=== PATIENT | female | born 1990 | race Caucasian/White ===

== ENCOUNTER 2019-07-27 12:53 | Emergency (ER) | payer MEDICAID, SELFPAY ==
[2019-07-27 12:55] VITALS: BP 123/68; PULSE 83; PULSE 84; RESP 17; TEMP 36.6; O2SAT 100; O2SAT 99; BMI 30.4
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
--- NOTE | 2019-07-27 13:14 | CT_ITS ---
STUDY: CT CERVICAL SPINE WITHOUT CONTRAST REASON FOR EXAM: Female, 28 years old. RADIATION DOSAGE (If Supplied By Facility): CTDIvol = ( 24.34 ) mGy, DLP = ( 445.22 ) mGycm TECHNIQUE: High resolution transaxial imaging was performed without contrast material. Sagittal and coronal images were reconstructed. Individualized dose optimization techniques were used for this CT. COMPARISON: CT scan of the head obtained in conjunction with this study. FINDINGS: Normal craniovertebral junction. Normal anterior atlantoaxial articulation. Normal odontoid process. Normal cervical lordosis. Normal vertebral bodies and posterior osseous elements. C2-3: Normal endplates. Normal disc height and morphology. Normal central canal and intervertebral neuroforamina. C3-4: Normal endplates. Normal disc height and morphology. Normal central canal and intervertebral neuroforamina. C4-5: Normal endplates. Normal disc height and morphology. Normal central canal and intervertebral neuroforamina. C5-6: Normal endplates. Normal disc height and morphology. Normal central canal and intervertebral neuroforamina. C6-7: Normal endplates. Normal disc height and morphology. Normal central canal and intervertebral neuroforamina. C7-T1: Normal endplates. Normal disc height and morphology. Normal central canal and intervertebral neuroforamina. Normal visualized soft tissue structures. CT/Spine Cervical without Contras IMPRESSION: Normal unenhanced CT examination of the cervical spine. Electronically Signed: Gurvinder Artemio, at 14:49 EDT Tel , Service support ,
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
[2019-07-27 14:06] VITALS: BP 117/71; PULSE 91; RESP 20
[2019-07-27 14:07] LABS: Absolute Lymphocyte Count 3.27 X10^3/uL (0.83-4.51); Absolute Neutrophil Count 11.6 X10^3/uL (2.0-7.7); Basophil# 0.04 X10^3/uL; Basophil% 0.3 % (0-1); Eosinophil# 0.08 X10^3/uL; Eosinophils% 0.5 % (0-5); Hematocrit 41.9 % (37-47); Hemoglobin 13.9 g/dL (12.0-15.0); International Normalized Ratio 1.1; Lymphocyte # 3.27 X10^3/ul (4.0); Lymphocyte % 20.6 % (19-41); Mean Corp Hgb Conc 33.2 g/dL (32-36); Mean Corpuscular Hgb 29.3 pg (27.0-32.0); Mean Corpuscular Volume 88.2 fL (81-99); Mean Platelet Vol. 8.8 fl (6.2-12.0); Monocyte# 0.75 X10^3/uL; Monocyte% 4.7 % (0-10); NRBC Flagged by Analyzer 0 % (0-5); Neutrophil # 11.62 X10^3/uL (2.7-7.7); Neutrophil % 73.3 % (47-70); Platelet Count 305 K/mm3 (150-450); Prothrombin Time (Protime)PT. 13.8 SECONDS (11.7-14.9); RBC Distribution Width CV 12.4 % (11.6-14.6); RBC Distribution Width SD 40.2 fl (35.1-43.9); Red Blood Count 4.75 M/mm3 (4.2-5.4); White Blood Count 15.9 K/mm3 (4.4-11.0)
[2019-07-27 14:08] LABS: Partial Thromboplast Time 26.8 Seconds (24.1-36.2)
[2019-07-27 14:11] LABS: Internal QC Validated? YES +Cl - CLEAR BKGD; Pregnancy, Serum, hCG Quali. NEGATIVE Negative
[2019-07-27 14:24] LABS: Anion Gap 5 (5-15); BUN 18 mg/dL (7-18); BUN/Creat Ratio 24.3 RATIO (10-20); Calcium,Total 8.7 mg/dL (8.5-10.1); Chloride 107 mmol/L (98-107); Creatinine, Serum 0.74 mg/dL (0.55-1.02); EST Glomerular Filtration Rate 100 mL/min (>60); Est Glom Filt Rate - Afr Amer 121 mL/min (>60); Estimated Creatinine Clearance 99.48 ml/min; Glucose 108 mg/dL (74-106); Potassium 3.3 mmol/L (3.5-5.1); Sodium Level 139 mmol/L (136-145)
[2019-07-27] MEDS: Diphth,Pertuss(Acell),Tet Vac 0.5 ML Vial IM (14:41)
[2019-07-27] MEDS: fentaNYL 100 MCG/2 ML Ampul 50 MCG IV (14:41)
[2019-07-27] MEDS: Ondansetron 4 MG/2 ML Vial IV (14:52)
--- NOTE | 2019-07-27 15:02 | ED.RN ---
REPORT GIVEN TO SHEILA OLSON.
[2019-07-27 15:03] VITALS: BP 109/66
[2019-07-27 15:04] VITALS: BP 109/66; PULSE 93; RESP 15; O2SAT 100
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
--- NOTE | 2019-07-27 15:17 | ED.RN ---
[facility] IN ED.
== END 2019-07-27 15:17 | disposition short-term general hospital (02) ==
PROVIDERS: Emergency Provider Emergency Medicine; Family Provider Pediatrics; PCP Pediatrics
DX: S06.369A Traumatic hemorrhage of cerebrum, unspecified, with loss of consciousness of unspecified duration, initial encounter (principal); S41.012A Laceration without foreign body of left shoulder, initial encounter; S50.812A Abrasion of left forearm, initial encounter; M54.5 Low back pain; V89.2XXA Person injured in unspecified motor-vehicle accident, traffic, initial encounter; Y93.9 Activity, unspecified; Y92.9 Unspecified place or not applicable; Y99.9 Unspecified external cause status
CPT/HCPCS: 70450; 71045; 72125; 80048; 84484; 84703; 85025; 85610; 85730; 86850; 86900; 86901; 90715; 96361; 96374; 96375; 99285; J7030; A4216; J2405

== ENCOUNTER 2025-08-06 19:11 | Emergency (ER) | payer MEDICAID, SELFPAY ==
[2025-08-06 19:12] VITALS: BP 108/77; PULSE 99; RESP 18; TEMP 37; O2SAT 99; BMI 34.4
[2025-08-06 19:20] VITALS: BP 108/77; PULSE 99; RESP 18; TEMP 37; O2SAT 100
[2025-08-06 21:10] LABS: Hematocrit 41.9 % (37-47); Hemoglobin 13.9 g/dL (12.0-15.0); Immature Granulocytes Count 0.030 X10^3/uL (0.0-0.0); Mean Corp Hgb Conc 33.2 g/dL (32-36); Mean Corpuscular Volume 87.1 fL (81-99); Mean Platelet Vol. 8.3 fl (6.2-12.0); NRBC Flagged by Analyzer 0 % (0-5); Platelet Count 307 K/mm3 (150-450); RBC Distribution Width CV 12.9 % (11.6-14.6); RBC Distribution Width SD 40.9 fl (35.1-43.9); Red Blood Count 4.81 M/mm3 (4.2-5.4); White Blood Count 12.8 K/mm3 (4.4-11.0)
[2025-08-06 21:14] LABS: Anion Gap 12 (5-15); BUN 12 mg/dL (4-19); BUN/Creat Ratio 20.2 RATIO (10-20); Calcium,Total 9.1 mg/dL (7.6-11.0); Carbon Dioxide 25.9 mmol/L (21.0-32.0); Chloride 101 mmol/L (98-108); Estimated Creatinine Clearance 149.91 ml/min (50-250); Glucose 111 mg/dL (70-99); Potassium 3.9 mmol/L (3.3-5.1)
[2025-08-06 21:20] VITALS: BP 128/80; PULSE 93; RESP 20; TEMP 37.1; O2SAT 99
[2025-08-06] MEDS: Smz/Tmp Ds Tablet 1 TABLET PO (21:36)
[2025-08-06 21:39] VITALS: BP 128/80; PULSE 93; RESP 20; TEMP 37.1; O2SAT 99
== END 2025-08-06 21:39 | disposition home or self-care (01) ==
PROVIDERS: Emergency Provider Surgery; Visit Provider Surgery
DX: L03.115 Cellulitis of right lower limb (principal); W57.XXXA Bitten or stung by nonvenomous insect and other nonvenomous arthropods, initial encounter; S70.361A Insect bite (nonvenomous), right thigh, initial encounter; G43.709 Chronic migraine without aura, not intractable, without status migrainosus; Z79.899 Other long term (current) drug therapy
CPT/HCPCS: 80048; 85025; 87040; 99284; A4216

== ENCOUNTER 2025-08-08 19:36 | Inpatient (IN) | payer MEDICAID, SELFPAY ==
[2025-08-08 19:38] VITALS: BP 138/84; PULSE 90; RESP 15; TEMP 37.1; O2SAT 100; BMI 33.8
--- OUTSIDE RECORDS SUMMARY | 2025-08-08 22:11 | XMS RPT_ITS | CCD ---
Author Organization [facility] Care Team Providers Care Business Services Assistant Name Role Phone Pa Mckeon MD Primary Care Provider Jorge Mckeon MD Primary Care Provider Pa Mckeon MD Primary Care Provider Jorge Mckeon MD Primary Care Provider [phone] Pa Mckeon MD Primary Care Provider Jorge Mckeon MD Primary Care Provider PROVIDER, UNKNOWN Referring Unavailable PA MCKEON Primary Care Unavailable Pa Mckeon MD Primary Care Provider Pa Mckeon Primary Care Provider Pa Mckeon Primary Care Provider Bernarda TRINH.FABBY, Corrie Unavailable [place] BUILDING INSPECTOR.Ketan SEQUEIRA Unavailable [phone] [place] BUILDING INSPECTOR.Edelmira SEQUEIRA N Unavailable [place] BUILDING INSPECTOR.Francis SEQUEIRAie Unavailable [place] BUILDING INSPECTOR.FABBY Eedlmira N Unavailable Bernarda BUILDING INSPECTOR.FABBY, Corrie Unavailable [place] BUILDING INSPECTOR.Ketan SEQUEIRA Unavailable [phone] AMINA HORN Referring Unavailable PA MCKEON Primary Care Unavailable YENY VELASCO Referring Unavailable YENY VELASCO Attending Unavailable MCKEONJORGE Primary Care Unavailable YENY VELASCO Attending Unavailable MCKEON JORGE Primary Care Unavailable YENY VELASCO Attending Unavailable MCKEON, JORGE Primary Care Unavailable VELASCOYENY ASTORGA Attending Unavailable MCKEON, JORGE Primary Care Unavailable YENY VELASCO Attending Unavailable MCKEON, JORGE Primary Care Unavailable RYANN NULL Attending Unavailable AMINA HORN Referring Unavailable MCKEON, PA A Primary Care Unavailable MCKEON, PA A Primary Care Unavailable MÓNICA VASQUES Referring Unavailable MCKEON, PA A Primary Care Unavailable YASHIRA PIERCE Attending Unavailable MCKEON, PA A Referring Unavailable MCKEON, PA A Primary Care Unavailable AMINA HORN Attending Unavailable GALLITO LEMUS Referring Unavailable MCKEON, PA A Primary Care Unavailable OSCAR COLIN Attending Unavailabl e MCKEON, PA A Primary Care Unavailable GALLITO LEMUS Attending Unavailable MCKEON, PA A Primary Care Unavailable AMINA HORN Referring Unavailable MCKEON, PA A Primary Care Unavailable MCKEON, PA A Primary Care Unavailable CAIO STONE Attending Unavailable YASHIRA PIERCE Attending Unavailable MCKEON, PA A Referring Unavailable MCKEON, PA A Primary Care Unavailable YASHIRA PIERCE Referring Unavailable MCKEON, PA A Primary Care Unavailable GALLITO LEMUS Attending Unavailable MCKEON, PA A Primary Care Unavailable Juan M Zurita Attending Unavailabl e Mckeon, Pa Primary Care Unavailable Allergies Allergy Classification Reported Allergen(s) Allergy Type Date of Onset Reaction(s) Facility (20 sources) Other Propensity to adverse reactions 09-05-2022 [facility] (6 sources) Seasonal allergy Propensity to adverse reactions 07-27-2019 [facility] Medications Current Medications Medication Drug Class(es) Dates Sig (Normalized) Sig (Original) acetaminophen 325 mg oral tablet (20 sources) take 2 tablets by mouth every six hours as needed acetaminophen (Tylenol) 325 MG tablet Take 650 mg by mouth every 6 hours as needed. Active b complex vitamins capsule (20 sources) take 1 capsule by mouth once daily b complex vitamins capsule Take 1 capsule by mouth daily. Active take 1 capsule by mouth once gabi ly b complex vitamins capsule Take 1 capsule by mouth daily. 0 Active butterbur root extract 75 mg cap (20 sources) butterbur root e xtract 75 mg cap Take by mouth. Active butterbur root e xtract 75 mg cap Take by mouth. 0 Active Comment on above: Take by mouth. cholecalciferol 1.25 mg oral capsule (20 sources) Vitamin D Start: 024 End: 025 cholecalciferol 1.25 MG (68884 UT) capsule 12/04/2023 Active Comment on above: Take 1 capsule by [facility] one time a week. 1 ml erenumab-aooe 140 mg/ml auto-injector (20 sources) Start: 024 inject 140 mg by subcutaneous injection every month AIMOVIG AUTOINJECTOR 140 mg/mL auto-injector Inject 140 mg subcutaneously once every month. migraines 01/21/2024 Active Start: 12-11-2022 End: 12-13-2025 erenumab (Aimovig) 140 MG/ML injection Indications: Chronic migraine without aura with status migrainosus, not intractable INJECT 140 MG INTO THE SKIN EVERY 30 DAYS 1 mL 11 06/01/2025 8:56 AM EDT 12/13/2024 12/13/2025 Active Start: 08-06-2022 End: 12-11-2023 erenumab (Aimovig) 140 MG/ML injection Indications: Chronic migraine without aura with status migrainosus, not intractable INJECT 140 MG INTO THE SKIN EVERY 30 DAYS 1 mL 11 12/11/2022 12/11/2023 Active Start: 11-06-2020 End: 02-10-2024 inject 140 mg by subcutaneous injection every month erenumab-aooe (AIMOVIG AUTOINJECTOR) 70 mg/mL auto-injector Inject 140 mg subcutaneously once every month. 11/06/2020 02/10/2024 Discontinued Comment on above: Inject 140 mg subcut aneously once every month. ergocalciferol, vitamin D2, (VITAMIN D2 ORAL) (11 sources) take 2000 [IU] by mouth once daily ergocalciferol, vitamin D2, (VITAMIN D2 ORAL) Take 2,000 Units by mouth once daily. Active escitalopram 20 mg oral tablet (20 sources) Serotonin Reuptake Inhibitor Start: 02-25-20 End: 01-13-20 take 1 tablet by mouth once daily escitalopram oxalate (LEXAPRO) 20 mg tablet Indications: Adjustment disorder with mixed anxiety and depressed mood Take 1 tablet by mouth once daily. 90 tablet 3 01/12/2025 01/12/2026 Active Start: 09-22-2020 End: 03-12-2021 take 1 tablet by mouth once daily escitalopram oxalate (LEXAPRO) 20 mg tablet Take 1 tablet by mouth once daily. 30 tablet 5 09/22/2020 03/12/2021 Discontinued Comment on above: Take 1 tablet by kirk th once daily. Take 1 tablet by kirk th once daily ibuprofen 200 mg oral tablet (20 sources) Nonsteroidal Anti-inflammatory Drug Start: 01-05-2013 ibuprofen 200 MG tablet Take by mouth. 01/05/2013 Active 2 ml ketorolac tromethamine 30 mg/ml cartridge (19 sources) Nonsteroidal Anti-inflammatory Drug, Cyclooxygenase Inhibitor Start: 12-18-2023 End: 12-17-2024 ketorolac (Toradol) 60 MG/2ML solution Inject 2 mL (60 mg) into the shoulder, thigh, or buttocks Once as needed for severe pain (7-10) (Migraine pain). Do not exceed 5 doses in one week or 10 doses in one month. 10 mL 2 12/18/2023 12/17/2024 Active Start: 12-18-2023 End: 12-17-2024 keTORolac Tromethamine (PEDRO DOL) 60 mg/2 mL crtg Inject 60 mg intramuscularly. 12/18/2023 09/05/2024 Discontinued L.acid/B.bifidum/B.animal/FO S (PROBIOTIC COMPLEX ORAL) (20 sources) L.acid/B.bifidum /B.animal/FOS (PROBIOTIC COMPLEX ORAL) Take by mouth. Taking one daily. Active L.acid/B.bifidum /B.animal/FOS (PROBIOTIC COMPLEX ORAL) Take by mouth. Taking one daily. 0 Active Comment on above: Take by mouth. Regulo ndiaye one daily. Lactobacillus acidophilus (20 sources) Lactobacillus (P ROBIOTIC ACIDOPHILUS PO) Take by mouth. Active Lactobacillus (P ROBIOTIC ACIDOPHILUS PO) Take by mouth. 0 Active loratadine 10 mg oral tablet (20 sources) Start: 05-21-2011 take 1 tablet by mouth in the morning loratadine (Claritin) 10 MG tablet Take 10 mg by mouth in the morning. 05/21/2011 Active Comment on above: Take 10 mg by mouth once daily. magnesium oxide 400 mg oral tablet (20 sources) take 1 tablet by mouth once daily magnesium oxide (MAG-OX) 400 mg (241.3 mg magnesium) tablet Take 400 mg by mouth once daily. Active Comment on above: Take 400 mg by mouth once daily. modafinil 100 mg oral tablet (20 sources) Sympathomimeti c-like Agent Start: 02-10-2024 End: 12-13-2025 take 1 tablet by mouth once daily modafinil (PROVIGIL) 100 mg tablet Indications: Hypersomnia due to medical condition Take 1 tablet by mouth once daily for 180 days. 90 tablet 1 06/16/2025 12/13/2025 Active Multiple Vitamin (Multi-Vitamin) tablet (20 sources) take 1 tablet by mouth in the morning Multiple Vitamin (Multi-Vitamin) tablet Take 1 tablet by mouth in the morning. Active take 1 tablet by mouth in the mo rning Multiple Vitamin (Multi-Vitamin) tablet Take 1 tablet by mouth in the morning. 0 Active multivitamin tablet (20 sources) take 1 tablet by kirk th once daily multivitamin tablet Take 1 tablet by mouth once daily. Active take 1 tablet by mouth once jalil y multivitamin tablet Take 1 tablet by mouth once daily. 0 Active Comment on above: Take 1 tablet by kirk th once daily. naproxen 500 mg oral tablet (20 sources) Nonsteroidal Anti-inflammatory Drug Start: 5 take 1 tablet by mouth in the morning naproxen (Naprosyn) 500 MG tablet Take 500 mg by mouth in the morning and 500 mg in the evening. 03/07/2015 Active omeprazole 20 mg delayed release oral capsule (20 sources) Proton Pump Inhibitor Start: take 1 capsule by mouth once daily omeprazole (PRILOSEC) 20 mg capsule Take 1 capsule by mouth once daily. 90 capsule 3 05/12/2025 Active Start: 08-18-2022 End: 05-10-2025 take 1 capsule by mouth in the morning omeprazole (PriLOSEC) [address] capsule Take 20 mg by mouth in the morning. 08/18/2022 Active Start: 08-05-2021 take 1 capsule by mo ut once daily omeprazole (PRILOSEC) 20 mg capsule Take 1 capsule by mouth once daily. 90 capsule 3 08/05/2021 Active Start: 08-08-2020 End: 08-03-2021 take 1 capsule by mouth once daily omeprazole (PRILOSEC) 20 mg capsule Take 1 capsule by mouth once daily. 90 capsule 3 08/08/2020 08/03/2021 Discontinued Comment on above: Take 1 capsule by mo ut once daily. Take 1 capsule by mo ut once daily SUMAtriptan 100 mg oral tablet (20 sources) Serotonin-1b and Serotonin-1d Receptor Agonist Start: 06-10-2022 End: 03-24-2025 SUMAtriptan (IMITREX) 100 mg tablet 11/03/2023 Active sumatriptan succ/naproxen sod (SUMATRIPTAN-NAPROXEN ORAL) (20 sources) sumatriptan succ/naproxen sod (SUMATRIPTAN-NAPROXEN ORAL) Take by mouth. Active sumatriptan succ /naproxen sod (SUMATRIPTAN-NAPROXEN ORAL) Take by mouth. 0 Active Comment on above: Take by mouth. Syringe 25G X 1" 3 ML misc (20 sources) Start: 12-18-2023 Syringe 25G X 1" 3 ML misc 1 Syringe Once as needed (Migraine) for up to 1 dose. 20 each 3 12/18/2023 Active traZODone hydrochloride 50 mg oral tablet (20 sources) Serotonin Reuptake Inhibitor Start: 04-11-2022 End: 02-10-2024 traZODone (Desyrel) 50 MG tablet Take 50 mg by mouth. 04/11/2022 Active Start: 09-10-2021 take 0.5-2 tablets b y mouth once daily at bedtime traZODone (DESYREL) 50 mg tablet Take 0.5-2 tablets by mouth daily at bedtime. 45 MINUTES BEFORE BED 30 tablet 6 09/10/2021 Active Comment on above: Take 0.5-2 tablets b y mouth daily at bedtime. 45 MINUTES BEFORE BED Vitamin B Complex (20 sources) vitamin B comple x (SUPER B COMPLEX ORAL) Take by mouth. Active vitamin B comple x (SUPER B COMPLEX ORAL) Take by mouth. 0 Active Comment on above: Take by mouth. Completed/Discontinued Medications Medication Drug Class(es) Dates Sig (Normalized) Sig (Original) amitriptyline hydrochloride 25 mg oral tablet (1 source) Tricyclic Antidepressant End: take 1 tablet by mouth once daily at bedtime amitriptyline (ELAVIL) 25 mg tablet Take 25 mg by mouth daily at bedtime. 12/31/2020 Discontinued benzonatate 100 mg oral capsule (8 sources) Non-narcotic Antitussive Start: End: take 1 capsule by mouth every eight hours as needed benzonatate (TESSALON PERLE) 100 mg capsule Take 1 capsule by mouth three times a day as needed for cough. 21 capsule 12/13/2024 06/15/2025 Discontinued onabotulinumtoxina 200 unt injection (20 sources) Acetylcholine Release Inhibitor Start: End: onabotulinumtoxinA (Botox) injection 200 Units Start: 06-21-2025 End: 06-21-2025 inject 200 [IU] by intramuscular injection once 200 Units, IntraMUSCular, Once, On Thu06/21/25 at 1015, For 1 dose Start: 03-24-2025 End: 03-24-2025 onabotulinumtoxinA (Botox) i njection 200 Units Start: 03-24-2025 End: 03-24-2025 inject 200 [IU] by intramuscular injection once 200 Units, IntraMUSCular, Once, On Thu03/24/25 at 1045, For 1 dose Start: 12-23-2024 End: 12-23-2024 onabotulinumtoxinA (Botox) i njection 200 Units Start: 12-23-2024 End: 12-23-2024 inject 200 [IU] by intramuscular injection once 200 Units, IntraMUSCular, Once, On Thu12/23/24 at 1030, For 1 dose Start: 09-23-2024 End: 09-23-2024 onabotulinumtoxinA (Botox) i njection 200 Units Start: 09-23-2024 End: 09-23-2024 inject 200 [IU] by intramuscular injection once 200 Units, IntraMUSCular, Once, On Thu09/23/24 at 1045, For 1 dose Start: 08-24-2024 End: 09-01-2025 inject 200 [IU] by intramuscular injection in the evening onabotulinumtoxinA (Botox) 200 units injection Provider to inject 200 units intramuscularly every 12 weeks for migraine prevention. 1 each 3 06/09/2025 3:36 PM EDT 08/24/2024 09/01/2025 Active Start: 06-24-2024 End: 06-24-2024 onabotulinumtoxinA (Botox) i njection 200 Units Start: 06-24-2024 End: 06-24-2024 inject 200 [IU] by intramuscular injection once 200 Units, IntraMUSCular, Once, On Thu06/24/24 at 1130, For 1 dose Start: 03-25-2024 End: 03-25-2024 onabotulinumtoxinA (Botox) i njection 200 Units Start: 12-18-2023 End: 12-18-2023 onabotulinumtoxinA (Botox) i njection 200 Units Start: 12-16-2023 BOTOX 200 unit injection Every 3 month for migraines 12/16/2023 Active Start: 09-18-2023 End: 09-18-2023 onabotulinumtoxinA (Botox) i njection 200 Units Start: 09-07-2023 End: 09-07-2024 onabotulinumtoxinA (Botox) 2 00 units injection Inject 200 units into the muscle every 84 days 1 each 3 06/15/2024 4:01 PM EDT 09/07/2023 08/24/2024 Discontinued (Reorder) Start: 06-19-2023 End: 06-19-2023 onabotulinumtoxinA (Botox) i njection 200 Units Start: 06-19-2023 End: 06-19-2023 onabotulinumtoxinA (Botox) i njection 200 Units Start: 06-19-2023 End: 06-19-2023 onabotulinumtoxinA (Botox) i njection 200 Units Start: 06-19-2023 End: 06-19-2023 onabotulinumtoxinA (Botox) i njection 200 Units Start: 06-19-2023 End: 06-19-2023 onabotulinumtoxinA (Botox) i njection 200 Units Start: 06-19-2023 End: 06-19-2023 onabotulinumtoxinA (Botox) i njection 200 Units Start: 03-20-2023 End: 03-20-2023 onabotulinumtoxinA (Botox) i njection 200 Units Start: 03-20-2023 End: 03-20-2023 onabotulinumtoxinA (Botox) i njection 200 Units Start: 03-20-2023 End: 03-20-2023 onabotulinumtoxinA (Botox) i njection 200 Units Start: 03-20-2023 End: 03-20-2023 onabotulinumtoxinA (Botox) i njection 200 Units Start: 12-19-2022 End: 12-19-2022 onabotulinumtoxinA (Botox) i njection 200 Units Start: 12-19-2022 End: 12-19-2022 onabotulinumtoxinA (Botox) i njection 200 Units Start: 09-09-2022 End: 09-06-2024 BOTOX 200 unit injection Active cholecalciferol, vitamin D3, (VITAMIN D3 ORAL) (9 sources) cholecalciferol, vitamin D3, (VITAMIN D3 ORAL) Take by mouth. Taking one daily. 0 Active Comment on above: Take by mouth. Takin g one daily. ferrous sulfate 325 mg oral tablet (7 sources) Start: 12-04-19 End: 03-03-20 take 1 tablet by mouth every other day ferrous sulfate 325 mg (65 mg iron) tablet Indications: Iron deficiency Take 1 tablet by mouth every other day. 45 tablet 0 12/04/2023 03/03/2024 Start: 12-04-2023 End: 03-03-2024 take 1 tablet by mouth every other day ferrous sulfate 325 (65 Fe) MG tablet Take 325 mg by mouth every other day. 0 12/04/2023 03/03/2024 Active End: 09-05-2024 ferrous sulfate (IRON ORAL) Take by mouth once daily. 09/05/2024 Discontinued Comment on above: Take 1 tablet by kirk every other day. lasmiditan 100 mg oral tablet (17 sources) Start: 2021 End: 2022 take 1 tablet by mouth every twenty-four hours as needed Lasmiditan Succinate 100 MG tablet TAKE 100 MG BY MOUTH DAILY NEEDED (MIGRAINE) MAXIMUM ONE TABLET PER 24 HOURS. 4 tablet 3 06/20/2022 03/23/2023 Discontinued medium chain triglycerides (MCT OIL ORAL) (1 source) End: 2021 medium chain triglycerides (MCT OIL ORAL) Take by mouth. 12/12/2021 Discontinued methylPREDNISolone 4 mg oral tablet (3 sources) Corticosteroid Start: 2023 End: 2023 methylPREDNISolone (Medrol Dospak) 4 MG tablets Indications: Chronic migraine without aura with status migrainosus, not intractable Take as directed 1 each 0 10/23/2023 12/20/2023 Discontinued (Therapy completed) Misc Natural Products (Petadolex 75) 75 MG capsule (20 sources) Start: 2020 End: 2023 take 1 capsule by mouth in the morning Misc Natural Products (Petadolex 75) 75 MG capsule Take 75 mg by mouth in the morning and 75 mg before bedtime. 0 06/04/2021 02/19/2024 Discontinued (Therapy completed) Start: 06-04-2021 take 1 capsule by mo uth in the morning Misc Natural Products (Petadolex 75) 75 MG capsule Take 75 mg by mouth in the morning and 75 mg before bedtime. 0 06/04/2021 Active rizatriptan 10 mg disintegrating oral tablet (13 sources) Serotonin-1b and Serotonin-1d Receptor Agonist Start: 10-23-2023 End: 09-23-2024 rizatriptan [employer] TALEO MANAGER (Maxalt-PEOPLESO[employer] TALEO MANAGER) 10 MG disintegrating tablet Indications: Chronic migraine without aura with status migrainosus, not intractable Take one dissolving tablet under tongue at onset of headache. If headache continues may repeat dose 2 hours later with max dose of 2 tablets in 24 hours. 12 tablet 2 10/23/2023 09/23/2024 Discontinued (Therapy completed) Problems Active Problems Problem Classification Problem Date Documented Date Episodic/Chronic Acute and chronic tonsillitis (3 sources) Enlarged tonsil; Translations: [Hypertrophy of tonsils] Onset: 09-16-2024 04-28-2024 Chronic Adjustment disorders (20 sources) Adjustment disorder with mixed anxiety and depressed mood; Translations: [Adjustment disorder with mixed anxiety and depressed mood] Onset: 09-22-2020 09-22-2020 Chronic Anxiety disorders (20 sources) Acute post-trauma stress state; Translations: [Post-traumatic stress disorder, acute] Onset: 06-26-2020 08-03-2022 Chronic Delirium, dementia, and amnestic and other cognitive disorders (20 sources) Postconcussion syndrome; Translations: [Postconcussional syndrome] Onset: 10-06-2019 09-22-2020 Chronic Esophageal disorders (1 source) Gastroesophageal reflux disease without esophagitis; Translations: [Gastro-esophageal reflux disease without esophagitis] 04-27-2023 Chronic Headache; including migraine (20 sources) Migraine without aura, not refractory ; Translations: [Migraine without aura, not intractable, without status migrainosus] Onset: 02-19-2017 02-19-2017 Chronic Immunizations and screening for infectious disease (3 sources) Patient encounter status; Translations: [Encounter for screening for human papillomavirus (HPV)] Episodic Malaise and fatigue (2 sources) Fatigue; Translations: [Chronic fatigue, unspecified] Onset: 12-05-2023 12-01-2023 Chronic Malaise and fatigue (2 sources) Fatigue; Translations: [Other fatigue] Episodic Menstrual disorders (20 sources) Dysmenorrhea; Translations: [Dysmenorrhea, unspecified] Onset: 02-19-2017 02-19-2017 Chronic Miscellaneous mental health disorders (1 source) Primary hypersomnia; 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] 04-27-2024 Chronic Nutritional deficiencies (1 source) Vitamin D deficiency; Translations: [Vitamin D deficiency, unspecified] 03-03-2024 Chronic Other aftercare (2 sources) Long-term current use of stimulant; Translations: [Other [place] [facility] (current[facility] drug therapy] 12-30-2024 Episodic Other aftercare (2 sources) Other examining officer (current) drug therapy; Translations: [Long-term current use of stimulant] Onset: 06-15-2025 Episodic Other female genital disorders (1 source) History of abnormal cervical Papanicolaou smear ; Translations: [Personal history of other diseases of the female genital tract] Episodic Other lower respiratory disease (1 source) Snoring; Translations: [Snoring] 12-01-2023 Episodic Other lower respiratory disease (1 source) Snoring; Translations: [Snoring] Onset: 12-05-2023 Episodic Other lower respiratory disease (2 sources) Cough; Translations: [Acute cough] 12-13-2024 Episodic Other nutritional; endocrine; and metabolic disorders (1 source) Obesity; Translations: [Obesity, unspecified] 12-01-2023 Chronic Other nutritional; endocrine; and metabolic disorders (1 source) Obesity, unspecified; Translations: [Class 1 obesity with body mass index (BMI) of 31.0 to 31.9 in adult, unspecified obesity type, unspecified whether serious comorbidity present] Onset: 12-05-2023 Chronic Other nutritional; endocrine; and metabolic disorders (1 source) Body mass index (BMI) 31.0-31.9, adult; Translations: [Class 1 obesity with body mass index (BMI) of 31.0 to 31.9 in adult, unspecified obesity type, unspecified whether serious comorbidity present] Onset: 12-05-2023 Chronic Other screening for suspected conditions (not mental disorders or infectious disease) (1 source) Cancer cervix screening status; Translations: [Encounter for screening for malignant neoplasm of cervix] Episodic Other skin disorders (1 source) Follicular disorder, unspecified; Translations: [Folliculitis] Onset: 08-03-2025 Episodic Other upper respiratory infections (1 source) Acute upper respiratory infection; Translations: [Acute upper respiratory infection, unspecified] 12-13-2024 Episodic Residual codes; unclassified (1 source) Hypersomnia; Translations: [Hypersomnia, unspecified] 04-27-2023 Chronic Residual codes; unclassified (4 sources) Upper airway resistance syndrome; Translations: [Other sleep disorders] 02-10-2024 Chronic Residual codes; unclassified (8 sources) Hypersomnia disorder related to a known organic factor; Translations: [Hypersomnia due to medical condition] 02-10-2024 Chronic Residual codes; unclassified (1 source) Obstructive sleep apnea syndrome; Translations: [Obstructive sleep apnea (adult) (pediatric)] 09-16-2024 Chronic Residual codes; unclassified (2 sources) Other sleep disorders; Translations: [UARS (upper airway resistance syndrome)] Onset: 09-16-2024 Chronic Residual codes; unclassified (2 sources) Hypersomnia due to medical condition; Translations: [Hypersomnia due to medical condition] Onset: 06-15-2025 Chronic Residual codes; unclassified (1 source) Flushing; Translations: [Flushing] 09-05-2024 Episodic Unclassified (1 source) Acute cough; Translations: [Acute cough] Onset: 02-25-2025 Viral infection (20 sources) Genital herpes simplex; Translations: [Herpesviral infection of urogenital system, unspecified] Onset: 04-26-2015 04-26-2015 Chronic Past or Other Problems Problem Classification Problem Date Documented Date Episodic/Chronic Cancer of cervix (20 sources) Low grade squamous intraepithelial lesion on cervical Papanicolaou smear; Translations: [Low grade squamous intraepithelial lesion on cytologic smear of cervix (LGSIL)] Onset: 09-19-2020 09-19-2020 Episodic Intracranial injury (20 sources) Contusion of brain; Translations: [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, initial encounter] Onset: 07-28-2019 08-03-2022 Episodic Residual codes; unclassified (1 source) Flushing; Translations: [Hot flashes] Onset: 09-05-2024 Episodic Spondylosis; intervertebral disc disorders; other back problems (20 sources) Neck pain; Translations: [Cervicalgia] Onset: 12-11-2022 Episodic Unclassified (1 source) Long-term current use of stimulant 12-30-2024 Results Test Name Value Interpretation Reference Range Facility Basic Metabolic Profile (BMP )on 08-06-2025 BUN/CRE 20.2 RATIO High 08-07 [facility] Comment on above: Performed By: #### L 100.0100, L500.2500 #### [facility] [address] [place], [address] Calcium [Mass/Vol] 9.1 mg/dL Normal 7.6-11.0 [facility] Comment on above: Performed By: #### L 100.0100, L500.2500 #### [facility] [address] [place], [address] Chloride [Moles/Vol] 101 mmol/L Normal 98-108 [facility] Comment on above: Performed By: #### L 100.0100, L500.2500 #### [facility] [address] [place], [address] CO2 [Moles/Vol] 25.9 mmol/L Normal 21.0-32.0 [facility] Comment on above: Performed By: #### L 100.0100, L500.2500 #### [facility] [address] [place], [address] Creatinine [Mass/Vol] 0.61 mg/dL Low 0.70-1.20 [facility] Comment on above: Performed By: #### L 100.0100, L500.2500 #### [facility] [address] [place], [address] ECRCL 149.91 ml/min Normal 50-250 [facility] Comment on above: Performed By: #### L 100.0100, L500.2500 #### [facility] [address] [place], [address] GAP 12 Normal 5-15 [facility] Comment on above: Performed By: #### L 100.0100, L500.2500 #### [facility] [address] [place], [address] GFR/1.73 sq M.predicted among non-blacks MDRD (S/P/Bld) [Vol rate/Area] 122 mL/min/{1.73_m2} Normal >60 [facility] Comment on above: Result Comment: mL/m in/1.73m2 CKD-EPI Creatinine Equation (2020) Performed By: #### L 100.0100, L500.2500 #### [facility] [address] [place], [address] Glucose [Mass/Vol] 111 mg/dL High 70-99 [facility] Comment on above: Performed By: #### L 100.0100, L500.2500 #### [facility] [address] [place], [address] Potassium [Moles/Vol] 3.9 mmol/L Normal 3.3-5.1 [facility] Comment on above: Performed By: #### L 100.0100, L500.2500 #### [facility] [address] [place], [address] Sodium [Moles/Vol] 139 mmol/L Normal 133-145 [facility] Comment on above: Performed By: #### L 100.0100, L500.2500 #### [facility] [address] [place], [address] Urea nitrogen [Mass/Vol] 12 mg/dL Normal 4-19 [facility] Comment on above: Performed By: #### L 100.0100, L500.2500 #### [facility] [address] [place], [address] CBC W/Diff, Automatedon 10 Absolute Lymph 3.48 X10 3/uL Normal 0.83-4.51 [facility] Comment on above: Performed By: #### L 100.0100, L500.2500 #### [facility] [address], [address] Absolute Neut 8.6 X10 3/uL High 2.0-7.7 [facility] Comment on above: Performed By: #### L 100.0100, L500.2500 #### [facility] [address] [place], [address] Basophils/100 WBC (Bld) 0.2 % Normal 0-1 [facility] Comment on above: Performed By: #### L 100.0100, L500.2500 #### [facility] [address] [place], [address] Eosinophils/100 WBC (Bld) 0.8 % Normal 0-5 [facility] Comment on above: Performed By: #### L 100.0100, L500.2500 #### [facility] [address] [place], [address] Erythrocyte distribution width (RBC) [Ratio] 12.9 % Normal 11.6-14.6 [facility] Comment on above: Performed By: #### L 100.0100, L500.2500 #### [facility] [address] [place], [address] Hematocrit (Bld) [Volume fraction] 41.9 % Normal 37-47 [facility] Comment on above: Performed By: #### L 100.0100, L500.2500 #### [facility] [address] [place], [address] Hemoglobin (Bld) [Mass/Vol] 13.9 g/dL Normal 12.0-15.0 [facility] Comment on above: Performed By: #### L 100.0100, L500.2500 #### [facility] [address] [place], [address] IG% 0.200 Normal 0.0-0.9 [facility] Comment on above: Result Comment: IG% - Immature Granulocytes (promyelocytes, myelocytes and metamyelocytes) > 1% indicates that a LEFT SHIFT is Present. Performed By: #### L 100.0100, L500.2500 #### [facility] [address] [place], [address] Lymphocytes/100 WBC (Bld) 27.2 % Normal 19-41 [facility] Comment on above: Performed By: #### L 100.0100, L500.2500 #### [facility] [address] [place], [address] MCH (RBC) [Entitic mass] 28.9 pg Normal 27.0-32.0 [facility] Comment on above: Performed By: #### L 100.0100, L500.2500 #### [facility] [address] [place], [address] MCHC (RBC) [Mass/Vol] 33.2 g/dL Normal 32-36 [facility] Comment on above: Performed By: #### L 100.0100, L500.2500 #### [facility] [address] [place], [address] MCV (RBC) [Entitic vol] 87.1 fL Normal 81-99 [facility] Comment on above: Performed By: #### L 100.0100, L500.2500 #### [facility] [address] [place], [address] Monocytes/100 WBC (Bld) 4.3 % Normal 0-10 [facility] Comment on above: Performed By: #### L 100.0100, L500.2500 #### [facility] [address] [place], [address] Neutrophils/100 WBC (Bld) 67.3 % Normal 47-70 [facility] Comment on above: Performed By: #### L 100.0100, L500.2500 #### [facility] [address] [place], [address] Nucleated RBC (Bld) [#/Vol] 0 10*3/uL Normal 0-5 [facility] Comment on above: Performed By: #### L 100.0100, L500.2500 #### [facility] [address] [place], [address] Platelet mean volume (Bld) [Entitic vol] 8.3 fL Normal 6.2-12.0 [facility] Comment on above: Performed By: #### L 100.0100, L500.2500 #### [facility] [address] [place], [address] Platelets (Bld) [#/Vol] 307 10*3/uL Normal 150-450 [facility] Comment on above: Performed By: #### L 100.0100, L500.2500 #### [facility] [address] [place], [address] RBC (Bld) [#/Vol] 4.81 10*6/uL Normal 4.2-5.4 [facility] Comment on above: Performed By: #### L 100.0100, L500.2500 #### [facility] [address] [place], [address] RDW SD 40.9 fl Normal 35.1-43.9 [facility] Comment on above: Performed By: #### L 100.0100, L500.2500 #### [facility] [address] [place], [address] WBC (Bld) [#/Vol] 12.8 10*3/uL High 4.4-11.0 [facility] Comment on above: Performed By: #### L 100.0100, L500.2500 #### [facility] [address] [place], [address] Comprehensive Metabolic Prof ilon 08-06-2025 ALB Normal 3.5-5.0 [facility] Comment on above: Order Comment: Blood cultures x2, from two different sites Result Comment: DR Kevin MAIER CANCELLED- PUT IN NEW ORDERS Performed By: #### L 500.4050 #### [facility] [address] [place], [address] ALK PHOS Normal 35-104 [facility] Comment on above: Order Comment: Blood cultures x2, from two different sites Result Comment: DR Kevin MAIER CANCELLED- PUT IN NEW ORDERS Performed By: #### L 500.4050 #### [facility] [address] [place], [address] ALT Normal <=34 [facility] Comment on above: Order Comment: Blood cultures x2, from two different sites Result Comment: DR Kevin MAIER CANCELLED- PUT IN NEW ORDERS Performed By: #### L 500.4050 #### [facility] [address] [place], [address] AST Normal <=31 [facility] Comment on above: Order Comment: Blood cultures x2, from two different sites Result Comment: DR Kevin MAIER CANCELLED- PUT IN NEW ORDERS Performed By: #### L 500.4050 #### [facility] [address] [place], [address] BUN Normal 4-19 [facility] Comment on above: Order Comment: Blood cultures x2, from two different sites Result Comment: DR Kevin MAIER CANCELLED- PUT IN NEW ORDERS Performed By: #### L 500.4050 #### [facility] [address] [place], [address] BUN/CRE Normal 10-20 [facility] Comment on above: Order Comment: Blood cultures x2, from two different sites Result Comment: DR Kevin MAIER CANCELLED- PUT IN NEW ORDERS Performed By: #### L 500.4050 #### [facility] [address] [place], [address] Calcium Normal 7.6-11.0 [facility] Comment on above: Order Comment: Blood cultures x2, from two different sites Result Comment: DR Kevin MAIER CANCELLED- PUT IN NEW ORDERS Performed By: #### L 500.4050 #### [facility] [address] [place], [address] CL Normal 98-108 [facility] Comment on above: Order Comment: Blood cultures x2, from two different sites Result Comment: DR Kevin MAIER CANCELLED- PUT IN NEW ORDERS Performed By: #### L 500.4050 #### [facility] [address] [place], [address] CO2 Normal 21.0-32.0 [facility] Comment on above: Order Comment: Blood cultures x2, from two different sites Result Comment: DR Kevin MAIER CANCELLED- PUT IN NEW ORDERS Performed By: #### L 500.4050 #### [facility] [address] [place], [address] CREAT,SERUM Normal 0.70-1.20 [facility] Comment on above: Order Comment: Blood cultures x2, from two different sites Result Comment: DR Kevin MAIER CANCELLED- PUT IN NEW ORDERS Performed By: #### L 500.4050 #### [facility] [address] [place], [address] eGFR Normal >60 [facility] Comment on above: Order Comment: Blood cultures x2, from two different sites Result Comment: DR Kevin MAIER CANCELLED- PUT IN NEW ORDERS Performed By: #### L 500.4050 #### [facility] [address] [place], [address] GAP Normal 5-15 [facility] Comment on above: Order Comment: Blood cultures x2, from two different sites Result Comment: DR Kevin MAIER CANCELLED- PUT IN NEW ORDERS Performed By: #### L 500.4050 #### [facility] [address] [place], [address] GLU Normal 70-99 [facility] Comment on above: Order Comment: Blood cultures x2, from two different sites Result Comment: DR Kevin MAIER CANCELLED- PUT IN NEW ORDERS Performed By: #### L 500.4050 #### [facility] [address] [place], [address] Potassium Normal 3.3-5.1 [facility] Comment on above: Order Comment: Blood cultures x2, from two different sites Result Comment: DR Kevin MAIER CANCELLED- PUT IN NEW ORDERS Performed By: #### L 500.4050 #### [facility] [address] [place], [address] T BILI Normal 0.00-1.30 [facility] Comment on above: Order Comment: Blood cultures x2, from two different sites Result Comment: DR Kevin MAIER CANCELLED- PUT IN NEW ORDERS Performed By: #### L 500.4050 #### [facility] [address] [place], [address] T PROT Normal 5.9-8.4 [facility] Comment on above: Order Comment: Blood cultures x2, from two different sites Result Comment: DR Kevin MAIER CANCELLED- PUT IN NEW ORDERS Performed By: #### L 500.4050 #### [facility] [address] [place], [address] Comprehensive Metabolic Profil Normal 133-145 [facility] Comment on above: Order Comment: Blood cultures x2, from two different sites Result Comment: DR Kevin MAIER CANCELLED- PUT IN NEW ORDERS Performed By: #### L 500.4050 #### [facility] [address] [place], [address] Emergency Department Summary on 08-06-2025 Emergency Department Summary [facility] Medical Records Department [address] [place] [address] Emergency Department Summary 08/06/25 MR#: [id number] Acct: [id number] Name: PEGGY CHOUDHURY Rep #: [id number] : 1990 34 From: Juan M Zurita DO PCP: Dr. Pa Mckeon MD Status:REG ER Location: ED HPI History of Present Illness Chief Complaint: Wound Narrative Narrative: Chief complaint and HPI: 34-year-old female with past medical history of GERD presents for evaluation of bug bite to the right thigh. Patient states last week she developed a bug bite to the right thigh. States she thinks it may have been secondary to a spider. States the bite sites became erythematous in which she was seen at urgent care. She was placed on mupirocin cream. Patient states the redness has worsened. She denies any fever, chills, nausea, vomiting. Review of systems: See HPI Medications: As listed on the chart Allergies: As listed on the chart PFSH: Per chart Vital signs: As listed on the chart. Reviewed. Physical exam: Gen: A O x3, NAD Head: Normocephalic, atraumatic Eyes: No sclera icterus, conjunctiva clear ENT: Moist mucous membranes CV: RRR, no murmurs Resp: Lungs CTA BL, no w/r/c Musc: Full ROM, no deformity, patient has 2 abrasions located on her right thigh with surrounding erythema and induration, no necrosis or abscess, mildly tender to palpation, compartments soft, neurovascularly intact Skin: Warm, dry Psych: Cooperative, appropriate mood and affect PFS PFS Medical History (Updated 08/06/25 @ 19:47 by Yesika Cardona) GERD (gastroesophageal reflux disease) Chronic migraine Brain bleed Traumatic brain injury Home Medications ???Medication ???Instructions ???Recorded ???Last Taken ???Type butterbur root extract 75 mg 75 mg PO DAILY 08/06/25 Unknown Hi story capsule erenumab-aooe 140 mg/mL mg subcut 08/06/25 Unknown History subcutaneous auto-injector (Aimovig Autoinjector) ergocalciferol (vitamin D2) 50 mcg 50 mcg PO DAILY 08/06/25 Unknown History (2,000 unit) tablet escitalopram oxalate 20 mg tablet 20 mg PO DAILY 08/06/25 Unknown H istory loratadine 10 mg tablet 10 mg PO DAILY 08/06/25 Unknown Hi story (Allerclear) magnesium oxide 400 mg PO DAILY 08/06/25 Unknown H istory modafinil 100 mg tablet 100 mg PO DAILY 08/06/25 Unknown H istory omeprazole 20 mg capsule,delayed 20 mg PO DAILY 08/06/25 Unknown Hi story release sumatriptan succinate 100 mg tablet mg PO 08/06/25 Unknown History vitamin B complex (Balanced B-50 1 tab PO DAILY 08/06/25 Unknown Hi story tablet) Allergy/AdvReac Type Severity Reaction Status Date / Time No Known Allergies Allergy Verified 08/06/25 19:13 Surgical History no surgical history Social History Smoking Status: Never smoker EXAM Physical Exam Const Vital Signs: 08/06/25 19:12 08/06/25 19:20 08/06/25 21:20 Temperature 98.6 F 98.6 F 98.8 F Temperature Source Oral Oral Oral Pulse Rate 99 99 93 Respiratory Rate 18 18 20 H Blood Pressure 108/77 108/77 128/80 H Blood Pressure Mean 87 87 96 Pulse Ox 99 100 99 Oxygen Delivery Method Room Air Room Air Room Air MDM MDM MDM Narrative Medical decision making narrative: 34-year-old female with past medical history of GERD presents for evaluation of bug bite to the right thigh. Patient states last week she developed a bug bite to the right thigh. States she thinks it may have been secondary to a spider. States the bite sites became erythematous in which she was seen at urgent care. She was placed on mupirocin cream. Patient states the redness has worsened. On presentation, patient no acute distress. She is afebrile. Denies any systemic symptoms. See physical exam findings. No abscess for incision and drainage. Differential diagnosis includes but is not limited to cellulitis, local reaction, suspect less likely bacteremia. Patient's erythema was outlined with a skin marker. Will obtain basic labs with blood culture. CBC with mild leukocytosis of 12.8. No anemia. BMP relatively unremarkable. At this point in time, patient stable to discharge home. Will start her on Bactrim and Keflex for cellulitis, first dose given here. Return precautions explained. Follow-up with PCP. She confirmed understanding of the plan. Impression: 1. Insect bite to the right thigh 2. Right thigh cellulitis Lab Data Labs: Laboratory Results - last 24 hr 08/06/25 08/06/25 08/06/25 20:32 20:32 20:32 WBC RBC Hgb Hct MCV MCH MCHC RDW Std Deviation RDW Coeff of Yunior Plt Count MPV Immature Gran % (Auto) Neut % (Auto) Lymph % (Auto) [place] % (Auto) Eos % (Auto) Baso % (Auto) Absolute Neuts (auto) Absolute Lymphs (au (more content not included)... [facility] Office Visit ([facility]) PEGGY CHOUDHURY ([id number]) 1990 F Date Time Provider Department 08/03/25 5:45 PM CAIO STONE [place] During your visit today, we recorded the following information about you: Temperature Pulse Respiration Blood pressure 98.2 degrees 76/minute 16/minute 120/70 Weight Last Period 93.4 kg 08/03/25 Caio Stone MD 08/03/2025 6:01 PM Signed [facility] Gordon Macey is a 34 year old female. Patient presents with: Insect Bite: Right leg 4-5 days Skin Lesion: Location: right thigh Duration: 5-6 days Pruritis/Pain: painful, a little pruritic Change: more red and firm today Drainage/blister/pustu le/ulceration: initial pimples, one had a black center Treatment: none No outdoor exposure. Has indoor cats. New tattoo on the right thigh 1 month ago. Review of Systems Objective BP 120/70 Pulse 76 Temp 36.8 ?C (98.2 ?F) (Tympanic) Resp 16 Wt 93.4 kg (205 lb 14.6 oz) LMP 08/03/2025 SpO2 98% BMI 34.27 kg/m? Physical Exam Constitutional: General: She is not in acute distress. Skin: Comments: 2 principle erythematous lesions on the right lateral mid to upper thigh. The lower lesion is 2 cm of induration with 3mm deflated vesicle. The upper lesion is 1.5cm induration with central punctate dark nirmala. No fluctuance. No drainage with compression. There is a 4mm red based ulceration between the 2 lesions and 4-6 tiny healed smaller similar lesions at the anterior upper thigh (were pimples previously during post-tattoo phase). Neurological: Mental Status: She is alert. {ASSESSMENT/PLAN: 1. Folliculitis - ICD9: 704.8, ICD10: L73.9 Strep or staph pustules in the area of recent tattoo. Start - MUPIROCIN 2 % TOPICAL OINTMENT Discussed contagiousness of lesions. Follow up with worsening or failure to improve. May need assess for IANDD vs oral antibiotic. Caio Stone MD Differential Diagnoses - folliculitis - arthropod bites/stings Additional Tests or Interventions The following medication(s) were considered but not ordered: oral keflex antibiotic. Procedures Allergies As of Date: 08/03/2025 (No Known Allergies) Date Reviewed: 08/03/2025 Reviewed by: May Bailey MA - Fully Assessed Reason for Visit: Insect Bite [929] Cmt: Right leg 4-5 days Primary Visit Diagnosis:Folliculitis [L73.9] Order(s):mupirocin (BACTROBAN) 2 % ointmentApply 1 application to affected area three times a day for 10 days.Disp: 30 gRfl: 0 Prescriptions as of 08/03/2025 - mupirocin (BACTROBAN) 2 % ointment Apply 1 application to affected area three times a day for 10 days. - modafinil (PROVIGIL) 100 mg tablet Take 1 tablet by mouth once daily for 180 days. - omeprazole (PRILOSEC) 20 mg capsule Take 1 capsule by mouth once daily. - escitalopram oxalate (LEXAPRO) 20 mg tablet Take 1 tablet by mouth once daily. - ergocalciferol, vitamin D2, (VITAMIN D2 ORAL) Take 2,000 Units by mouth once daily. - AIMOVIG AUTOINJECTOR 140 mg/mL auto-injector Inject 140 mg subcutaneously once every month. migraines - BD LUER-OMAR SYRINGE 3 mL 25 gauge x 1" USE 1 SYRINGE NEEDED FOR MIGRAINE - SUMAtriptan (IMITREX) 100 mg tablet - BOTOX 200 unit injection Every 3 month for migraines - butterbur root extract 75 mg cap Take by mouth. - L.acid/B.bifidum/B.ani mal/FOS (PROBIOTIC COMPLEX ORAL) Take by mouth. Taking one daily. - vitamin B complex (SUPER B COMPLEX ORAL) Take by mouth. - magnesium oxide (MAG-OX) 400 mg (241.3 mg magnesium) tablet Take 400 mg by mouth once daily. - sumatriptan succ/naproxen sod (SUMATRIPTAN-NAPROXEN ORAL) Take by mouth. - multivitamin tablet Take 1 tablet by mouth once daily. - loratadine (CLARITIN) 10 mg tablet Take 10 mg by mouth once daily. Problem List As Of Date 08/03/2025 Noted Resolved Genital herpes [A60.00] 04/26/2015 Migraine without aura and without status migrai*02/19/2017 Dysmenorrhea [N94.6] 02/19/2017 Papanicolaou smear of cervix with low grade squ*09/19/2020 Postconcussion syndrome [F07.81] 09/22/2020 Adjustment disorder with mixed anxiety and depr*09/22/2020 Prescriptions ordered this encounter Disp Refills Start End MUPIROCIN 2 % TOPICAL OINTMENT 30 g 0 08/03/2025 08/13/2025 Route: TOP Sig: Apply 1 application to affected area three times a day for 10 days. Level of Service: OFFICE/OUTPATIENT ESTABLISHED MOD MDM 30 MIN [13787] Encounter Status:Closed by CAIO STONE on 08/03/25 [facility] CNNURSEon 06-29-2025 [facility] CHOUDH[facility] ([id number]) 1990 F Date Time Provider Department 06/29/25 8:15 AM [place] [facility] During your visit today, we recorded the following information about you: IRENE RIOS 06/29/2025 8:27 AM Signed Patient presents for EKG per Amina Horn CNP. Denies any problems at this time. Tolerated procedure well. 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 #:[id number]--[id number] g Prescriptions as of 06/29/2025 - modafinil (PROVIGIL) 100 mg tablet Take 1 tablet by mouth once daily for 180 days. - omeprazole (PRILOSEC) 20 mg capsule Take 1 capsule by mouth once daily. - escitalopram oxalate (LEXAPRO) 20 mg tablet Take 1 tablet by mouth once daily. - ergocalciferol, vitamin D2, (VITAMIN D2 ORAL) Take 2,000 Units by mouth once daily. - AIMOVIG AUTOINJECTOR 140 mg/mL auto-injector Inject 140 mg subcutaneously once every month. migraines - BD LUER-OMAR SYRINGE 3 mL 25 gauge x 1" USE 1 SYRINGE NEEDED FOR MIGRAINE - SUMAtriptan (IMITREX) 100 mg tablet - BOTOX 200 unit injection Every 3 month for migraines - butterbur root extract 75 mg cap Take by mouth. - L.acid/B.bifidum/B.ani mal/FOS (PROBIOTIC COMPLEX ORAL) Take by mouth. Taking one daily. - vitamin B complex (SUPER B COMPLEX ORAL) Take by mouth. - magnesium oxide (MAG-OX) 400 mg (241.3 mg magnesium) tablet Take 400 mg by mouth once daily. - sumatriptan succ/naproxen sod (SUMATRIPTAN-NAPROXEN ORAL) Take by mouth. - multivitamin tablet Take 1 tablet by mouth once daily. - loratadine (CLARITIN) 10 mg tablet Take 10 mg by mouth once daily. Problem List As Of Date 06/29/2025 Noted Resolved Genital herpes [A60.00] 04/26/2015 Migraine without aura and without status migrai*02/19/2017 Dysmenorrhea [N94.6] 02/19/2017 Papanicolaou smear of cervix with low grade squ*09/19/2020 Postconcussion syndrome [F07.81] 09/22/2020 Adjustment disorder with mixed anxiety and depr*09/22/2020 Encounter Status:Closed by IRENE RIOS on 06/29/25 Normal [facility] ECG COMPLETEon 06-29-2025 ECG COMPLETE Ventricular Rate : 8 4 BPM Atrial Rate : 84 BPM P-R Interval : 156 ms QRS Duration : 88 ms Q-T Interval : 384 ms QTC Calculation(Bazett) : 453 ms Calculated P [place] : 14 degrees Calculated R [place] : 68 degrees Calculated T [place] : 35 degrees NORMAL SINUS RHYTHM NORMAL ECG Confirmed by MD ALVA QARAB ([id number]) on 07/04/2025 5:25:48 PM NAME : PEGGY CHOUDHURY PID : [id number] : 1990 Gender : Female Race : ORD : [id number] Procedure Date : Jun 29 2025 08:19:36 Edit Date : Jul 04 2025 17:25:50 Diagnosis: NORMAL SINUS RHYTHM NORMAL ECG Confirmed by MD ALVA QARAB ([id number]) on 07/04/2025 5:25:48 PM Test Reason : Location : 136 : [facility] Overread By : MD ALVA QARAB Edited By : MD ALVA QARAB Referred By : AMINA HORN Acquired by : [id number], [facility] 06-21-2025 Progress Note Administrations This Visit onabotulinumtoxin A (BOTOX) injection 200 Units Admin Date 06/21/25 Action Given Dose 200 Units Route IntraMUSCular Site Other Administered By Yeny Velasco MD Ordering Provider: Yeny Velasco MD [facility] [place]: [id number] Lot#: [id number] Athletic Training Internship: [employer] Patient Supplied? Yes Normal [facility] CNOVon 06-16-2025 CNOV Office Visit (NESLBO ) PEGGY CHOUDHURY ([id number]) 1990 F Date Time Provider Department 06/16/25 3:00 PM GALLITO LEMUS During your visit today, we recorded the following information about you: Temperature Pulse Blood pressure Weight 98.5 degrees 98/minute 115/79 90.7 kg Height 1.651 m Gallito Lemus MD 06/16/2025 2:53 PM Signed [facility] Follow up/ Established patient visit Date of last visit : 02/10/2024 Interval history : Here for follow up for UARS and residual fatigue Had UTOX, which was normal ECG is planned in the next 2 weeks. Benefit with modafinil: not falling asleep inadvertently any longer. She denies chest pain, pressure, palpitations, change in blood pressure, new headaches, weight loss, and insomnia. SLEEP HYGIENE QUESTIONS: Bedtime : 10 pm Wake up Time : 8-9 am Modafinil 8-9 am Time it takes to fall sleep : < 20 minutes Activities in bed before falling asleep : None Number of times patient wakes up per night : 1-2 Reason (s) why patient wakes up during the night : unknown Estimated total sleep time ( in a 24 hour period of time) : 8 Naps : Yes - rare PATIENT-ENTERED QUESTIONNAIRE SLEEP SCORES 06/09/2025 Sleep Questions Reason for visit: Difficulty falling or staying asleep or poor sleep quality Excessive daytime sleepiness On average, hours of sleep in 24 hours: 7 Accidents or near accidents due to drowsy drivin Multiple values from one day are sorted in reverse-chronological order 09/02/2024 12/30/2024 06/09/2025 [place] Sleepiness Scale Score 4 (No clinically significant daytime sleepiness) 6 (No clinically significant daytime sleepiness) 9 (No clinically significant daytime sleepiness) 09/02/2024 12/30/2024 06/09/2025 PROMIS CAT Sleep Disturbance PROMIS Sleep Disturbance T-Score 52 (within normal limits) 54 (within normal limits) 56 (mild) PROMIS Sleep Disturbance Percentile 42 34 27 02/03/2024 06/09/2025 Insomnia Severity Index Score 17 11 09/02/2024 12/30/2024 06/09/2025 PHQ-9 Score 5 8 5 09/02/2024 12/30/2024 06/09/2025 PROMIS Global Health - (T-Scores - the mean of general population = 50. Five points is a clinically meaningful difference.) Physical T-Score 44.9 39.8 39.8 39.8 Mental T-Score 43.5 41.1 41.1 45.8 PMH, PSH, SH: No changes SLEEP RELATED ROS Review of Systems ALLERGIES No Known Allergies CURRENT MEDICATIONS: omeprazole (PRILOSEC) 20 mg capsule Take 1 capsule by mouth once daily. escitalopram oxalate (LEXAPRO) 20 mg tablet Take 1 tablet by mouth once daily. modafinil (PROVIGIL) 100 mg tablet Take 1 tablet by mouth once daily for 180 days. ergocalciferol, vitamin D2, (VITAMIN D2 ORAL) Take 2,000 Units by mouth once daily. AIMOVIG AUTOINJECTOR 140 mg/mL auto-injector Inject 140 mg subcutaneously once every month. migraines BD LUER-OMAR SYRINGE 3 mL 25 gauge x 1" USE 1 SYRINGE NEEDED FOR MIGRAINE SUMAtriptan (IMITREX) 100 mg tablet BOTOX 200 unit injection Every 3 month for migraines butterbur root extract 75 mg cap Take by mouth. L.acid/B.bifidum/B.ani mal/FOS (PROBIOTIC COMPLEX ORAL) Take by mouth. Taking one daily. vitamin B complex (SUPER B COMPLEX ORAL) Take by mouth. magnesium oxide (MAG-OX) 400 mg (241.3 mg magnesium) tablet Take 400 mg by mouth once daily. sumatriptan succ/naproxen sod (SUMATRIPTAN-NAPROXEN ORAL) Take by mouth. multivitamin tablet Take 1 tablet by mouth once daily. loratadine (CLARITIN) 10 mg tablet Take 10 mg by mouth once daily. Prior Hypersomnia/Narcolepsy Medications (20 years) 12/30/2024 00:00 Hypersomnia/Narcolepsy Medications modafinil 100 mg DAILY PO -Discontinued modafinil 100 mg DAILY PO Details Outpatient prescription Medication marked as long-term Prior RLS Medications (last 20 years) 07/30/2019 RLS Medications hydromorphone HCl 0.5 mg, INTRAVENOUS, Until 07/30/19 at 1837 -Discontinued oxycodone HCl 5 mg, ORAL, Until 07/30/19 at 1837 -Discontinued Details Hospital medication Prior Insomnia Medications (last 20 years) 01/12/2025 00:00 Insomnia Medications escitalopram oxalate 20 mg DAILY PO -Discontinued escitalopram oxalate 20 mg DAILY PO Details Outpatient prescription Medication marked as long-term PHYSICAL EXAMINATION: General appearance: NAD Mental status: awake and alert Constitutional: Well groomed Skin: Dry and intact Neuro: Speech fluent IMPRESSION: Upper Airway resistance Syndrome Residual Fatigue Clinical Global Impression of Change ( CGI-C) Compared to the patient's condition at baseline, how much has the patient changed? Much improved PLAN: Continue modafinil 100 mg Follow-up: 6 months Gallito Lemus MD Allergies As of Date: 06/16/2025 (No Known Allergies) Date Reviewed: 06/16/2025 Reviewed by: Jessica Mcconnell MA - Fully Assessed Reason for Vis (more content not included)... Normal [facility] TOXICOLOGY SCREEN, ROUTINE U RINEon 06-15-2025 Amphetamines Confirm (U) [Mass/Vol] Negative Normal Negative [facility] Comment on above: Order Comment: Speci men Type: URINE SPECIMEN Ordering Facility: [facility] Address: [address] [place] [address] [place] [address] Result Comment: Cuto ff threshold at 1000 ng/mL. Performed By: #### U TOX2 #### [facility] CLIA [id number] [address] [place] [address] [place] BARBITURATES, URINE Negative Normal Negative [facility] Comment on above: Order Comment: Speci men Type: URINE SPECIMEN Ordering Facility: [facility] Address: [address] [place] [address] Result Comment: Cuto ff threshold at 200 ng/mL. Performed By: #### U TOX2 #### [facility] CLIA [id number] [address] [place] [address] [place] BENZODIAZEPINES, URINE Negative Normal Negative [facility] Comment on above: Order Comment: Speci men Type: URINE SPECIMEN Ordering Facility: [facility] Address: [address] [place] [address] Result Comment: Cuto ff threshold at 200 ng/mL. Performed By: #### U TOX2 #### [facility] CLIA [id number] [address] [place] [address] [place] Cannabinoids Screen Ql (U) Negative Normal Negative [facility] Comment on above: Order Comment: Speci men Type: URINE SPECIMEN Ordering Facility: [facility] Address: [address] [place] [address] Result Comment: Cuto ff threshold at 50 ng/mL. Performed By: #### U TOX2 #### [facility] CLIA [id number] [address] [place] [address] [place] Cocaine Ql (U) Negative Normal Negative [facility] Comment on above: Order Comment: Speci men Type: URINE SPECIMEN Ordering Facility: [facility] Address: [address] [place] [address] Result Comment: Cuto ff threshold at 300 ng/mL. Performed By: #### U TOX2 #### [facility] CLIA [id number] [address] [place] [address] [place] Ethanol (U) [Mass/Vol] <11 Normal <11 [facility] Comment on above: Order Comment: Speci men Type: URINE SPECIMEN Ordering Facility: [facility] Address: [address] [place] [address] Performed By: #### U TOX2 #### [facility] CLIA [id number] [address] [place] [address] [facility] fentaNYL Screen Ql (U) Negative Normal Negative [facility] Comment on above: Order Comment: Speci men Type: URINE SPECIMEN Ordering Facility: [facility] Address: [address] [place] [address] Result Comment: Cuto ff threshold at 5 ng/mL. Performed By: #### U TOX2 #### [facility] CLIA [id number] [address] [place] [address] [facility] [place] Opiates Screen Ql (U) Negative Normal Negative [facility] Comment on above: Order Comment: Speci men Type: URINE SPECIMEN Ordering Facility: [facility] Address: [address] [place] [address] Result Comment: Cuto ff threshold at 300 ng/mL. Performed By: #### U TOX2 #### [facility] CLIA [id number] [address] [place] [address] [facility] oxyCODONE cutoff Screen (U) [Mass/Vol] Negative Normal Negative [facility] Comment on above: Order Comment: Speci men Type: URINE SPECIMEN Ordering Facility: [facility] Address: [address] [place] [address] Result Comment: Cuto ff threshold at 100 ng/mL. Performed By: #### U TOX2 #### [facility] CLIA [id number] [address] [place] [address] [facility] Phencyclidine Ql (U) Negative Normal Negative [facility] Comment on above: Order Comment: Speci men Type: URINE SPECIMEN Ordering Facility: [facility] Address: [address] [place] [address] Result Comment: Cuto ff threshold at 25 ng/mL. Performed By: #### U TOX2 #### [facility] CLIA [id number] [address] [place] [address] [facility] [place] 36on 05-30-2025 36 Botox has been approved under patient's pharmacy benefit and will be patient supplied. The medication will be dispensed by [facility] ([facility]). [facility] delivers provider administered medications to the administration location on the Thursday before scheduled appointments. Next scheduled delivery date: 06/13/2025 Pharmacy Benefit Prior Authorization (PA) Information: PA Number: [id number] Approval Date: 11/25/2024 Expiration Date: 11/23/2025 Dose Approved: 200 units Provider office will need to ensure completion of any required Procedure Code authorizations prior to appointment(s). Prescription on file with [facility]. Normal [facility] Progress Noteon 03-24-2025 Progress Note Administrations This Visit onabotulinumtoxin A (BOTOX) injection 200 Units Admin Date 03/24/2025 Action Given Dose 200 Units Route IntraMUSCular Site Other Administered By [facility] [place] Ordering Provider: Yeny Velasco MD [facility] [place]:[id number] Lot#: [id number] Athletic Training Internship: [employer] Patient Supplied?: Yes Normal [facility] CNOVon 01-12-2025 CNOV Office Visit (FAMPBR ) PEGGY CHOUDHURY ([id number]) 1990 F Date Time Provider Department 01/12/25 6:40 PM OSCAR COLIN FAMPBR During your visit today, we recorded the following information about you: Pulse Blood pressure Weight Height 77/minute 111/74 92.1 kg 1.651 m Last Period 12/17/24 Oscar Colin MD 01/12/2025 6:42 PM Signed We discussed your anxiety and depression: - Continue taking Lexapro as prescribed. I have sent a prescription for 90 pills with 3 refills to your preferred [facility] in [place]. - You reported that Lexapro is working well for you without any side effects. Please continue monitoring for any changes and let me know if you experience any issues. - To support your anxiety management, continue incorporating lifestyle changes, including: - Eating a diet focused on whole, unprocessed foods, with an emphasis on protein and avoiding food dyes, seed oils (e.g., corn, soybean, canola, cottonseed, vegetable oil), and simple sugars. - Exercising regularly, aiming for at least 3 days per week. Walking 8,000-10,000 steps daily is sufficient for cardio, and whole-body strength training a couple of times per week is recommended. - Practicing deep breathing exercises to help calm your nervous system. Try taking 4 deep breaths every hour, inhaling for a count of 4 through your nose and exhaling for a count of 8 through pursed lips. This can help balance your nervous system over time. We discussed your migraines: - Continue your current treatments, including Botox and Aimovig injections, as they appear to be effective in managing your symptoms. Let me know if you experience any changes or concerns. If you have any new symptoms or concerns, please reach out to our office. Oscar Colin MD 01/12/2025 6:44 PM Signed Subjective Peggy is a 34-year-old female presenting for a Lexapro refill. Peggy has been taking Lexapro for anxiety and depression for approximately one year and reports that it is working well without any side effects. She is also taking Botox and Aimovig for migraines, which she feels are effective. She denies any other issues with her current medications. She is actively engaging in lifestyle modifications to manage her anxiety, including dietary changes and regular exercise. She and her girlfriend aim to exercise at least three times a week. Psychiatric: (-) medication side effects Objective Blood pressure 111/74, pulse 77, height 165.1 cm (5' 5"), weight 92.1 kg (203 lb), last menstrual period 12/17/2024, SpO2 99%. GENERAL: NAD, alert and oriented SKIN: unremarkable, no rash or skin lesions. HEAD: normocephalic EYES: PERRLA, EOMI, conjunctiva clear EARS: external ears normal, canals clear, TM's normal. NOSE/SINUSES: Nares normal. Septum midline. OROPHARYNX: lips, mucosa, and tongue normal, good dentition. No oral lesions noted. NECK: Supple, no lymphadenopathy, normal thyroid, no carotid bruits. LUNGS: Clear to auscultation bilaterally, no wheezes/rhonchi/rales. HEART: Regular rate and rhythm, no murmurs. No ectopy. EXTREMITIES: Normal, No deformities, No skin discoloration, No edema. NEURO: Awake, alert and oriented x3, cranial nerves II-XII grossly intact, normal gait, no involuntary motions 1. Adjustment disorder with mixed anxiety and depressed mood (F43.23) Condition is stable and well-managed with Lexapro; no reported side effects. Patient is engaging in lifestyle modifications including diet and exercise to support treatment. - Educated on the benefits of a diet rich in whole foods, protein, and the avoidance of food dyes, seed oils, and simple sugars to enhance medication efficacy. - Recommended regular exercise, including walking 8-10,000 steps daily and whole-body strength training several times a week. - Discussed the practice of diaphragmatic breathing exercises to stimulate the vagus nerve and balance the sympathetic and parasympathetic nervous systems. - Prescribed Lexapro 90 tablets with 3 refills, sent to [facility] in [place]. Attestation The patient consented to the use of PinkelStar software for draft documentation of the visit consistent with [facility]?s Notice of Privacy Practices. Allergies As of Date: 01/12/2025 (No Known Allergies) Date Reviewed: 01/12/2025 Reviewed by: Irene Jansen MA - Fully Assessed Reason for Visit: Follow Up [171] Visit Diagnosis:Adjustment disorder with mixed anxiety and depressed mood [F43.23] Order(s):escitalopram oxalate (LEXAPRO) 20 mg tabletTake 1 tablet by mouth once daily.Disp: 90 tabletRfl: 3 Prescriptions as of 01/12/2025 - escitalopram oxalate (LEXAPRO) 20 mg tablet Take 1 tablet by mouth once daily. - modafinil (PROVIGIL) 100 mg tablet Take 1 tablet by mouth once daily for 180 days. - ergocalciferol, vitamin D2, ( (more content not included)... Normal [facility] Progress Noteon 12-23-2024 Progress Note Administrations This Visit onabotulinumtoxin A (BOTOX) injection 200 Units Admin Date 12/23/24 Action Given Dose 200 Units Route IntraMUSCular Site Other Administered By Yeny Velasco MD Ordering Provider: Yeny Velasco MD [facility] [place]: [id number] Lot#: [id number] Athletic Training Internship: [employer] Patient Supplied?: Yes Normal [facility] CNOVon 12-17-2024 CNOV Office Visit (OBGYBR ) PEGGY CHOUDHURY Evan ([id number]) 1990 F Date Time Provider Department 12/17/24 11:30 AM YASHIRA PIERCE OBGYBR During your visit today, we recorded the following information about you: Blood pressure Weight Height Last Period 112 90.3 kg 1.651 m 11/19/24 Yashira Pierce APRN.BOWLING TEACHER 12/17/2024 11:30 AM Signed Peggy is a 34 year old who presents for an annual gynecologic exam. No recent issues with outbreaks. 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, Having periods Age at Menarche: Age at First : Age at 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 History Comments: Sexual Activity: Not Currently; Male Contraception: Condom Menstrual Tracking History Flowsheet Row Office Visit from 12/17/2024 in OB/Gynecology Period Cycle (Days) 28 Period Duration (Days) 4 Menstrual Flow Moderate PAST MEDICAL HISTORY Diagnosis Date Anxiety and depression Concussion Genital herpes GERD (gastroesophageal reflux disease) 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 No bloating, early satiety, indigestion, or increased flatulence. Bladder: No dysuria, gross hematuria, urinary frequency, urinary urgency, or incontinence. Breast: No breast lumps, nipple d/c, overlying skin changes, redness or skin retraction. Allergies and current medication updated:Yes SENSITIVE EXAM: The sensitive examination was discussed with the Patient or Patient's Authorized Straight Ruling Machine Operator. As applicable, any other physician, advance practice provider, medical student, or other health professional student that will be observing or involved in the sensitive examination for educational or training purposes was discussed with the Patient or Authorized Straight Ruling Machine Operator. The Patient or Authorized Straight Ruling Machine Operator has agreed to proceed with the sensitive examination. (Sensitive examination includes inspection and/or palpation of the breasts, pelvis, prostate and anorectal regions). Blind Aide offered:Patient declines EXAM: BP 112/76 Ht 5' 5" (1.65m) Wt 199 lb (90.3kg) LMP 11/19/2024 BMI 33.12 kg/(m2). GENERAL: pleasant, female in no apparent distress HEENT: Normocephalic, atraumatic, mucus membranes moist, and no lesions NECK: Supple, full range of motion, no adenopathy, and thyroid normal DERMATOLOGY: Normal, without lesions, non-icteric, and non-hirsute BREAST: soft, non-tender, symmetric, no dominant mass, normal nipple-areolar complex, no lymphadenopathy, and no nipple discharge CHEST: Clear to auscultation, Normal inspiratory effort, and Regular rate and rhythm ABDOMEN: soft, non-tender, and no masses PELVIC: external genitalia normal, normal Bartholin's glands, urethra, Golinda's glands, no vulvar lesions, no cervical lesions, good vaginal support, physiologic discharge present, normal appearing perineal body and perianal region BIMANUAL: uterus normal size, shape and consistency, no adnexal masses, and non-tender RECTOVAGINAL: deferred. NEURO: alert and oriented x3,exam grossly non-focal EXTREMITIES: normal ASSESSMENT/PLAN: 1) Health maintenance: Pap/HPV up to date. Nutrition, exercise and routine health maintenance exams reviewed. Lipids/glucose: followed by PCP HPV vaccine completed 2) Contraception: pt declines 3) STD screening: Declined STD check. 4) Follow up one year or sooner as needed Yashira Pierce APRN.FABBY Referring Provider: PA MCKEON [[id number]] Allergies As of Date: 12/17/2024 (No Known Allergies) Date Reviewed: 12/17/2024 Reviewed by: Yashira Pierce APRN.FABBY - Fully Assessed Primary Visit Diagnosis:Women's annual routine gynecological examination [Z01.419] Other Visit Diagnosis:Screening breast examination [Z12.39] Prescriptions as of 12/17/2024 - ergocalcif (more content not included)... Normal [facility] CNOVon 12-13-2024 CNOV Office Visit (UCWSTR ) MACEYPEGGY ([id number]) 1990 F Date Time Provider Department 12/13/24 2:00 PM MÓNICA VASQUES [facility] During your visit today, we recorded the following information about you: Temperature Pulse Respiration Blood pressure 98.3 degrees 92/minute 18/minute 120/79 Weight Last Period 93 kg 11/19/24 Mónica Vasques APRN.BOWLING TEACHER 12/13/2024 2:53 PM Signed This note was created using Syscorriter. Subjective Peggy Choudhury is a 34 year old female. 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 No parts interpreter was used. Cough This is a new problem. The current episode started more than 1 week ago. The problem occurs constantly. The problem has been gradually worsening. The cough is Productive of sputum. Associated symptoms include shortness of breath and wheezing. Pertinent negatives include no chest pain, no chills, no sweats, no weight loss, no ear congestion, no ear pain, no headaches, no sore throat, no myalgias and no eye redness. She has tried decongestants and cough syrup for the symptoms. The treatment provided no relief. She is not a smoker. Her past medical history does not include bronchitis, pneumonia, bronchiectasis, COPD, emphysema or asthma. 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 MEDICATIONS ergocalciferol, vitamin D2, (VITAMIN D2 ORAL) Take 2,000 Units by mouth once daily. escitalopram oxalate (LEXAPRO) 20 mg tablet Take 1 tablet by mouth once daily modafinil (PROVIGIL) 100 mg tablet Take 1 tablet by mouth once daily for 90 days. omeprazole (PRILOSEC) 20 mg capsule Take 1 capsule by mouth once daily. AIMOVIG AUTOINJECTOR 140 mg/mL auto-injector Inject 140 mg subcutaneously once every month. migraines BD LUER-OMAR SYRINGE 3 mL 25 gauge x 1" USE 1 SYRINGE NEEDED FOR MIGRAINE SUMAtriptan (IMITREX) 100 mg tablet BOTOX 200 unit injection Every 3 month for migraines butterbur root extract 75 mg cap Take by mouth. L.acid/B.bifidum/B.ani mal/FOS (PROBIOTIC COMPLEX ORAL) Take by mouth. Taking one daily. vitamin B complex (SUPER B COMPLEX ORAL) Take by mouth. magnesium oxide (MAG-OX) 400 mg (241.3 mg magnesium) tablet Take 400 mg by mouth once daily. sumatriptan succ/naproxen sod (SUMATRIPTAN-NAPROXEN ORAL) Take by mouth. multivitamin tablet Take 1 tablet by mouth once daily. loratadine (CLARITIN) 10 mg tablet Take 10 mg by mouth once daily. cholecalciferol, Vitamin D3, (VITAMIN D3) 1,250 mcg (50,000 unit) cap capsule Take 1 capsule by mouth one time a week. (Patient not taking: Reported on 12/13/2024) FAMILY HISTORY Problem Relation Age of Onset Thyroid Mother Hypertension Mother other (GERD) Mother Hyperlipidemia Father Coronary Artery Disease Father CABG x 3 vessel Hypertension Father Social History Tobacco Use Smoking status: Never Smokeless tobacco: Never Substance Use Topics Alcohol use: Yes Comment: social Drug use: No Review of Systems Constitutional: Negative for chills and weight loss. HENT: Positive for congestion. Negative for ear pain and sore throat. Eyes: Negative for discharge, redness and itching. Respiratory: Positive for cough, chest tightness, shortness of breath and wheezing. Cardiovascular: Negative for chest pain. Gastrointestinal: Negative for abdominal pain. Musculoskeletal: Negative for arthralgias, back pain and myalgias. Skin: Negative for color change, pallor and rash. Allergic/Immunologic: Negative for environmental allergies, food allergies and immunocompromised state. Neurological: Negative for headaches. Hematological: Negative for adenopathy. Does not bruise/bleed easily. Psychiatric/Behavioral : Negative for agitation and behavioral problems. Objective BP 120/79 Pulse 92 Temp 36.8 ?C (98.3 ?F) Resp 18 Wt 93 kg (205 lb 0.4 oz) LMP 11/19/2024 (Exact Date) SpO2 98% BMI 34.12 kg/m? Physical Exam Vitals and nursing note reviewed. Constitutional: General: She is not in acute distress. Appearance: Normal appearance. She is normal weight. She is not ill-appearing, toxic-appearing or diaphoretic. HENT: Head: Normocephalic and atraumatic. Right Ear: Ear canal and external ear normal. Left Ear: Ear canal and external ear normal. (more content not included)... Normal [facility] XR CHEST 2V FRONTAL/LATon XR CHEST 2V FRONTAL/LAT * * *Final Report* * * DATE OF EXAM: Dec 13 2024 2:29PM WOX 5291 - XR CHEST 2V FRONTAL/LAT / PROCEDURE REASON: Acute cough * * * * Physician Interpretation * * * * EXAMINATION: CHEST RADIOGRAPH (2 VIEW FRONTAL and LATERAL) CLINICAL HISTORY: Acute cough MQ: XC2_6 EXAM DATE/TIME: 12/13/2024 2:29 PM COMPARISON: No relevant prior studies available. RESULT: Lines, tubes, and devices: None. Lungs and pleura: No consolidation. No lung mass. No pleural effusion. No pneumothorax. Cardiomediastinal silhouette: Normal cardiomediastinal silhouette. Bones and soft tissues: Unremarkable. IMPRESSION: No acute radiographic abnormality. Cuff Turner: PSCB Transcribe Date/Time: Dec 13 2024 2:29P Dictated by : GAY XIE MD This examination was interpreted and the report reviewed and electronically signed by: GAY XIE MD on Dec 13 2024 2:30PM EST [id number] Normal [facility] XR Chest PA and Lateralon IMPRESSION: No acute radiographic abnormality. Cuff Turner[facility] Transcribe Date/Time: Dec 13 2024 2:29P Dictated by : GAY XIE MD This examination was interpreted and the report reviewed and electronically signed by: GAY XIE MD on Dec 13 2024 2:30PM EST DIVISION OF RADIOLOGY * * *Final Report* * * DATE OF EXAM: Dec 13 2024 2:29PM WOX 5291 - XR CHEST 2V FRONTAL/LAT / PROCEDURE REASON: Acute cough * * * * Physician Interpretation * * * * EXAMINATION: CHEST RADIOGRAPH (2 VIEW FRONTAL & LATERAL) CLINICAL HISTORY: Acute cough MQ: XC2_6 EXAM DATE/TIME: 12/13/2024 2:29 PM COMPARISON: No relevant prior studies available. RESULT: Lines, tubes, and devices: None. Lungs and pleura: No consolidation. No lung mass. No pleural effusion. No pneumothorax. Cardiomediastinal silhouette: Normal cardiomediastinal silhouette. Bones and soft tissues: Unremarkable. DIVISION OF RADIOLOGY Provider, [facility] - 12/13/2024 * * *Final Report* * * DATE OF EXAM: Dec 13 2024 2:29PM WOX 5291 - XR CHEST 2V FRONTAL/LAT / PROCEDURE REASON: Acute cough * * * * Physician Interpretation * * * * EXAMINATION: CHEST RADIOGRAPH (2 VIEW FRONTAL & LATERAL) CLINICAL HISTORY: Acute cough MQ: XC2_6 EXAM DATE/TIME: 12/13/2024 2:29 PM COMPARISON: No relevant prior studies available. RESULT: Lines, tubes, and devices: None. Lungs and pleura: No consolidation. No lung mass. No pleural effusion. No pneumothorax. Cardiomediastinal silhouette: Normal cardiomediastinal silhouette. Bones and soft tissues: Unremarkable. IMPRESSION IMPRESSION: No acute radiographic abnormality. Cuff Turner: PSCB Transcribe Date/Time: Dec 13 2024 2:29P Dictated by : GAY XIE MD This examination was interpreted and the report reviewed and electronically signed by: GAY XIE MD on Dec 13 2024 2:30PM EST [facility] Radiology Study observation (narrative) [facility] XR Chest PA and LateralOrder ed By: Ccf Provider on 12-13-2024 [facility] 36on 12-12-2024 36 ROD 12.6.24 NOV 12/23/24 KRISTA [facility] Progress Noteon 09-23-2024 Progress Note Administrations This Visit onabotulinumtoxin A (BOTOX) injection 200 Units Admin Date 09/23/2024 Action Given Dose 200 Units Route IntraMUSCular Site Other Administered By [facility] [place] Ordering Provider: Yeny Velasco MD [facility]:[id number] Lot#: [id number] Athletic [employer] Internship: [employer] Patient Supplied?: Yes Normal [facility] CNOVon 09-16-2024 CNOV Office Visit (OTOLMM ) PEGGY CHOUDHURY ([id number]) 1990 F Date Time Provider Department 09/16/24 9:45 AM RYANN NULL OTOLMM During your visit today, we recorded the following information about you: Ryann Null MD 09/16/2024 10:53 AM Signed HPI Peggy Choudhury is a 34 year old female who presents with tonsil hypertrophy and mild sleep apnea. Patient is seen in consultation for Amina Horn CNP patient recently had a sleep study that showed mild sleep apnea. Patient was noted to have moderately large tonsils.. ROS General Weight loss: No Fatigue: No Night sweats:No Cardiac Chest pain:No Fast heart rate:No Swelling in the feet:No Respiratory Short of breath:No Cough:No Wheezing:No Gastrointestinal Nausea:No Vomiting:No Indigestion:No Past medical history, family history, and social history reviewed. PE LMP 08/28/2024 (Exact Date) General: Patient is awake, alert, NAD. Voice is normal. Skin: normal Eyes: Extraocular motion and Gaze is normal. Ears: Right external auditory canal is normal. TMJ: normal. Right tympanic membranes normal. Left external auditory canal is normal. Left tympanic membrane normal. Nose: Septum is normal. Turbinates are normal. Nasopharynx:normal Oral Cavity/Oropharynx: Lips normal Dentition normal Tongue normal. Tonsils normal. 2/2.5 Palate and uvula normal. Pharynx posterior normal Hypopharynx: Base of tongue normal Pyriform sinus normal. Larynx: Vocal cords normal. Epiglottis normal. Post cricoid normal. Salivary glands: Parotid normal. Submandibular and sublingual normal. Thyroid: normal. Lymphatic/Neck: Lymph nodes normal. Neurologic: Facial nerve normal. Sleep study reviewed ASSESSMENT/PLAN: 1. ROCIO (obstructive sleep apnea) - ICD9: 327.23, ICD10: G47.33 (primary diagnosis) 2. Enlarged tonsils - ICD9: 474.11, ICD10: J35.1 Did not feel any further treatment was warranted continue weight loss follow-up as needed Ryann Null MD Findings will be communicated to the referring physician via mail or electronic medical record. Referring Provider: AMINA HORN [[id number]] Allergies As of Date: 09/16/2024 (No Known Allergies) Date Reviewed: 09/16/2024 Reviewed by: Chelsea Rader Ma - Fully Assessed Reason for Visit: not sleeping well [Other] Cmt: Has sleep apnea but not enough for a cpap. Tonsils are so large they block her throat. Primary Visit Diagnosis:ROCIO (obstructive sleep apnea) [G47.33] Other Visit Diagnosis:Enlarged tonsils [J35.1] Order(s):CONSULT TO ENT [9008] Order #: [id number]: 1 Prescriptions as of 09/16/2024 - modafinil (PROVIGIL) 100 mg tablet Take 1 tablet by mouth once daily for 30 days. Patient should start on September 10, 2024. - omeprazole (PRILOSEC) 20 mg capsule Take 1 capsule by mouth once daily. - AIMOVIG AUTOINJECTOR 140 mg/mL auto-injector - BD LUER-OMAR SYRINGE 3 mL 25 gauge x 1" USE 1 SYRINGE NEEDED FOR MIGRAINE - SUMAtriptan (IMITREX) 100 mg tablet - BOTOX 200 unit injection - cholecalciferol, Vitamin D3, (VITAMIN D3) 1,250 mcg (50,000 unit) cap capsule Take 1 capsule by mouth one time a week. - escitalopram oxalate (LEXAPRO) 20 mg tablet Take 1 tablet by mouth once daily. - butterbur root extract 75 mg cap Take by mouth. - L.acid/B.bifidum/B.ani mal/FOS (PROBIOTIC COMPLEX ORAL) Take by mouth. Taking one daily. - vitamin B complex (SUPER B COMPLEX ORAL) Take by mouth. - magnesium oxide (MAG-OX) 400 mg (241.3 mg magnesium) tablet Take 400 mg by mouth once daily. - sumatriptan succ/naproxen sod (SUMATRIPTAN-NAPROXEN ORAL) Take by mouth. - multivitamin tablet Take 1 tablet by mouth once daily. - loratadine (CLARITIN) 10 mg tablet Take 10 mg by mouth once daily. Problem List As Of Date 09/16/2024 Noted Resolved Genital herpes [A60.00] 04/26/2015 Migraine without aura and without status migrai*02/19/2017 Dysmenorrhea [N94.6] 02/19/2017 Papanicolaou smear of cervix with low grade squ*09/19/2020 Postconcussion syndrome [F07.81] 09/22/2020 Adjustment disorder with mixed anxiety and depr*09/22/2020 Encounter Status:Closed by RYANN NULL on 09/16/24 Normal [facility] 36on 09-07-2024 36 Noted Normal [facility] 36 The patient has upcoming Botox appt on 09/23. The Botox will be supplied by us at [facility] and delivered to the MD office on 09/20 BOTOX IS PATIENT SUPPLIED!!! # of Units to be Administered: 200 Medication: Botox Dosing Schedule: once every 12 weeks Prior Authorization: Approved (pharmacy benefit) [place] reference #:[id number] Approval dates: 09/18/2023-09/21/2024 Number of Units Approved: 200 [facility] CNOVon 09-05-2024 CNOV Office Visit (OBGYBR ) PEGGY CHOUDHURY ([id number]) 1990 F Date Time Provider Department 09/05/24 11:00 AM YASHIRA PIERCE OBGYBR During your visit today, we recorded the following information about you: Blood pressure Weight Height Last Period 124/84 90.7 kg 1.651 m 08/28/24 Yashira Pierce APRN.BOWLING TEACHER 09/05/2024 11:17 AM Signed Peggy Choudhury is a 34 year old female who presents for problem visit. HPI: Pt states she has always noticed some hot flashes during her period but states she has paid more attention to this recently for the past 3 months. She states it seems to occur a few days before her cycle starts through her menses. She might notice them more consistently with any activity during menses. She states they might occur every day from a few days prior to menses onset through menses. She states outside of menses occur inconsistently. She states she could be having some night sweats as well but thought due to house temperature. She will wake up sweaty at times. Periods are regular, occurring every 28-30 days and lasting 3-4 days. 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 modafinil (PROVIGIL) 100 mg tablet Take (1) tablet by mouth upon awakening Do not start before May 11, 2024. AIMOVIG AUTOINJECTOR 140 mg/mL auto-injector BD LUER-OMAR SYRINGE 3 mL 25 gauge x 1" USE 1 SYRINGE NEEDED FOR MIGRAINE SUMAtriptan (IMITREX) 100 mg tablet BOTOX 200 unit injection cholecalciferol, Vitamin D3, (VITAMIN D3) 1,250 mcg (50,000 unit) cap capsule Take 1 capsule by mouth one time a week. escitalopram oxalate (LEXAPRO) 20 mg tablet Take 1 tablet by mouth once daily. butterbur root extract 75 mg cap Take by mouth. L.acid/B.bifidum/B.ani mal/FOS (PROBIOTIC COMPLEX ORAL) Take by mouth. Taking one daily. vitamin B complex (SUPER B COMPLEX ORAL) Take by mouth. magnesium oxide (MAG-OX) 400 mg (241.3 mg magnesium) tablet Take 400 mg by mouth once daily. sumatriptan succ/naproxen sod (SUMATRIPTAN-NAPROXEN ORAL) Take by mouth. multivitamin tablet Take 1 tablet by mouth once daily. loratadine (CLARITIN) 10 mg tablet Take 10 mg by mouth once daily. No current facility-administered medications for this visit. Allergies As of Date: 09/05/2024 (No Known Allergies) Fully Assessed 09/05/2024 SENSITIVE EXAM: Sensitive exam not performed. EXAM: BP 124/84 Ht 5' 5" (1.65m) Wt 200 lb (90.7kg) LMP 08/28/2024 BMI 33.28 kg/(m2). GENERAL: pleasant, female in no apparent distress PE deferred ASSESSMENT/PLAN: 1. Hot flashes - ICD9: 782.62, ICD10: R23.2 Discussed in detail. Will rule out POI. - FOLLICLE STIMULATING HORMONE - THYROID STIMULATING HORMONE I spent a total of 22 minutes on the date of the service which included preparing to see the patient, [id number] patient care, completing clinical documentation, obtaining and/or reviewing separately obtained history, counseling and educating the patient/family/caregiv er, and ordering medications, tests, or procedures. Yashira Pierce APRN.FABBY Referring Provider: PA MCKEON [[id number]] Allergies As of Date: 09/05/2024 (No Known Allergies) Date Reviewed: 09/05/2024 Reviewed by: Yashira Pierce APRN.FABBY - Fully Assessed Reason for Visit: Follow Up [171] Primary Visit Diagnosis:Hot flashes [R23.2] Order(s):FOLLICLE STIMULATING HORMONE [SQFSH] Order #: [id number] FUTURE THYROID STIMULATING HORMONE [SQTS] Order #: [id number] FUTURE Prescriptions as of 09/05/2024 - omeprazole (PRILOSEC) 20 mg capsule Take 1 capsule by mouth once daily. - modafinil (PROVIGIL) 100 mg tablet Take (1) tablet by mouth upon awakening Do not start before May 11, 2024. - AIMOVIG AUTOINJECTOR 140 mg/mL auto-injector - BD LUER-OMAR SYRINGE 3 mL 25 gauge x 1" USE 1 SYRINGE NEEDED FOR MIGRAINE - SUMAtriptan (IMITREX) 100 mg tablet - BOTOX 200 unit injection - choleca (more content not included)... Normal [facility] FOLLICLE STIMULATING HORMONE on 09-05-2024 Follitropin Qn 5.0 m[IU]/mL See comment mIU/mL [facility] Comment on above: Reference range: Follicular: 3.5-12.5 mIU/mL Ovulation: 4.7-21.5 mIU/mL Luteal: 1.7-7.7 mIU/mL Postmenopausal: 25.8-134.8 mIU/mL [facility] SerPl-aCncon 09-05-2024 Follitropin Qn 5.0 m[IU]/mL Normal See comment [facility] [place] Comment on above: Order Comment: Speci men Type: BLOOD SPECIMENOrdering Facility: [facility] Address: [address] [place] [address] Result Comment: Refe rence range: Follicular: 3.5-12.5 mIU/mL Ovulation: 4.7-21.5 mIU/mL Luteal: 1.7-7.7 mIU/mL Postmenopausal: 25.8-134.8 mIU/mL Performed By: #### 1 5067-2 ####CINDY [facility]ATORYCLIA [id number] [address] Follitropin Qnon 09-05-2024 [facility] THYROID STIMULATING HORMONEo n 09-05-2024 TSH Qn 1.490 m[IU]/L [facility] Comment on above: If the patient is pr egnant, TSH reference range varies by gestational period: First Trimester (weeks 9-12): 0.180-2.990 mIU/L Second Trimester: 0.110-3.980 mIU/L Third Trimester: 0.480-4.710 mIU/L Christopher Calero et al. A Practical Approach for the Verifications and Determination of Site- and Trimester-Specific Reference Intervals for Thyroid Function tests in . Thyroid, 2019:29:3:412-420. Allen Anthony, et al. 2017 Guidelines of the Citizen Of [place] Thyroid Association for the Diagnosis and Management of Thyroid Disease during and the . Thyroid, 2017:27:3:315-389. TSH Qnon 09-05-2024 Interpretation and review of laboratory results Normal [facility] TSH SerPl-aCncon 09-05-2024 TSH Qn 1.490 m[IU]/L Normal 0.270-4.200 [facility] Comment on above: Order Comment: Speci men Type: BLOOD SPECIMENOrdering Facility: [facility] Address: [address] [place] [address] Result Comment: If t he patient is , TSH reference range varies by gestational period: First Trimester (weeks 9-12): 0.180-2.990 mIU/L Second Trimester: 0.110-3.980 mIU/L Third Trimester: 0.480-4.710 mIU/L iain Edwards al. A Practical Approach for the Verifications and Determination of Site- and Trimester-Specific Reference Intervals for Thyroid Function tests in . Thyroid, 2019:29:3:412-420. Allen Anthony, et al. 2017 Guidelines of the Citizen Of The [place] Thyroid Association for the Diagnosis and Management of Thyroid Disease during and the . Thyroid, 2017:27:3:315-389. Performed By: #### 3 016-3 ####ROYERGITA [facility]ORATORYCLIA [id number] [address] 36on 08-24-2024 36 Requested Prescriptions Signed Prescriptions Disp Refills onabotulinumtoxinA (Botox) 200 units injection 1 each 3 Sig: Provider to inject 200 units intramuscularly every 12 weeks for migraine prevention. Authorizing Provider: MÓNICA CASTAÑEDA [facility] Progress Noteon 06-24-2024 Progress Note Administrations This Visit onabotulinumtoxin A (BOTOX) injection 200 Units Admin Date 06/24/2024 Action Given Dose 200 Units Route IntraMUSCular Site Other Administered By [facility] [place] Ordering Provider: Yeny Velasco MD [facility]:[id number] Lot#: [id number] Athletic Training Internship: [employer]gan Patient Supplied?: Yes [facility] FERRITIN BLDon 12-01-2023 Ferritin [Mass/Vol] 47.7 ng/mL 14.7 - 2 05.1 ng/mL [facility] HbA1c (Bld)on 12-01-2023 Average glucose Estimated from glycated hemoglobin (Bld) [Mass/Vol] 100 mg/dL [facility] HbA1c (Bld) [Mass fraction] 5.1 % 4.3 - 5.6 % [facility] Iron and Iron binding capaci ty panelon 12-01-2023 Iron [Mass/Vol] 38 ug/dL Low 41 - 186 ug/dL [facility] Iron binding capacity [Mass/Vol] 303 ug/dL 232 - 386 ug/dL [facility] Iron/TIBC [Molar ratio] 12.5 % Low 15.0 - 57.0 % [facility] VITAMIN B12 BLOODon 12-01-19 Cobalamin (Vitamin B12) [Mass/Vol] 633 pg/mL 232 - 1,245 pg/mL [facility] VITAMIN D 25 HYDROXYon 12-01 25-hydroxyvitamin D3 [Mass/Vol] 25.3 ng/mL Low 31.0 - 80.0 ng/mL [facility] CBC panel Auto (Bld)on 11-30 Erythrocyte distribution width (RBC) [Ratio] 13.3 % 11.5 - 15.0 % [facility] Hematocrit (Bld) [Volume fraction] 41.3 % 36.0 - 46.0 % [facility] Hemoglobin (Bld) [Mass/Vol] 13.5 g/dL 11.5 - 15.5 g/dL [facility] MCH (RBC) [Entitic mass] 28.2 pg 26.0 - 34.0 pg [facility] MCHC (RBC) [Mass/Vol] 32.7 g/dL 30.5 - 36.0 g/dL [facility] MCV (RBC) [Entitic vol] 86.4 fL 80.0 - 100.0 fL [facility] Nucleated RBC (Bld) [#/Vol] <0.01 k/uL [facility] Platelet mean volume (Bld) [Entitic vol] 8.4 fL Low 9.0 - 12.7 fL [facility] Platelets (Bld) [#/Vol] 392 10*3/uL 150 - 400 k/uL [facility] RBC (Bld) [#/Vol] 4.78 10*6/uL 3.90 - 5.2 0 m/uL [facility] WBC (Bld) [#/Vol] 9.01 10*3/uL 3.70 - 11. 00 k/uL [facility] Comprehensive metabolic 2000 panelon 11-30-2023 Albumin [Mass/Vol] 4.5 g/dL 3.9 - 4.9 g/dL Cl [facility] ALP [Catalytic activity/Vol] 122 U/L 34 - 123 U/L [facility] ALT [Catalytic activity/Vol] 13 U/L 7 - 38 U/L [facility] Anion gap [Moles/Vol] 14 mmol/L 9 - 18 mmol/L [facility] AST [Catalytic activity/Vol] 14 U/L 13 - 35 U/L [facility] Bilirubin [Mass/Vol] Low 0.2 - 1 .3 mg/dL [facility] Calcium [Mass/Vol] 9.5 mg/dL 8.5 - 10. 2 mg/dL [facility] Chloride [Moles/Vol] 99 mmol/L 97 - 10 5 mmol/L [facility] CO2 [Moles/Vol] 25 mmol/L 22 - 30 mmol/L [facility] Creatinine [Mass/Vol] 0.69 mg/dL 0.58 - 0.96 mg/dL [facility] Estimated Glomerular Filtration Rate 119 mL/min/1.73m >=60 mL/min/1.73m [facility] Glucose [Mass/Vol] 85 mg/dL 74 - 99 mg/dL [facility] Potassium [Moles/Vol] 4.1 mmol/L 3.7 - 5.1 mmol/L [facility] Protein [Mass/Vol] 7.8 g/dL 6.3 - 8.0 g/dL Cl [facility] Sodium [Moles/Vol] 138 mmol/L 136 - 144 mmol/L [facility] Urea nitrogen [Mass/Vol] 17 mg/dL 7 - 21 mg/dL [facility] TSH BLDon 11-30-2023 TSH Qn 1.640 m[IU]/L 0.270 - 4.200 mIU/L [facility] CBC panel Auto (Bld)on 10-15 Erythrocyte distribution width (RBC) [Ratio] 13.2 % 11.5 - 15.0 % [facility] Hematocrit (Bld) [Volume fraction] 44.1 % 36.0 - 46.0 % [facility] Hemoglobin (Bld) [Mass/Vol] 14.4 g/dL 11.5 - 15.5 g/dL [facility] MCH (RBC) [Entitic mass] 28.4 pg 26.0 - 34.0 pg [facility] MCHC (RBC) [Mass/Vol] 32.7 g/dL 30.5 - 36.0 g/dL [facility] MCV (RBC) [Entitic vol] 87.0 fL 80.0 - 100.0 fL [facility] Nucleated RBC (Bld) [#/Vol] <0.01 k/uL [facility] Platelet mean volume (Bld) [Entitic vol] 8.7 fL Low 9.0 - 12.7 fL [facility] Platelets (Bld) [#/Vol] 364 10*3/uL 150 - 400 k/uL [facility] RBC (Bld) [#/Vol] 5.07 10*6/uL 3.90 - 5.2 0 m/uL [facility] WBC (Bld) [#/Vol] 7.50 10*3/uL 3.70 - 11. 00 k/uL [facility] Comprehensive metabolic 2000 panelon 10-15-2022 Albumin [Mass/Vol] 4.7 g/dL 3.9 - 4.9 g/dL [facility] ALP [Catalytic activity/Vol] 114 U/L 34 - 123 U/L [facility] ALT [Catalytic activity/Vol] 17 U/L 7 - 38 U/L [facility] Anion gap [Moles/Vol] 11 mmol/L 9 - 18 mmol/L [facility] AST [Catalytic activity/Vol] 18 U/L 13 - 35 U/L [facility] Bilirubin [Mass/Vol] 0.3 mg/dL 0.2 - 1 .3 mg/dL [facility] Calcium [Mass/Vol] 9.8 mg/dL 8.5 - 10. 2 mg/dL [facility] Chloride [Moles/Vol] 104 mmol/L 97 - 10 5 mmol/L [facility] CO2 [Moles/Vol] 25 mmol/L 22 - 30 mmol/L [facility] Creatinine [Mass/Vol] 0.72 mg/dL 0.58 - 0.96 mg/dL [facility] Estimated Glomerular Filtration Rate 116 mL/min/1.73m >=60 mL/min/1.73m [facility] Glucose [Mass/Vol] 101 mg/dL High 74 - 99 mg/dL [facility] Potassium [Moles/Vol] 3.8 mmol/L 3.7 - 5.1 mmol/L [facility] Protein [Mass/Vol] 7.8 g/dL 6.3 - 8.0 g/dL [facility] Sodium [Moles/Vol] 140 mmol/L 136 - 144 mmol/L [facility] Urea nitrogen [Mass/Vol] 12 mg/dL 7 - 21 mg/dL [facility] XR Lumbar spine 3 Viewson IMPRESSION: MILD DEGENERATIVE CHANGE Cuff Turner: KARON [employer] Date/Time: Dec 13 2020 4:56P Dictated by : JANIYA WALKER MD This examination was interpreted and the report reviewed and electronically signed by: JANIYA WALKER MD on Dec 13 2020 4:57PM [facility] DIVISION OF RADIOLOGY * * *Final Report* * * DATE OF EXAM: Dec 13 2020 4:54PM WOX 5228 - XR LUMBAR 3V AP/LAT/L5-S1 / PROCEDURE REASON: Acute right-sided low back pain with right-sided sciatica * * * * Physician Interpretation * * * * Examination: XR LUMBAR 3V AP/LAT/L5-S1 History: Acute right-sided low back pain with right-sided sciatica Technique: XR LUMBAR 3V AP/LAT/L5-S1 Comparison: None RESULT: 5 lumbar type vertebrae. Normal alignment. Normal lordosis. No fracture or focal bony abnormality. For numbering purposes, L4-5 is at the level of the iliac crest. Mild spondylosis throughout. SI joints appear intact DIVISION OF RADIOLOGY Provider, Rob Love [facility] - 12/13/2020 * * *Final Report* * * DATE OF EXAM: Dec 13 2020 4:54PM WOX 5228 - XR LUMBAR 3V AP/LAT/L5-S1 / PROCEDURE REASON: Acute right-sided low back pain with right-sided sciatica * * * * Physician Interpretation * * * * Examination: XR LUMBAR 3V AP/LAT/L5-S1 History: Acute right-sided low back pain with right-sided sciatica Technique: XR LUMBAR 3V AP/LAT/L5-S1 Comparison: None RESULT: 5 lumbar type vertebrae. Normal alignment. Normal lordosis. No fracture or focal bony abnormality. For numbering purposes, L4-5 is at the level of the iliac crest. Mild spondylosis throughout. SI joints appear intact IMPRESSION IMPRESSION: MILD DEGENERATIVE CHANGE Cuff [facility] Transcribe Date/Time: Dec 13 2020 4:56P Dictated by : JANIYA WALKER MD This examination was interpreted and the report reviewed and electronically signed by: JANIYA WALKER MD on Dec 13 2020 4:57PM [facility] Radiology Study observation (narrative) [facility] XR Lumbar spine 3 ViewsOrder ed By: Ccf Provider on 12-13-2020 [facility] CT Head or Brain w/o Contras ton 08-26-2019 CT Head or Brain w/o Contrast Patient Name: PEGGY CHOUDHURY CT Exam Date/Time 08/26/2019 13:43:[address] Head or Brain w/o Contrast Ordering Physician DO MORALEZ JOSHUA E Accession Number [id number] CPT4 Codes 33919 () Reason For Exam following TBI Report Examination: CT Head Clinical Information: Follow-up subarachnoid hemorrhage Comparison: 07/28/2019 Findings: Serial axial [address] images were obtained through the skull without intravenous contrast. Coronal, sagittal, and axial images were reconstructed. No evidence of acute or subacute subarachnoid hemorrhage or cerebral contusion. There is been interval resolution of the prior left subarachnoid hemorrhage/contusion. The ventricular system and cortical sulci are within normal limits. Sanders white differentiation is well preserved. There is no evidence of gross mass, hemorrhage or edema. No areas of mass-effect or infarct are seen. Sinuses appear well pneumatized. Impression: Unremarkable noncontrast CT scan of the head. Interval resolution of the prior left subarachnoid hemorrhage/contusion. Report Dictated on Final Dictated: 08/26/2019 2:34 pm Dictating Physician: MD GONCALVES JASON Signed Date and Time: 08/26/2019 2:38 pm Signed by: MD GONCALVES JASON Transcribed Date and Time: 08/26/2019 2:34 Normal [facility] Basic Metabolic Panelon 10-1 Calcium [Mass/Vol] 8.5 mg/dL Normal 8.4-10.4 [facility] Comment on above: Performed By: #### H EMOG, LACT3, PT/AP, BMP3, ETOH4, CUA2, DRGA4, QWAL, QWNT #### [address] [id number] Glucose [Mass/Vol] 113 mg/dL High 70-100 [facility] Comment on above: Performed By: #### H EMOG, LACT3, PT/AP, BMP3, ETOH4, CUA2, DRGA4, QWAL, QWNT #### [address] [id number] Anion gap [Moles/Vol] 9 Normal [facility] Comment on above: Performed By: #### H EMOG, LACT3, PT/AP, BMP3, ETOH4, CUA2, DRGA4, QWAL, QWNT #### [address] CO2 [Moles/Vol] 27 mmol/L Normal 22-30 [facility] Comment on above: Performed By: #### H EMOG, LACT3, PT/AP, BMP3, ETOH4, CUA2, DRGA4, QWAL, QWNT #### [address] Creatinine [Mass/Vol] 0.53 mg/dL Normal 0.52-1.25 [facility] Comment on above: Performed By: #### H EMOG, LACT3, PT/AP, BMP3, ETOH4, CUA2, DRGA4, QWAL, QWNT #### [address] GFR/1.73 sq M predicted among blacks MDRD (S/P/Bld) [Vol rate/Area] mL/min/{1.73_m2} Normal >60 [facility] Comment on above: Performed By: #### H EMOG, LACT3, PT/AP, BMP3, ETOH4, CUA2, DRGA4, QWAL, QWNT #### [address] GFR/1.73 sq M predicted among non-blacks MDRD (S/P/Bld) [Vol rate/Area] mL/min/{1.73_m2} Normal >60 [facility] Comment on above: Result Comment: Sour ce- MDRD equation with creatinine calibration to IDMS(NKDEP) eGFR not recommended for drug dose adjustment Performed By: #### H EMOG, LACT3, PT/AP, BMP3, ETOH4, CUA2, DRGA4, QWAL, QWNT #### [address] Urea nitrogen [Mass/Vol] 13 mg/dL Normal 7-20 [facility] Comment on above: Performed By: #### H EMOG, LACT3, PT/AP, BMP3, ETOH4, CUA2, DRGA4, QWAL, QWNT #### [address] Chloride [Moles/Vol] 104 mmol/L Normal 98-107 [facility] Comment on above: Performed By: #### H EMOG, LACT3, PT/AP, BMP3, ETOH4, CUA2, DRGA4, QWAL, QWNT #### [address] Potassium [Moles/Vol] 3.9 mmol/L Normal 3.5-5.1 [facility] Comment on above: Performed By: #### H EMOG, LACT3, PT/AP, BMP3, ETOH4, CUA2, DRGA4, QWAL, QWNT #### [address] Sodium [Moles/Vol] 140 mmol/L Normal 135-145 [facility] Comment on above: Performed By: #### H EMOG, LACT3, PT/AP, BMP3, ETOH4, CUA2, DRGA4, QWAL, QWNT #### [address] Head or Brain w/o Contras ton 07-28-2019 CT Head or Brain w/o Contrast Patient Name: PEGGY CHOUDHURY CT Exam Date/Time 07/28/2019 04:48:[address] Head or Brain w/o Contrast Ordering Physician MD GAURANG, [facility] Accession Number [id number] CPT4 Codes 10274 () Reason For Exam head bleed, re-assess Report Examination: CT Head Clinical Information: Subarachnoid hemorrhage Comparison: None Findings: Serial axial [address] images were obtained through the skull without intravenous contrast. Coronal, sagittal, and axial images were reconstructed. A few scattered areas of subarachnoid hemorrhage are present in the left temporal lobe with a small amount of associated cerebral edema resulting in slight effacement of the left lateral ventricle. No midline shift. No additional areas of hemorrhage are identified. Otherwise the ventricular system and cortical sulci are within normal limits. Sanders white differentiation is well preserved. There is no evidence of a cervical mass. No areas of mass-effect or infarct are seen. Sinuses appear well pneumatized. Note is made of a midline arachnoid cyst or cisterna magna. Impression: A few scattered areas of subarachnoid hemorrhage are present in the left temporal lobe with a small amount of associated cerebral edema resulting in slight effacement of the left lateral ventricle. Report Dictated on Workstation: [id number] Final Dictated: 07/28/2019 5:01 am Dictating Physician: MD GONCALVES JASON Signed Date and Time: 07/28/2019 5:04 am Signed by: MD GONCALVES JASON Transcribed Date and Time: 07/28/2019 5:01 Normal [facility] Hemogram w/ Autodiffon 07-28 Abs Baso Cnt 0.0 10*3/uL Normal 0.0-0.2 [facility] Comment on above: Performed By: #### H EMOG, LACT3, PT/AP, BMP3, ETOH4, CUA2, DRGA4, QWAL, QWNT #### [address] Abs Neutrophile Cnt 9.7 10*3/uL High 1.8-7.0 [facility] Comment on above: Performed By: #### H EMOG, LACT3, PT/AP, BMP3, ETOH4, CUA2, DRGA4, QWAL, QWNT #### [address] Basophils/100 WBC (Bld) 0.3 % Normal 0.0-2.0 [facility] Comment on above: Performed By: #### H EMOG, LACT3, PT/AP, BMP3, ETOH4, CUA2, DRGA4, QWAL, QWNT #### [address] Eosinophils (Bld) [#/Vol] 0.0 10*3/uL Normal 0.0-0.5 [facility] Comment on above: Performed By: #### H EMOG, LACT3, PT/AP, BMP3, ETOH4, CUA2, DRGA4, QWAL, QWNT #### [address] Eosinophils/100 WBC (Bld) 0.0 % Low 1.0-6.0 [facility] Comment on above: Performed By: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 Phone: [facility] 02-10-2024 13:38-0400 SaO2% (BldA) [Mass fraction] 94 % Gallito Lemus MD Work Phone: [facility] 02-10-2024 13:38-0400 Systolic blood pressure 106 mm[Hg] Gallito Lemus MD Work Phone: [facility] 12-18-2023 11:29-0500 Body temperature 98.01 [degF] Yeny Velasco MD Work Phone: [facility] 12-18-2023 11:29-0500 Diastolic blood pressure 69 mm[Hg] Yeny Velasco MD Work Phone: [facility] 12-18-2023 11:29-0500 Heart rate 86 /min Yeny Velasco MD Work Phone: [facility] 12-18-2023 11:29-0500 Systolic blood pressure 116 mm[Hg] Yeny Velasco MD Work Phone: [facility] 12-06-2023 05:12-0500 Body height 165.1 cm Sleep Main Work Phone: [facility] 12-06-2023 05:12-0500 Body weight 87.1 kg Sleep Main Work Phone: [facility] 11-30-2023 15:52-0500 Body height 165.1 cm Ketan Kessler APRN.BOWLING TEACHER Work Phone: [facility] 11-30-2023 15:52-0500 Body weight 87.09 kg Ketan Kessler APRN.BOWLING TEACHER Work Phone: [facility] 11-30-2023 15:52-0500 Diastolic blood pressure 82 mm[Hg] Ketan Kessler APRN.BOWLING TEACHER Work Phone: [facility] 11-30-2023 15:52-0500 Heart rate 81 /min Ketan Kessler APRN.BOWLING TEACHER Work Phone: [facility] 11-30-2023 15:52-0500 Respiratory rate 16 /min Ketan Kessler ZIGGY.BOWLING TEACHER Work Phone: [facility] 11-30-2023 15:52-0500 SaO2% (BldA) [Mass fraction] 99 % Ketan Kessler ZIGGY.BOWLING TEACHER Work Phone: [facility] 11-30-2023 15:52-0500 Systolic blood pressure 124 mm[Hg] Ketan Kessler ZIGGY.BOWLING TEACHER Work Phone: [facility] 10-23-2023 10:15-0500 Body height 165.1 cm Avila Gayer PA-C Work Phone: [facility] 10-23-2023 10:15-0500 Body mass index (BMI) [Ratio] 31.92 kg/m2 Avila Gayer PA-C Work Phone: [facility] 10-23-2023 10:15-0500 Body temperature 98.1 [degF] Avila Gayer PA-C Work Phone: [employer] 10-23-2023 10:15-0500 Body weight 87 kg Avila Gayer PA-C Work Phone: [facility] 10-23-2023 10:15-0500 Diastolic blood pressure 71 mm[Hg] Avila Gayer PA-C Work Phone: [employer] 10-23-2023 10:15-0500 Heart rate 81 /min Avila Gayer PA-C Work Phone: [employer] 10-23-2023 10:15-0500 Systolic blood pressure 104 mm[Hg] Avila Gayer PA-C Work Phone: [facility] 09-18-2023 11:35-0500 Body height 165.1 cm Yeny Velasco MD Work Phone: [facility] 09-18-2023 11:35-0500 Body mass index (BMI) [Ratio] 32.12 kg/m2 Yeny Velasco MD Work Phone: [facility] 09-18-2023 11:35-0500 Body temperature 97.39 [degF] Yeny Velasco MD Work Phone: [facility] 09-18-2023 11:35-0500 Body weight 87.54 kg Yeny Velasco MD Work Phone: [facility] 09-18-2023 11:35-0500 Diastolic blood pressure 62 mm[Hg] Yeny Velasco MD Work Phone: [facility] 09-18-2023 11:35-0500 Heart rate 84 /min Yeny Velasco MD Work Phone: [facility] 09-18-2023 11:35-0500 Systolic blood pressure 111 mm[Hg] Yeny Velasco MD Work Phone: [facility] 06-24-2023 09:28-0400 Body height 165.1 cm Avila Gayer PA-C Work Phone: [facility] 06-24-2023 09:28-0400 Body mass index (BMI) [Ratio] 32.12 kg/m2 Avila Gayer PA-C Work Phone: [facility] 06-24-2023 09:28-0400 Body weight 87.54 kg Avila Gayer PA-C Work Phone: [facility] 06-24-2023 09:28-0400 Diastolic blood pressure 67 mm[Hg] Avila Gayer PA-C Work Phone: [facility] 06-24-2023 09:28-0400 Heart rate 81 /min Avila Gayer PA-C Work Phone: [facility] 06-24-2023 09:28-0400 Systolic blood pressure 113 mm[Hg] Avila Gayer PA-C Work Phone: [facility] 06-19-2023 10:28-0400 Body height 165.1 cm Yeny Velasco MD Work Phone: [facility] 06-19-2023 10:28-0400 Body mass index (BMI) [Ratio] 31.45 kg/m2 Yeny Velasco MD Work Phone: [facility] 06-19-2023 10:28-0400 Body temperature 97.9 [degF] Yeny Velasco MD Work Phone: [facility] 06-19-2023 10:28-0400 Body weight 85.73 kg Yeny Velasco MD Work Phone: [facility] 06-19-2023 10:28-0400 Diastolic blood pressure 61 mm[Hg] Yeny Velasco MD Work Phone: [facility] 06-19-2023 10:28-0400 Heart rate 89 /min Yeny Velasco MD Work Phone: [facility] 06-19-2023 10:28-0400 Systolic blood pressure 91 mm[Hg] Yeny Velasco MD Work Phone: [facility] 04-27-2023 09:52-0400 Body weight 84.82 kg Pa Mckeon MD Work Phone: [facility] 04-27-2023 09:52-0400 Diastolic blood pressure 74 mm[Hg] Pa Mckeon MD Work Phone: [facility] 04-27-2023 09:52-0400 Heart rate 86 /min Pa Mckeon MD Work Phone: [facility] 04-27-2023 09:52-0400 SaO2% (BldA) [Mass fraction] 96 % Pa Mckeon MD Work Phone: [facility] 04-27-2023 09:52-0400 Systolic blood pressure 116 mm[Hg] Pa Mckeon MD Work Phone: [facility] 03-23-2023 09:49-0400 Body height 165.1 cm Avila Weir PA-C Work Phone: [facility] 03-23-2023 09:49-0400 Body mass index (BMI) [Ratio] 31.45 kg/m2 Avila Biggser PA-C Work Phone: [facility] 03-23-2023 09:49-0400 Body weight 85.73 kg Avila Biggser PA-C Work Phone: [facility] 03-23-2023 09:49-0400 Diastolic blood pressure 72 mm[Hg] Avila Biggser PA-C Work Phone: [facility] 03-23-2023 09:49-0400 Heart rate 82 /min Avila Biggser PA-C Work Phone: [facility] 03-23-2023 09:49-0400 Systolic blood pressure 116 mm[Hg] Avila Biggser PA-C Work Phone: [facility] 03-20-2023 10:33-0400 Body height 165.1 cm Yeny Velasco MD Work Phone: [facility] 03-20-2023 10:33-0400 Body mass index (BMI) [Ratio] 30.79 kg/m2 Yeny Velasco MD Work Phone: [facility] 03-20-2023 10:33-0400 Body temperature 98.2 [degF] Yeny Velasco MD Work Phone: [facility] 03-20-2023 10:33-0400 Body weight 83.92 kg Yeny Velasco MD Work Phone: [facility] 03-20-2023 10:33-0400 Diastolic blood pressure 64 mm[Hg] Yeny Velasco MD Work Phone: [facility] 03-20-2023 10:33-0400 Heart rate 83 /min Yeny Velasco MD Work Phone: [facility] 03-20-2023 10:33-0400 Systolic blood pressure 109 mm[Hg] Yeny Velasco MD Work Phone: [facility] 02-20-2023 11:00-0400 Body height 165.1 cm Yashira Pierce APRN.CNP Work Phone: [facility] 02-20-2023 11:00-0400 Body weight 89.36 kg Yashira Pierce BUILDING INSPECTOR.BOWLING TEACHER Work Phone: [facility] 02-20-2023 11:00-0400 Diastolic blood pressure 72 mm[Hg] Yashira Pierce BUILDING INSPECTOR.BOWLING TEACHER Work Phone: [facility] 02-20-2023 11:00-0400 Systolic blood pressure 120 mm[Hg] Yashira Pierce BUILDING INSPECTOR.BOWLING TEACHER Work Phone: [facility] 12-19-2022 08:45-0500 Body height 165.1 cm Mónica Zaldivarsey BUILDING INSPECTOR - BOWLING TEACHER Work Phone: [facility] 12-19-2022 08:45-0500 Body mass index (BMI) [Ratio] 30.79 kg/m2 Mónica Amandeep BUILDING INSPECTOR - BOWLING TEACHER Work Phone: [facility] 12-19-2022 08:45-0500 Body weight 83.92 kg Mónica Zaldivarsey BUILDING INSPECTOR - BOWLING TEACHER Work Phone: [facility] Comment on above: pt reported. 12-19-2022 08:45-0500 Diastolic blood pressure 71 mm[Hg] Mónica Zaldivarsey BUILDING INSPECTOR - BOWLING TEACHER Work Phone: [facility] 12-19-2022 08:45-0500 Heart rate 80 /min Mónica Amandeep BUILDING INSPECTOR - BOWLING TEACHER Work Phone: [facility] 12-19-2022 08:45-0500 Systolic blood pressure 123 mm[Hg] Mónica Amandeep BUILDING INSPECTOR - BOWLING TEACHER Work Phone: [employer] 12-11-2022 10:47-0500 Body height 165.1 cm Avila Weir PA-C Work Phone: [employer] 12-11-2022 10:47-0500 Body mass index (BMI) [Ratio] 32.18 kg/m2 Avila Weir PA-C Work Phone: [employer] 12-11-2022 10:47-0500 Body temperature 98.1 [degF] Avila Biggser PA-C Work Phone: [facility] 12-11-2022 10:47-0500 Body weight 87.73 kg Avila Biggser PA-C Work Phone: [facility] 12-11-2022 10:47-0500 Diastolic blood pressure 69 mm[Hg] Avila Biggser PA-C Work Phone: [facility] 12-11-2022 10:47-0500 Heart rate 94 /min Avila Biggser PA-C Work Phone: [facility] 12-11-2022 10:47-0500 Systolic blood pressure 104 mm[Hg] Avila Biggser PA-C Work Phone: [facility] 10-15-2022 13:51-0500 Body weight 86.64 kg Pa Mckeon MD Work Phone: [facility] 10-15-2022 13:51-0500 Diastolic blood pressure 82 mm[Hg] Pa Mckeon MD Work Phone: [facility] 10-15-2022 13:51-0500 Heart rate 88 /min Pa Mckeon MD Work Phone: [facility] 10-15-2022 13:51-0500 SaO2% (BldA) [Mass fraction] 96 % Pa Mckeon MD Work Phone: [facility] 10-15-2022 13:51-0500 Systolic blood pressure 118 mm[Hg] Pa Mckeon MD Work Phone: [facility] Encounters Encounter Date Encounter Type Care Provider Facility Start: 08-06-2025 End: 08-06-2025 Emergency department patient visit Juan M Zurita Facility:[facility] Start: 08-03-2025 End: 08-03-2025 ambulatory PA MCKEON Facility[facility] Start: 06-29-2025 End: 06-29-2025 Nursing evaluation of patient and report Mi Nurse Work Phone: [facility] Comment on above: 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; Long-term current use of stimulant Start: 06-29-2025 End: 06-29-2025 ambulatory AMINA HORN Facility:[facility] Start: 06-21-2025 End: 06-21-2025 Patient encounter procedure Yeny Velasco MD Work Phone: [facility] Comment on above: Intractable chronic migraine without aura and without status migrainosus (Primary Dx) Start: 06-21-2025 End: 06-21-2025 ambulatory YENY [facility] Start: 06-16-2025 End: 06-16-2025 Patient encounter procedure Gallito Lemus MD Work Phone: Neurology Comment on above: 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 Start: 06-16-2025 End: 06-16-2025 ambulatory GALLITO LEMUS Facility:[facility] Start: 06-15-2025 End: 06-15-2025 Follow-up encounter Amina Horn APRN.CNP Work Phone: NEUROLOGY Start: 06-15-2025 End: 06-15-2025 ambulatory AMINA HORN Facility:[facility] Start: 05-30-2025 End: 05-30-2025 Telephone encounter Yeny Velasco MD Work Phone: [facility] Start: 05-10-2025 End: 05-11-2025 Refill Pa Mckeon MD Work Phone: [facility] Comment on above: Refill Request Start: 05-10-2025 End: 05-12-2025 Refill Pa Mckeon MD Work Phone: [facility] Comment on above: Refill Request Start: 03-24-2025 End: 03-24-2025 Patient encounter procedure Yeny Velasco MD Work Phone: [facility] Comment on above: Chronic migraine wit hout aura with status migrainosus, not intractable Start: 03-24-2025 End: 03-24-2025 ambulatory [facility] Start: 01-12-2025 End: 01-12-2025 ambulatory OSCAR COLIN Facility:[facility] Start: 01-12-2025 End: 01-12-2025 Patient encounter procedure Oscar Colin MD Work Phone: [facility] Comment on above: Adjustment disorder with mixed anxiety and depressed mood Start: 12-30-2024 End: 12-30-2024 ambulatory Amina Horn ZIGGY.BOWLING TEACHER Work Phone: NEUROLOGY Comment on above: 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); UARS (upper airway resistance syndrome); Long-term current use of stimulant Start: 12-30-2024 End: 12-30-2024 Telemedicine consultation with patient Amina Horn ZIGGY.BOWLING TEACHER Work Phone: NEUROLOGY Start: 12-23-2024 End: 12-23-2024 Patient encounter procedure Yeny Velasco MD Work Phone: [facility] Neurology [facility] Comment on above: Intractable chronic migraine without aura and without status migrainosus (Primary Dx) Start: 12-23-2024 End: 12-23-2024 ambulatory [facility] Start: 12-17-2024 End: 12-17-2024 ambulatory YASHIRA PIERCE Facility:[facility] Start: 12-17-2024 End: 12-17-2024 Patient encounter procedure Yashira Pierce APRN.BOWLING TEACHER Work Phone: OB/Gynecology Comment on above: Women's annual routi ne gynecological examination (Primary Dx); Screening breast examination Start: 12-13-2024 End: 12-13-2024 Follow-up encounter Mónica Vasques APRN.BOWLING TEACHER Work Phone: [facility] Start: 12-13-2024 End: 12-13-2024 Patient encounter procedure Mónica Vasques APRN.BOWLING TEACHER Work Phone: [facility] Comment on above: Acute cough (Primary Dx); URI, acute Start: 12-13-2024 End: 12-13-2024 ambulatory MÓNICA VASQUES Facility:[facility] Start: 12-13-2024 End: 12-13-2024 Subsequent hospital visit by physician Maria Del Rosario [facility] Work Phone: Radiology Comment on above: Acute cough [R05.1] Start: 12-12-2024 End: 12-13-2024 Refill Avila Weir PA-C Work Phone: [facility] Neurology [facility] Comment on above: Chronic migraine wit hout aura with status migrainosus, not intractable Start: 12-10-2024 End: 12-12-2024 Refill Ketan Kessler APRN.CNP Work Phone: [facility] Comment on above: Refill Request Start: 10-15-2024 End: 10-16-2024 Refill Rosas Bedolla MD Work Phone: Neurology Start: 09-23-2024 End: 09-23-2024 Patient encounter procedure Yeny Velasco MD Work Phone: [facility] Neurology [facility] Comment on above: Intractable chronic migraine without aura and without status migrainosus (Primary Dx) Start: 09-23-2024 End: 09-23-2024 ambulatory YENY VELASCO [facility] Start: 09-16-2024 End: 09-16-2024 ambulatory RYANN NULL Facility:[facility] Start: 09-16-2024 End: 09-16-2024 Patient encounter procedure Ryann Null MD Work Phone: Otolaryngology Comment on above: ROCIO (obstructive sle ep apnea) (Primary Dx); Enlarged tonsils Start: 09-09-2024 End: 09-09-2024 Telemedicine consultation with patient Gallito Lemus MD Work Phone: Neurology Start: 09-09-2024 End: 09-09-2024 ambulatory Gallito Lemus MD Work Phone: Neurology Comment on above: UARS (upper airway r esistance syndrome) (Primary Dx); Hypersomnia due to medical condition Start: 09-07-2024 End: 09-07-2024 Telephone encounter Mónica Amandeep TRINH - BOWLING TEACHER Work Phone: [facility] Comment on above: Botulinum Toxin Inje ction Start: 09-05-2024 End: 09-05-2024 ambulatory YASHIRA PIERCE [facility] Start: 09-05-2024 End: 09-05-2024 Patient encounter procedure Yashira Pierce BUILDING INSPECTOR.BOWLING TEACHER Work Phone: OB/Gynecology Comment on above: Hot flashes (Primary Dx) Start: 08-24-2024 End: 08-24-2024 Refill Mónica Amandeep LOUISN - BOWLING TEACHER Work Phone: [facility] Start: 06-24-2024 End: 06-24-2024 Patient encounter procedure Yeny Velasco MD Work Phone: [facility] Comment on above: Intractable chronic migraine without aura and without status migrainosus (Primary Dx) Start: 06-24-2024 End: 06-24-2024 ambulatory YENY VELASCO [facility] Start: 05-27-2024 Refill Pa Mckeon MD Work Phone: [facility] Comment on above: Refill Request Start: 05-27-2024 Refill Pa Mckeon MD Work Phone: [facility] Comment on above: Refill Request Start: 05-23-2024 Refill Pa Mckeon MD Work Phone: [facility] Comment on above: Refill Request Start: 05-23-2024 Refill Pa Mckeon MD Work Phone: [facility] Comment on above: Refill Request Start: 04-28-2024 End: 04-28-2024 ambulatory Amina Pete TRINH.BOWLING TEACHER Work Phone: Neurology Comment on above: UARS (upper airway r esistance syndrome) (Primary Dx); Primary hypersomnia; Hypersomnia due to medical condition; Enlarged tonsils Start: 04-28-2024 End: 04-28-2024 Telemedicine consultation with patient Amina Horn BUILDING INSPECTOR.BOWLING TEACHER Work Phone: Neurology Start: 03-25-2024 End: 03-25-2024 Patient encounter procedure Yeny Velasco MD Work Phone: [facility] Comment on above: Intractable chronic migraine without aura and without status migrainosus (Primary Dx) Start: 03-11-2024 Telephone encounter Luz Abreu Ramandeep [facility] Comment on above: Other (Botox Deliver y) Start: 03-03-2024 Refill Ketan Kessler BUILDING INSPECTOR.BOWLING TEACHER Work Phone: [facility] Comment on above: Refill Request Start: 02-19-2024 End: 02-19-2024 Office outpatient visit 15 minutes Avila Weir PA-C Work Phone: [facility] Comment on above: Chronic migraine wit hout aura with status migrainosus, not intractable (Primary Dx) Start: 02-10-2024 End: 02-10-2024 Patient encounter procedure Gallito Lemus MD Work Phone: Neurology Comment on above: UARS (upper airway r esistance syndrome) (Primary Dx); Hypersomnia due to medical condition Start: 12-28-2023 ambulatory Jennifer Murphy RN [facility] Start: 12-28-2023 Patient encounter procedure Jennifer Murphy RN [facility] Start: 12-18-2023 End: 12-18-2023 Patient encounter procedure Yeny Velasco MD Work Phone: [facility] Comment on above: Chronic migraine wit hout aura without status migrainosus, not intractable (Primary Dx) Start: 12-16-2023 Telephone encounter Yeny astorga MD Work Phone: [facility] Comment on above: [facility] - Botox Start: 12-06-2023 Chart abstracting [facility] Main Work Phone: Neurology Comment on above: PSG Check In Start: 12-05-2023 End: 12-06-2023 ambulatory UNKNOWN PROVIDER Facility:[facility] Start: 12-01-2023 Telephone encounter Avila menjivar PA-C Work Phone: [facility] Comment on above: sample of Amovig Start: 11-30-2023 End: 11-30-2023 Patient encounter procedure Ketan Kessler ZIGGY.BOWLING TEACHER Work Phone: [facility] Comment on above: Adjustment disorder with mixed anxiety and depressed mood (Primary Dx); Chronic fatigue; Snoring; Class 1 obesity with body mass index (BMI) of 31.0 to 31.9 in adult, unspecified obesity type, unspecified whether serious comorbidity present Start: 10-23-2023 End: 10-23-2023 Office outpatient visit 15 minutes Avila Weir PA-C Work Phone: [facility] Comment on above: Chronic migraine wit hout aura with status migrainosus, not intractable (Primary Dx) Start: 09-18-2023 End: 09-18-2023 Patient encounter procedure Yeny Velasco MD Work Phone: [facility] Comment on above: Chronic migraine wit hout aura with status migrainosus, not intractable (Primary Dx) Start: 09-09-2023 Refill Pa Mckeon MD Work Phone: [facility] Comment on above: Refill Request Start: 09-04-2023 Refill Mónica Amandeep TRINH - BOWLING TEACHER Work Phone: [facility] Start: 06-24-2023 End: 06-24-2023 Office outpatient visit 15 minutes Avila Weir PA-C Work Phone: [facility] Comment on above: Chronic migraine wit hout aura with status migrainosus, not intractable (Primary Dx) Start: 06-19-2023 End: 06-19-2023 Patient encounter procedure Yeny Velasco MD Work Phone: [facility] Comment on above: Chronic migraine wit hout aura with status migrainosus, not intractable (Primary Dx) Start: 05-28-2023 Telephone encounter Mónica baron BUILDING INSPECTOR - BOWLING TEACHER Work Phone: [facility] Comment on above: Patient Supplied Bot ox Delivery (Patient Supplied Botox Delivery) Start: 05-24-2023 Refill Pa Mckeon MD Work Phone: [facility] Comment on above: Refill Request Start: 04-27-2023 End: 04-27-2023 Patient encounter procedure Pa Mckeon MD Work Phone: [facility] Comment on above: Adjustment disorder with mixed anxiety and depressed mood (Primary Dx); Fatigue, unspecified type; Hypersomnolence; GERD without esophagitis Start: 03-23-2023 Refill Zhen Coburn Dagoberto pollock DO Work Phone: [facility] Comment on above: Refill Request Start: 03-23-2023 End: 03-23-2023 Office outpatient visit 15 minutes Avila Weir PA-C Work Phone: [facility] Comment on above: Chronic migraine wit hout aura with status migrainosus, not intractable (Primary Dx); Cervicalgia Start: 03-20-2023 End: 03-20-2023 Patient encounter procedure Yeny Velasco MD Work Phone: [facility] Comment on above: Chronic migraine wit hout aura with status migrainosus, not intractable (Primary Dx) Start: 02-24-2023 End: 02-24-2023 ambulatory Avila Weir PA-C Work Phone: [facility] Comment on above: Cervicalgia (Primary Dx) Start: 02-20-2023 End: 02-20-2023 Follow-up encounter Avila Weir PA-C Work Phone: [facility] Comment on above: Cervicalgia (Primary Dx) Start: 02-20-2023 End: 02-20-2023 Patient encounter procedure Yashira Pierce APRN.BOWLING TEACHER Work Phone: OB/Gynecology Comment on above: Women's annual routi ne gynecological examination (Primary Dx); Screening breast examination; Screening for cervical cancer; Special screening examination for human papillomavirus (HPV); History of abnormal cervical Pap smear Start: 02-17-2023 End: 02-17-2023 Follow-up encounter Avila Weir PA-C Work Phone: [facility] Comment on above: Cervicalgia (Primary Dx) Start: 02-12-2023 End: 02-12-2023 Follow-up encounter Avila Weir PA-C Work Phone: [facility] Comment on above: Cervicalgia (Primary Dx) Start: 02-10-2023 End: 02-10-2023 Follow-up encounter Avila Weir PA-C Work Phone: [facility] Comment on above: Cervicalgia (Primary Dx) Start: 01-29-2023 End: 01-29-2023 Follow-up encounter Avila Weir PA-C Work Phone: [facility] Comment on above: Cervicalgia (Primary Dx) Start: 01-22-2023 End: 01-22-2023 Follow-up encounter Avila Weir PA-C Work Phone: [facility] Comment on above: Cervicalgia (Primary Dx) Start: 01-20-2023 End: 01-20-2023 Follow-up encounter Avila Weir PA-C Work Phone: [facility] Comment on above: Cervicalgia (Primary Dx) Start: 01-15-2023 End: 01-15-2023 Follow-up encounter Avila Weir PA-C Work Phone: [facility] Comment on above: Cervicalgia (Primary Dx) Start: 01-06-2023 End: 01-06-2023 Follow-up encounter Avila Weir PA-C Work Phone: [facility] Comment on above: Cervicalgia (Primary Dx) Start: 12-31-2022 End: 12-31-2022 Follow-up encounter Avila Weir PA-C Work Phone: [facility] Comment on above: Cervicalgia (Primary Dx) Start: 12-27-2022 End: 12-27-2022 ambulatory Avila Weri PA-C Work Phone: [facility] Comment on above: Cervicalgia Start: 12-19-2022 End: 12-19-2022 Patient encounter procedure Mónica Castañeda BUILDING INSPECTOR - BOWLING TEACHER Work Phone: [facility] Comment on above: Chronic migraine wit hout aura with status migrainosus, not intractable (Primary Dx) Start: 12-11-2022 End: 12-11-2022 Office outpatient visit 25 minutes Avila Weir PA-C Work Phone: [facility] Comment on above: Chronic migraine wit hout aura with status migrainosus, not intractable (Primary Dx); Cervicalgia Start: 12-02-2022 Telephone encounter Mónica baron BUILDING INSPECTOR - BOWLING TEACHER Work Phone: [facility] Start: 10-15-2022 End: 10-15-2022 Patient encounter procedure Pa Mckeon MD Work Phone: [facility] Comment on above: Adjustment disorder with mixed anxiety and depressed mood (Primary Dx); Fatigue, unspecified type Start: 09-17-2022 Refill Pa Mckeon MD Work Phone: [facility] Comment on above: Refill Request Start: 02-23-2022 Refill Pa Mckeon MD Work Phone: [facility] Comment on above: Refill Request Start: 12-13-2020 End: 12-13-2020 Subsequent hospital visit by physician [facility] Work Phone: Radiology Comment on above: Acute right-sided lo w back pain with right-sided sciatica [M54.41] Procedures Date Procedure Procedure Detail Performing Clinician Start: 06-29-2025 Ecg routine ecg w/le ast 12 lds i&r only Amina Horn BUILDING INSPECTOR.BOWLING TEACHER Work Phone: Start: 12-13-2024 Radiologic exam ches t 2 views Mónica Vasques BUILDING INSPECTOR.BOWLING TEACHER Work Phone: Start: 02-20-2023 Microscopic observat ion [Identifier] in Cervix by Cyto stain Yeny Velasco MD Work Phone: Start: 12-13-2020 Radex spine lumbosac ral 2/3 views Cecilia Madison BUILDING INSPECTOR.BOWLING TEACHER Work Phone: Plan of Treatment Date Care Activity Detail Author Start: 2067 RSV Immunization for Adults (1 - 1-dose 75+ series) RSV Immunization for Adults (1 - 1-dose 75+ series) [facility] Start: 2052 RSV Immunization age d 60 or older (1 - 1-dose 60+ series) RSV Immunization aged 60 or older (1 - 1-dose 60+ series) [facility] Start: 2042 Zoster Vaccines (1 o f 2) Zoster Vaccines (1 of 2) [facility] Start: 2034 PAP TESTING PAP TESTING [facility] Start: 07-27-2029 DTaP/Tdap/Td Vaccine s (8 - Td or Tdap) DTaP/Tdap/Td Vaccines (8 - Td or Tdap) [facility] Start: 07-27-2029 Urine microalbumin profile DTaP,Tdap,Td Vaccine (8 - Td or Tdap) [facility] Start: 02-21-2028 HPV TESTING HPV TESTING [facility] Start: 02-21-2028 Screening for malignant neoplasm of cervix HPV Testing [facility] Start: 01-01-2027 HPV TESTING HPV TESTING [facility] Start: 02-20-2026 Screening for malignant neoplasm of cervix [facility] Start: 01-15-2026 End: 01-15-2026 Follow-up encounter 01/15/2026 1:00 PM EDT [facility] NEUROLOGY [address] [facility] [address] [place] [address] Amina Horn APRN.BOWLING TEACHER [address] [facility] [place] [address] Follow up 6 mos. Meds NEUROLOGY Comment on above: Follow up 6 mos. Med s Start: 09-22-2025 End: 09-22-2025 Patient encounter procedure 09/22/2025 10:30 AM EST Procedure Visit [facility] [address] [facility] [facility] [place] [address] [place] [phone] Yeny Velasco MD [address] [place], [place] [id number] [facility] Start: 08-30-2025 End: 08-30-2025 Patient encounter procedure 08/30/2025 11:20 AM EST Office Visit Neurology [address] [place] [address] Gallito Lemus MD [address] [facility] [address] [place] [address] f/u w/meds Neurology Comment on above: f/u w/meds Start: 07-20-2025 End: 07-20-2025 Patient encounter procedure 07/20/2025 2:30 PM EDT Office Visit Neurology [address] [place] [address] Gallito Lemus MD [address] [facility] [address] [place] [address] f/u w/meds Neurology Comment on above: f/u w/meds Start: 06-29-2025 End: 06-29-2025 Nursing evaluation of patient and report 06/29/2025 8:15 AM EDT Nurse Visit Family Medicine [facility] [address] [place] [address] Nurse, [place] [address] [place] [address] E[facility] Comment on above: EKG Start: 06-23-2025 End: 06-23-2025 ambulatory 06/23/2025 9:30 AM EDT [facility] NEUROLOGY [address] [facility] 1 [place] [address] Amina Horn APRN.BOWLING TEACHER [address] [facility] 1 [place] [address] f/u w/meds NEUROLOGY Comment on above: f/u w/meds Start: 06-21-2025 End: 06-21-2025 Patient encounter procedure 06/21/2025 10:00 AM EDT Procedure Visit [address] [place] [address] [place] [phone] Yeny Velasco MD [address] [place] [id number] [facility] Start: 06-19-2025 COVID-19 Vaccine ( season) COVID-19 Vaccine ( season) [facility] Start: 06-19-2025 Influenza vaccination [facility] Start: 06-16-2025 End: 06-16-2025 Patient encounter procedure 06/16/2025 3:00 PM EDT Office Visit Neurology [address] [place] [address] Gallito Lemus MD [address] [address] f/u w/meds Neurology Comment on above: f/u w/meds Start: 03-24-2025 End: 03-24-2025 Patient encounter procedure 03/24/2025 10:30 AM EDT Procedure Visit [address] [place] [address] [place] [phone] Yeny Velasco MD [address] [place] [address] [place] [address] [facility] Start: 01-06-2025 End: 01-06-2025 Patient encounter procedure 01/06/2025 9:40 AM EDT Office Visit [facility] [address] [place] [address] Pa Mckeon MD [address] [place], [place] [phone] medication follow up [facility] Comment on above: medication follow up Start: 12-30-2024 End: 12-30-2025 ECG COMPLETE ECG COMPLETE ECG Routine Hypersomnia due to medical condition Long-term current use of stimulant Expected: 12/30/2024 (Approximate), Expires: 12/30/2025 [facility] Comment on above: Expected: 12/30/2024 (Approximate), Expires: 12/30/2025 Start: 12-30-2024 End: 10-18-2025 TOXICOLOGY SCREEN, ROUTINE URINE TOXICOLOGY SCREEN, ROUTINE URINE Lab Routine UARS (upper airway resistance syndrome) Hypersomnia due to medical condition Long-term current use of stimulant Expected: 12/30/2024 (Approximate), Expires: 10/18/2025 [facility] Work Phone: Comment on above: Expected: 12/30/2024 (Approximate), Expires: 10/18/2025 Start: 12-30-2024 End: 12-30-2024 Follow-up encounter Neurology Comment on above: [facility] Up Start: 12-23-2024 End: 12-23-2024 Patient encounter procedure 12/23/2024 10:00 AM EST Procedure Visit [address] [place] [address] [place] [address] Yeny Velasco MD [address] [place] [address] [place] [address] [facility] Start: 12-17-2024 End: 12-17-2024 Patient encounter procedure 12/17/2024 11:30 AM EST Office Visit OB/Gynecology [address] [facility] [place], [place] [address] Yashira Pierce APRN.BOWLING TEACHER [address] [facility] [place] [address] annual OB/Gynecology Comment on above: annual Start: 11-30-2024 Diabetes mellitus screening Diabetes Screening [facility] Start: 09-28-2024 End: 09-28-2024 ambulatory 09/28/2024 11:20 AM [facility] Neurology [address] [place] [address] Gallito Lemus MD [address] [address] f/u w/meds Neurology Comment on above: f/u w/meds Start: 09-23-2024 End: 09-23-2024 Patient encounter procedure 09/23/2024 3:40 PM EST Office Visit [facility] [address] [place], [place] [phone] Corrie Menchaca APRN.BOWLING TEACHER [address] [place] [address] possible hot flashes [facility] Comment on above: possible hot flashes Start: 09-23-2024 End: 09-23-2024 Patient encounter procedure [facility] Start: 09-16-2024 End: 09-16-2024 Patient encounter procedure 09/16/2024 9:45 AM EST Office Visit Otolaryngology [address] [address] Ryann Null MD [address] [address] Malignant neoplasm of urinary bladder, unspecified site (HCC) [C67.9 Otolaryngology Comment on above: Malignant neoplasm o f urinary bladder, unspecified site (HCC) [C67.9 Start: 09-09-2024 End: 09-09-2024 ambulatory Neurology Comment on above: f/u w/meds Start: 06-24-2024 End: 06-24-2024 Patient encounter procedure 06/24/2024 11:00 AM EDT Procedure Visit [facility] [address] [place] [address] [place] [phone] Yeny Velasco MD [address] [facility] [address] [place], [place] [address] [facility] Start: 06-19-2024 COVID-19 Vaccine ( season) COVID-19 Vaccine ( season) [facility] Start: 06-19-2024 Covid-19 Vaccine ( season) Covid-19 Vaccine ( season) [facility] Start: 06-19-2024 Influenza vaccination C [facility] Start: 04-28-2024 End: 04-28-2024 ambulatory 04/28/2024 5:30 PM EDT [facility] Neurology [address] [place] [address] Amina Horn APRN.[address] [address]m f/u w/meds Neurology Comment on above: 3m f/u w/meds Start: 03-25-2024 End: 03-25-2024 Patient encounter procedure 03/25/2024 11:30 AM EDT Procedure Visit [facility] [address] [facility] [place] [phone] Yeny Velasco MD [address] [facility] [place] [address] [facility] Start: 03-18-2024 End: 03-18-2024 ambulatory 03/18/2024 10:00 AM EDT Results Only [facility] [address] [place] [address] [facility] Start: 02-21-2024 PAP TESTING PAP TESTING [facility] Start: 02-21-2024 Screening for malignant neoplasm of cervix [facility] Start: 02-19-2024 End: 02-19-2024 Patient encounter procedure 02/19/2024 10:30 AM EDT Office Visit [address] [phone] Avila Weir, PA-C [address] [place], [place] [address] [facility] Start: 12-18-2023 End: 12-18-2023 Patient encounter procedure 12/18/2023 11:30 AM EST Procedure Visit [facility] [address] [place] [address] [place] [phone] Yeny Velasco MD [address] [place] [address] [place] [address] [facility] Start: 10-23-2023 End: 10-23-2023 Patient encounter procedure 10/23/2023 10:30 AM EST Office Visit [address] [phone] Avila Weir, PA-C [address] [place] [address] [facility] Start: 10-19-2023 Depression Assessment Depression Ass essment [facility] Start: 09-18-2023 End: 09-18-2023 Patient encounter procedure 09/18/2023 11:30 AM EST Procedure Visit [facility] [address] [place] [address] [place] [phone] Yeny Velasco MD [address] [place] [address] [facility] Start: 06-24-2023 End: 06-24-2023 Patient encounter procedure [facility] Start: 06-19-2023 Covid-19 Vaccine () Covid-19 Vaccine () [facility] Start: 06-19-2023 Influenza vaccination S [facility] Start: 06-19-2023 End: 06-19-2023 Patient encounter procedure 06/19/2023 Procedure Visit Neurology Yeny Velasco MD [address] [place] [address] [facility] Start: 04-11-2023 Urine microalbumin profile DTAP,TDAP,TD (1 - Tdap) [facility] Comment on above: Postponed from 08/20 (Declined at this time) Start: 03-23-2023 End: 03-23-2023 Patient encounter procedure [facility] Start: 03-20-2023 End: 03-20-2023 Patient encounter procedure 03/20/2023 Procedure Visit Neurology Yeny Velasco MD [address] [place] [address] [facility] Start: 02-24-2023 End: 02-24-2023 ambulatory [facility] Start: 02-19-2023 End: 02-19-2023 Follow-up encounter [facility] Start: 02-17-2023 End: 02-17-2023 Follow-up encounter [facility] Start: 02-12-2023 End: 02-12-2023 Follow-up encounter [facility] Start: 02-10-2023 End: 02-10-2023 Follow-up encounter 02/10/2023 Follow-Up Physical Therapy Nidia Gonzales, PT [facility] Start: 02-05-2023 End: 02-05-2023 Follow-up encounter [facility] Start: 02-03-2023 End: 02-03-2023 Follow-up encounter [facility] Start: 01-29-2023 End: 01-29-2023 Follow-up encounter [facility] Start: 01-27-2023 End: 01-27-2023 ambulatory [facility] Start: 01-22-2023 End: 01-22-2023 Follow-up encounter [facility] Start: 01-20-2023 End: 01-20-2023 Follow-up encounter [facility] Start: 01-15-2023 End: 01-15-2023 Follow-up encounter 01/15/2023 Follow-Up Physical Therapy Therese Villavicencio PTA [facility] Start: 01-13-2023 End: 01-13-2023 Follow-up encounter 01/13/2023 Follow-Up Physical Therapy Trav Garcia PTA [facility] Start: 01-08-2023 End: 01-08-2023 Follow-up encounter [facility] Start: 01-06-2023 End: 01-06-2023 Follow-up encounter 01/06/2023 Follow-Up Physical Therapy Nidia Gonzales PT [facility] Start: 01-01-2023 HEPATITIS C SCREENING HEPATITIS C [facility] Comment on above: Postponed from 08/20 (Declined at this time) Start: 01-01-2023 PAP TESTING PAP TESTING [facility] Start: 12-31-2022 End: 12-31-2022 Follow-up encounter 12/31/2022 Follow-Up Physical Therapy Nidia Gonzales, PT [facility] Start: 12-27-2022 End: 12-27-2022 ambulatory 12/27/2022 Evaluation Physical Therapy Avila Weir, NABEEL [address] [place] [address] Nidia Gonzales, PT [facility] Start: 12-19-2022 End: 12-19-2022 Patient encounter procedure 12/19/2022 Procedure Visit Neurology Mónica Castañeda, BUILDING INSPECTOR - BOWLING TEACHER [address] [place] [address] [facility] Start: 12-12-2022 COVID-19 VACCINE (#1) COVID-19 VACCI NE (#1) [facility] Comment on above: Postponed from 02/17 (Declined at this time) Start: 12-12-2022 COVID-19 VACCINE (1) COVID-19 VACCIN E (1) [facility] Comment on above: Postponed from 08/20 (Declined at this time) Start: 10-19-2022 DEPRESSION ASSESSMENT DEPRESSION ASS [facility] Start: 2022 Screening for malignant neoplasm of cervix [facility] Start: 06-19-2022 Influenza vaccination [facility] Start: 10-19-2021 DEPRESSION ASSESSMENT DEPRESSION ASS [facility] Start: 2013 Screening for malignant neoplasm of cervix Pap Smear [facility] Start: 2011 Urine microalbumin profile DTAP,TDAP,TD (1 - Tdap) [facility] Start: 2010 Anxiety Screening Anxiety Screening [facility] Start: 2010 Depression Screening Depression Scre [facility] Start: 2010 Diabetes mellitus screening Diabetes Screening [facility] Start: 2010 Hepatitis C screening Hepatitis C [facility] Start: 2010 HEPATITIS C SCREENING HEPATITIS C [facility] Start: 2004 Depression Screening Depression Scre ing [facility] Start: 02-17-1993 COVID-19 Vaccine (#1) COVID-19 Vacci ne (#1) [facility] Start: 1992 HEPATITIS B (1 of 3 - 3-dose series) HEPATITIS B (1 of 3 - 3-dose series) [facility] Start: 1992 HIV screening HIV Screening Kyle ferguson Start: 1992 Lipid panel Lipid Panel [facility] ECG COMPLETE ECG COMPLETE ECG Routine Hypersomnia due to medical condition Long-term current use of stimulant 06/29/2025 8:19 AM EDT [facility] Work Phone: PAP TEST PAP TEST Lab Rou radha Screening for cervical cancer Special screening examination for human papillomavirus (HPV) History of abnormal cervical Pap smear 02/20/2023 11:44 AM EDT [facility] Work Phone: End: 11-29-2024 Polysomnogram POLYSOMNOGRAM (PSG) Procedures Routine Chronic fatigue Snoring Class 1 obesity with body mass index (BMI) of 31.0 to 31.9 in adult, unspecified obesity type, unspecified whether serious comorbidity present 1 Occurrences starting 11/30/2023 until 11/29/2024 [facility] Work Phone: Comment on above: 1 Occurrences starti ng 11/30/2023 until 11/29/2024 [facility] Immunizations Immunization Date Immunization Notes Care Provider Miryam toledo 07-27-2019 tetanus toxoid, redu christiana diphtheria toxoid, and acellular pertussis vaccine, adsorbed Ketan Kessler APRN.BOWLING TEACHER Work Phone: [facility] 09-04-2010 varicella virus vaccine Edna Kessler APRN.BOWLING TEACHER Work Phone: [facility] 09-04-2009 influenza virus vacc ine, live, attenuated, for intranasal use Ketan Kessler APRN.BOWLING TEACHER Work Phone: [facility] 09-04-2009 influenza virus vacc ine, unspecified formulation Therese Villavicencio [facility] 02-27-2009 human papilloma viru s vaccine, quadrivalent Ketan Kessler APRN.BOWLING TEACHER Work Phone: [facility] 08-31-2008 human papilloma viru s vaccine, quadrivalent Ketan Kessler APRN.BOWLING TEACHER Work Phone: [facility] 08-30-2007 human papilloma viru s vaccine, quadrivalent Ketan Kessler APRN.BOWLING TEACHER Work Phone: [facility] 08-30-2007 meningococcal polysaccharide (groups A, C, Y and W-135) diphtheria toxoid conjugate vaccine (MCV4P) Ketan Kessler APRN.BOWLING TEACHER Work Phone: [facility] 08-30-2007 tetanus toxoid, redu christiana diphtheria toxoid, and acellular pertussis vaccine, adsorbed Ketan Kessler APRN.BOWLING TEACHER Work Phone: [facility] 08-30-2007 varicella virus vaccine Edna Kessler APRN.BOWLING TEACHER Work Phone: [facility] 03-31-2005 hepatitis B vaccine, pediatric or pediatric/adolescent dosage Ketan Kessler APRN.BOWLING TEACHER Work Phone: [facility] 10-07-2004 hepatitis B vaccine, pediatric or pediatric/adolescent dosage Ketan Kessler APRN.BOWLING TEACHER Work Phone: [facility] 08-23-2004 hepatitis B vaccine, pediatric or pediatric/adolescent dosage Ketan Kessler APRN.BOWLING TEACHER Work Phone: [facility] 08-23-2004 measles, mumps and rubella virus vaccine Ketan Kessler APRN.BOWLING TEACHER Work Phone: [facility] 08-18-1997 diphtheria, tetanus toxoids and acellular pertussis vaccine, unspecified formulation Ketan Kessler APRN.BOWLING TEACHER Work Phone: [facility] 08-18-1997 poliovirus vaccine, inactivated Ketan Kessler APRN.BOWLING TEACHER Work Phone: [facility] 08-18-1997 rotavirus, live, pentavalent vaccine Ketan Kessler APRN.BOWLING TEACHER Work Phone: [facility] 03-24-1994 diphtheria, tetanus toxoids and acellular pertussis vaccine, unspecified formulation Ketan Kessler APRN.BOWLING TEACHER Work Phone: [facility] 03-24-1994 poliovirus vaccine, inactivated Ketan Kessler APRN.BOWLING TEACHER Work Phone: [facility] 09-23-1993 haemophilus influenz ae type b vaccine, PRP-T conjugate Ketan Kessler APRN.BOWLING TEACHER Work Phone: [facility] 09-23-1993 measles, mumps and rubella virus vaccine Ketan Checo BUILDING INSPECTOR.BOWLING TEACHER Work Phone: [facility] 03-26-1993 diphtheria, tetanus toxoids and acellular pertussis vaccine, unspecified formulation Ketan Checo BUILDING INSPECTOR.BOWLING TEACHER Work Phone: [facility] 03-26-1993 haemophilus influenz ae type b vaccine, PRP-T conjugate Ketan Checo BUILDING INSPECTOR.BOWLING TEACHER Work Phone: [facility] 01-22-1993 diphtheria, tetanus toxoids and acellular pertussis vaccine, unspecified formulation Ketan Checo BUILDING INSPECTOR.BOWLING TEACHER Work Phone: [facility] 01-22-1993 haemophilus influenz ae type b vaccine, PRP-T conjugate Ketan Checo BUILDING INSPECTOR.BOWLING TEACHER Work Phone: [facility] 01-22-1993 poliovirus vaccine, inactivated Ketan Checo BUILDING INSPECTOR.[facility] Work Phone: [facility] 1992 diphtheria, tetanus toxoids and acellular pertussis vaccine, unspecified formulation Ketan Checo BUILDING INSPECTOR.BOWLING TEACHER Work Phone: [facility] 1992 haemophilus influenz ae type b vaccine, PRP-T conjugate Ketan Checo BUILDING INSPECTOR.[facility] Work Phone: [facility] 1992 poliovirus vaccine, inactivated Ketan Checo BUILDING INSPECTOR.[facility] Work Phone: [facility] Payers Date Payer Category Payer Self-pay 2022 Medicaid HMO [employer] [place] [id number] 2022 Medicaid [id number] 2019 Medicaid [employer] [place] [id number] 2019-Present [phone] [address] [address] [place] [address] Medicaid [id number] 2019 Medicaid [id number] Unknown [id number] Social History Date Type Detail Facility Start: 04-07-2015 End: 10-15-2022 Tobacco smoking status NHIS Never smoked tobacco [facility] Start: 04-07-2015 End: 10-15-2022 Tobacco use and exposure Smokeless tobacco non-user [facility] Start: 01-01-2022 End: 01-12-2025 Alcohol intake Current drinker of alcohol (finding) [facility] Start: 08-01-2020 End: 10-12-2022 History SDOH Alcohol Frequency 2 [facility] Start: 07-11-2020 End: 10-12-2022 History SDOH Alcohol Std Drinks 1 [facility] Start: 06-16-2017 History SDOH Alcohol Comment social [facility] Start: 07-11-2020 End: 10-12-2022 History SDOH Social Connections Phone 4 [facility] Start: 08-01-2020 End: 10-12-2022 History SDOH Physical Activity DPW 3 [facility] Start: 07-11-2020 Education 17 [facility] Start: 1992 Sex Assigned At Not on file C [facility] Start: 10-12-2022 History SDOH Social Connections Meetings 98 [facility] Start: 10-12-2022 History SDOH Social Connections Living 8 [facility] Start: 11-13-2020 End: 06-24-2023 Exposure to SARS-CoV-2 (event) Not sure [facility] Start: 10-12-2022 End: 02-20-2023 [facility] Start: 10-12-2022 End: 02-20-2023 Social connection and isolation panel [facility] Do you belong to any clubs or organizations such as voodoo groups, unions, fraternal or athletic groups, or school groups? No [facility] Start: 09-19-2012 How often do you att end meetings of the clubs or organizations you belong to? Patient refused [facility] Are you now , , , , never or living with a partner? Living with partner [facility] How often to you hav e a drink containing alcohol? Monthly or less [facility] How many standard dr inks containing alcohol do you have on a typical day? 1 or 2 [facility] How often do you hav e 6 or more drinks on 1 occasion? Never [facility] How hard is it for y ou to pay for the very basics like food, housing, medical care, and heating Not very hard [facility] Do you feel stress - tense, restless, nervous, or anxious, or unable to sleep at night because your mind is troubled all the time - these days [OSQ] To some extent [facility] (I/We) worried hunter er (my/our) food would run out before (I/we) got money to buy more. Never true [facility] Start: 06-24-2023 Alcohol Comment occ [facility] Are you now , , , , never or living with a partner? Never [facility] How hard is it for y ou to pay for the very basics like food, housing, medical care, and heating Somewhat hard [facility] Start: 05-19-2022 Sex Female (finding) [facility] How often do you hav e 6 or more drinks on 1 occasion? Less than monthly [facility] Medical Equipment Procedure Code Equipment Code Equipment Origin al Text Equipment Identifier Dates USE 1 SYRINGE NEEDED FOR MIGRAINE [id number] Start: 12-28-2023 Functional Status Date Assessment Result Facility 04-26-2015 Are you deaf, or do you have serious difficulty hearing No 04/26/2015 11:20 AM Emerald Grier CMA No [facility] 04-26-2015 Are you blind, or do you have serious difficulty seeing, even when wearing glasses No 04/26/2015 11:20 AM Emerald Grier CMA [facility] 04-26-2015 Do you have serious difficulty walking or climbing stairs No 04/26/2015 11:20 AM EDT Emerald Torres CMA [facility] 04-26-2015 Do you have difficul ty dressing or bathing No 04/26/2015 11:20 AM EDT Emerald Torres CMA [facility] 04-26-2015 Because of a physica l, mental, or emotional condition, do you have difficulty doing errands alone such as visiting a physician's office or shopping No 04/26/2015 11:20 AM EDT Emerald Torres CMA [facility] Mental Status Date Assessment Result Facility 04-26-2015 Because of a physica l, mental, or emotional condition, do you have serious difficulty concentrating, remembering, or making decisions No 04/26/2015 11:20 AM EDT Emerald Torres CMA [facility] Clinical Notes 12-13-2020 to 08-03-2025 IRENE RIOS - 06/29/2025 8:25 AM Laurent Velasco MD - 06/21/2025 10:00 AM Jenelle Packer MA - 06/21/2025 10:00 AM Gallito Boss MD - 06/16/2025 2:41 PM EDTPatient Instructions Note Date & Type Note Facility 08-03-2025 Note HNO ID: [id number] Author: CAIO STONE MD Service: ? Author Type: Physician Type: Progress Notes Filed: 08/03/2025 18:01 Note Text: [facility] DIRK Choudhury is a 34 year old female. Patient presents with: Insect Bite: Right leg 4-5 days Skin Lesion: Location: right thigh Duration: 5-6 days Pruritis/Pain: painful, a little pruritic Change: more red and firm today Drainage/blister/pustule/ulcerati on: initial pimples, one had a black center Treatment: none No outdoor exposure. Has indoor cats. New tattoo on the right thigh 1 month ago. Review of Systems Objective BP 120/70 Pulse 76 Temp 36.8 ?C (98.2 ?F) (Tympanic) Resp 16 Wt 93.4 kg (205 lb 14.6 oz) LMP 08/03/2025 SpO2 98% BMI 34.27 kg/m? Physical Exam Constitutional: General: She is not in acute distress. Skin: Comments: 2 principle erythematous lesions on the right lateral mid to upper thigh. The lower lesion is 2 cm of induration with 3mm deflated vesicle. The upper lesion is 1.5cm induration with central punctate dark nirmala. No fluctuance. No drainage with compression. There is a 4mm red based ulceration between the 2 lesions and 4-6 tiny healed smaller similar lesions at the anterior upper thigh (were pimples previously during post-tattoo phase). Neurological: Mental Status: She is alert. {ASSESSMENT/PLAN: 1. Folliculitis - ICD9: 704.8, ICD10: L73.9 Strep or staph pustules in the area of recent tattoo. Start - MUPIROCIN 2 % TOPICAL OINTMENT Discussed contagiousness of lesions. Follow up with worsening or failure to improve. May need assess for IANDD vs oral antibiotic. Caio Stone MD Differential Diagnoses - folliculitis - arthropod bites/stings Additional Tests or Interventions The following medication(s) were considered but not ordered: oral keflex antibiotic. Procedures [facility] 06-29-2025 Note HNO ID: [id number] Author: ?, ?, ? Service: ? Author Type: Licensed Nurse Type: Progress Notes Filed: 06/29/2025 08:27 Note Text: Patient presents for EKG per Amina Horn CNP. Denies any problems at this time. Tolerated procedure well. Irene Rios LPN [facility] 06-29-2025 History of Present illness Narrative Patient presents for EKG per Amina Horn CNP. Denies any problems at this time. Tolerated procedure well. Irene Rios LPN documented in this encounter [facility] 06-21-2025 History of Present illness Narrative DEPARTMENT OF NEUROLOGY BOTOX PROCEDURE NOTE FOR HEADACHE Patient: Peggy Gordon Macey : 1990 Diagnosis: Intractable chronic migraine without aura and without status migrainosus [G43.719] Procedure: Botox injections into the scalp and posterior cervical muscles Prior to procedure risks, benefits, alternatives, and potential side effects were reviewed with patient. Specifically reviewed possible risk of temporary muscle weakness. All questions were answered, patient expressed understanding, verbal consent given for procedure. No numbing spray applied/removed. Botox was injected with the parameters below: With the patient in sitting position, she received Botox injections in the neck and skull muscles. Patient receive the following doses: 1. R Frontalis 10 units 2. L Frontalis 10 units 3. R Seismic Engineer 10 units 4. L Seismic Engineer 10 units 5. R Temporalis 30 units 6. L Temporalis 30 units 7. R Occipitalis 30 units 8. L Occipitalis 30 units 9. R Trapezious 20 units 10.L Trapezious 20 units Total units injected 200 units. Units discarded 0 units. Comments: Today patient presented to the neurology clinic for new treatment with Botox injections into the scalp and posterior cervical muscles. Patient reported that she is doing well. Her headaches appear to be well-controlled. She denied any side effect from medications. Patient denied any visit to the emergency room or missing any days of work because of headache. Patient reported that her improvement regarding her baseline is approximately 75% in frequency and severity of headaches. [x] Pt tolerated procedure well. Pt advised to avoid exercise or strenuous physical activity for 24 hours. Post treatment expectations reviewed in detail. Administrations This Visit onabotulinumtoxin A (BOTOX) injection 200 Units Admin Date 06/21/25 Action Given Dose 200 Units Route IntraMUSCular Site Other Administered By Yeny Velasco MD Ordering Provider: Yeny Velasco MD [facility]: [id number] Lot#: [id number] Athletic [employer] Internship: [employer] Patient Supplied? Yes documented in this encounter [facility] 06-21-2025 Note DEPARTMENT OF NEUROL OGY BOTOX PROCEDURE NOTE FOR HEADACHE Patient: Peggy Gordon Macey : 1990 Diagnosis: Intractable chronic migraine without aura and without status migrainosus [G43.719] Procedure: Botox injections into the scalp and posterior cervical muscles Prior to procedure risks, benefits, alternatives, and potential side effects were reviewed with patient. Specifically reviewed possible risk of temporary muscle weakness. All questions were answered, patient expressed understanding, verbal consent given for procedure. No numbing spray applied/removed. Botox was injected with the parameters below: With the patient in sitting position, she received Botox injections in the neck and skull muscles. Patient receive the following doses: 1. R Frontalis 10 units 2. L Frontalis 10 units 3. R Seismic Engineer 10 units 4. L Seismic Engineer 10 units 5. R Temporalis 30 units 6. L Temporalis 30 units 7. R Occipitalis 30 units 8. L Occipitalis 30 units 9. R Trapezious 20 units 10.L Trapezious 20 units Total units injected 200 units. Units discarded 0 units. Comments: Today patient presented to the neurology clinic for new treatment with Botox injections into the scalp and posterior cervical muscles. Patient reported that she is doing well. Her headaches appear to be well-controlled. She denied any side effect from medications. Patient denied any visit to the emergency room or missing any days of work because of headache. Patient reported that her improvement regarding her baseline is approximately 75% in frequency and severity of headaches. [x] Pt tolerated procedure well. Pt advised to avoid exercise or strenuous physical activity for 24 hours. Post treatment expectations reviewed in detail. [facility] 06-16-2025 Note HNO ID: [id number] Author: GALLITO LEMUS MD Service: ? Author Type: Physician Type: Progress Notes Filed: 06/16/2025 14:53 Note Text: [facility] Follow up/ Established patient visit Date of last visit : 02/10/2024 Interval history : Here for follow up for UARS and residual fatigue Had UTOX, which was normal ECG is planned in the next 2 weeks. Benefit with modafinil: not falling asleep inadvertently any longer. She denies chest pain, pressure, palpitations, change in blood pressure, new headaches, weight loss, and insomnia. SLEEP HYGIENE QUESTIONS: Bedtime : 10 pm Wake up Time : 8-9 am Modafinil 8-9 am Time it takes to fall sleep : < 20 minutes Activities in bed before falling asleep : None Number of times patient wakes up per night : 1-2 Reason (s) why patient wakes up during the night : unknown Estimated total sleep time ( in a 24 hour period of time) : 8 Naps : Yes - rare PATIENT-ENTERED QUESTIONNAIRE SLEEP SCORES 06/09/2025 Sleep Questions Reason for visit: Difficulty falling or staying asleep or poor sleep quality Excessive daytime sleepiness On average, hours of sleep in 24 hours: 7 Accidents or near accidents due to drowsy drivin Multiple values from one day are sorted in reverse-chronological order 09/02/2024 12/30/2024 06/09/2025 [place] Sleepiness Scale Score 4 (No clinically significant daytime sleepiness) 6 (No clinically significant daytime sleepiness) 9 (No clinically significant daytime sleepiness) 09/02/2024 12/30/2024 06/09/2025 PROMIS CAT Sleep Disturbance PROMIS Sleep Disturbance T-Score 52 (within normal limits) 54 (within normal limits) 56 (mild) PROMIS Sleep Disturbance Percentile 42 34 27 02/03/2024 06/09/2025 Insomnia Severity Index Score 17 11 09/02/2024 12/30/2024 06/09/2025 PHQ-9 Score 5 8 5 09/02/2024 12/30/2024 06/09/2025 PROMIS Global Health - (T-Scores - the mean of general population = 50. Five points is a clinically meaningful difference.) Physical T-Score 44.9 39.8 39.8 39.8 Mental T-Score 43.5 41.1 41.1 45.8 PMH, PSH, SH: No changes SLEEP RELATED ROS Review of Systems ALLERGIES No Known Allergies CURRENT MEDICATIONS: omeprazole (PRILOSEC) 20 mg capsule Take 1 capsule by mouth once daily. escitalopram oxalate (LEXAPRO) 20 mg tablet Take 1 tablet by mouth once daily. modafinil (PROVIGIL) 100 mg tablet Take 1 tablet by mouth once daily for 180 days. ergocalciferol, vitamin D2, (VITAMIN D2 ORAL) Take 2,000 Units by mouth once daily. AIMOVIG AUTOINJECTOR 140 mg/mL auto-injector Inject 140 mg subcutaneously once every month. migraines BD LUER-OMAR SYRINGE 3 mL 25 gauge x 1" USE 1 SYRINGE NEEDED FOR MIGRAINE SUMAtriptan (IMITREX) 100 mg tablet BOTOX 200 unit injection Every 3 month for migraines butterbur root extract 75 mg cap Take by mouth. L.acid/B.bifidum/B.animal/FOS (PROBIOTIC COMPLEX ORAL) Take by mouth. Taking one daily. vitamin B complex (SUPER B COMPLEX ORAL) Take by mouth. magnesium oxide (MAG-OX) 400 mg (241.3 mg magnesium) tablet Take 400 mg by mouth once daily. sumatriptan succ/naproxen sod (SUMATRIPTAN-NAPROXEN ORAL) Take by mouth. multivitamin tablet Take 1 tablet by mouth once daily. loratadine (CLARITIN) 10 mg tablet Take 10 mg by mouth once daily. Prior Hypersomnia/Narcolepsy Medications (20 years) 12/30/2024 00:00 Hypersomnia/Narcolepsy Medications modafinil 100 mg DAILY PO -Discontinued modafinil 100 mg DAILY PO Details Outpatient prescription Medication marked as long-term Prior RLS Medications (last 20 years) 07/30/2019 RLS Medications hydromorphone HCl 0.5 mg, INTRAVENOUS, Until 07/30/19 at 1837 -Discontinued oxycodone HCl 5 mg, ORAL, Until 07/30/19 at 1837 -Discontinued Details Hospital medication Prior Insomnia Medications (last 20 years) 01/12/2025 00:00 Insomnia Medications escitalopram oxalate 20 mg DAILY PO -Discontinued escitalopram oxalate 20 mg DAILY PO Details Outpatient prescription Medication marked as long-term PHYSICAL EXAMINATION: General appearance: NAD Mental status: awake and alert Constitutional: Well groomed Skin: Dry and intact Neuro: Speech fluent IMPRESSION: Upper Airway resistance Syndrome Residual Fatigue Clinical Global Impression of Change ( CGI-C) Compared to the patient's condition at baseline, how much has the patient changed? Much improved PLAN: Continue modafinil 100 mg Follow-up: 6 months Gallito Lemus MD [facility] 06-16-2025 History of Present illness Narrative Images from the original note were not included. [facility] Follow up/ Established patient visit Date of last visit : 02/10/2024 Interval history : Here for follow up for UARS and residual fatigue Had UTOX, which was normal ECG is planned in the next 2 weeks. Benefit with modafinil: not falling asleep inadvertently any longer. She denies chest pain, pressure, palpitations, change in blood pressure, new headaches, weight loss, and insomnia. SLEEP HYGIENE QUESTIONS: Bedtime : 10 pm Wake up Time : 8-9 am Modafinil 8-9 am Time it takes to fall sleep : < 20 minutes Activities in bed before falling asleep : None Number of times patient wakes up per night : 1-2 Reason (s) why patient wakes up during the night : unknown Estimated total sleep time ( in a 24 hour period of time) : 8 Naps : Yes - rare PATIENT-ENTERED QUESTIONNAIRE SLEEP SCORES 06/09/2025 Sleep Questions Reason for visit: Difficulty falling or staying asleep or poor sleep quality Excessive daytime sleepiness On average, hours of sleep in 24 hours: 7 Accidents or near accidents due to drowsy drivin Multiple values from one day are sorted in reverse-chronological order 09/02/2024 12/30/2024 06/09/2025 [place] Sleepiness Scale Score 4 (No clinically significant daytime sleepiness) 6 (No clinically significant daytime sleepiness) 9 (No clinically significant daytime sleepiness) 09/02/2024 12/30/2024 06/09/2025 PROMIS CAT Sleep Disturbance PROMIS Sleep Disturbance T-Score 52 (within normal limits) 54 (within normal limits) 56 (mild) PROMIS Sleep Disturbance Percentile 42 34 27 02/03/2024 06/09/2025 Insomnia Severity Index Score 17 11 09/02/2024 12/30/2024 06/09/2025 PHQ-9 Score 5 8 5 09/02/2024 12/30/2024 06/09/2025 PROMIS Global Health - (T-Scores - the mean of general population = 50. Five points is a clinically meaningful difference.) Physical T-Score 44.9 39.8 39.8 39.8 Mental T-Score 43.5 41.1 41.1 45.8 PMH, PSH, SH: No changes SLEEP RELATED ROS Review of Systems ALLERGIES No Known Allergies CURRENT MEDICATIONS: omeprazole (PRILOSEC) 20 mg capsule Take 1 capsule by mouth once daily. escitalopram oxalate (LEXAPRO) 20 mg tablet Take 1 tablet by mouth once daily. modafinil (PROVIGIL) 100 mg tablet Take 1 tablet by mouth once daily for 180 days. ergocalciferol, vitamin D2, (VITAMIN D2 ORAL) Take 2,000 Units by mouth once daily. AIMOVIG AUTOINJECTOR 140 mg/mL auto-injector Inject 140 mg subcutaneously once every month. migraines BD LUER-OMAR SYRINGE 3 mL 25 gauge x 1" USE 1 SYRINGE NEEDED FOR MIGRAINE SUMAtriptan (IMITREX) 100 mg tablet BOTOX 200 unit injection Every 3 month for migraines butterbur root extract 75 mg cap Take by mouth. L.acid/B.bifidum/B.animal/FOS (PROBIOTIC COMPLEX ORAL) Take by mouth. Taking one daily. vitamin B complex (SUPER B COMPLEX ORAL) Take by mouth. magnesium oxide (MAG-OX) 400 mg (241.3 mg magnesium) tablet Take 400 mg by mouth once daily. sumatriptan succ/naproxen sod (SUMATRIPTAN-NAPROXEN ORAL) Take by mouth. multivitamin tablet Take 1 tablet by mouth once daily. loratadine (CLARITIN) 10 mg tablet Take 10 mg by mouth once daily. Prior Hypersomnia/Narcolepsy Medications (20 years) 12/30/2024 00:00 Hypersomnia/Narcolepsy Medications modafinil 100 mg DAILY PO -Discontinued modafinil 100 mg DAILY PO Details Outpatient prescription Medication marked as long-term Prior RLS Medications (last 20 years) 07/30/2019 RLS Medications hydromorphone HCl 0.5 mg, INTRAVENOUS, Until 07/30/19 at 1837 -Discontinued oxycodone HCl 5 mg, ORAL, Until 07/30/19 at 1837 -Discontinued Details Hospital medication Prior Insomnia Medications (last 20 years) 01/12/2025 00:00 Insomnia Medications escitalopram oxalate 20 mg DAILY PO -Discontinued escitalopram oxalate 20 mg DAILY PO Details Outpatient prescription Medication marked as long-term PHYSICAL EXAMINATION: General appearance: NAD Mental status: awake and alert Constitutional: Well groomed Skin: Dry and intact Neuro: Speech fluent IMPRESSION: Upper Airway resistance Syndrome Residual Fatigue Clinical Global Impression of Change ( CGI-C) Compared to the patient's condition at baseline, how much has the patient changed? Much improved PLAN: Continue modafinil 100 mg Follow-up: 6 months Gallito Lemus MD documented in this encounter [facility] 05-30-2025 Telephone encounter Note Botox has been approved under patient's pharmacy benefit and will be patient supplied. The medication will be dispensed by [facility] ([facility]). [facility] delivers provider administered medications to the administration location on the Thursday before scheduled appointments. Next scheduled delivery date: 06/13/2025 Pharmacy Benefit Prior Authorization (PA) Information: PA Number: [id number] Approval Date: 11/25/2024 Expiration Date: 11/23/2025 Dose Approved: 200 units Provider office will need to ensure completion of any required Procedure Code authorizations prior to appointment(s). Prescription on file with [facility]. [facility] 05-30-2025 Miscellaneous Notes Botox has been approved under patient's pharmacy benefit and will be patient supplied. The medication will be dispensed by [facility] ([facility]). [facility] delivers provider administered medications to the administration location on the Thursday before scheduled appointments. Next scheduled delivery date: 06/13/2025 Pharmacy Benefit Prior Authorization (PA) Information: PA Number: [id number] Approval Date: 11/25/2024 Expiration Date: 11/23/2025 Dose Approved: 200 units Provider office will need to ensure completion of any required Procedure Code authorizations prior to appointment(s). Prescription on file with [facility]. documented in this encounter [facility] 05-10-2025 Telephone encounter Note Pharmacy electronically sent a request for the following prescription(s) Requested Prescriptions Pending Prescriptions Disp Refills omeprazole (PRILOSEC) 20 mg capsule 90 capsule 3 Sig: Take 1 capsule by mouth once daily. Patient aware RX will be sent to pharmacy. No need to notify patient. Last Office Visit: 01/12/2025 Next Office Visit: - Please review. Lynne Brink LPN [facility] 05-10-2025 Miscellaneous Notes Pharmacy electronically sent a request for the following prescription(s) Requested Prescriptions Pending Prescriptions Disp Refills omeprazole (PRILOSEC) 20 mg capsule 90 capsule 3 Sig: Take 1 capsule by mouth once daily. Patient aware RX will be sent to pharmacy. No need to notify patient. Last Office Visit: 01/12/2025 Next Office Visit: - Please review. Lynne Brink LPN documented in this encounter [facility] 03-24-2025 History of Present illness Narrative DEPARTMENT OF NEUROLOGY BOTOX PROCEDURE NOTE FOR HEADACHE Patient: Peggy Choudhury : 1990 Diagnosis: Intractable chronic migraine without aura and without status migrainosus [G43.719] Procedure: Botox injections into the scalp and posterior cervical muscles Prior to procedure risks, benefits, alternatives, and potential side effects were reviewed with patient. Specifically reviewed possible risk of temporary muscle weakness. All questions were answered, patient expressed understanding, verbal consent given for procedure. No numbing spray applied/removed. Botox was injected with the parameters below: With the patient in sitting position, she received Botox injections in the neck and skull muscles. Patient receive the following doses: 1. R Frontalis 10 units 2. L Frontalis 10 units 3. R Seismic Engineer 10 units 4. L Seismic Engineer 10 units 5. R Temporalis 30 units 6. L Temporalis 30 units 7. R Occipitalis 30 units 8. L Occipitalis 30 units 9. R Trapezious 20 units 10.L Trapezious 20 units Total units injected 200 units. Units discarded 0 units. Comments: Today patient presented to the neurology clinic for new treatment with Botox injections into the scalp and posterior cervical muscles. Patient reported that she is doing well. Her headaches appear to be well-controlled. She denied any side effect from medications. Patient denied any visit to the emergency room or missing any days of work because of headache. Patient reported that her improvement regarding her baseline is approximately 75% in frequency and severity of headaches. [x] Pt tolerated procedure well. Pt advised to avoid exercise or strenuous physical activity for 24 hours. Post treatment expectations reviewed in detail. Yeny Velasco MD Administrations This Visit onabotulinumtoxin A (BOTOX) injection 200 Units Admin Date 03/24/2025 Action Given Dose 200 Units Route IntraMUSCular Site Other Administered By [facility] [place] Ordering Provider: Yeny Velasco MD [facility]:[id number] Lot#: [id number] [employer] Internship: [employer]ergan Patient Supplied?: Yes documented in this encounter [facility] 03-24-2025 Note DEPARTMENT OF NEUROL OGY BOTOX PROCEDURE NOTE FOR HEADACHE Patient: Peggy Choudhury : 1990 Diagnosis: Intractable chronic migraine without aura and without status migrainosus [G43.719] Procedure: Botox injections into the scalp and posterior cervical muscles Prior to procedure risks, benefits, alternatives, and potential side effects were reviewed with patient. Specifically reviewed possible risk of temporary muscle weakness. All questions were answered, patient expressed understanding, verbal consent given for procedure. No numbing spray applied/removed. Botox was injected with the parameters below: With the patient in sitting position, she received Botox injections in the neck and skull muscles. Patient receive the following doses: 1. R Frontalis 10 units 2. L Frontalis 10 units 3. R Seismic Engineer 10 units 4. L Seismic Engineer 10 units 5. R Temporalis 30 units 6. L Temporalis 30 units 7. R Occipitalis 30 units 8. L Occipitalis 30 units 9. R Trapezious 20 units 10.L Trapezious 20 units Total units injected 200 units. Units discarded 0 units. Comments: Today patient presented to the neurology clinic for new treatment with Botox injections into the scalp and posterior cervical muscles. Patient reported that she is doing well. Her headaches appear to be well-controlled. She denied any side effect from medications. Patient denied any visit to the emergency room or missing any days of work because of headache. Patient reported that her improvement regarding her baseline is approximately 75% in frequency and severity of headaches. [x] Pt tolerated procedure well. Pt advised to avoid exercise or strenuous physical activity for 24 hours. Post treatment expectations reviewed in detail. Yeny Velasco MD [facility] 01-12-2025 Note HNO ID: [id number] Author: OSCAR COLIN MD Service: ? Author Type: Physician Type: Progress Notes Filed: 01/12/2025 18:44 Note Text: Subjective Peggy is a 34-year-old female presenting for a Lexapro refill. Peggy has been taking Lexapro for anxiety and depression for approximately one year and reports that it is working well without any side effects. She is also taking Botox and Aimovig for migraines, which she feels are effective. She denies any other issues with her current medications. She is actively engaging in lifestyle modifications to manage her anxiety, including dietary changes and regular exercise. She and her girlfriend aim to exercise at least three times a week. Psychiatric: (-) medication side effects Objective Blood pressure 111/74, pulse 77, height 165.1 cm (5' 5"), weight 92.1 kg (203 lb), last menstrual period 12/17/2024, SpO2 99%. GENERAL: NAD, alert and oriented SKIN: unremarkable, no rash or skin lesions. HEAD: normocephalic EYES: PERRLA, EOMI, conjunctiva clear EARS: external ears normal, canals clear, TM's normal. NOSE/SINUSES: Nares normal. Septum midline. OROPHARYNX: lips, mucosa, and tongue normal, good dentition. No oral lesions noted. NECK: Supple, no lymphadenopathy, normal thyroid, no carotid bruits. LUNGS: Clear to auscultation bilaterally, no wheezes/rhonchi/rales. HEART: Regular rate and rhythm, no murmurs. No ectopy. EXTREMITIES: Normal, No deformities, No skin discoloration, No edema. NEURO: Awake, alert and oriented x3, cranial nerves II-XII grossly intact, normal gait, no involuntary motions 1. Adjustment disorder with mixed anxiety and depressed mood (F43.23) Condition is stable and well-managed with Lexapro; no reported side effects. Patient is engaging in lifestyle modifications including diet and exercise to support treatment. - Educated on the benefits of a diet rich in whole foods, protein, and the avoidance of food dyes, seed oils, and simple sugars to enhance medication efficacy. - Recommended regular exercise, including walking 8-10,000 steps daily and whole-body strength training several times a week. - Discussed the practice of diaphragmatic breathing exercises to stimulate the vagus nerve and balance the sympathetic and parasympathetic nervous systems. - Prescribed Lexapro 90 tablets with 3 refills, sent to [facility] in [place]. Attestation The patient consented to the use of PinkelStar software for draft documentation of the visit consistent with [facility]?s Notice of Privacy Practices. [facility] 01-12-2025 History of Present illness Narrative Subjective Peggy is a 34-year-old female presenting for a Lexapro refill. Peggy has been taking Lexapro for anxiety and depression for approximately one year and reports that it is working well without any side effects. She is also taking Botox and Aimovig for migraines, which she feels are effective. She denies any other issues with her current medications. She is actively engaging in lifestyle modifications to manage her anxiety, including dietary changes and regular exercise. She and her girlfriend aim to exercise at least three times a week. Psychiatric: (-) medication side effects Objective Blood pressure 111/74, pulse 77, height 165.1 cm (5' 5"), weight 92.1 kg (203 lb), last menstrual period 12/17/2024, SpO2 99%. GENERAL: NAD, alert and oriented SKIN: unremarkable, no rash or skin lesions. HEAD: normocephalic EYES: PERRLA, EOMI, conjunctiva clear EARS: external ears normal, canals clear, TM's normal. NOSE/SINUSES: Nares normal. Septum midline. OROPHARYNX: lips, mucosa, and tongue normal, good dentition. No oral lesions noted. NECK: Supple, no lymphadenopathy, normal thyroid, no carotid bruits. LUNGS: Clear to auscultation bilaterally, no wheezes/rhonchi/rales. HEART: Regular rate and rhythm, no murmurs. No ectopy. EXTREMITIES: Normal, No deformities, No skin discoloration, No edema. NEURO: Awake, alert and oriented x3, cranial nerves II-XII grossly intact, normal gait, no involuntary motions 1. Adjustment disorder with mixed anxiety and depressed mood (F43.23) Condition is stable and well-managed with Lexapro; no reported side effects. Patient is engaging in lifestyle modifications including diet and exercise to support treatment. - Educated on the benefits of a diet rich in whole foods, protein, and the avoidance of food dyes, seed oils, and simple sugars to enhance medication efficacy. - Recommended regular exercise, including walking 8-10,000 steps daily and whole-body strength training several times a week. - Discussed the practice of diaphragmatic breathing exercises to stimulate the vagus nerve and balance the sympathetic and parasympathetic nervous systems. - Prescribed Lexapro 90 tablets with 3 refills, sent to [facility] in [place]. Attestation The patient consented to the use of PinkelStar software for draft documentation of the visit consistent with [facility] s Notice of Privacy Practices. documented in this encounter [facility] 01-12-2025 Instructions Oscar Colin MD - 01/12/2025 6:42 PM EDT We discussed your anxiety and depression: - Continue taking Lexapro as prescribed. I have sent a prescription for 90 pills with 3 refills to your preferred [facility] in [place]. - You reported that Lexapro is working well for you without any side effects. Please continue monitoring for any changes and let me know if you experience any issues. - To support your anxiety management, continue incorporating lifestyle changes, including: - Eating a diet focused on whole, unprocessed foods, with an emphasis on protein and avoiding food dyes, seed oils (e.g., corn, soybean, canola, cottonseed, vegetable oil), and simple sugars. - Exercising regularly, aiming for at least 3 days per week. Walking 8,000-10,000 steps daily is sufficient for cardio, and whole-body strength training a couple of times per week is recommended. - Practicing deep breathing exercises to help calm your nervous system. Try taking 4 deep breaths every hour, inhaling for a count of 4 through your nose and exhaling for a count of 8 through pursed lips. This can help balance your nervous system over time. We discussed your migraines: - Continue your current treatments, including Botox and Aimovig injections, as they appear to be effective in managing your symptoms. Let me know if you experience any changes or concerns. If you have any new symptoms or concerns, please reach out to our office. documented in this encounter [facility] 12-30-2024 Instructions Amina Horn APRN.BOWLING TE[employer]ER - 12/30/2024 10:13 AM EDT Images from the original note were not included. Patient Instructions: UARS: Your sleep study showed Upper Airway Resistance Syndrome (UARS). This is a subtype of Obstructive Sleep Apnea (ROCIO). Insurance does not cover CPAP for UARS. I will include educational materials on weight loss therapy, treatment of allergies, positional therapy, dental appliances, and ENT/DARREN for the surgical correction of any airway abnormalities if present may also improve signs and symptoms of [place] Airway Resistance Syndrome. This information will be given to you in your after visit summary. Work on weight loss and exercise. Hypersomnia Medication(s) as ordered. Continue Modafinil 100 mg one tablet qa (#30/30d), last filled 12/13/24, prescribed by Dr. Gallito Lemus. Medication refilled 90 day supply. No side effects or ADRs. Compliant and benefiting. No record of ECG or Urine Tox Screen. Get yearly ECG and Urine Tox Screen. Last seen in person with Dr. Lemus on 02/11/24. Needs in person visit with Dr. Lemus scheduled for this year 2024. Follow up as discussed with Dr. Oscar Lemus 6 months in person visit needed for UARS, IH (Modafinil) Amina Horn APRN.[facility] Medical Weight Loss/No Surgery Questions [phone] Gaining weight and becoming obese or morbidly obese has created an epidemic not only in the [place], but also internationally. According to the Centers for Disease Control, more than two thirds of the [place] population are overweight, and nearly one third are obese or morbidly obese. Obesity is defined as having a body mass index of 30 to 39. Morbid obesity begins at a body mass index of 40. It has been shown that the higher the body mass index (BMI), the greater the risk for associated illnesses such as diabetes, hypertension, sleep apnea, high cholesterol, coronary artery disease and others. When morbidly obese individuals have one or more of the above diseases, their risk for increases, and quality of life is severely diminished. The management of obesity involves medical and, if applicable, surgical interventions. Medical weight management combines diet, exercise and behavioral therapy and, if indicated, pharmacotherapy. At the [facility], our Medical Weight Loss team evaluate overweight or obese individuals for weight management with a thorough physical exam, which may require blood work and other diagnostic tools. The patient s diet and exercise history is an important part of the medical assessment and is reviewed during this visit. Dietitians in the [facility] work hand in hand with our team to ensure optimal care. Psychologists also help to maximize behavioral therapy. Our team may also utilize the expertise of [facility] exercise physiologists to create an individualized exercise program for their patients, with stress testing included. Patients are monitored every 4 weeks by the physician and dietitian. Medication, such as appetite suppressants can be prescribed to help with weight loss, as part of the treatment plan. Patients who are 100 lbs or more overweight are generally referred for surgical weight management. Our team continue to be involved in the surgical part of the process by assisting patients with weight loss prior to surgery. They also manage patients post-operatively to ensure adequate weight loss, perform medication adjustments when associated illnesses begin to improve, and prevent nutritional deficiencies or other complications which could occur without frequent follow-up appointments. [facility] / Surgical [facility]'s bariatric weight loss surgery program is focused on addressing obesity with modern treatment strategies, research and education. Questions [phone] Am I A Candidate For Weight Loss Surgery? If you're significantly overweight and want to make a lifestyle change, you may be a candidate for bariatric surgery at [facility]. Research supports the benefits of weight loss surgery for those with a BMI between 35 and 39.9 with obesity related health conditions such as type 2 diabetes, obstructive sleep apnea, high blood pressure, osteoarthritis and other obesity related conditions. You could be a candidate for surgical weight loss if you meet any of the following criteria: You are more than 100 lbs. over your ideal body weight You have a Body Mass Index (BMI) of over 40 You have a BMI of over 35 and are experiencing severe negative health effects, such as high blood pressure or diabetes, related to being severely overweight You are unable to achieve a healthy body weight for a sustained period of time, even through medically-supervised dieting [facility] Program Appointments [phone] Overview Virtual Visit: Shared Medical Appointments This program has been designed specifically for women who require weight management for the prevention and/or reversal of weight-related disease states. An advocate for prevention and wellness, Jennifer Slaughter DO, director of obesity management for the [facility], offers patients the option of going through the program using virtual shared medical appointments or going through the program using more traditional in-office visits. Who This Program Benefits Women (21 or older) who meet one or more of the following criteria: Body Mass Index (BMI) 30 and greater Medical conditions exacerbated by excess weight gain or obesity including but not limited to: Polycystic Ovarian Syndrome (PCOS) Post- weight retention Diabetes Mellitus type 2 Hyperlipidemia Obstructive Sleep Apnea (ROCIO) Hypertension Hormonal weight gain [facility] Appointments To learn more about [facility] Life Appointments please call [phone]. Why Choose the [facility]? Our team has helped countless people lead healthier lives by reducing the burden of living with chronic disease. Our functional medicine program focuses on lifestyle influences, genetics and the environment to determine what is causing your disease or chronic conditions. Please note: Due to COVID-19, Functional Medicine programs are being modified for the safety of our patients and caregivers. Programs may be hosted virtually or postponed. Click the [place] button below to find the latest scheduling information. [place] Today Participants: New and Established patients Number of Sessions: 10 Frequency: Weekly An offering from the [facility] for Functional Medicine [facility] Life is a robust 10-week program of shared medical appointments designed for new patients to the [facility]. Disease-specific programs have been developed and patients can select the series that is right for them. Each week, patients will interact with a multidisciplinary team of functional medicine providers including physicians, physician assistants, nurse practitioners, dietitians, health coaches and behavioral health therapists. Patients will also have access to individualized support and on-going communication with members of their care team throughout the 10-week program. Disease-Specific Programs Immune/Autoimmune Disorder Track - Conditions such as lupus and psoriasis. Diabetes Track - Conditions such as diabetes, metabolic syndrome and pre-diabetes. Diabetic patients who are currently on insulin are ineligible for the program. Women's Health Disorder Track - Conditions such as menopause, PCOS and PMS. Digestive Disorders Track - Conditions such as IBD, IBS, GERD/Reflux and gastrointestinal issues. Weight Management Track. Pain Management track - Conditions such as chronic migraine, osteoarthritis, fibromyalgia and minor back pain. Each weekly program is one hour long, with the exception of sessions 1, 3, 5 and 9, which may last up to two hours. Discounted parking is available from the parking desk. [phone] Weight watchers program Can do all virtually via phone or computer Don't have to go in and do weigh ins- although this is still available if desired. They have a few different programs that vary in complexity for each person "Free style" program gives you a list of 0 point foods that you can eat as much as you want. Your points come from foods with sugars, carb and fats/oils. Treatment Of Allergies Helpful tips for NASAL SPRAY use 1. Start by gently blowing your nose 2. Sit in a chair, with your knees hip width apart, lean forward (as demonstrated in clinic) Face looking straight down at the ground. 3. Insert nozzle into the right nostril and aim toward the tip of your right ear (do not aim straight up) 4. Squirt once At this time you can close your left nostril and lightly sniff the medication in through your right nostril. 5. THEN insert nozzle into the left nostril and aim toward the tip of your left ear. 6. squirt once At this time you can close your left nostril and lightly sniff the medication in through your right nostril. 7. Repeat step # 4 above ,if advised to take 2 squirts. 8. Keep leaning forward, facing down at the ground for 5 minutes. 9. Do this at bedtime daily--may do it in the Morning if you prefer, but be regular & consistent. 10. May substitute with Saline spray x 5days, for nose bleeds. Positional Therapy Is a behavioral strategy to treat positional sleep apnea. Some people have sleep apnea primarily when sleeping on their back. This is called the supine position. Their breathing returns to normal when they sleep on their side. ... It keeps you sleeping in the side position. The devices include a simple wedge pillow, MedCline pillow, Slumber Bump or REM-A-Jarvis, Zzoma, and can be found on line and at [employer]. Night Balance is a positional lead trainer from [employer] requiring a prescription. Dental Oral Appliance - Mandibular Advancement Device (MAD) If you are considering a dental appliance for treatment of mild to moderate sleep apnea, please refer top the list below. Call and schedule an appointment. It is best to take a copy of your sleep study with you to your visit with the dentist. Eyal Durham D.M.D. [facility] Or Kenzie Stearns D.D.S. [facility] Below are a few examples of typical types of dental appliances Somnomed Todd [email or web address]/ Somnomed Lander Somnomed Flex HOLLEY [email or web address] Prosomnus [email or web address] 1. [facility]: Eyal Durham DMD or Kenzie Stearns D.D.S or Timi Talbert DDS. [facility]. [phone]. 2. [facility]: Catrachito Felipe DDS. [address] [place] [address]. [phone]. 3. [facility]: hCong Chance DDS. [address]. [place] [address]. . ENT (Ear, Nose, and Throat) or DARREN See an ENT or DARREN for surgical correction of any airway abnormalities or treatment of nasal allergies if present may also improve signs and symptoms. Dr. Oni Mathew (ENT and DARREN) at [facility], [facility], [address] [place] [address] Phone - [phone]. documented in this encounter [facility] 12-30-2024 History of Present illness Narrative Images from the original note were not included. [facility] Virtual Visit Follow Up/ Established Patient Visit PATIENT NAME: Peggy Choudhury [place] [employer] Rules (O.A.C. ): This visit was conducted as a Virtual Visit, with patient's permission, via Zoom. It required patient-provider interaction for the medical decision making as documented below. Patient stated first & last name: Peggy Choudhury Patient stated : 1990 Patient stated current location: [place] [id number] I have communicated my name, Amina Horn APRN.CNP, and active licensure Adult Certified Nurse Practitioner in the Sleep Medicine Center at [facility]. The patient's identity and physical location were verified at the time of this visit. Either the patient or their legal off premise service representative has been informed of the risks and benefits of -- and alternatives to -- treatment through a remote evaluation and consents to proceed with the evaluation remotely. Virtual visits are a convenient way for us to meet, but there are some situations in which an in-person evaluation may be required at a later time. I want to check in to confirm your consent to be seen virtually today. Consent given: Yes <Assessment/Plan from LAST VISIT> Date of last visit : 09/09/24 IMPRESSION: Uars (upper airway resistance syndrome) (primary encounter diagnosis) Hypersomnia due to medical condition Peggy Choudhury is a 34 yo with PMH of migraines, TREY, MDD, GERD. FU on UARS and hypersomnia. She is managed for her hypersomnia on Provigil 100mg QAM. She does not nap and notices benefit from Provigil. She feels her sleep is unrefreshed she wakes up fatigued. Per boyfriend snoring louder than usual and having some apnea events. She was reffered to ENT in the past for possible surgical options to address enlarged tonsil. Has not been able to make appt with ENT. Clinical Global Impression of Change ( CGI-C) Compared to the patient's condition at baseline, how much has the patient changed? Minimally improved PLAN: - Continue taking Modfinil 100mg QAM as directed. - Avoid driving when drowsy. - government affairs specialist for short naps (20-30 minutes) and use of caffeine if needed to help stay awake when driving. - Try to get at least 7-9 hours of sleep in a 24 hour period. Healthy diet and exercise can also promote better sleep. - Follow up in 3 months in the office. Recommend scheduling this appointment now to ensure the best time for you. -Advised to FU with ENT regarding enlarged tonsils -Monitor fatigue and mychart message us if this dont improve or continues to worsen Rosas Bedolla MD PGY-4 Sleep Medicine Fellow, [facility] [phone] Attending Note I evaluated the patient and personally participated in the clemens components of the history and physical exam. I have modified the note above to reflect my clinical decision making. I agree with the resident/fellow's findings, plan as documented, and have discussed the case and management of the patient's care with the resident/fellow. Gallito Lemus MD Sleep Medicine Appointments: [phone] Office: [phone] September 09, 2024 3:02 PM <End Assessment/Plan from last visit> CURRENT VISIT: 12/30/2024 Interval history: Doing well. This last week things are harder, more tired. " I suspect due to change. Still snoring. No witnessed apneas. Denies waking up gasping or choking. Modafinil 100 mg qam effective. No side effects or ADRs. Tired, but allows her to function and have a quality of life. She saw the ENT for possible surgical options to address enlarged tonsils. Not a surgical candidate. Told that the diagnosis of UARS was not real. Working out with a friend. Weight currently at 200 pounds. Follow up visit for UARS & Hypersomnia . Relevant study results reviewed as noted below, if applicable. A Home Sleep Test (HST) performed on 06/11/2021 revealed an AHI of 2.4; supine index of 3.7; and a minimum oxygen saturation of 94%. A Polysomnogram performed on 12/05/2023 revealed an RDI of 8.4; supine index of 10.3; REM index of 6.3, PLM index of 00, PLM arousal index of 00, and the oxygen saturation was below 90% for 00% of the study. SLEEP APNEA Sleep apnea type : UARs Most Recent Apnea-Hypopnea Index (AHI): RDI of 8.4; supine index of 10.3; REM index of 6.3, Treatment : Weight loss, exercise. Not a candidate for surgery (ENT for enlarged tonsils). HYPERSOMNIA : IH Naps: Yes. Number of naps per day: Occasionally except this past week. Nap duration: 1 hour. Cataplexy: No Hypnagogic hallucinations: No Dream enactment behaviors: No Sleep related injuries: No Drowsy driving: No Current medications: OARRS checked: Yes Modafinil 100 mg one tablet qa (#30/30d), last filled 12/13/24, prescribed by Dr. Gallito Lemus. No side effects or ADRs. Compliant and benefiting. No record of ECG or Urine Tox Screen. Last seen in person with Dr. Lemus on 02/11/24. [facility] website checked and validated. All prescriptions have been APPROPRIATELY filled. No suspicious activity was identified. 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 Bedtime : 2200. Wake up Time : 0530 if teaching, 0900 if not not teaching Time it takes to fall sleep : Pretty quickly < 30 minutes. Activities in bed before falling asleep : Listens to audible books and watches TV. Number of times patient wakes up per night : 0 Reason (s) why patient wakes up during the night : N/A Estimated total sleep time ( in a 24 hour period of time) : 7-8+ Naps : Yes OTHER RELEVANT LABS AND STUDIES: Ferritin Date Value Ref Range Status 03/18/2024 90.3 14.7 - 205.1 ng/mL Final 11/30/2023 47.7 14.7 - 205.1 ng/mL Final Transferrin Saturation Date Value Ref Range Status 03/18/2024 33.9 15.0 - 57.0 % Final 11/30/2023 12.5 (L) 15.0 - 57.0 % Final Hemoglobin Date Value Ref Range Status 11/30/2023 13.5 11.5 - 15.5 g/dL Final 10/15/2022 14.4 11.5 - 15.5 g/dL Final Iron Date Value Ref Range Status 03/18/2024 94 41 - 186 ug/dL Final 11/30/2023 38 (L) 41 - 186 ug/dL Final TIBC Date Value Ref Range Status 03/18/2024 277 232 - 386 ug/dL Final 11/30/2023 303 232 - 386 ug/dL Final PATIENT-ENTERED QUESTIONNAIRE SLEEP SCORES 09/02/2024 Sleep Questions Reason for visit: Sleep apnea Excessive daytime sleepiness On average, hours of sleep in 24 hours: 8 Accidents or near accidents due to drowsy drivin Multiple values from one day are sorted in reverse-chronological order 02/03/2024 04/21/2024 09/02/2024 [place] Sleepiness Scale Score 8 (No clinically significant daytime sleepiness) 6 (No clinically significant daytime sleepiness) 4 (No clinically significant daytime sleepiness) 02/03/2024 04/21/2024 09/02/2024 PROMIS CAT Sleep Disturbance PROMIS Sleep Disturbance T-Score 58 (mild) 52 (within normal limits) 52 (within normal limits) PROMIS Sleep Disturbance Percentile 21 42 42 02/03/2024 Insomnia Severity Index Score 17 02/03/2024 04/21/2024 09/02/2024 PHQ-9 Score 10 7 5 11/30/2023 04/21/2024 09/02/2024 PROMIS Global Health - (T-Scores - the mean of general population = 50. Five points is a clinically meaningful difference.) Physical T-Score 39.8 42.3 44.9 Mental T-Score 38.8 43.5 43.5 CURRENT MEDICATIONS: modafinil (PROVIGIL) 100 mg tablet Take 1 tablet by mouth once daily for 180 days. ergocalciferol, vitamin D2, (VITAMIN D2 ORAL) Take 2,000 Units by mouth once daily. benzonatate (TESSALON PERLE) 100 mg capsule Take 1 capsule by mouth three times a day as needed for cough. escitalopram oxalate (LEXAPRO) 20 mg tablet Take 1 tablet by mouth once daily omeprazole (PRILOSEC) 20 mg capsule Take 1 capsule by mouth once daily. AIMOVIG AUTOINJECTOR 140 mg/mL auto-injector Inject 140 mg subcutaneously once every month. migraines BD LUER-OMAR SYRINGE 3 mL 25 gauge x 1" USE 1 SYRINGE NEEDED FOR MIGRAINE SUMAtriptan (IMITREX) 100 mg tablet BOTOX 200 unit injection Every 3 month for migraines butterbur root extract 75 mg cap Take by mouth. L.acid/B.bifidum/B.animal/FOS (PROBIOTIC COMPLEX ORAL) Take by mouth. Taking one daily. vitamin B complex (SUPER B COMPLEX ORAL) Take by mouth. magnesium oxide (MAG-OX) 400 mg (241.3 mg magnesium) tablet Take 400 mg by mouth once daily. sumatriptan succ/naproxen sod (SUMATRIPTAN-NAPROXEN ORAL) Take by mouth. multivitamin tablet Take 1 tablet by mouth once daily. loratadine (CLARITIN) 10 mg tablet Take 10 mg by mouth once daily. Review of Systems Constitutional: Positive for fatigue. Respiratory: Negative. Cardiovascular: Negative. Genitourinary: Positive for nocturia. VITAL SIGNS: Deferred due to virtual visit. PHYSICAL EXAMINATION: Constitutional: Appearance: Well groomed. Well nourished FEMALE. Very pleasant. Neurological: General: No focal deficit present. Mental Status: A&OX3 (person, place, and time). Speech: Clear, projects well. Memory: Intact, responses appropriate. Mood and Affect: Mood normal. Behavior: Behavior normal Assessment & Plan Diagnosis: Uars (upper airway resistance syndrome) Hypersomnia due to medical condition (primary encounter diagnosis) Long-term current use of stimulant Overview: Peggy Choudhury is a 34 year old year old female with a PMH of migraines, TREY, MDD, GERD who presents via Virtual Visit for UARS & Hypersomnia. - Doing well with UARS & Primary Hypersomnia - Compliant and benefiting from treatment. - Last visit, patient was started on Modafinil 100 mg one tablet qam (#30/30d), last filled 04/11/24, prescribed by Dr. Gallito Lemus. Plan: UARS: Your sleep study showed Upper Airway Resistance Syndrome (UARS). This is a subtype of Obstructive Sleep Apnea (ROCIO). Insurance does not cover CPAP for UARS. I will include educational materials on weight loss therapy, treatment of allergies, positional therapy, dental appliances, and ENT/DARREN for the surgical correction of any airway abnormalities if present may also improve signs and symptoms of Uppers Airway Resistance Syndrome. This information will be given to you in your after visit summary. Work on weight loss and exercise. Hypersomnia Medication(s) as ordered. Continue Modafinil 100 mg one tablet qam (#30/30d), last filled 12/13/24, prescribed by Dr. Gallito Lemus. Medication refilled 90 day supply. No side effects or ADRs. Compliant and benefiting. No record of ECG or Urine Tox Screen. Get yearly ECG and Urine Tox Screen. Last seen in person with Dr. Lemus on 02/11/24. Needs in person visit with Dr. Lemus scheduled for this year 2024. Follow up as discussed with Dr. Oscar Lemus 6 months in person visit needed for UARS, IH (Modafinil) I spent a total of 27 minutes. This was a follow up patient to me on the date of the service which included preparing to see the patient, [id number] patient care, completing clinical documentation, counseling and educating the patient/family/caregiver and ordering medications, tests, or procedures. Amina Horn APRN.BOWLING TEACHER Activity Duration Chart accessed 25 minutes Chart accessed 2 minutes Total time: 27 minutes The following approved medication requests have been transmitted electronically. Requested Prescriptions Signed Prescriptions Disp Refills modafinil (PROVIGIL) 100 mg tablet 90 tablet 1 Sig: Take 1 tablet by mouth once daily for 180 days. Amina Horn APRN.CNP PDMP website checked and validated. All prescriptions have been APPROPRIATELY filled. No suspicious activity was identified. 12/30/2024 by Amina Horn APRN.CNP documented in this encounter [facility] 12-30-2024 Note HNO ID: [id number] Author: AMINA HORN APRN.CNP Service: ? Author Type: Nurse Practitioner Type: Progress Notes Filed: 12/30/2024 10:15 Note Text: [facility] Virtual Visit Follow Up/ Established Patient Visit PATIENT NAME: [facility]ury [facility] Rules (O.A.C. ): This visit was conducted as a Virtual Visit, with patient's permission, via Zoom. It required patient-provider interaction for the medical decision making as documented below. Patient stated first AND last name: Peggy Choudhury Patient stated : 1990 Patient stated current location: [place] [address] I have communicated my name, Amina Horn APRN.CNP, and active licensure Adult Certified Nurse Practitioner in the Sleep Medicine Center at [facility]. The patient's identity and physical location were verified at the time of this visit. Either the patient or their legal off premise service representative has been informed of the risks and benefits of -- and alternatives to -- treatment through a remote evaluation and consents to proceed with the evaluation remotely. Virtual visits are a convenient way for us to meet, but there are some situations in which an in-person evaluation may be required at a later time. I want to check in to confirm your consent to be seen virtually today. Consent given: Yes Date of last visit : 09/09/24 IMPRESSION: Uars (upper airway resistance syndrome) (primary encounter diagnosis) Hypersomnia due to medical condition Peggy Choudhury is a 34 yo with PMH of migraines, TREY, MDD, GERD. FU on UARS and hypersomnia. She is managed for her hypersomnia on Provigil 100mg QAM. She does not nap and notices benefit from Provigil. She feels her sleep is unrefreshed she wakes up fatigued. Per boyfriend snoring louder than usual and having some apnea events. She was reffered to ENT in the past for possible surgical options to address enlarged tonsil. Has not been able to make appt with ENT. Clinical Global Impression of Change ( CGI-C) Compared to the patient's condition at baseline, how much has the patient changed? Minimally improved PLAN: - Continue taking Modfinil 100mg QAM as directed. - Avoid driving when drowsy. - government affairs specialist for short naps (20-30 minutes) and use of caffeine if needed to help stay awake when driving. - Try to get at least 7-9 hours of sleep in a 24 hour period. Healthy diet and exercise can also promote better sleep. - Follow up in 3 months in the office. Recommend scheduling this appointment now to ensure the best time for you. -Advised to FU with ENT regarding enlarged tonsils -Monitor fatigue and mychart message us if this dont improve or continues to worsen Rosas Bedolla MD PGY-4 Sleep Medicine Fellow, [facility] [phone] Attending Note I evaluated the patient and personally participated in the clemens components of the history and physical exam. I have modified the note above to reflect my clinical decision making. I agree with the resident/fellow's findings, plan as documented, and have discussed the case and management of the patient's care with the resident/fellow. Gallito Lemus MD Sleep Medicine Appointments: [phone] Office: [phone] September 09, 2024 3:02 PM CURRENT VISIT: 12/30/2024 Interval history: Doing well. This last week things are harder, more tired. " I suspect due to change. Still snoring. No witnessed apneas. Denies waking up gasping or choking. Modafinil 100 mg qam effective. No side effects or ADRs. Tired, but allows her to function and have a quality of life. She saw the ENT for possible surgical options to address enlarged tonsils. Not a surgical candidate. Told that the diagnosis of UARS was not real. Working out with a friend. Weight currently at 200 pounds. Follow up visit for UARS AND Hypersomnia . Relevant study results reviewed as noted below, if applicable. A Home Sleep Test (HST) performed on 06/11/2021 revealed an AHI of 2.4; supine index of 3.7; and a minimum oxygen saturation of 94%. A Polysomnogram performed on 12/05/2023 revealed an RDI of 8.4; supine index of 10.3; REM index of 6.3, PLM index of 00, PLM arousal index of 00, and the oxygen saturation was below 90% for 00% of the study. SLEEP APNEA Sleep apnea type : UARs Most Recent Apnea-Hypopnea Index (AHI): RDI of 8.4; supine index of 10.3; REM index of 6.3, Treatment : Weight loss, exercise. Not a candidate for surgery (ENT for enlarged tonsils). HYPERSOMNIA : IH Naps: Yes. Number of naps per day: Occasionally except this past week. Nap duration: 1 hour. Cataplexy: No Hypnagogic hallucinations: No Dream enactment behaviors: No Sleep related injuries: No Drowsy driving: No Current medications: OARRS checked: Yes Modaf (more content not included)... [facility] 12-23-2024 History of Present illness Narrative DEPARTMENT OF NEUROLOGY BOTOX PROCEDURE NOTE FOR HEADACHE Patient: Peggy Choudhury : 1990 Diagnosis: Intractable chronic migraine without aura and without status migrainosus [G43.719] Procedure: Botox injections into the scalp and posterior cervical muscles Prior to procedure risks, benefits, alternatives, and potential side effects were reviewed with patient. Specifically reviewed possible risk of temporary muscle weakness. All questions were answered, patient expressed understanding, verbal consent given for procedure. No numbing spray applied/removed. Botox was injected with the parameters below: With the patient in sitting position, she received Botox injections in the neck and skull muscles. Patient receive the following doses: 1. R Frontalis 10 units 2. L Frontalis 10 units 3. R Seismic Engineer 10 units 4. L Seismic Engineer 10 units 5. R Temporalis 30 units 6. L Temporalis 30 units 7. R Occipitalis 30 units 8. L Occipitalis 30 units 9. R Trapezious 20 units 10.L Trapezious 20 units Total units injected 200 units. Units discarded 0 units. Comments: Today patient presented to the neurology clinic for new treatment with Botox injections into the scalp and posterior cervical muscles. Patient reported that she is doing well. Her headaches appear to be well-controlled. She denied any side effect from medications. Patient denied any visit to the emergency room or missing any days of work because of headache. Patient reported that her improvement regarding her baseline is approximately 75% in frequency and severity of headaches. [x] Pt tolerated procedure well. Pt advised to avoid exercise or strenuous physical activity for 24 hours. Post treatment expectations reviewed in detail. Yeny Velasco MD Administrations This Visit onabotulinumtoxin A (BOTOX) injection 200 Units Admin Date 12/23/24 Action Given Dose 200 Units Route IntraMUSCular Site Other Administered By Yeny Velasco MD Ordering Provider: Yeny Velasco MD [facility]: [id number] Lot#: [id number] Athletic Training Internship: [place] Patient Supplied?: Yes documented in this encounter [facility] 12-23-2024 Note DEPARTMENT OF NEUROL OGY BOTOX PROCEDURE NOTE FOR HEADACHE Patient: Peggy Choudhury : 1990 Diagnosis: Intractable chronic migraine without aura and without status migrainosus [G43.719] Procedure: Botox injections into the scalp and posterior cervical muscles Prior to procedure risks, benefits, alternatives, and potential side effects were reviewed with patient. Specifically reviewed possible risk of temporary muscle weakness. All questions were answered, patient expressed understanding, verbal consent given for procedure. No numbing spray applied/removed. Botox was injected with the parameters below: With the patient in sitting position, she received Botox injections in the neck and skull muscles. Patient receive the following doses: 1. R Frontalis 10 units 2. L Frontalis 10 units 3. R Seismic Engineer 10 units 4. L Seismic Engineer 10 units 5. R Temporalis 30 units 6. L Temporalis 30 units 7. R Occipitalis 30 units 8. L Occipitalis 30 units 9. R Trapezious 20 units 10.L Trapezious 20 units Total units injected 200 units. Units discarded 0 units. Comments: Today patient presented to the neurology clinic for new treatment with Botox injections into the scalp and posterior cervical muscles. Patient reported that she is doing well. Her headaches appear to be well-controlled. She denied any side effect from medications. Patient denied any visit to the emergency room or missing any days of work because of headache. Patient reported that her improvement regarding her baseline is approximately 75% in frequency and severity of headaches. [x] Pt tolerated procedure well. Pt advised to avoid exercise or strenuous physical activity for 24 hours. Post treatment expectations reviewed in detail. Yeny Velasco MD [facility] 12-17-2024 Note HNO ID: [id number] Author: YASHIRA PIERCE APRN.BOWLING TEACHER Service: ? Author Type: Nurse Practitioner Type: Progress Notes Filed: 12/17/2024 11:30 Note Text: Peggy is a 34 year old who presents for an annual gynecologic exam. No recent issues with outbreaks. 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, Having periods Age at Menarche: Age at First : Age at 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 History Comments: Sexual Activity: Not Currently; Male Contraception: Condom Menstrual Tracking History Flowsheet Row Office Visit from 12/17/2024 in OB/Gynecology Period Cycle (Days) 28 Period Duration (Days) 4 Menstrual Flow Moderate PAST MEDICAL HISTORY Diagnosis Date Anxiety and depression Concussion Genital herpes GERD (gastroesophageal reflux disease) 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 No bloating, early satiety, indigestion, or increased flatulence. Bladder: No dysuria, gross hematuria, urinary frequency, urinary urgency, or incontinence. Breast: No breast lumps, nipple d/c, overlying skin changes, redness or skin retraction. Allergies and current medication updated:Yes SENSITIVE EXAM: The sensitive examination was discussed with the Patient or Patient's Authorized Straight Ruling Machine Operator. As applicable, any other physician, advance practice provider, medical student, or other health professional student that will be observing or involved in the sensitive examination for educational or training purposes was discussed with the Patient or Authorized Straight Ruling Machine Operator. The Patient or Authorized Straight Ruling Machine Operator has agreed to proceed with the sensitive examination. (Sensitive examination includes inspection and/or palpation of the breasts, pelvis, prostate and anorectal regions). Blind Aide offered:Patient declines EXAM: BP 112/76 Ht 5' 5" (1.65m) Wt 199 lb (90.3kg) LMP 11/19/2024 BMI 33.12 kg/(m2). GENERAL: pleasant, female in no apparent distress HEENT: Normocephalic, atraumatic, mucus membranes moist, and no lesions NECK: Supple, full range of motion, no adenopathy, and thyroid normal DERMATOLOGY: Normal, without lesions, non-icteric, and non-hirsute BREAST: soft, non-tender, symmetric, no dominant mass, normal nipple-areolar complex, no lymphadenopathy, and no nipple discharge CHEST: Clear to auscultation, Normal inspiratory effort, and Regular rate and rhythm ABDOMEN: soft, non-tender, and no masses PELVIC: external genitalia normal, normal Bartholin's glands, urethra, Golinda's glands, no vulvar lesions, no cervical lesions, good vaginal support, physiologic discharge present, normal appearing perineal body and perianal region BIMANUAL: uterus normal size, shape and consistency, no adnexal masses, and non-tender RECTOVAGINAL: deferred. NEURO: alert and oriented x3,exam grossly non-focal EXTREMITIES: normal ASSESSMENT/PLAN: 1) Health maintenance: Pap/HPV up to date. Nutrition, exercise and routine health maintenance exams reviewed. Lipids/glucose: followed by PCP HPV vaccine completed 2) Contraception: pt declines 3) STD screening: Declined STD check. 4) Follow up one year or sooner as needed Yashira Pierce APRN.FABBY [facility] 12-17-2024 History of Present illness Narrative Peggy is a 34 year old who presents for an annual gynecologic exam. No recent issues with outbreaks. 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, Having periods Age at Menarche: Age at First : Age at 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 History Comments: Sexual Activity: Not Currently; Male Contraception: Condom Menstrual Tracking History Flowsheet Row Office Visit from 12/17/2024 in OB/Gynecology Period Cycle (Days) 28 Period Duration (Days) 4 Menstrual Flow Moderate PAST MEDICAL HISTORY Diagnosis Date Anxiety and depression Concussion Genital herpes GERD (gastroesophageal reflux disease) 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 No bloating, early satiety, indigestion, or increased flatulence. Bladder: No dysuria, gross hematuria, urinary frequency, urinary urgency, or incontinence. Breast: No breast lumps, nipple d/c, overlying skin changes, redness or skin retraction. Allergies and current medication updated:Yes SENSITIVE EXAM: The sensitive examination was discussed with the Patient or Patient's Authorized Straight Ruling Machine Operator. As applicable, any other physician, advance practice provider, medical student, or other health professional student that will be observing or involved in the sensitive examination for educational or training purposes was discussed with the Patient or Authorized Straight Ruling Machine Operator. The Patient or Authorized Straight Ruling Machine Operator has agreed to proceed with the sensitive examination. (Sensitive examination includes inspection and/or palpation of the breasts, pelvis, prostate and anorectal regions). Blind Aide offered:Patient declines EXAM: BP 112/76 Ht 5' 5" (1.65m) Wt 199 lb (90.3kg) LMP 11/19/2024 BMI 33.12 kg/(m^2). GENERAL: pleasant, female in no apparent distress HEENT: Normocephalic, atraumatic, mucus membranes moist, and no lesions NECK: Supple, full range of motion, no adenopathy, and thyroid normal DERMATOLOGY: Normal, without lesions, non-icteric, and non-hirsute BREAST: soft, non-tender, symmetric, no dominant mass, normal nipple-areolar complex, no lymphadenopathy, and no nipple discharge CHEST: Clear to auscultation, Normal inspiratory effort, and Regular rate and rhythm ABDOMEN: soft, non-tender, and no masses PELVIC: external genitalia normal, normal Bartholin's glands, urethra, Golinda's glands, no vulvar lesions, no cervical lesions, good vaginal support, physiologic discharge present, normal appearing perineal body and perianal region BIMANUAL: uterus normal size, shape and consistency, no adnexal masses, and non-tender RECTOVAGINAL: deferred. NEURO: alert and oriented x3,exam grossly non-focal EXTREMITIES: normal ASSESSMENT/PLAN: 1) Health maintenance: Pap/HPV up to date. Nutrition, exercise and routine health maintenance exams reviewed. Lipids/glucose: followed by PCP HPV vaccine completed 2) Contraception: pt declines 3) STD screening: Declined STD check. 4) Follow up one year or sooner as needed Yashira Pierce APRN.FABBY documented in this encounter [facility] 12-13-2024 Telephone encounter Note Patient given results and verbalized understanding of instructions given. Teresa Valdivia MA [facility] 12-13-2024 Miscellaneous Notes Patient given results and verbalized understanding of instructions given. Teresa Valdivia MA Chest xray negative RX for Tessalon Perles called in F/U for PCP for continued sx Please advise documented in this encounter [facility] 12-13-2024 Telephone encounter Note Chest xray negative RX for Tessalon Perles called in F/U for PCP for continued sx Please advise [facility] 12-13-2024 History of Present illness Narrative Radiology Service Progress Note PATIENT NAME: Peggy Choudhury DATE OF SERVICE: December 13, 2024 TIME: 2:05 PM PATIENT IDENTITY VERIFICATION COMPLETED USING TWO (2) IDENTIFIERS: Name and Date of confirmed by patient verbally. FALL SCREENING: Has the patient had 2 falls in the last year or 1 fall with injury or currently using an Ambulatory Assistive Device (Walker, Cane, Wheelchair, Crutches, etc.)? No PATIENT GENDER DATA: Assigned female at . status: : No status: NO. PATIENT RELEVANT IMPLANT DATA REVIEWED: Yes PATIENT PRESENTS WITH AN IMPLANTABLE OR ATTACHED CLINICAL PROJECT COORDINATOR: No RADIOLOGY DEPARTMENT: General X-ray: Exam(s) Completed: Chest X-Ray PERIPHERAL IV DATA: Not applicable SIGNED BY: RT Mere(R) December 13, 2024 2:05 PM documented in this encounter [facility] 12-13-2024 Note HNO ID: [id number] Author: KRISH LIANG RT(R) Service: ? Author Type: Library Historian Type: Progress Notes Filed: 12/13/2024 14:29 Note Text: Radiology Service Progress Note PATIENT NAME: Peggy Choudhury DATE OF SERVICE: December 13, 2024 TIME: 2:05 PM PATIENT IDENTITY VERIFICATION COMPLETED USING TWO (2) IDENTIFIERS: Name and Date of confirmed by patient verbally. FALL SCREENING: Has the patient had 2 falls in the last year or 1 fall with injury or currently using an Ambulatory Assistive Device (Walker, Cane, Wheelchair, Crutches, etc.)? No PATIENT GENDER DATA: Assigned female at . status: : No status: NO. PATIENT RELEVANT IMPLANT DATA REVIEWED: Yes PATIENT PRESENTS WITH AN IMPLANTABLE OR ATTACHED CLINICAL PROJECT COORDINATOR: No RADIOLOGY DEPARTMENT: General X-ray: Exam(s) Completed: Chest X-Ray PERIPHERAL IV DATA: Not applicable SIGNED BY: RT Mere(Elizabeth) December 13, 2024 2:05 PM [facility] 12-13-2024 Note HNO ID: [id number] Author: MÓNICA VASQUES APRN.BOWLING TEACHER Service: ? Author Type: Nurse Practitioner Type: Progress Notes Filed: 12/13/2024 14:53 Note Text: This note was created using NoteWriter. Subjective Peggy Choudhury is a 34 year old female. 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 No parts interpreter was used. Cough This is a new problem. The current episode started more than 1 week ago. The problem occurs constantly. The problem has been gradually worsening. The cough is Productive of sputum. Associated symptoms include shortness of breath and wheezing. Pertinent negatives include no chest pain, no chills, no sweats, no weight loss, no ear congestion, no ear pain, no headaches, no sore throat, no myalgias and no eye redness. She has tried decongestants and cough syrup for the symptoms. The treatment provided no relief. She is not a smoker. Her past medical history does not include bronchitis, pneumonia, bronchiectasis, COPD, emphysema or asthma. 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 MEDICATIONS ergocalciferol, vitamin D2, (VITAMIN D2 ORAL) Take 2,000 Units by mouth once daily. escitalopram oxalate (LEXAPRO) 20 mg tablet Take 1 tablet by mouth once daily modafinil (PROVIGIL) 100 mg tablet Take 1 tablet by mouth once daily for 90 days. omeprazole (PRILOSEC) 20 mg capsule Take 1 capsule by mouth once daily. AIMOVIG AUTOINJECTOR 140 mg/mL auto-injector Inject 140 mg subcutaneously once every month. migraines BD LUER-OMAR SYRINGE 3 mL 25 gauge x 1" USE 1 SYRINGE NEEDED FOR MIGRAINE SUMAtriptan (IMITREX) 100 mg tablet BOTOX 200 unit injection Every 3 month for migraines butterbur root extract 75 mg cap Take by mouth. L.acid/B.bifidum/B.animal/FOS (PROBIOTIC COMPLEX ORAL) Take by mouth. Taking one daily. vitamin B complex (SUPER B COMPLEX ORAL) Take by mouth. magnesium oxide (MAG-OX) 400 mg (241.3 mg magnesium) tablet Take 400 mg by mouth once daily. sumatriptan succ/naproxen sod (SUMATRIPTAN-NAPROXEN ORAL) Take by mouth. multivitamin tablet Take 1 tablet by mouth once daily. loratadine (CLARITIN) 10 mg tablet Take 10 mg by mouth once daily. cholecalciferol, Vitamin D3, (VITAMIN D3) 1,250 mcg (50,000 unit) cap capsule Take 1 capsule by mouth one time a week. (Patient not taking: Reported on 12/13/2024) FAMILY HISTORY Problem Relation Age of Onset Thyroid Mother Hypertension Mother other (GERD) Mother Hyperlipidemia Father Coronary Artery Disease Father CABG x 3 vessel Hypertension Father Social History Tobacco Use Smoking status: Never Smokeless tobacco: Never Substance Use Topics Alcohol use: Yes Comment: social Drug use: No Review of Systems Constitutional: Negative for chills and weight loss. HENT: Positive for congestion. Negative for ear pain and sore throat. Eyes: Negative for discharge, redness and itching. Respiratory: Positive for cough, chest tightness, shortness of breath and wheezing. Cardiovascular: Negative for chest pain. Gastrointestinal: Negative for abdominal pain. Musculoskeletal: Negative for arthralgias, back pain and myalgias. Skin: Negative for color change, pallor and rash. Allergic/Immunologic: Negative for environmental allergies, food allergies and immunocompromised state. Neurological: Negative for headaches. Hematological: Negative for adenopathy. Does not bruise/bleed easily. Psychiatric/Behavioral: Negative for agitation and behavioral problems. Objective BP 120/79 Pulse 92 Temp 36.8 ?C (98.3 ?F) Resp 18 Wt 93 kg (205 lb 0.4 oz) LMP 11/19/2024 (Exact Date) SpO2 98% BMI 34.12 kg/m? Physical Exam Vitals and nursing note reviewed. Constitutional: General: She is not in acute distress. Appearance: Normal appearance. She is normal weight. She is not ill-appearing, toxic-appearing or diaphoretic. HENT: Head: Normocephalic and atraumatic. Right Ear: Ear canal and external ear normal. Left Ear: Ear canal and external ear normal. Nose: Congestion present. No rhinorrhea. Mouth/Throat: Mouth: Mucous membranes are moist. Pharynx: No oropharyngeal exudate or posterior oropharyngeal erythema. Eyes: General: Right eye: No discharge. Left eye: No discharge. Extraocular Movements: Extraocular movements intact. Conjunctiva/ (more content not included)... [facility] 12-13-2024 History of Present illness Narrative This note was created using Syscorriter. Subjective Peggy Choudhury is a 34 year old female. 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 No parts interpreter was used. Cough This is a new problem. The current episode started more than 1 week ago. The problem occurs constantly. The problem has been gradually worsening. The cough is Productive of sputum. Associated symptoms include shortness of breath and wheezing. Pertinent negatives include no chest pain, no chills, no sweats, no weight loss, no ear congestion, no ear pain, no headaches, no sore throat, no myalgias and no eye redness. She has tried decongestants and cough syrup for the symptoms. The treatment provided no relief. She is not a smoker. Her past medical history does not include bronchitis, pneumonia, bronchiectasis, COPD, emphysema or asthma. 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 MEDICATIONS ergocalciferol, vitamin D2, (VITAMIN D2 ORAL) Take 2,000 Units by mouth once daily. escitalopram oxalate (LEXAPRO) 20 mg tablet Take 1 tablet by mouth once daily modafinil (PROVIGIL) 100 mg tablet Take 1 tablet by mouth once daily for 90 days. omeprazole (PRILOSEC) 20 mg capsule Take 1 capsule by mouth once daily. AIMOVIG AUTOINJECTOR 140 mg/mL auto-injector Inject 140 mg subcutaneously once every month. migraines BD LUER-OMAR SYRINGE 3 mL 25 gauge x 1" USE 1 SYRINGE NEEDED FOR MIGRAINE SUMAtriptan (IMITREX) 100 mg tablet BOTOX 200 unit injection Every 3 month for migraines butterbur root extract 75 mg cap Take by mouth. L.acid/B.bifidum/B.animal/FOS (PROBIOTIC COMPLEX ORAL) Take by mouth. Taking one daily. vitamin B complex (SUPER B COMPLEX ORAL) Take by mouth. magnesium oxide (MAG-OX) 400 mg (241.3 mg magnesium) tablet Take 400 mg by mouth once daily. sumatriptan succ/naproxen sod (SUMATRIPTAN-NAPROXEN ORAL) Take by mouth. multivitamin tablet Take 1 tablet by mouth once daily. loratadine (CLARITIN) 10 mg tablet Take 10 mg by mouth once daily. cholecalciferol, Vitamin D3, (VITAMIN D3) 1,250 mcg (50,000 unit) cap capsule Take 1 capsule by mouth one time a week. (Patient not taking: Reported on 12/13/2024) FAMILY HISTORY Problem Relation Age of Onset Thyroid Mother Hypertension Mother other (GERD) Mother Hyperlipidemia Father Coronary Artery Disease Father CABG x 3 vessel Hypertension Father Social History Tobacco Use Smoking status: Never Smokeless tobacco: Never Substance Use Topics Alcohol use: Yes Comment: social Drug use: No Review of Systems Constitutional: Negative for chills and weight loss. HENT: Positive for congestion. Negative for ear pain and sore throat. Eyes: Negative for discharge, redness and itching. Respiratory: Positive for cough, chest tightness, shortness of breath and wheezing. Cardiovascular: Negative for chest pain. Gastrointestinal: Negative for abdominal pain. Musculoskeletal: Negative for arthralgias, back pain and myalgias. Skin: Negative for color change, pallor and rash. Allergic/Immunologic: Negative for environmental allergies, food allergies and immunocompromised state. Neurological: Negative for headaches. Hematological: Negative for adenopathy. Does not bruise/bleed easily. Psychiatric/Behavioral: Negative for agitation and behavioral problems. Objective BP 120/79 Pulse 92 Temp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 snoring louder than usual and having some apnea events. She was reffered to ENT in the past for possible surgical options to address enlarged tonsil. Has not been able to make appt with ENT. Clinical Global Impression of Change ( CGI-C) Compared to the patient's condition at baseline, how much has the patient changed? Minimally improved PLAN: - Continue taking Modfinil 100mg QAM as directed. - Avoid driving when drowsy. - government affairs specialist for short naps (20-30 minutes) and use of caffeine if needed to help stay awake when driving. - Try to get at least 7-9 hours of sleep in a 24 hour period. Healthy diet and exercise can also promote better sleep. - Follow up in 3 months in the office. Recommend scheduling this appointment now to ensure the best time for you. -Advised to FU with ENT regarding enlarged tonsils -Monitor fatigue and mychart message us if this dont improve or continues to worsen Rosas Bedolla MD PGY-4 Sleep Medicine Fellow, [facility] [phone] Attending Note I evaluated the patient and personally participated in the clemens components of the history and physical exam. I have modified the note above to reflect my clinical decision making. I agree with the resident/fellow's findings, plan as documented, and have discussed the case and management of the patient's care with the resident/fellow. Gallito Lemus MD Sleep Medicine Appointments: [phone] Office: [phone] September 09, 2024 3:02 PM documented in this encounter [facility] 09-07-2024 Telephone encounter Note Noted [facility] 09-07-2024 Miscellaneous Notes Noted The patient has upcoming Botox appt on 09/23. The Botox will be supplied by at [facility] and delivered to the MD office on 09/20 BOTOX IS PATIENT SUPPLIED!!! # of Units to be Administered: 200 Medication: Botox Dosing Schedule: once every 12 weeks Prior Authorization: Approved (pharmacy benefit) [place] reference #:[id number] Approval dates: 09/18/2023-09/21/2024 Number of Units Approved: 200 documented in this encounter [facility] 09-07-2024 Telephone encounter Note The patient has upcoming Botox appt on 09/23. The Botox will be supplied by at [facility] and delivered to the MD office on 09/20 BOTOX IS PATIENT SUPPLIED!!! # of Units to be Administered: 200 Medication: Botox Dosing Schedule: once every 12 weeks Prior Authorization: Approved (pharmacy benefit) [place] reference #:[id number] Approval dates: 09/18/2023-09/21/2024 Number of Units Approved: 200 [facility] [employer] 09-05-2024 Note HNO ID: [id number] Author: YASHIRA PIERCE APRN.BOWLING TEACHER Service: ? Author Type: Nurse Practitioner Type: Progress Notes Filed: 09/05/2024 11:17 Note Text: Peggy Choudhury is a 34 year old female who presents for problem visit. HPI: Pt states she has always noticed some hot flashes during her period but states she has paid more attention to this recently for the past 3 months. She states it seems to occur a few days before her cycle starts through her menses. She might notice them more consistently with any activity during menses. She states they might occur every day from a few days prior to menses onset through menses. She states outside of menses occur inconsistently. She states she could be having some night sweats as well but thought due to house temperature. She will wake up sweaty at times. Periods are regular, occurring every 28-30 days and lasting 3-4 days. 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 modafinil (PROVIGIL) 100 mg tablet Take (1) tablet by mouth upon awakening Do not start before May 11, 2024. AIMOVIG AUTOINJECTOR 140 mg/mL auto-injector BD LUER-OMAR SYRINGE 3 mL 25 gauge x 1" USE 1 SYRINGE NEEDED FOR MIGRAINE SUMAtriptan (IMITREX) 100 mg tablet BOTOX 200 unit injection cholecalciferol, Vitamin D3, (VITAMIN D3) 1,250 mcg (50,000 unit) cap capsule Take 1 capsule by mouth one time a week. escitalopram oxalate (LEXAPRO) 20 mg tablet Take 1 tablet by mouth once daily. butterbur root extract 75 mg cap Take by mouth. L.acid/B.bifidum/B.animal/FOS (PROBIOTIC COMPLEX ORAL) Take by mouth. Taking one daily. vitamin B complex (SUPER B COMPLEX ORAL) Take by mouth. magnesium oxide (MAG-OX) 400 mg (241.3 mg magnesium) tablet Take 400 mg by mouth once daily. sumatriptan succ/naproxen sod (SUMATRIPTAN-NAPROXEN ORAL) Take by mouth. multivitamin tablet Take 1 tablet by mouth once daily. loratadine (CLARITIN) 10 mg tablet Take 10 mg by mouth once daily. No current facility-administered medications for this visit. Allergies As of Date: 09/05/2024 (No Known Allergies) Fully Assessed 09/05/2024 SENSITIVE EXAM: Sensitive exam not performed. EXAM: BP 124/84 Ht 5' 5" (1.65m) Wt 200 lb (90.7kg) LMP 08/28/2024 BMI 33.28 kg/(m2). GENERAL: pleasant, female in no apparent distress PE deferred ASSESSMENT/PLAN: 1. Hot flashes - ICD9: 782.62, ICD10: R23.2 Discussed in detail. Will rule out POI. - FOLLICLE STIMULATING HORMONE - THYROID STIMULATING HORMONE I spent a total of 22 minutes on the date of the service which included preparing to see the patient, [id number] patient care, completing clinical documentation, obtaining and/or reviewing separately obtained history, counseling and educating the patient/family/caregiver, and ordering medications, tests, or procedures. Yashira Pierce APRN.[facility] 09-05-2024 History of Present illness Narrative Peggy Choudhury is a 34 year old female who presents for problem visit. HPI: Pt states she has always noticed some hot flashes during her period but states she has paid more attention to this recently for the past 3 months. She states it seems to occur a few days before her cycle starts through her menses. She might notice them more consistently with any activity during menses. She states they might occur every day from a few days prior to menses onset through menses. She states outside of menses occur inconsistently. She states she could be having some night sweats as well but thought due to house temperature. She will wake up sweaty at times. Periods are regular, occurring every 28-30 days and lasting 3-4 days. 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 modafinil (PROVIGIL) 100 mg tablet Take (1) tablet by mouth upon awakening Do not start before May 11, 2024. AIMOVIG AUTOINJECTOR 140 mg/mL auto-injector BD LUER-OMAR SYRINGE 3 mL 25 gauge x 1" USE 1 SYRINGE NEEDED FOR MIGRAINE SUMAtriptan (IMITREX) 100 mg tablet BOTOX 200 unit injection cholecalciferol, Vitamin D3, (VITAMIN D3) 1,250 mcg (50,000 unit) cap capsule Take 1 capsule by mouth one time a week. escitalopram oxalate (LEXAPRO) 20 mg tablet Take 1 tablet by mouth once daily. butterbur root extract 75 mg cap Take by mouth. L.acid/B.bifidum/B.animal/FOS (PROBIOTIC COMPLEX ORAL) Take by mouth. Taking one daily. vitamin B complex (SUPER B COMPLEX ORAL) Take by mouth. magnesium oxide (MAG-OX) 400 mg (241.3 mg magnesium) tablet Take 400 mg by mouth once daily. sumatriptan succ/naproxen sod (SUMATRIPTAN-NAPROXEN ORAL) Take by mouth. multivitamin tablet Take 1 tablet by mouth once daily. loratadine (CLARITIN) 10 mg tablet Take 10 mg by mouth once daily. No current facility-administered medications for this visit. Allergies As of Date: 09/05/2024 (No Known Allergies) Fully Assessed 09/05/2024 SENSITIVE EXAM: Sensitive exam not performed. EXAM: BP 124/84 Ht 5' 5" (1.65m) Wt 200 lb (90.7kg) LMP 08/28/2024 BMI 33.28 kg/(m^2). GENERAL: pleasant, female in no apparent distress PE deferred ASSESSMENT/PLAN: 1. Hot flashes - ICD9: 782.62, ICD10: R23.2 Discussed in detail. Will rule out POI. - FOLLICLE STIMULATING HORMONE - THYROID STIMULATING HORMONE I spent a total of 22 minutes on the date of the service which included preparing to see the patient, [id number] patient care, completing clinical documentation, obtaining and/or reviewing separately obtained history, counseling and educating the patient/family/caregiver, and ordering medications, tests, or procedures. Yashira Pierce APRN.CNP documented in this encounter [facility] 08-24-2024 Telephone encounter Note Requested Prescriptions Signed Prescriptions Disp Refills onabotulinumtoxinA (Botox) 200 units injection 1 each 3 Sig: Provider to inject 200 units intramuscularly every 12 weeks for migraine prevention. Authorizing Provider: MÓNICA CASTAÑEDA [facility] 08-24-2024 Miscellaneous Notes Requested Prescriptions Signed Prescriptions Disp Refills onabotulinumtoxinA (Botox) 200 units injection 1 each 3 Sig: Provider to inject 200 units intramuscularly every 12 weeks for migraine prevention. Authorizing Provider: MÓNICA CASTAÑEDA documented in this encounter [facility] 06-24-2024 History of Present illness Narrative Patient reported that her [facility] DEPARTMENT OF NEUROLOGY BOTOX PROCEDURE NOTE FOR HEADACHE Patient: Peggy Choudhury : 1990 Diagnosis: Intractable chronic migraine without aura and without status migrainosus [G43.719] Procedure: Botox injections into the scalp and posterior cervical muscles Prior to procedure risks, benefits, alternatives, and potential side effects were reviewed with patient. Specifically reviewed possible risk of temporary muscle weakness. All questions were answered, patient expressed understanding, verbal consent given for procedure. No numbing spray applied/removed. Botox was injected with the parameters below: With the patient in sitting position, she received Botox injections in the neck and skull muscles. Patient receive the following doses: 1. R Frontalis 10 units 2. L Frontalis 10 units 3. R Seismic Engineer 10 units 4. L Seismic Engineer 10 units 5. R Temporalis 30 units 6. L Temporalis 30 units 7. R Occipitalis 30 units 8. L Occipitalis 30 units 9. R Trapezious 20 units 10.L Trapezious 20 units Total units injected 200 units. Units discarded 0 units. Comments: Today patient presented to the neurology clinic for new treatment with Cayla injections into the scalp and posterior cervical muscles. Patient reported that she is doing well. Her headaches appear to be well-controlled. She denied any side effect from medications. Patient denied any visit to the emergency room or missing any days of work because of headache. Patient reported that her improvement regarding her baseline is approximately 75% in frequency and severity of headaches. [x] Pt tolerated procedure well. Pt advised to avoid exercise or strenuous physical activity for 24 hours. Post treatment expectations reviewed in detail. Yeny Velasco MD Administrations This Visit onabotulinumtoxin A (BOTOX) injection 200 Units Admin Date 06/24/2024 Action Given Dose 200 Units Route IntraMUSCular Site Other Administered By [facility] [place] Ordering Provider: Yeny Velasco MD [facility]:[id number] Lot#: [id number] Athletic Training Internship: [employer]ergan Patient Supplied?: Yes documented in this encounter [facility] 06-24-2024 Note Patient reported alejandro t her [facility] DEPARTMENT OF NEUROLOGY BOTOX PROCEDURE NOTE FOR HEADACHE Patient: Peggy Choudhury : 1990 Diagnosis: Intractable chronic migraine without aura and without status migrainosus [G43.719] Procedure: Botox injections into the scalp and posterior cervical muscles Prior to procedure risks, benefits, alternatives, and potential side effects were reviewed with patient. Specifically reviewed possible risk of temporary muscle weakness. All questions were answered, patient expressed understanding, verbal consent given for procedure. No numbing spray applied/removed. Botox was injected with the parameters below: With the patient in sitting position, she received Botox injections in the neck and skull muscles. Patient receive the following doses: 1. R Frontalis 10 units 2. L Frontalis 10 units 3. R Seismic Engineer 10 units 4. L Seismic Engineer 10 units 5. R Temporalis 30 units 6. L Temporalis 30 units 7. R Occipitalis 30 units 8. L Occipitalis 30 units 9. R Trapezious 20 units 10.L Trapezious 20 units Total units injected 200 units. Units discarded 0 units. Comments: Today patient presented to the neurology clinic for new treatment with Cayla injections into the scalp and posterior cervical muscles. Patient reported that she is doing well. Her headaches appear to be well-controlled. She denied any side effect from medications. Patient denied any visit to the emergency room or missing any days of work because of headache. Patient reported that her improvement regarding her baseline is approximately 75% in frequency and severity of headaches. [x] Pt tolerated procedure well. Pt advised to avoid exercise or strenuous physical activity for 24 hours. Post treatment expectations reviewed in detail. Yeny Velasco MD [facility] 05-27-2024 Telephone encounter Note The following approved medication requests have been transmitted electronically. Requested Prescriptions Signed Prescriptions Disp Refills omeprazole (PRILOSEC) 20 mg capsule 90 capsule 3 Sig: Take 1 capsule by mouth once daily. Authorizing Provider: PA MCKEON MD [facility] 05-27-2024 Miscellaneous Notes The following approved medication requests have been transmitted electronically. Requested Prescriptions Signed Prescriptions Disp Refills omeprazole (PRILOSEC) 20 mg capsule 90 capsule 3 Sig: Take 1 capsule by mouth once daily. Authorizing Provider: PA MCKEON MD Patient electronically sent a request for the following prescription(s) Requested Prescriptions Pending Prescriptions Disp Refills omeprazole (PRILOSEC) 20 mg capsule 90 capsule 3 Sig: Take 1 capsule by mouth once daily. Patient aware RX will be sent to pharmacy. No need to notify patient. Last Office Visit: 11/30/2023 Next Office Visit: NONE Please review. Lynne Brink LPN documented in this encounter [facility] 05-27-2024 Telephone encounter Note Patient electronically sent a request for the following prescription(s) Requested Prescriptions Pending Prescriptions Disp Refills omeprazole (PRILOSEC) 20 mg capsule 90 capsule 3 Sig: Take 1 capsule by mouth once daily. Patient aware RX will be sent to pharmacy. No need to notify patient. Last Office Visit: 11/30/2023 Next Office Visit: NONE Please review. Lynne Brink LPN [facility] 04-28-2024 Instructions Amina Horn APRN.[facility] - 04/28/2024 6:02 PM EDT Images from the original note were not included. Patient Instructions: UARS: Your sleep study showed Upper Airway Resistance Syndrome (UARS). This is a subtype of Obstructive Sleep Apnea (ROCIO). Insurance does not cover CPAP for UARS. I will include educational materials on weight loss therapy, treatment of allergies, positional therapy, dental appliances, and ENT/DARREN for the surgical correction of any airway abnormalities if present may also improve signs and symptoms of Uppers Airway Resistance Syndrome. This information will be given to you in your after visit summary. Consult to ENT for enlarged tonsils. Work on weight loss and exercise. Hypersomnia Medication(s) as ordered. Continue Modafinil 100 mg qam. Refilled. Next visit scheduled already with Dr. Lemus in August. Follow up as discussed. Amina Horn, ZIGGY.[facility] - Medical Weight Loss/No Surgery Questions [phone] Gaining weight and becoming obese or morbidly obese has created an epidemic not only in the [place], but also internationally. According to the Centers for Disease Control, more than two thirds of the [place] population are overweight, and nearly one third are obese or morbidly obese. Obesity is defined as having a body mass index of 30 to 39. Morbid obesity begins at a body mass index of 40. It has been shown that the higher the body mass index (BMI), the greater the risk for associated illnesses such as diabetes, hypertension, sleep apnea, high cholesterol, coronary artery disease and others. When morbidly obese individuals have one or more of the above diseases, their risk for increases, and quality of life is severely diminished. The management of obesity involves medical and, if applicable, surgical interventions. Medical weight management combines diet, exercise and behavioral therapy and, if indicated, pharmacotherapy. At the [facility], our Medical Weight Loss team evaluate overweight or obese individuals for weight management with a thorough physical exam, which may require blood work and other diagnostic tools. The patient s diet and exercise history is an important part of the medical assessment and is reviewed during this visit. Dietitians in the [facility] work hand in hand with our team to ensure optimal care. Psychologists also help to maximize behavioral therapy. Our team may also utilize the expertise of [facility] exercise physiologists to create an individualized exercise program for their patients, with stress testing included. Patients are monitored every 4 weeks by the physician and dietitian. Medication, such as appetite suppressants can be prescribed to help with weight loss, as part of the treatment plan. Patients who are 100 lbs or more overweight are generally referred for surgical weight management. Our team continue to be involved in the surgical part of the process by assisting patients with weight loss prior to surgery. They also manage patients post-operatively to ensure adequate weight loss, perform medication adjustments when associated illnesses begin to improve, and prevent nutritional deficiencies or other complications which could occur without frequent follow-up appointments. [facility] / Surgical [facility]'s bariatric weight loss surgery program is focused on addressing obesity with modern treatment strategies, research and education. Questions [phone] Am I A Candidate For Weight Loss Surgery? If you're significantly overweight and want to make a lifestyle change, you may be a candidate for bariatric surgery at [facility]. Research supports the benefits of weight loss surgery for those with a BMI between 35 and 39.9 with obesity related health conditions such as type 2 diabetes, obstructive sleep apnea, high blood pressure, osteoarthritis and other obesity related conditions. You could be a candidate for surgical weight loss if you meet any of the following criteria: You are more than 100 lbs. over your ideal body weight You have a Body Mass Index (BMI) of over 40 You have a BMI of over 35 and are experiencing severe negative health effects, such as high blood pressure or diabetes, related to being severely overweight You are unable to achieve a healthy body weight for a sustained period of time, even through medically-supervised dieting [facility] Program Appointments [phone] Overview Virtual Visit: Shared Medical Appointments This program has been designed specifically for women who require weight management for the prevention and/or reversal of weight-related disease states. An advocate for prevention and wellness, Jennifer Slaughter DO, director of obesity management for the [facility], offers patients the option of going through the program using virtual shared medical appointments or going through the program using more traditional in-office visits. Who This Program Benefits Women (21 or older) who meet one or more of the following criteria: Body Mass Index (BMI) 30 and greater Medical conditions exacerbated by excess weight gain or obesity including but not limited to: Polycystic Ovarian Syndrome (PCOS) Post- weight retention Diabetes Mellitus type 2 Hyperlipidemia Obstructive Sleep Apnea (ROCIO) Hypertension Hormonal weight gain Functioning for Life Appointments To learn more about Functioning for Life Appointments please call [phone]. Why Choose the [facility] Functional Medicine? Our team has helped countless people lead healthier lives by reducing the burden of living with chronic disease. Our functional medicine program focuses on lifestyle influences, genetics and the environment to determine what is causing your disease or chronic conditions. Please note: Due to COVID-19, Functional Medicine programs are being modified for the safety of our patients and caregivers. Programs may be hosted virtually or postponed. Click the [place] button below to find the latest scheduling information. [place] Today Participants: New and Established patients Number of Sessions: 10 Frequency: Weekly An offering from the [facility] Functional Medicine [facility]ing for Life is a robust 10-week program of shared medical appointments designed for new patients to the Center [facility]. Disease-specific programs have been developed and patients can select the series that is right for them. Each week, patients will interact with a multidisciplinary team of functional medicine providers including physicians, physician assistants, nurse practitioners, dietitians, health coaches and behavioral health therapists. Patients will also have access to individualized support and on-going communication with members of their care team throughout the 10-week program. Disease-Specific Programs Immune/Autoimmune Disorder Track - Conditions such as lupus and psoriasis. Diabetes Track - Conditions such as diabetes, metabolic syndrome and pre-diabetes. Diabetic patients who are currently on insulin are ineligible for the program. Women's Health Disorder Track - Conditions such as menopause, PCOS and PMS. Digestive Disorders Track - Conditions such as IBD, IBS, GERD/Reflux and gastrointestinal issues. Weight Management Track. Pain Management track - Conditions such as chronic migraine, osteoarthritis, fibromyalgia and minor back pain. Each weekly program is one hour long, with the exception of sessions 1, 3, 5 and 9, which may last up to two hours. Discounted parking is available from the parking desk. [phone] Weight watchers program Can do all virtually via phone or computer Don't have to go in and do weigh ins- although this is still available if desired. They have a few different programs that vary in complexity for each person "Free style" program gives you a list of 0 point foods that you can eat as much as you want. Your points come from foods with sugars, carb and fats/oils. - Treatment Of Allergies Helpful tips for NASAL SPRAY use 1. Start by gently blowing your nose 2. Sit in a chair, with your knees hip width apart, lean forward (as demonstrated in clinic) Face looking straight down at the ground. 3. Insert nozzle into the right nostril and aim toward the tip of your right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 Review 06/24/2024 06/19/2025 1 1 Referral ID Status Reason Start Date Expiration Date V isits Requested Visits Authorized [id number] Pending Review 12/19/2022 06/17/2023 1 1 Additional Source Comments INFORMATION SOURCE (unrecogn ized section and content) DATE CREATED AUTHOR 03/02/2020 [facility] DATE CREATED AUTHOR AUTHOR'S ORGANIZ ATION 12/16/2023 [facility] DATE CREATED AUTHOR AUTHOR'S ORGANIZ ATION 06/17/2025 [facility] DATE CREATED AUTHOR AUTHOR'S ORGANIZ ATION 06/22/2025 [facility] DATE CREATED AUTHOR AUTHOR'S ORGANIZ ATION 08/05/2025 [facility] DATE CREATED AUTHOR AUTHOR'S ORGANIZ ATION 08/07/2025 [facility] Source Comments (unrecognize d section and content) In the event this informatio n is protected by the Federal Confidentiality of Alcohol and Drug Abuse Patient Records regulations: The Federal rules restrict any use of the information to criminally investigate or prosecute any alcohol or drug abuse patient.[facility] the event this information is protected by the Federal Confidentiality of Alcohol and Drug Abuse Patient Records regulations: The Federal rules restrict any use of the information to criminally investigate or prosecute any alcohol or drug abuse patient.[facility] the event this information is protected by the Federal Confidentiality of Alcohol and Drug Abuse Patient Records regulations: The Federal rules restrict any use of the information to criminally investigate or prosecute any alcohol or drug abuse patient.[facility] the event this information is protected by the Federal Confidentiality of Alcohol and Drug Abuse Patient Records regulations: The Federal rules restrict any use of the information to criminally investigate or prosecute any alcohol or drug abuse patient.[facility] the event this information is protected by the Federal Confidentiality of Alcohol and Drug Abuse Patient Records regulations: The Federal rules restrict any use of the information to criminally investigate or prosecute any alcohol or drug abuse patient.[facility] the event this information is protected by the Federal Confidentiality of Alcohol and Drug Abuse Patient Records regulations: The Federal rules restrict any use of the information to criminally investigate or prosecute any alcohol or drug abuse patient.[facility] the event this information is protected by the Federal Confidentiality of Alcohol and Drug Abuse Patient Records regulations: The Federal rules restrict any use of the information to criminally investigate or prosecute any alcohol or drug abuse patient.[facility] the event this information is protected by the Federal Confidentiality of Alcohol and Drug Abuse Patient Records regulations: The Federal rules restrict any use of the information to criminally investigate or prosecute any alcohol or drug abuse patient.[facility] the event this information is protected by the Federal Confidentiality of Alcohol and Drug Abuse Patient Records regulations: The Federal rules restrict any use of the information to criminally investigate or prosecute any alcohol or drug abuse patient.[facility] the event this information is protected by the Federal Confidentiality of Alcohol and Drug Abuse Patient Records regulations: The Federal rules restrict any use of the information to criminally investigate or prosecute any alcohol or drug abuse patient.[facility] the event this information is protected by the Federal Confidentiality of Alcohol and Drug Abuse Patient Records regulations: The Federal rules restrict any use of the information to criminally investigate or prosecute any alcohol or drug abuse patient.[facility] the event this information is protected by the Federal Confidentiality of Alcohol and Drug Abuse Patient Records regulations: The Federal rules restrict any use of the information to criminally investigate or prosecute any alcohol or drug abuse patient.[facility] the event this information is protected by the Federal Confidentiality of Alcohol and Drug Abuse Patient Records regulations: The Federal rules restrict any use of the information to criminally investigate or prosecute any alcohol or drug abuse patient.[facility] the event this information is protected by the Federal Confidentiality of Alcohol and Drug Abuse Patient Records regulations: The Federal rules restrict any use of the information to criminally investigate or prosecute any alcohol or drug abuse patient.[facility] the event this information is protected by the Federal Confidentiality of Alcohol and Drug Abuse Patient Records regulations: The Federal rules restrict any use of the information to criminally investigate or prosecute any alcohol or drug abuse patient.[facility] HospitalIn the event this information is protected by the Federal Confidentiality of Alcohol and Drug Abuse Patient Records regulations: The Federal rules restrict any use of the information to criminally investigate or prosecute any alcohol or drug abuse patient.[facility] the event this information is protected by the Federal Confidentiality of Alcohol and Drug Abuse Patient Records regulations: The Federal rules restrict any use of the information to criminally investigate or prosecute any alcohol or drug abuse patient.[facility]In the event this information is protected by the Federal Confidentiality of Alcohol and Drug Abuse Patient Records regulations: The Federal rules restrict any use of the information to criminally investigate or prosecute any alcohol or drug abuse patient.[facility]In the event this information is protected by the Federal Confidentiality of Alcohol and Drug Abuse Patient Records regulations: The Federal rules restrict any use of the information to criminally investigate or prosecute any alcohol or drug abuse patient.[facility]In the event this information is protected by the Federal Confidentiality of Alcohol and Drug Abuse Patient Records regulations: The Federal rules restrict any use of the information to criminally investigate or prosecute any alcohol or drug abuse patient.[facility] HospitalIn the event this information is protected by the Federal Confidentiality of Alcohol and Drug Abuse Patient Records regulations: The Federal rules restrict any use of the information to criminally investigate or prosecute any alcohol or drug abuse patient.[facility] HospitalIn the event this information is protected by the Federal Confidentiality of Alcohol and Drug Abuse Patient Records regulations: The Federal rules restrict any use of the information to criminally investigate or prosecute any alcohol or drug abuse patient.[facility] HospitalIn the event this information is protected by the Federal Confidentiality of Alcohol and Drug Abuse Patient Records regulations: The Federal rules restrict any use of the information to criminally investigate or prosecute any alcohol or drug abuse patient.[facility]In the event this information is protected by the Federal Confidentiality of Alcohol and Drug Abuse Patient Records regulations: The Federal rules restrict any use of the information to criminally investigate or prosecute any alcohol or drug abuse patient.[facility]In the event this information is protected by the Federal Confidentiality of Alcohol and Drug Abuse Patient Records regulations: The Federal rules restrict any use of the information to criminally investigate or prosecute any alcohol or drug abuse patient.[facility] HospitalIn the event this information is protected by the Federal Confidentiality of Alcohol and Drug Abuse Patient Records regulations: The Federal rules restrict any use of the information to criminally investigate or prosecute any alcohol or drug abuse patient.[facility]In the event this information is protected by the Federal Confidentiality of Alcohol and Drug Abuse Patient Records regulations: The Federal rules restrict any use of the information to criminally investigate or prosecute any alcohol or drug abuse patient.[facility]In the event this information is protected by the Federal Confidentiality of Alcohol and Drug Abuse Patient Records regulations: The Federal rules restrict any use of the information to criminally investigate or prosecute any alcohol or drug abuse patient.[facility]In the event this information is protected by the Federal Confidentiality of Alcohol and Drug Abuse Patient Records regulations: The Federal rules restrict any use of the information to criminally investigate or prosecute any alcohol or drug abuse patient.[facility]In the event this information is protected by the Federal Confidentiality of Alcohol and Drug Abuse Patient Records regulations: The Federal rules restrict any use of the information to criminally investigate or prosecute any alcohol or drug abuse patient.[facility] HospitalIn the event this information is protected by the Federal Confidentiality of Alcohol and Drug Abuse Patient Records regulations: The Federal rules restrict any use of the information to criminally investigate or prosecute any alcohol or drug abuse patient.[facility] HospitalIn the event this information is protected by the Federal Confidentiality of Alcohol and Drug Abuse Patient Records regulations: The Federal rules restrict any use of the information to criminally investigate or prosecute any alcohol or drug abuse patient.[facility]In the event this information is protected by the Federal Confidentiality of Alcohol and Drug Abuse Patient Records regulations: The Federal rules restrict any use of the information to criminally investigate or prosecute any alcohol or drug abuse patient.[facility]In the event this information is protected by the Federal Confidentiality of Alcohol and Drug Abuse Patient Records regulations: The Federal rules restrict any use of the information to criminally investigate or prosecute any alcohol or drug abuse patient.[facility] Reason for Visit (unrecogniz ed section and content) Reason Comments Procedure Specialty Diagnoses / Procedures Referred By Contac t Referred To Contact Diagnoses Chronic migraine without aura with status migrainosus, not intractable Yeny Velasco MD [address] [place] [address] Phone: tel: fax: Referral ID Status Reason Start Date Expiration Date V isits Requested Visits Authorized [id number] Pending Review 03/24/2025 03/19/2026 1 1 Reason Comments PT Treatment Specialty Diagnoses / Procedures Referred By Contac t Referred To Contact Physical Therapy Diagnoses Cervicalgia Procedures CT OFFICE/OUTPATIENT NEW HIGH MDM 60-74 MINUTES Avila Weir, PAGatoC [address] [place] [address] [facility] [address] [place] [address] [place] [address] Referral ID Status Reason Start Date Expiration Date Visits Requested Visits Authorized [id number] Authorized Specialty Services Required 12/11/2022 12/11/2023 30 30 Reason Comments PT Initial Eval Reason Comments Botulinum Toxin Injection Specialty Diagnoses / Procedures Referred By Contac t Referred To Contact Diagnoses Chronic migraine without aura with status migrainosus, not intractable Mónica Castañeda, BUILDING INSPECTOR - BOWLING TEACHER [address] [place] [address] Referral ID Status Reason Start Date Expiration Date V isits Requested Visits Authorized [id number] Pending Review 12/19/2022 06/17/2023 1 1 Reason Comments Procedure Botox - migraine Specialty Diagnoses / Procedures Referred By Contac t Referred To Contact Diagnoses Intractable chronic migraine without aura and without status migrainosus Yeny Velasco MD [address] [place] [address] [place] [address] Referral ID Status Reason Start Date Expiration Date V isits Requested Visits Authorized [id number] Pending Review 06/24/2024 06/19/2025 1 1 Referral ID Status Reason Start Date Expiration Date V isits Requested Visits Authorized [id number] Pending Review 03/25/2024 03/20/2025 1 1 Referral ID Status Reason Start Date Expiration Date V isits Requested Visits Authorized [id number] Pending Review 09/18/2023 03/16/2024 1 1 Reason Comments Procedure Botox- Migraine Referral ID Status Reason Start Date Expiration Date V isits Requested Visits Authorized [id number] Pending Review 06/19/2023 12/16/2023 1 1 Reason Onset Date Comments Refill Request 02/23/2022 Reason Comments Refill Request Reason Comments Follow Up Anxiety Reason Comments Well Woman Reason Comments Procedure Botox- Migraines Referral ID Status Reason Start Date Expiration Date V isits Requested Visits Authorized [id number] Pending Review 03/20/2023 09/16/2023 1 1 Reason Comments Follow-up Migraine The patient states t hat her migraines have been okay and she is not having any problems with her medications. Reason Onset Date Comments Refill Request 03/23/2023 Reason Comments Follow Up Depression Reason Onset Date Comments Refill Request 05/24/2023 Reason Comments Follow-up Migraines 3 mo fu Reason Onset Date Comments Patient Supplied Botox Delivery 05/28/2023 Patient Supplied Botox Delivery Reason Comments Med Refill Reason Comments Follow-up Migraine Reason Comments Follow Up Depression and anxie ty Reason Comments PSG Check In Reason Onset Date Comments sample of Amovig 12/01/2023 Reason Comments Procedure Botox- migraines Specialty Diagnoses / Procedures Referred By Contac t Referred To Contact Diagnoses Chronic migraine without aura without status migrainosus, not intractable Yeny Velasco MD [address] [place] [address] [place] [address] Referral ID Status Reason Start Date Expiration Date V isits Requested Visits Authorized [id number] Pending Review 12/18/2023 12/12/2024 1 1 Reason Onset Date Comments Medication Question 12/28/2023 Reason Comments New Patient Evaluation New here for Cons ultation and follow up on sleep study from . Her main complaint is always being tired even after a full night of sleep. Issues with falling asleep but no waking up. Specialty Diagnoses / Procedures Referred By Julio sanders Referred To Contact Diagnoses UARS (upper airway resistance syndrome) Procedures CONSULT TO SLEEP MEDICINE - ADULT OFFICE/OUTPATIENT [facility] 60 MINUTES Ketan Kessler APRN.BOWLING TEACHER [address] [place] [address] Referral ID Status Reason Start Date Expiration Date V isits Requested Visits Authorized [id number] Closed PCP Requested Referral 12/14/2023 12/13/2024 1 1 Reason Comments Follow-up 4 month follow up fo r Chronic migraine Reason Onset Date Comments [facility] - Botox 12/16/2023 Reason Onset Date Comments Other 03/11/2024 Botox Delivery Reason Comments UARS Hypersomnia Reason Onset Date Comments Refill Request 05/23/2024 Reason Onset Date Comments Refill Request 05/27/2024 Reason Comments Radiology XR Reason Comments Follow Up Reason Onset Date Comments Botulinum Toxin Injection 09/07/2024 Reason Comments UARS Established Patient Follow Up Medication Follow-up Rx Refills Hypersomnia, due to medical concern Tonsillar Hypertrophy Reason Comments not sleeping well Has sleep apnea but not enough for a cpap. Tonsils are so large they block her throat. Specialty Diagnoses / Procedures Referred By Julio sanders Referred To Contact Ent - Otolaryngology Diagnoses UARS (upper airway resistance syndrome) Enlarged tonsils Procedures CONSULT TO ENT OFFICE/OUTPATIENT [facility] 60 MINUTES Amina Horn APRN.BOWLING TEACHER [address] [place] [address] Referral ID Status Reason Start Date Expiration Date V isits Requested Visits Authorized [id number] Closed PCP Requested Referral 04/28/2024 04/28/2025 1 1 Reason Comments Procedure Botulinum Toxin Injection Specialty Diagnoses / Procedures Referred By Julio sanders Referred To Contact Diagnoses Intractable chronic migraine without aura and without status migrainosus Yeny Velasco MD [address] [place] [address] Phone: tel: fax: Referral ID Status Reason Start Date Expiration Date V isits Requested Visits Authorized [id number] Pending Review 09/23/2024 09/18/2025 1 1 Reason Comments Follow-up Migraine The patient states t hat she is ready for the Botox. She states that the last couple of weeks have had increase in headaches. Reason Comments Cough Chest congestion, SO B, tightness in chest, headache fatigue , sx x 2 weeks, increased last 5 days Reason Onset Date Comments Results 12/13/2024 Referral ID Status Reason Start Date Expiration Date V isits Requested Visits Authorized [id number] Pending Review 12/23/2024 12/18/2025 1 1 Reason Onset Date Comments Refill Request 05/10/2025 Reason Comments Medication Follow-up Follow up on Modafi nil 100 mg. One daily in the AM. States it is working well [facility] [place] [facility] Reason Comments Procedure Botox, pt suppliedDx : Migraine Pt reports no new symptoms with migraines Specialty Diagnoses / Procedures Referred By Julio sanders Referred To Contact Diagnoses Intractable chronic migraine without aura and without status migrainosus Yeny Velasco MD [address] [place] [address] Phone: tel: fax: Referral ID Status Reason Start Date Expiration Date V isits Requested Visits Authorized [id number] Pending Review 06/21/2025 06/16/2026 1 1 Reason Comments EKG Specialty Diagnoses / Procedures Referred By Julio sanders Referred To Contact [facility] Diagnoses Hypersomnia due to medical condition Long-term current use of stimulant Procedures ECG COMPLETE ECG ROUTINE ECG W/LEAST 12 LDS W/I&R Amina Horn, BUILDING INSPECTOR.BOWLING TEACHER [address] [address] Phone: tel: fax: [facility] [address] [place] [address] Referral ID Status Reason Start Date Expiration Date V isits Requested Visits Authorized [id number] Closed Auto-Generate d Referral 12/30/2024 12/30/2025 1 1 Care Teams (unrecognized sec tion and content) Business Services Assistant Relationship Specialty Start Date End Date Pa Mckeon MD [address] [place] [id number] PCP - General 07/11/03 Business Services Assistant Relationship Specialty Start Date End Date Pa Mckeon MD [address] [place] [address] PCP - General 07/11/03 Business Services Assistant Relationship Specialty Start Date End Date Pa Mckeon MD [address] [place] [address] PCP - General 07/11/03 Business Services Assistant Relationship Specialty Start Date End Date Pa Mckeon [address] [place] [id number] PCP - General 08/09/19 Business Services Assistant Relationship Specialty Start Date End Date Pa Mckeon [address] [place] [address] [phone] PCP - General 08/09/19 Business Services Assistant Relationship Specialty Start Date End Date Pa Mckeon [address] [place] [address] PCP - General 08/09/19 Business Services Assistant Relationship Specialty Start Date End Date Pa Mckeon [address] [place] [address] PCP - General 08/09/19 Business Services Assistant Relationship Specialty Start Date End Date Pa Mckeon [address] [place] [address] PCP - General 08/09/19 Business Services Assistant Relationship Specialty Start Date End Date Pa Mckeon MD [address] [id number] PCP - General 07/11/03 Business Services Assistant Relationship Specialty Start Date End Date Pa Mckeon MD PCP - General 08/09/19 Business Services Assistant Relationship Specialty Start Date End Date Pa Mckeon MD PCP - General 08/09/19 Business Services Assistant Relationship Specialty Start Date End Date Jorge Mckeon MD [address] [place] [address] PCP - General Family Medicine 03/20/23 Business Services Assistant Relationship Specialty Start Date End Date Jorge Mckeon MD [address] [facility] [address] [place] [address] PCP - General Family Medicine 03/20/23 Business Services Assistant Relationship Specialty Start Date End Date Pa Mckeon MD [address] [place] [address] PCP - General 07/11/03 Business Services Assistant Relationship Specialty Start Date End Date Pa Mckeon MD [address] [place] [address] PCP - General 07/11/03 Business Services Assistant Relationship Specialty [place] [address] [place] [address] PCP - General 07/11/03 Business Services Assistant Relationship Specialty Start Date End Date Jorge Mckeon MD [address] [facility] [address] [place] [address] PCP - General Family Medicine 03/20/23 Business Services Assistant Relationship Specialty Start Date End Date Jorge Mckeon MD [address] [place] [address] PCP - General Family Medicine 03/20/23 Business Services Assistant Relationship Specialty Start Date End Date Pa Mckeon MD PCP - General 08/09/19 03/19/23 Jorge Mckeon MD [address] [place] [address] PCP - General Family Medicine 03/20/23 Business Services Assistant Relationship Specialty Start Date End Date Jorge Mckeon MD [address] [place] [address] PCP - General Family Medicine 03/20/23 Business Services Assistant Relationship Specialty Start Date End Date Jorge Mckeon MD [address] [place] [address] PCP - General Family Medicine 03/20/23 Business Services Assistant Relationship Specialty Start Date End Date Jorge Mckeon MD [address] [place] [address] PCP - General Family Medicine 03/20/23 Business Services Assistant Relationship Specialty Start Date End Date Pa Mckeon MD [address] [place], [place] [phone] PCP - General 07/11/03 Business Services Assistant Relationship Specialty Start Date End Date Pa Mckeon MD [address] [place], [place] [id number] PCP - General 07/11/03 Business Services Assistant Relationship Specialty Start Date End Date Jorge Mckeon MD [address] [place] [address] PCP - General Family Medicine 03/20/23 Business Services Assistant Relationship Specialty Start Date End Date Jorge Mckeon MD [address] [place] [address] PCP - General Family Medicine 03/20/23 Business Services Assistant Relationship Specialty Start Date End Date Pa Mckeon MD [address] [place] [address] PCP - General 07/11/03 Business Services Assistant Relationship Specialty Start Date End Date Jorge Mckeon MD [address] [place] [address] PCP - General Family Medicine 03/20/23 Business Services Assistant Relationship Specialty Start Date End Date Pa Mckeon MD [address] [place] [address] PCP - General 07/11/03 Business Services Assistant Relationship Specialty Start Date End Date Jorge Mckeon MD [address] [place] [address] PCP - General Family Medicine 03/20/23 Business Services Assistant Relationship Specialty Start Date End Date Jorge Mckeon MD [address] [place] [address] PCP - General Family Medicine 03/20/23 Business Services Assistant Relationship Specialty Start Date End Date Pa Mckeon MD [address] [place], [place] [phone] PCP - General 07/11/03 Business Services Assistant Relationship Specialty Start Date End Date Pa Mckeon MD [address] [place] [id number] PCP - General 07/11/03 Business Services Assistant Relationship Specialty Start Date End Date Pa Mckeon MD [address] [place] [id number] PCP - General 07/11/03 Business Services Assistant Relationship Specialty Start Date End Date Pa Mckeon MD [address] [place] [address] PCP - General 07/11/03 Business Services Assistant Relationship Specialty Start Date End Date Jorge Mckeon MD [address] [phone] PCP - General Family Medicine 03/20/23 Business Services Assistant Relationship Specialty Start Date End Date Pa Mckeon MD [address] [place] [phone] PCP - General 07/11/03 Business Services Assistant Relationship Specialty Start Date End Date Pa Mckeon MD [address] [place], [place] [phone] PCP - General 07/11/03 Business Services Assistant Relationship Specialty Start Date End Date Pa Mckeon MD [address] [place], [place] [phone] PCP - General 07/11/03 Business Services Assistant Relationship Specialty Start Date End Date Jorge Mckeon MD [address] [phone] PCP - General Family Medicine 03/20/23 Business Services Assistant Relationship Specialty Start Date End Date Pa Mckeon [address] [place] [id number] PCP - General 08/09/19 Business Services Assistant Relationship Specialty Start Date End Date Pa Mckeon [address] [place] [address] PCP - General 08/09/19 Business Services Assistant Relationship Specialty Start Date End Date Pa Mckeon [address] [place] [address] PCP - General 08/09/19 Business Services Assistant Relationship Specialty Start Date End Date Pa Mckeon [address] [place] [address] PCP - General 08/09/19 Business Services Assistant Relationship Specialty Start Date End Date Pa Mckeon MD [address] [place] [address] PCP - General 07/11/03 Corrie Menchaca, ZIGGY.BOWLING TEACHER [address] [place] [address] Assistant Football Coach Family Medicine 09/24/24 Business Services Assistant Relationship Specialty Start Date End Date Pa Mckeon MD [address] [place], [place] [id number] PCP - General 07/11/03 Corrie Menchaca APRN.BOWLING TEACHER [address] [place], [place] [id number] Assistant Football Coach Family Medicine 09/24/24 Business Services Assistant Relationship Specialty Start Date End Date Pa Mckeon MD [address] [place], [place] 650212 PCP - General 07/11/03 Corrie Menchaca APRN.BOWLING TEACHER [address] [place], [place] 987372 Assistant Football Coach Family Medicine 09/24/24 Business Services Assistant Relationship Specialty Start Date End Date Pa Mckeon MD [address] [place], [place] [id number] PCP - General 07/11/03 Corrie Menchaca APRN.BOWLING TEACHER [address] [place], [place] [phone] Assistant Football Coach Family Medicine 09/24/24 Business Services Assistant Relationship Specialty Start Date End Date Pa Mckeon MD [address] [place], [place] [phone] PCP - General 07/11/03 Corrie Menchaca APRN.BOWLING TEACHER [address] [place] [address] Assistant Football Coach Family Medicine 09/24/24 Business Services Assistant Relationship Specialty Start Date End Date Jorge Mckeon MD [address] [phone] PCP - General Family Medicine 03/20/23 Business Services Assistant Relationship Specialty Start Date End Date Pa Mckeon MD [address] [place], [place] [id number] PCP - General 07/11/03 Corrie Menchaca APRN.BOWLING TEACHER [address] [place], [place] [id number] Assistant Football Coach Family Medicine 09/24/24 Ketan Kessler APRN.BOWLING TEACHER [address] [place], [place] 704442 Assistant Football Coach Family Medicine 12/29/24 Edelmira Goff APRN.BOWLING TEACHER [address] [place], [place] 767142 Assistant Football Coach Family Medicine 12/29/24 Business Services Assistant Relationship Specialty Start Date End Date Pa Mckeon MD [address] [place], [place] 476872 PCP - General 07/11/03 Ketan Kessler APRN.BOWLING TEACHER [address] [place], [place] [id number] Assistant Football Coach Family Medicine 01/05/25 Edelmira Goff APRN.BOWLING TEACHER [facility] [place], [place] 712462 Assistant Football Coach Family Medicine 01/05/25 Business Services Assistant Relationship Specialty Start Date End Date Jorge Mckeon MD [address] [phone] PCP - General Family Medicine 03/20/23 Business Services Assistant Relationship Specialty Start Date End Date Pa Mckeon MD [address] [place], [place] 426322 PCP - General 07/11/03 Corrie Menchcaa APRN.BOWLING TEACHER [address] [place], [place] 312442 Assistant Football Coach Family Medicine 03/03/25 Ketan Kessler APRN.BOWLING TEACHER [address] [place], [place] 945652 Assistant Football Coach Family Medicine 03/22/25 Business Services Assistant Relationship Specialty Start Date End Date Pa Mckeon MD [address] [place], [place] [phone] PCP - General 07/11/03 Corrie Menchaca APRN.BOWLING TEACHER [address] [place], [place] 792942 Assistant Football Coach Family Medicine 03/03/25 Ketan Kessler APRN.BOWLING TEACHER [address] [place] [address] Assistant Football Coach Family Medicine 03/22/25 Business Services Assistant Relationship Specialty Start Date End Date Jorge Mckeon MD [address] [phone] PCP - General Family Medicine 03/20/23 Business Services Assistant Relationship Specialty Start Date End Date Pa Mckeon MD [address] [place], [place] [phone] PCP - General 07/11/03 Corrie Menchaca APRN.BOWLING TEACHER [address] [place], [place] [phone] Assistant Football Coach Family Medicine 03/03/25 Ketan Kessler APRN.BOWLING TEACHER [address] [place], [place] [id number] [facility] 03/22/25 Business Services Assistant Relationship Specialty Start Date End Date Pa Mckeon MD [address] [place], [place] 714492 PCP - General 07/11/03 Corrie Menchaca, BUILDING INSPECTOR.BOWLING TEACHER [address] [place], [place] [id number] [facility] 03/03/25 Ketan Kessler BUILDING INSPECTOR.BOWLING TEACHER [address] [place], [place] 164692 [facility] 03/22/25 Business Services Assistant Relationship Specialty Start Date End Date Jorge Mckeon MD [address] [phone] PCP - General [facility] 03/20/23 FOR RECORDS PERTAINING TO PATIENTS WHO ARE OR HAVE BEEN ENROLLED IN A CHEMICAL DEPENDENCY/SUBSTANCEABUSE PROGRAM, SOME INFORMATION MAY BE OMITTED. This clinical summary was aggregated from multiple sources. Caution should be exercised in using it in the provision of clinical care. This summary normalizes information from multiple sources, and as a consequence, information in this document may materially change the coding, format and clinical context of patient data. In addition, data may be omitted in some cases. CLINICAL DECISIONS SHOULD BE BASED ON THE PRIMARY CLINICAL RECORDS. [facility]. provides no warranty or guarantee of the accuracy or completeness of information in this document.
--- NOTE | 2025-08-08 22:33 | EX.ED.DYSGE1 ---
HPI History of Present Illness Chief Complaint: Wound Narrative Narrative: Chief complaint and HPI: 34-year-old female with past medical history of GERD presents for evaluation of bug bite to the right thigh. Patient was seen on 08/06/2025 for same complaint which I examined her. Patient originally thinks she was bit by a bug in the right thigh sometime last week. The bites became erythematous and swollen. I diagnosed her with cellulitis and placed her on Keflex and Bactrim. She was told to return to the ED if symptoms worsen. She states the redness has spread. Areas are now draining purulent material. She denies any fever, chills, nausea, vomiting. Review of systems: See HPI Medications: As listed on the chart Allergies: As listed on the chart PFSH: Per chart Vital signs: As listed on the chart. Reviewed. Physical exam: Gen: A&O x3, NAD Head: Normocephalic, atraumatic Eyes: No sclera icterus, conjunctiva clear ENT: Moist mucous membranes CV: RRR, no murmurs Resp: Lungs CTA BL, no w/r/c Musc: Full ROM, no deformity, patient has 2 abrasions located on her right thigh with surrounding erythema-the erythema has spread beyond the marker lines that I placed, the proximal abrasion is indurated without drainage, the inferior abrasion now has a small necrotic center with purulent drainage-I was able to express all purulent drainage out of the wound and cultured-area is indurated, both areas are warm, mildly tender to palpation, compartments soft, neurovascularly intact Skin: Warm, dry Psych: Cooperative, appropriate mood and affect [facility] Medical History (Updated 08/06/25 @ 21:[address] Juan M Zurita, ) GERD (gastroesophageal reflux disease) Chronic migraine Brain bleed Traumatic brain injury Medical History no medical history Home Medications Medication Instructions Recorded Last Taken Type butterbur root extract 75 mg 75 mg PO DAILY 08/06/25 Unknown History capsule cephalexin 500 mg capsule 500 mg PO BID 7 days #14 caps 08/06/25 Unknown Rx erenumab-aooe 140 mg/mL 140 mg subcut QMONTH 08/06/25 Unknown History subcutaneous auto-injector (Aimovig Autoinjector) escitalopram oxalate 20 mg tablet 20 mg PO DAILY 08/06/25 Unknown History magnesium oxide 400 mg PO DAILY 08/06/25 Unknown History modafinil 100 mg tablet 100 mg PO DAILY 08/06/25 Unknown History omeprazole 20 mg capsule,delayed 20 mg PO DAILY 08/06/25 Unknown History release sulfamethoxazole 800 1 tab PO BID 7 days #14 tabs 08/06/25 Unknown Rx mg-trimethoprim 160 mg tablet (Bactrim DS) sumatriptan succinate 100 mg tablet 100 mg PO Q2H PRN migraine headache 08/06/25 Unknown History vitamin B complex (Balanced B-50 1 tab PO DAILY 08/06/25 Unknown History tablet) mupirocin 2 % topical ointment 1 applic topical TID 08/09/25 Unknown History Allergy/AdvReac Type Severity Reaction Status Date / Time No Known Allergies Allergy Verified 08/08/25 19:38 Social History Smoking Status: Never smoker EXAM Physical Exam Const Vital Signs: 08/08/25 19:38 08/08/25 22:47 08/08/25 23:00 Temperature 98.8 F 98 F 98.4 F Temperature Source Oral Oral Oral Pulse Rate 90 82 84 Respiratory Rate 15 17 17 Blood Pressure 138/84 H 124/61 H 130/82 H Blood Pressure Mean 102 82 98 Pulse Ox 100 98 Oxygen Delivery Method Room Air Room Air Room Air 08/09/25 00:00 08/09/25 00:18 Temperature 98.2 F 98.2 F Temperature Source Oral Pulse Rate 74 80 Respiratory Rate 18 15 Blood Pressure 114/71 114/71 Blood Pressure Mean 85 85 Pulse Ox 99 100 Oxygen Delivery Method Room Air MDM MDM MDM Narrative Medical decision making narrative: 34-year-old female with past medical history of GERD presents for evaluation of bug bite to the right thigh. Patient was seen on 08/06/2025 for same complaint which I examined her. Patient originally thinks she was bit by a bug in the right thigh sometime last week. The bites became erythematous and swollen. I diagnosed her with cellulitis and placed her on Keflex and Bactrim. She was told to return to the ED if symptoms worsen. She states the redness has spread. Areas are now draining purulent material. See physical exam findings. Vitals are stable patient is afebrile. Patient has worsening cellulitis with now purulent drainage. I was able to express all the purulent drainage and obtained wound culture. Patient will warrant admission with IV antibiotics. Labs drawn with blood cultures. Previous blood culture still pending. Unasyn and vancomycin ordered for broad coverage. Differential includes worsening cellulitis, abscess, bacteremia. CBC unremarkable without leukocytosis. BMP unremarkable. Patient will warrant admission. Patient discussed with the hospitalist who accepted admission. Impression: 1. Right lower extremity cellulitis 2. Right thigh abscess actively draining Lab Data Labs: Laboratory Results - last 24 hr 08/08/25 23:23 WBC 10.2 RBC 4.41 Hgb 12.6 Hct 38.4 MCV 87.1 MCH 28.6 MCHC 32.8 RDW Std Deviation 41.1 RDW Coeff of Yunior 12.8 Plt Count 288 MPV 8.3 Immature Gran % (Auto) 0.300 Neut % (Auto) 50.8 Lymph % (Auto) 42.3 H Benzie % (Auto) 5.1 Eos % (Auto) 1.1 Baso % (Auto) 0.4 Absolute Neuts (auto) 5.2 Absolute Lymphs (auto) 4.33 Nucleated RBC % 0 Sodium 135 Potassium 4.0 Chloride 102 Carbon Dioxide 19.8 L Anion Gap 14 BUN 19 Creatinine 0.71 Estim Creat Clear Calc 127.72 Est GFR (MDRD) Non-Af 117 BUN/Creatinine Ratio 27.2 H Glucose 91 Calcium 9.2 Discharge Plan Triage Chief Complaint: Wound ED Provider: Juan M Zurita Dx/Rx/DC Orders Prescriptions: No Action sumatriptan succinate 100 mg tablet 100 mg PO Q2H PRN (Reason: migraine headache) omeprazole 20 mg capsule,delayed release(DR/EC) 20 mg PO DAILY modafinil 100 mg tablet 100 mg PO DAILY escitalopram oxalate 20 mg tablet 20 mg PO DAILY Aimovig Autoinjector 140 mg/mL auto-injector 140 mg SUBCUT QMONTH Patient Comments: [NO ORIGINAL SIG] butterbur root extract 75 mg capsule 75 mg PO DAILY vitamin B complex [Balanced B-50] Tablet 1 tab PO DAILY magnesium oxide 400 mg magnesium capsule 400 mg PO DAILY cephalexin 500 mg capsule 500 mg PO BID 7 Days Qty: 14 0RF sulfamethoxazole-trimethoprim [Bactrim DS] 800-160 mg tablet 1 tab PO BID 7 Days Qty: 14 0RF mupirocin 2 % ointment 1 applic topical TID Primary Care Provider: Fam Hodge Referrals: Fam Hodge MD [Primary Care Provider, Medical] Print Language: Malay
[2025-08-08 22:47] VITALS: BP 124/61; PULSE 82; RESP 17; TEMP 36.6; O2SAT 98
[2025-08-08 23:00] VITALS: BP 130/82; PULSE 84; RESP 17; TEMP 36.9
[2025-08-08 23:35] LABS: Hematocrit 38.4 % (37-47); Hemoglobin 12.6 g/dL (12.0-15.0); Immature Granulocytes Count 0.030 X10^3/uL (0.0-0.0); Mean Corp Hgb Conc 32.8 g/dL (32-36); Mean Corpuscular Volume 87.1 fL (81-99); Mean Platelet Vol. 8.3 fl (6.2-12.0); NRBC Flagged by Analyzer 0 % (0-5); Platelet Count 288 K/mm3 (150-450); RBC Distribution Width CV 12.8 % (11.6-14.6); RBC Distribution Width SD 41.1 fl (35.1-43.9); Red Blood Count 4.41 M/mm3 (4.2-5.4); White Blood Count 10.2 K/mm3 (4.4-11.0)
[2025-08-08 23:52] LABS: Anion Gap 14 (5-15); BUN 19 mg/dL (4-19); BUN/Creat Ratio 27.2 RATIO (10-20); Calcium,Total 9.2 mg/dL (7.6-11.0); Carbon Dioxide 19.8 mmol/L (21.0-32.0); Chloride 102 mmol/L (98-108); Estimated Creatinine Clearance 127.72 ml/min (50-250); Glucose 91 mg/dL (70-99); Potassium 4.0 mmol/L (3.3-5.1)
[2025-08-09] VITALS: BP 114/71; PULSE 74; RESP 18; TEMP 36.8; O2SAT 99
[2025-08-09] MEDS: Ampicillin/Sulbactam 3 GM in 0.9% Normal Saline (100mL MB+) 100 ML IV ×4 (00:10→22:33)
[2025-08-09 00:18] VITALS: BP 114/71; PULSE 80; RESP 15; TEMP 36.8; O2SAT 100
--- NOTE | 2025-08-09 00:21 | PCM.HP.STD ---
[facility] - General General Date of Admission: 08/09/25 Date of Service: 08/09/25 Chief Complaint: Worsening Right Thigh Wound after suspected Bug Bite. [facility] Narrative BEN CHOUDHURY, is a 34 F with a past medical history of obesity (class I); with BMI of 33.9 this admission, traumatic brain injury with bleed, chronic migraine; on erenumab-aooe sq monthly plus as needed sumatriptan, depression; on escitalopram, GERD; on omeprazole and recently diagnosed cellulitis of the Right thigh after a suspected "bug bite" with patient seen in this ER on August 06, 2025 and started on oral cephalexin and trimethoprim-sulfamethoxazole who now re-presents to [facility] ER complaining of worsening Right thigh wound. Ms. Choudhury reports her symptoms began ~1 week prior to admission after she was bitten by an insect with subsequent redness and swelling of her Right thigh with patient subsequently started on antibiotics listed above with instructions to return if her symptoms worsened in spite of treatment. She states she took her antibiotics as prescribed but since her redness has spread with small abscess formation that was now draining purulent material with a small necrotic center so she decided to come back for further evaluation and treatment. She denies associated fever, chills, runny nose, sore throat, visual changes, discharge from eyes, nausea, vomiting, abdominal pain, constipation, diarrhea, chest pain, palpitations, heart racing, dysuria, hematuria or headache. In the ER she was diagnosed with worsening Right thigh cellulitis that failed outpatient antibiotic treatment and she was then admitted to the general medical floor for ongoing care for status is expected to extend beyond 2 midnights. [facility] Medical History GERD (gastroesophageal reflux disease) Chronic migraine Brain bleed Traumatic brain injury Medical History no medical history Home Medications Medication Instructions Recorded Last Taken Type butterbur root extract 75 mg 75 mg PO DAILY murray 08/06/25 Unknown History capsule cephalexin 500 mg capsule 500 mg PO BID atb 7 days #14 caps 08/06/25 Unknown Rx erenumab-aooe 140 mg/mL 140 mg subcut QMONTH 08/06/25 Unknown History subcutaneous auto-injector (Aimovig Autoinjector) escitalopram oxalate 20 mg tablet 20 mg PO DAILY depression 08/06/25 Unknown History magnesium oxide 400 mg PO DAILY supplement 08/06/25 Unknown History modafinil 100 mg tablet 100 mg PO DAILY sleep 08/06/25 Unknown History omeprazole 20 mg capsule,delayed 20 mg PO DAILY gerd 08/06/25 Unknown History release sulfamethoxazole 800 1 tab PO BID atb 7 days #14 tabs 08/06/25 Unknown Rx mg-trimethoprim 160 mg tablet (Bactrim DS) sumatriptan succinate 100 mg tablet 100 mg PO Q2H PRN migraine headache 08/06/25 Unknown History vitamin B complex (Balanced B-50 1 tab PO DAILY supplement 08/06/25 Unknown History tablet) mupirocin 2 % topical ointment 1 applic topical TID mrsa 08/09/25 Unknown History Allergy/AdvReac Type Severity Reaction Status Date / Time No Known Allergies Allergy Verified 08/08/25 19:38 Social History Smoking Status: Never smoker ROS ROS Narrative Review of Systems: Constitutional: Patient denies fever or chills. Eyes: Patient denies changes in vision or discharge from eyes. ENT: Patient denies runny nose, sore throat or ear pain. Resp: Patient denies shortness of breath or cough. CV: Patient denies chest pain, palpitations or heart racing. GI: Patient denies abdominal pain, nausea, vomiting, diarrhea or constipation. : Patient denies dysuria, hematuria or urinary frequency. MSK: Patient admits to increased Right thigh redness, swelling and pain as per HPI. Skin: Patient admits to abrasions on her Right thigh with erythema spreading beyond marker lines previously placed in ER. Psych: Patient denies symptoms uncontrolled depression or anxiety. Neuro: Patient denies headache, paresthesias or focal neurologic deficits. Allergy: Patient denies lip swelling, tongue swelling or urticaria. Hematology: Patient denies easy bleeding or easy bruisability. Endocrinology: Patient denies polyuria, polydipsia, polyphagia or heat/cold intolerance. 14 point ROS otherwise negative except for positives noted above in HPI. Vital Signs Vital Signs Vital Signs: 08/08/25 19:38 08/08/25 22:47 08/08/25 23:00 Temperature 98.8 F 98 F 98.4 F Temperature Source Oral Oral Oral Pulse Rate 90 82 84 Respiratory Rate 15 17 17 Blood Pressure 138/84 H 124/61 H 130/82 H Blood Pressure Mean 102 82 98 Pulse Ox 100 98 Oxygen Delivery Method Room Air Room Air Room Air 08/09/25 00:00 08/09/25 00:18 Temperature 98.2 F 98.2 F Temperature Source Oral Pulse Rate 74 80 Respiratory Rate 18 15 Blood Pressure 114/71 114/71 Blood Pressure Mean 85 85 Pulse Ox 99 100 Oxygen Delivery Method Room Air Weight Weight: 203 lb 7.787 oz Body Mass Index (BMI) 33.8 Physical Exam Const alert, oriented x3, no apparent distress, average body habitus and healthy appearing General Appearance: cooperative HEENT normocephalic, head/scalp atraumatic, hearing grossly normal bilaterally and moist oral mucous membranes Eyes PERRL, EOMs intact bilaterally and conjunctivae normal Neck no lymphadenopathy, supple and no JVD Resp normal respiratory effort, no retractions, no use of accessory muscles and clear to auscultation bilaterally Cardio regular rate and regular rhythm GI normal to inspection, nondistended, normoactive bowel sounds, soft to palpation, non-tender and non-distended Extremity Extremity Narrative: Right thigh redness has spread with small abscess formation that was now draining purulent material with a small necrotic center; s/p I&D in ER. Skin Skin Narrative: Right thigh redness has spread with small abscess formation that was now draining purulent material with a small necrotic center; s/p I&D in ER. Neuro oriented x3, CN's II-XII intact bilaterally, moves all extremities and no focal motor deficits Sensorium / Orientation: awake, alert, oriented to person, oriented to place and oriented to time Speech: speech normal Psych affect normal Results Medical Records Data Attestation: I reviewed the patient's medical records Lab / Micro Data Attestation: I reviewed the patient's lab results. 08/08/25 23:23 08/08/25 23:23 Labs: Laboratory Results - last 24 hr 08/08/25 23:23: WBC 10.2, RBC 4.41, Hgb 12.6, Hct 38.4, MCV 87.1, MCH 28.6, MCHC 32.8, RDW Std Deviation 41.1, RDW Coeff of Yunior 12.8, Plt Count 288, MPV 8.3, Immature Gran % (Auto) 0.300, Neut % (Auto) 50.8, Lymph % (Auto) 42.3 H, [place] % (Auto) 5.1, Eos % (Auto) 1.1, Baso % (Auto) 0.4, Absolute Neuts (auto) 5.2, Absolute Lymphs (auto) 4.33, Nucleated RBC % 0, Sodium 135, Potassium 4.0, Chloride 102, Carbon Dioxide 19.8 L, Anion Gap 14, BUN 19, Creatinine 0.71, Estim Creat Clear Calc 127.72, Est GFR (MDRD) Non-Af 117, BUN/Creatinine Ratio 27.2 H, Glucose 91, Calcium 9.2 Assessment & Plan Assessment/Plan (1) Cellulitis of right thigh: (2) Dehydration: (3) Obesity (BMI 30.0-34.9): PLAN: Plan 1. Worsening Right thigh cellulitis that failed outpatient antibiotic treatment - Admit to general medical floor. Continue empiric IV vancomycin and IV ampicillin-sulbactam begun in the ER and await culture & sensitivity data. Check wound culture and PCR MRSA probe. Give acetaminophen prn for [id number] (level 1-5/10) pain or fever. Give morphine IV prnf or severe (level 6-10/10) pain. 2. Recently diagnosed cellulitis of the Right thigh after a suspected "bug bite" with patient seen in this ER on August 06, 2025 and started on oral cephalexin and trimethoprim-sulfamethoxazole - Noted. 3. Dehydration; evidenced by elevated BUN/creatinine ratio of 27.2 present on admission complicating #1 & #2 - Give NS IVF and recheck renal indices in AM to follow trend for improvement. 4. Obesity (class I); with BMI of 33.9 this admission - Weight loss will be recommended. Check TSH. This complicated her case and may hamper recovery. 4. History of Traumatic brain injury with bleed - Noted. 5. Chronic migraine; on erenumab-aooe sq monthly plus as needed sumatriptan - Stable with no complaints of headache at this time. Continue prn sumatriptan. 6. Depression; on escitalopram - Resume escitalopram as previous. 7. GERD; on omeprazole - Maintain PPI. 8. DVT prophylaxis - Enoxaparin 40 mg sq daily. Total time: Approximately (but not less than) 55 minutes. Charges/Coding Visit Charges Inpatient E&M: 66722 Init Hosp L2
--- OUTSIDE RECORDS SUMMARY | 2025-08-09 01:24 | XMS RPT_ITS | CCD ---
Author Organization [facility] Care Team Providers Care Military Equipment Specialist Name Role Phone Pa Mckeon MD Primary Care Provider Jorge Mckeon MD Primary Care Provider Pa Mckeon MD Primary Care Provider Jorge Mckeon MD Primary Care Provider Pa Mckeon MD Primary Care Provider Jorge Mckeon MD Primary Care Provider PROVIDER, UNKNOWN Referring Unavailable PA MCKEON Primary Care Unavailable Pa Mckeon MD Primary Care Provider Pa Mckeon Primary Care Provider [phone] Pa Mckeon Primary Care Provider Bernarda TRINH.FABBY, Corrie Unavailable [place] BODY RECALL INSTRUCTOR.Ketan SEQUEIRA Unavailable [place] BODY RECALL INSTRUCTOR.Edelmira SEQUEIRA N Unavailable [place] BODY RECALL INSTRUCTOR.Francis SEQUEIRAie Unavailable [place] BODY RECALL INSTRUCTOR.FABBY Edelmira N Unavailable Bernarda BODY RECALL INSTRUCTOR.FABBY, Corrie Unavailable [place] BODY RECALL INSTRUCTOR.Ketan SEQUEIRA Unavailable AMINA HORN Referring Unavailable PA MCKEON Primary [...] sources) Other Propensity to adverse reactions 09-05-2022 [facility] (6 sources) Seasonal allergy Propensity to adverse reactions 07-27-2019 [facility] Medications Current Medications Medication Drug Class(es) Dates [...] Start: 024 End: 025 cholecalciferol 1.25 MG (97326 UT) capsule 12/04/2023 Active Comment on above: Take 1 capsule by [facility] one time a week. 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, [address] Calcium [Mass/Vol] 9.1 mg/dL Normal 7.6-11.0 [facility] Comment on above: Performed By: #### L 100.0100, L500.2500 #### [facility] [address] [place], [address] Chloride [Moles/Vol] 101 mmol/L Normal 98-108 [facility] Comment on above: Performed By: #### L 100.0100, L500.2500 #### [facility] [address] [place], [address] CO2 [Moles/Vol] 25.9 mmol/L Normal 21.0-32.0 [facility] Comment on above: Performed By: #### L 100.0100, L500.2500 #### [facility] [address] [place], [address] Creatinine [Mass/Vol] 0.61 mg/dL Low 0.70-1.20 [facility] Comment on above: Performed By: #### L 100.0100, L500.2500 #### [facility] [address] [place], [address] ECRCL 149.91 ml/min Normal 50-250 [facility] Comment on above: Performed By: #### L 100.0100, L500.2500 #### [facility] [address] [place], [address] GAP 12 Normal 5-15 [facility] Comment on above: Performed By: #### L 100.0100, L500.2500 #### [facility] [address] [place], [address] GFR/1.73 sq M.predicted among non-blacks MDRD (S/P/Bld) [Vol rate/Area] 122 mL/min/{1.73_m2} Normal >60 [facility] Comment on above: Result Comment: mL/m in/1.73m2 CKD-EPI Creatinine Equation (2020) Performed By: #### L 100.0100, L500.2500 #### [facility] [address] [place], [address] Glucose [Mass/Vol] 111 mg/dL High 70-99 [facility] Comment on above: Performed By: #### L 100.0100, L500.2500 #### [facility] [address] [place], [address] Potassium [Moles/Vol] 3.9 mmol/L Normal 3.3-5.1 [facility] Comment on above: Performed By: #### L 100.0100, L500.2500 #### [facility] [address] [place], [address] Sodium [Moles/Vol] 139 mmol/L Normal 133-145 [facility] Comment on above: Performed By: #### L 100.0100, L500.2500 #### [facility] [address] [place], [address] Urea nitrogen [Mass/Vol] 12 mg/dL Normal 4-19 [facility] Comment on above: Performed By: #### L 100.0100, L500.2500 #### [facility] [address] [place], [address] CBC W/Diff, Automatedon 10 Absolute Lymph 3.48 X10 3/uL Normal 0.83-4.51 [facility] Comment on above: Performed By: #### L 100.0100, L500.2500 #### [facility] [address] [place], [address] Absolute Neut 8.6 X10 3/uL High 2.0-7.7 [facility] Comment on above: Performed By: #### L 100.0100, L500.2500 #### [facility] [address] [place], [address] Basophils/100 WBC (Bld) 0.2 % Normal 0-1 [facility] Comment on above: Performed By: #### L 100.0100, L500.2500 #### [facility] [address] [place], [address] Eosinophils/100 WBC (Bld) 0.8 % Normal 0-5 [facility] Comment on above: Performed By: #### L 100.0100, L500.2500 #### [facility] [address] [place], [address] Erythrocyte distribution width (RBC) [Ratio] 12.9 % Normal 11.6-14.6 [facility] Comment on above: Performed By: #### L 100.0100, L500.2500 #### [facility] [address] [place], [address] Hematocrit (Bld) [Volume fraction] 41.9 % Normal 37-47 [facility] Comment on above: Performed By: #### L 100.0100, L500.2500 #### [facility] [address] [place], [address] Hemoglobin (Bld) [Mass/Vol] 13.9 g/dL Normal 12.0-15.0 [facility] Comment on above: Performed By: #### L 100.0100, L500.2500 #### [facility] [address] [place], [address] IG% 0.200 Normal 0.0-0.9 [facility] Comment on above: Result Comment: IG% - Immature Granulocytes (promyelocytes, myelocytes and metamyelocytes) > 1% indicates that a LEFT SHIFT is Present. Performed By: #### L 100.0100, L500.2500 #### [facility] [address] [place], [address] Lymphocytes/100 WBC (Bld) 27.2 % Normal 19-41 [facility] Comment on above: Performed By: #### L 100.0100, L500.2500 #### [facility] [address] [place], [address] MCH (RBC) [Entitic mass] 28.9 pg Normal 27.0-32.0 [facility] Comment on above: Performed By: #### L 100.0100, L500.2500 #### [facility] [address] [place], [address] MCHC (RBC) [Mass/Vol] 33.2 g/dL Normal 32-36 [facility] Comment on above: Performed By: #### L 100.0100, L500.2500 #### [facility] [address] [place], [address] MCV (RBC) [Entitic vol] 87.1 fL Normal 81-99 [facility] Comment on above: Performed By: #### L 100.0100, L500.2500 #### [facility] [address] [place], [address] Monocytes/100 WBC (Bld) 4.3 % Normal 0-10 [facility] Comment on above: Performed By: #### L 100.0100, L500.2500 #### [facility] [address] [place], [address] Neutrophils/100 WBC (Bld) 67.3 % Normal 47-70 [facility] Comment on above: Performed By: #### L 100.0100, L500.2500 #### [facility] [address] [place], [address] Nucleated RBC (Bld) [#/Vol] 0 10*3/uL Normal 0-5 [facility] Comment on above: Performed By: #### L 100.0100, L500.2500 #### [facility] [address] [place], [address] Platelet mean volume (Bld) [Entitic vol] 8.3 fL Normal 6.2-12.0 [facility] Comment on above: Performed By: #### L 100.0100, L500.2500 #### [facility] [address] [place], [address] Platelets (Bld) [#/Vol] 307 10*3/uL Normal 150-450 [facility] Comment on above: Performed By: #### L 100.0100, L500.2500 #### [facility] [address] [place], [address] RBC (Bld) [#/Vol] 4.81 10*6/uL Normal 4.2-5.4 [facility] Comment on above: Performed By: #### L 100.0100, L500.2500 #### [facility] [address] [place], [address] RDW SD 40.9 fl Normal 35.1-43.9 [facility] Comment on above: Performed By: #### L 100.0100, L500.2500 #### [facility] [address] [place], [address] WBC (Bld) [#/Vol] 12.8 10*3/uL High 4.4-11.0 [facility] Comment on above: Performed By: #### L 100.0100, L500.2500 #### [facility] [address] [place], [address] Comprehensive Metabolic Prof ilon 08-06-2025 ALB Normal 3.5-5.0 [facility] Comment on above: Order Comment: Blood cultures x2, from two different sites Result Comment: DR Kevin MAIER CANCELLED- PUT IN NEW ORDERS Performed By: #### L 500.4050 #### [facility] [address] [place], [address] ALK PHOS Normal 35-104 [facility] Comment on above: Order Comment: Blood cultures x2, from two different sites Result Comment: DR Kevin MAIER CANCELLED- PUT IN NEW ORDERS Performed By: #### L 500.4050 #### [facility] [address] [place], [address] ALT Normal <=34 [facility] Comment on above: Order Comment: Blood cultures x2, from two different sites Result Comment: DR Kevin MAIER CANCELLED- PUT IN NEW ORDERS Performed By: #### L 500.4050 #### [facility] [address] [place], [address] AST Normal <=31 [facility] Comment on above: Order Comment: Blood cultures x2, from two different sites Result Comment: DR Kevin MAIER CANCELLED- PUT IN NEW ORDERS Performed By: #### L 500.4050 #### [facility] [address] [place], [address] BUN Normal 4-19 [facility] Comment on above: Order Comment: Blood cultures x2, from two different sites Result Comment: DR Kevin MAIER CANCELLED- PUT IN NEW ORDERS Performed By: #### L 500.4050 #### [facility] [address] [place], [address] BUN/CRE Normal 10-20 [facility] Comment on above: Order Comment: Blood cultures x2, from two different sites Result Comment: DR Kevin MAIER CANCELLED- PUT IN NEW ORDERS Performed By: #### L 500.4050 #### [facility] [address] [place], [address] Calcium Normal 7.6-11.0 [facility] Comment on above: Order Comment: Blood cultures x2, from two different sites Result Comment: DR Kevin MAIER CANCELLED- PUT IN NEW ORDERS Performed By: #### L 500.4050 #### [facility] [address] [place], [address] CL Normal 98-108 [facility] Comment on above: Order Comment: Blood cultures x2, from two different sites Result Comment: DR Kevin MAIER CANCELLED- PUT IN NEW ORDERS Performed By: #### L 500.4050 #### [facility] [address] [place], [address] CO2 Normal 21.0-32.0 [facility] Comment on above: Order Comment: Blood cultures x2, from two different sites Result Comment: DR Kevin MAIER CANCELLED- PUT IN NEW ORDERS Performed By: #### L 500.4050 #### [facility] [address] [place], [address] CREAT,SERUM Normal 0.70-1.20 [facility] Comment on above: Order Comment: Blood cultures x2, from two different sites Result Comment: DR Kevin MAIER CANCELLED- PUT IN NEW ORDERS Performed By: #### L 500.4050 #### [facility] [address] [place], [address] eGFR Normal >60 [facility] Comment on above: Order Comment: Blood cultures x2, from two different sites Result Comment: DR Kevin MAIER CANCELLED- PUT IN NEW ORDERS Performed By: #### L 500.4050 #### [facility] [address] [place], [address] GAP Normal 5-15 [facility] Comment on above: Order Comment: Blood cultures x2, from two different sites Result Comment: DR Kevin MAIER CANCELLED- PUT IN NEW ORDERS Performed By: #### L 500.4050 #### [facility] [address] [place], [address] GLU Normal 70-99 [facility] Comment on above: Order Comment: Blood cultures x2, from two different sites Result Comment: DR Kevin MAIER CANCELLED- PUT IN NEW ORDERS Performed By: #### L 500.4050 #### [facility] [address] [place], [address] Potassium Normal 3.3-5.1 [facility] Comment on above: Order Comment: Blood cultures x2, from two different sites Result Comment: DR Kevin MAIER CANCELLED- PUT IN NEW ORDERS Performed By: #### L 500.4050 #### [facility] [address] [place], [address] T BILI Normal 0.00-1.30 [facility] Comment on above: Order Comment: Blood cultures x2, from two different sites Result Comment: DR Kevin MAIER CANCELLED- PUT IN NEW ORDERS Performed By: #### L 500.4050 #### [facility] [address] [place], [address] T PROT Normal 5.9-8.4 [facility] Comment on above: Order Comment: Blood cultures x2, from two different sites Result Comment: DR Kevin MAIER CANCELLED- PUT IN NEW ORDERS Performed By: #### L 500.4050 #### [facility] [address] [place], [address] Comprehensive Metabolic Profil Normal 133-145 [facility] Comment on above: Order Comment: Blood cultures x2, from two different sites Result Comment: DR Kevin MAIER CANCELLED- PUT IN NEW ORDERS Performed By: #### L 500.4050 #### [facility] [address] [place], [address] Emergency Department Summary on 08-06-2025 Emergency Department Summary [facility] Medical Records Department [address] [place] [address] Emergency Department Summary 08/06/25 MR#: [id number] Acct: [id number] Name: PEGGY CHOUDHURY Rep #: [id number] : 1990 34 From: Juan M Zurita [...] (Auto) Neut % (Auto) Lymph % (Auto) Bleckley % (Auto) Eos % (Auto) Baso % (Auto) Absolute Neuts (auto) Absolute Lymphs (au (more content not included)... [facility] (WOUCA) PEGGY CHOUDHURY ([id number]) 1990 F Date Time Provider Department 08/03/25 [...] Service: OFFICE/OUTPATIENT ESTABLISHED MOD MDM 30 MIN [92056] Encounter Status:Closed by CAIO STONE on 08/03/25 [facility] CNNURSEon 06-29-2025 [facility]OU[facility] ([id number]) 1990 F Date Time Provider Department 06/29/25 8:15 AM [facility] During your visit today, we recorded the following information about you: IRENE RIOS 06/29/2025 8:27 AM Signed Patient presents for EKG per Amina Horn CNP. Denies any problems at this time. Tolerated procedure well. 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 #:[id number] Prescriptions as of 06/29/2025 - modafinil [...] Status:Closed by IRENE RIOS on 06/29/25 Normal [facility] ECG COMPLETEon 06-29-2025 ECG COMPLETE Ventricular Rate : 8 4 BPM Atrial Rate : 84 BPM P-R Interval : 156 ms QRS Duration : 88 ms Q-T Interval : 384 ms QTC Calculation(Bazett) : 453 ms Calculated P Sawyer : 14 degrees Calculated R Sawyer : 68 degrees Calculated T Sawyer : 35 degrees NORMAL SINUS RHYTHM NORMAL ECG Confirmed by MD ALVA QARAB ([id number]) on 07/04/2025 5:25:48 PM NAME : PEGGY CHOUDHURY PID : [id number] : 1990 Gender : Female Race : ORD : [id number] Procedure Date : Jun 29 2025 08:19:36 Edit Date : Jul 04 2025 17:25:50 Diagnosis: NORMAL SINUS RHYTHM NORMAL ECG Confirmed by MD ALVA QARAB ([id number]) on 07/04/2025 5:25:48 PM Test Reason : Location : 136 : [facility] Overread By : MD ALVA QARAB Edited By : MD ALVA QARAB Referred By : AMINA HORN Acquired by : [id number], [facility] 06-21-2025 Progress Note Administrations This Visit onabotulinumtoxin A (BOTOX) injection 200 Units Admin Date 06/21/25 Action Given Dose 200 Units Route IntraMUSCular Site Other Administered By Yeny Velasco MD Ordering Provider: Yeny Velasco MD [facility]: [id number] Lot#: [id number] Boiler House Supervisor: Allergan Patient Supplied? Yes Normal [facility] CNOVon 06-16-2025 CNOV Office Visit (NESLBO ) PEGGY CHOUDHURY ([id number]) 1990 F Date Time Provider Department 06/16/25 3:00 PM GALLITO LEMUS During your visit today, we recorded the following information about you: Temperature Pulse Blood pressure Weight 98.5 degrees 98/minute 115/79 90.7 kg Height 1.651 m Gallito Lemus MD 06/16/2025 2:53 PM Signed [facility] Follow up/ Established [...] sorted in reverse-chronological order 09/02/2024 12/30/2024 06/09/2025 [place] Sleepiness Scale Score 4 (No clinically significant [...] for Vis (more content not included)... Normal [facility] TOXICOLOGY SCREEN, ROUTINE U RINEon 06-15-2025 Amphetamines Confirm (U) [Mass/Vol] Negative Normal Negative [facility] Comment on above: Order Comment: Speci men Type: URINE SPECIMEN Ordering Facility: [facility] Address: [address] [place] [address] [place] [address] Result Comment: Cuto ff threshold at 1000 ng/mL. Performed By: #### U TOX2 #### [facility] CLIA [id number] [address] [place] [address] [place] BARBITURATES, URINE Negative Normal Negative [facility] Comment on above: Order Comment: Speci men Type: URINE SPECIMEN Ordering Facility: [facility] Address: [address] [place] [address] Result Comment: Cuto ff threshold at 200 ng/mL. Performed By: #### U TOX2 #### [facility] CLIA [id number] [address] [place] [address] [place] BENZODIAZEPINES, URINE Negative Normal Negative [facility] Comment on above: Order Comment: Speci men Type: URINE SPECIMEN Ordering Facility: [facility] Address: [address] [place] [address] Result Comment: Cuto ff threshold at 200 ng/mL. Performed By: #### U TOX2 #### [facility] CLIA [id number] [address] [place] [address] [place] Cannabinoids Screen Ql (U) Negative Normal Negative [facility] Comment on above: Order Comment: Speci men Type: URINE SPECIMEN Ordering Facility: [facility] Address: [address] [place] [address] Result Comment: Cuto ff threshold at 50 ng/mL. Performed By: #### U TOX2 #### [facility] CLIA [id number] [address] [place] [address] [place] Cocaine Ql (U) Negative Normal Negative [facility] Comment on above: Order Comment: Speci men Type: URINE SPECIMEN Ordering Facility: [facility] Address: [address] [place] [address] Result Comment: Cuto ff threshold at 300 ng/mL. Performed By: #### U TOX2 #### [facility] CLIA [id number] [address] [place] [address] [place] Ethanol (U) [Mass/Vol] <11 Normal <11 [facility] Comment on above: Order Comment: Speci men Type: URINE SPECIMEN Ordering Facility: [facility] Address: [address] [place] [address] Performed By: #### U TOX2 #### [facility] CLIA [id number] [address] [place] [address] [facility] fentaNYL Screen Ql (U) Negative Normal Negative [facility] Comment on above: Order Comment: Speci men Type: URINE SPECIMEN Ordering Facility: [facility] Address: [address] [place] [address] Result Comment: Cuto ff threshold at 5 ng/mL. Performed By: #### U TOX2 #### [facility] CLIA [id number] [address] [place] [address] [facility] [place] Opiates Screen Ql (U) Negative Normal Negative [facility] Comment on above: Order Comment: Speci men Type: URINE SPECIMEN Ordering Facility: [facility] Address: [address] [place] [address] Result Comment: Cuto ff threshold at 300 ng/mL. Performed By: #### U TOX2 #### [facility] CLIA [id number] [address] [place] [address] [facility] oxyCODONE cutoff Screen (U) [Mass/Vol] Negative Normal Negative [facility] Comment on above: Order Comment: Speci men Type: URINE SPECIMEN Ordering Facility: [facility] Address: [address] [place] [address] Result Comment: Cuto ff threshold at 100 ng/mL. Performed By: #### U TOX2 #### [facility] CLIA [id number] [address] [place] [address] [facility] Phencyclidine Ql (U) Negative Normal Negative [facility] Comment on above: Order Comment: Speci men Type: URINE SPECIMEN Ordering Facility: [facility] Address: [address] [place] [address] Result Comment: Cuto ff threshold at 25 ng/mL. Performed By: #### U TOX2 #### [facility] CLIA [id number] [address] [place] [address] [facility] [place] 36on 05-30-2025 36 Botox has been approved under patient's pharmacy benefit and will be patient supplied. The medication will be dispensed by [facility] ([facility]). [facility] delivers provider administered medications to the administration location on the Thursday before scheduled appointments. Next scheduled delivery date: 06/13/2025 Pharmacy Benefit Prior Authorization (PA) Information: PA Number: [id number] Approval Date: 11/25/2024 Expiration Date: 11/23/2025 Dose Approved: 200 units Provider office will need to ensure completion of any required Procedure Code authorizations prior to appointment(s). Prescription on file with [facility]. Normal [facility] Progress Noteon 03-24-2025 Progress Note Administrations This Visit onabotulinumtoxin A (BOTOX) injection 200 Units Admin Date 03/24/2025 Action Given Dose 200 Units Route IntraMUSCular Site Other Administered By [facility] Ordering Provider: Yeny Velasco MD [facility]:[id number] Lot#: [id number] Boiler House Supervisor: allergan Patient Supplied?: Yes Normal [facility] CNOVon 01-12-2025 CNOV Office Visit (FAMPBR ) PEGGY CHOUDHURY ([id number]) 1990 F Date Time Provider Department 01/12/25 [...] pills with 3 refills to your preferred [facility] in [place]. - You reported that Lexapro is working [...] 90 tablets with 3 refills, sent to [facility] in [place]. Attestation The patient consented to the use of Saplo software for draft documentation of the visit consistent with [facility]?s Notice of Privacy Practices. Allergies As [...] D2, ( (more content not included)... Normal [facility] Progress Noteon 12-23-2024 Progress Note Administrations This Visit onabotulinumtoxin A (BOTOX) injection 200 Units Admin Date 12/23/24 Action Given Dose 200 Units Route IntraMUSCular Site Other Administered By Yeny Velasco MD Ordering Provider: Yeny Vleasco MD [facility]: [id number] Lot#: [id number] Boiler House Supervisor: Allergan Patient Supplied?: Yes Normal [facility] CNOVon 12-17-2024 CNOV Office Visit (OBGYBR ) PEGGY CHOUDHURY Evan ([id number]) 1990 F Date Time Provider Department 12/17/24 11:30 AM YASHIRA PIERCE OBGYBR During your visit today, we recorded the following information about you: Blood pressure Weight Height Last Period 112 90.3 kg 1.651 m 11/19/24 Yashira Pierce APRN.SUPERVISOR DRY PASTE 12/17/2024 11:30 AM Signed Peggy is a [...] Living0 SAB0 IAB0 Ectopic0 Multiple0 Live Births0 Endodontic Assistant History LMP: 11/19/2024, Having periods Age at Menarche: Age at First : Age at Menopause: Endodontic Assistant History Comments: Sexual Activity: Not Currently; Male [...] discussed with the Patient or Patient's Authorized Aircraft Power Plant Assembler. As applicable, any other physician, advance practice provider, medical student, or other health professional student that will be observing or involved in the sensitive examination for educational or training purposes was discussed with the Patient or Authorized Aircraft Power Plant Assembler. The Patient or Authorized Aircraft Power Plant Assembler has agreed to proceed with the sensitive examination. (Sensitive examination includes inspection and/or palpation of the breasts, pelvis, prostate and anorectal regions). Waiter/Waitress Buffet offered:Patient declines EXAM: BP 112/76 Ht 5' [...] external genitalia normal, normal Barth[place]'s glands, urethra, [place]'s glands, no vulvar lesions, no cervical lesions, [...] Yashira Pierce APRN.FABBY Referring Provider: PA MCKEON [[id number]] Allergies As of Date: 12/17/2024 (No Known Allergies) Date Reviewed: 12/17/2024 Reviewed by: Yashira Pierce APRN.FABBY - Fully Assessed Primary Visit Diagnosis:Women's annual routine gynecological examination [Z01.419] Other Visit Diagnosis:Screening breast examination [Z12.39] Prescriptions as of 12/17/2024 - ergocalcif (more content not included)... Normal [facility] CNOVon 12-13-2024 CNOV Office Visit (UCWSTR ) MACEYPEGGY ([id number]) 1990 F Date Time Provider Department 12/13/24 2:00 PM MÓNICA VASQUES [facility] During your visit today, we recorded the following information about you: Temperature Pulse Respiration Blood pressure 98.3 degrees 92/minute 18/minute 120/79 Weight Last Period 93 kg 11/19/24 Mónica Vasques APRN.SUPERVISOR DRY PASTE 12/13/2024 2:53 PM Signed This note was created using [employer]. Subjective Peggy Choudhury is a 34 year [...] history is provided by the patient. No biblical languages professor was used. Cough This is a new [...] ear normal. (more content not included)... Normal [facility] XR CHEST 2V FRONTAL/LATon XR CHEST 2V [...] tissues: Unremarkable. IMPRESSION: No acute radiographic abnormality. High School Sports Coach: PSCB Transcribe Date/Time: Dec 13 2024 2:29P Dictated by : GAY XIE MD This examination was interpreted and the report reviewed and electronically signed by: GAY XIE MD on Dec 13 2024 2:30PM EST [id number] Normal [facility] XR Chest PA and Lateralon IMPRESSION: No acute radiographic abnormality. High School Sports Coach[facility] Transcribe Date/Time: Dec 13 2024 2:29P [...] soft tissues: Unremarkable. DIVISION OF RADIOLOGY Provider, [facility] - 12/13/2024 * * *Final Report* * [...] Unremarkable. IMPRESSION IMPRESSION: No acute radiographic abnormality. High School Sports Coach: PSCB Transcribe Date/Time: Dec 13 2024 2:29P Dictated by : GAY XIE MD This examination was interpreted and the report reviewed and electronically signed by: GAY XIE MD on Dec 13 2024 2:30PM EST [facility] Radiology Study observation (narrative) [facility] XR Chest PA and LateralOrder ed By: Ccf Provider on 12-13-2024 [facility] 36on 12-12-2024 36 ROD 12.6.24 NOV 12/23/24 KRISTA [facility] Progress Noteon 09-23-2024 Progress Note Administrations This Visit onabotulinumtoxin A (BOTOX) injection 200 Units Admin Date 09/23/2024 Action Given Dose 200 Units Route IntraMUSCular Site Other Administered By [facility] Ordering Provider: Yeny Velasco MD [facility]:[id number] Lot#: [id number] Boiler House Supervisor: Allergan Patient Supplied?: Yes Normal [facility] CNOVon 09-16-2024 CNOV Office Visit (OTOLMM ) PEGGY CHOUDHURY ([id number]) 1990 F Date Time Provider Department 09/16/24 [...] electronic medical record. Referring Provider: AMINA HORN [[id number]] Allergies As of Date: 09/16/2024 (No Known Allergies) Date Reviewed: 09/16/2024 Reviewed by: Chelsea Rader Ma - Fully Assessed Reason for Visit: not sleeping well [Other] Cmt: Has sleep apnea but not enough for a cpap. Tonsils are so large they block her throat. Primary Visit Diagnosis:ROCIO (obstructive sleep apnea) [G47.33] Other Visit Diagnosis:Enlarged tonsils [J35.1] Order(s):CONSULT TO ENT [9008] Order #: [id number]: 1 Prescriptions as of 09/16/2024 - modafinil [...] Status:Closed by RYANN NULL on 09/16/24 Normal [facility] 36on 09-07-2024 36 Noted Normal [facility] 36 The patient has upcoming Botox appt on 09/23. The Botox will be supplied by us at [facility] and delivered to the MD office on 09/20 BOTOX IS PATIENT SUPPLIED!!! # of Units to be Administered: 200 Medication: Botox Dosing Schedule: once every 12 weeks Prior Authorization: Approved (pharmacy benefit) [place] reference #:[id number] Approval dates: 09/18/2023-09/21/2024 Number of Units Approved: 200 [facility] CNOVon 09-05-2024 CNOV Office Visit (OBGYBR ) PEGGY CHOUDHURY ([id number]) 1990 F Date Time Provider Department 09/05/24 11:00 AM YASHIRA PIERCE OBGYBR During your visit today, we recorded the following information about you: Blood pressure Weight Height Last Period 124/84 90.7 kg 1.651 m 08/28/24 Yashira Pierce APRN.SUPERVISOR DRY PASTE 09/05/2024 11:17 AM Signed Peggy Choudhury is [...] L0 SAB0 IAB0 Ectopic0 Multiple0 Live Births0 Endodontic Assistant History LMP: 08/28/2024 (Exact Date), Having periods Age at Menarche: Age at First : Age at Menopause: Endodontic Assistant History Comments: Sexual Activity: Yes; Male Contraception: [...] which included preparing to see the patient, [id number] patient care, completing clinical documentation, obtaining and/or reviewing separately obtained history, counseling and educating the patient/family/caregiv er, and ordering medications, tests, or procedures. Yashira Pierce APRN.FABBY Referring Provider: PA MCKEON [[id number]] Allergies As of Date: 09/05/2024 (No Known Allergies) Date Reviewed: 09/05/2024 Reviewed by: Yashira Pierce APRN.FABBY - Fully Assessed Reason for Visit: Follow Up [171] Primary Visit Diagnosis:Hot flashes [R23.2] Order(s):FOLLICLE STIMULATING HORMONE [SQFSH] Order #: [id number] FUTURE THYROID STIMULATING HORMONE [SQTS] Order #: [id number] FUTURE Prescriptions as of 09/05/2024 - omeprazole [...] - choleca (more content not included)... Normal [facility] FOLLICLE STIMULATING HORMONE on 09-05-2024 Follitropin Qn 5.0 m[IU]/mL See comment mIU/mL [facility] Comment on above: Reference range: Follicular: 3.5-12.5 mIU/mL Ovulation: 4.7-21.5 mIU/mL Luteal: 1.7-7.7 mIU/mL Postmenopausal: 25.8-134.8 mIU/mL [facility] SerPl-aCncon 09-05-2024 Follitropin Qn 5.0 m[IU]/mL Normal See comment [facility] Comment on above: Order Comment: Speci men Type: BLOOD SPECIMENOrdering Facility: [facility] Address: [address] [place] [address] Result Comment: Refe rence range: Follicular: 3.5-12.5 mIU/mL Ovulation: 4.7-21.5 mIU/mL Luteal: 1.7-7.7 mIU/mL Postmenopausal: 25.8-134.8 mIU/mL Performed By: #### 1 5067-2 ####[facility] LABORATORYCLIA [id number] [address] Follitropin Qnon 09-05-2024 [facility] THYROID STIMULATING HORMONEo n 09-05-2024 TSH Qn 1.490 m[IU]/L [facility] Comment on above: If the patient [...] Anthony, et al. 2017 Guidelines of the [place] [employer] for the Diagnosis and Management of Thyroid Disease during and the . Thyroid, 2017:27:3:315-389. TSH Qnon 09-05-2024 Interpretation and review of laboratory results Normal [facility] TSH SerPl-aCncon 09-05-2024 TSH Qn 1.490 m[IU]/L Normal 0.270-4.200 [facility] Comment on above: Order Comment: Speci men Type: BLOOD SPECIMENOrdering Facility: [facility] Address: [address] [place] [address] Result Comment: If t he patient is , TSH reference range varies by gestational period: First Trimester (weeks 9-12): 0.180-2.990 mIU/L Second Trimester: 0.110-3.980 mIU/L Third Trimester: 0.480-4.710 mIU/L iain Edwards al. A Practical Approach for the Verifications and Determination of Site- and Trimester-Specific Reference Intervals for Thyroid Function tests in . Thyroid, 2019:29:3:412-420. Allen Anthony, et al. 2017 Guidelines of the [place] Thyroid Association for the Diagnosis and Management of Thyroid Disease during and the . Thyroid, 2017:27:3:315-389. Performed By: #### 3 016-3 ####[facility] LABORATORYCLIA [id number] [address] 36on 08-24-2024 36 Requested Prescriptions Signed Prescriptions Disp Refills onabotulinumtoxinA (Botox) 200 units injection 1 each 3 Sig: Provider to inject 200 units intramuscularly every 12 weeks for migraine prevention. Authorizing Provider: MÓNICA CASTAÑEDA [facility] Progress Noteon 06-24-2024 Progress Note Administrations This Visit onabotulinumtoxin A (BOTOX) injection 200 Units Admin Date 06/24/2024 Action Given Dose 200 Units Route IntraMUSCular Site Other Administered By [facility] Ordering Provider: Yeny Velasco MD [facility]:[id number] Lot#: [id number] Boiler House Supervisor: allergan Patient Supplied?: Yes [facility] FERRITIN BLDon 12-01-2023 Ferritin [Mass/Vol] 47.7 ng/mL 14.7 - 2 05.1 ng/mL [facility] HbA1c (Bld)on 12-01-2023 Average glucose Estimated from glycated hemoglobin (Bld) [Mass/Vol] 100 mg/dL [facility] HbA1c (Bld) [Mass fraction] 5.1 % 4.3 - 5.6 % [facility] Iron and Iron binding capaci ty panelon 12-01-2023 Iron [Mass/Vol] 38 ug/dL Low 41 - 186 ug/dL [facility] Iron binding capacity [Mass/Vol] 303 ug/dL 232 - 386 ug/dL [facility] Iron/TIBC [Molar ratio] 12.5 % Low 15.0 - 57.0 % [facility] VITAMIN B12 BLOODon 12-01-19 Cobalamin (Vitamin B12) [Mass/Vol] 633 pg/mL 232 - 1,245 pg/mL [facility] VITAMIN D 25 HYDROXYon 12-01 25-hydroxyvitamin D3 [Mass/Vol] 25.3 ng/mL Low 31.0 - 80.0 ng/mL [facility] CBC panel Auto (Bld)on 11-30 Erythrocyte distribution width (RBC) [Ratio] 13.3 % 11.5 - 15.0 % [facility] Hematocrit (Bld) [Volume fraction] 41.3 % 36.0 - 46.0 % [facility] Hemoglobin (Bld) [Mass/Vol] 13.5 g/dL 11.5 - 15.5 g/dL [facility] MCH (RBC) [Entitic mass] 28.2 pg 26.0 - 34.0 pg [facility] MCHC (RBC) [Mass/Vol] 32.7 g/dL 30.5 - 36.0 g/dL [facility] MCV (RBC) [Entitic vol] 86.4 fL 80.0 - 100.0 fL [facility] Nucleated RBC (Bld) [#/Vol] <0.01 k/uL [facility] Platelet mean volume (Bld) [Entitic vol] 8.4 fL Low 9.0 - 12.7 fL [facility] Platelets (Bld) [#/Vol] 392 10*3/uL 150 - 400 k/uL [facility] RBC (Bld) [#/Vol] 4.78 10*6/uL 3.90 - 5.2 0 m/uL [facility] WBC (Bld) [#/Vol] 9.01 10*3/uL 3.70 - 11. 00 k/uL [facility] Comprehensive metabolic 2000 panelon 11-30-2023 Albumin [Mass/Vol] 4.5 g/dL 3.9 - 4.9 g/dL [facility] ALP [Catalytic activity/Vol] 122 U/L 34 - 123 U/L [facility] ALT [Catalytic activity/Vol] 13 U/L 7 - 38 U/L [facility] Anion gap [Moles/Vol] 14 mmol/L 9 - 18 mmol/L [facility] AST [Catalytic activity/Vol] 14 U/L 13 - 35 U/L [facility] Bilirubin [Mass/Vol] Low 0.2 - 1 .3 mg/dL [facility] Calcium [Mass/Vol] 9.5 mg/dL 8.5 - 10. 2 mg/dL [facility] Chloride [Moles/Vol] 99 mmol/L 97 - 10 5 mmol/L [facility] CO2 [Moles/Vol] 25 mmol/L 22 - 30 mmol/L [facility] Creatinine [Mass/Vol] 0.69 mg/dL 0.58 - 0.96 mg/dL [facility] Estimated Glomerular Filtration Rate 119 mL/min/1.73m >=60 mL/min/1.73m [facility] Glucose [Mass/Vol] 85 mg/dL 74 - 99 mg/dL [facility] Potassium [Moles/Vol] 4.1 mmol/L 3.7 - 5.1 mmol/L [facility] Protein [Mass/Vol] 7.8 g/dL 6.3 - 8.0 g/dL [facility] Sodium [Moles/Vol] 138 mmol/L 136 - 144 mmol/L [facility] Urea nitrogen [Mass/Vol] 17 mg/dL 7 - 21 mg/dL [facility] TSH BLDon 11-30-2023 TSH Qn 1.640 m[IU]/L 0.270 - 4.200 mIU/L [facility] CBC panel Auto (Bld)on 10-15 Erythrocyte distribution width (RBC) [Ratio] 13.2 % 11.5 - 15.0 % [facility] Hematocrit (Bld) [Volume fraction] 44.1 % 36.0 - 46.0 % [facility] Hemoglobin (Bld) [Mass/Vol] 14.4 g/dL 11.5 - 15.5 g/dL [facility] MCH (RBC) [Entitic mass] 28.4 pg 26.0 - 34.0 pg [facility] MCHC (RBC) [Mass/Vol] 32.7 g/dL 30.5 - 36.0 g/dL [facility] MCV (RBC) [Entitic vol] 87.0 fL 80.0 - 100.0 fL [facility] Nucleated RBC (Bld) [#/Vol] <0.01 k/uL [facility] Platelet mean volume (Bld) [Entitic vol] 8.7 fL Low 9.0 - 12.7 fL [facility] Platelets (Bld) [#/Vol] 364 10*3/uL 150 - 400 k/uL [facility] RBC (Bld) [#/Vol] 5.07 10*6/uL 3.90 - 5.2 0 m/uL [facility] WBC (Bld) [#/Vol] 7.50 10*3/uL 3.70 - 11. 00 k/uL [facility] Comprehensive metabolic 2000 panelon 10-15-2022 Albumin [Mass/Vol] 4.7 g/dL 3.9 - 4.9 g/dL [facility] ALP [Catalytic activity/Vol] 114 U/L 34 - 123 U/L [facility] ALT [Catalytic activity/Vol] 17 U/L 7 - 38 U/L [facility] Anion gap [Moles/Vol] 11 mmol/L 9 - 18 mmol/L [facility] AST [Catalytic activity/Vol] 18 U/L 13 - 35 U/L [facility] Bilirubin [Mass/Vol] 0.3 mg/dL 0.2 - 1 .3 mg/dL [facility] Calcium [Mass/Vol] 9.8 mg/dL 8.5 - 10. 2 mg/dL [facility] Chloride [Moles/Vol] 104 mmol/L 97 - 10 5 mmol/L [facility] CO2 [Moles/Vol] 25 mmol/L 22 - 30 mmol/L [facility] Creatinine [Mass/Vol] 0.72 mg/dL 0.58 - 0.96 mg/dL [facility] Estimated Glomerular Filtration Rate 116 mL/min/1.73m >=60 mL/min/1.73m [facility] Glucose [Mass/Vol] 101 mg/dL High 74 - 99 mg/dL [facility] Potassium [Moles/Vol] 3.8 mmol/L 3.7 - 5.1 mmol/L [facility] Protein [Mass/Vol] 7.8 g/dL 6.3 - 8.0 g/dL [facility] Sodium [Moles/Vol] 140 mmol/L 136 - 144 mmol/L [facility] Urea nitrogen [Mass/Vol] 12 mg/dL 7 - 21 mg/dL [facility] XR Lumbar spine 3 Viewson 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 Date/Time: Dec 13 2020 4:56P Dictated by : JANIYA WALKER MD This examination was interpreted and the report reviewed and electronically signed by: JANIYA WALKER MD on Dec 13 2020 4:57PM [facility] DIVISION OF RADIOLOGY * * *Final [...] intact DIVISION OF RADIOLOGY Provider, Rob Love [facility] - 12/13/2020 * * *Final Report* [...] appear intact IMPRESSION 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[facility] Transcribe Date/Time: Dec 13 2020 4:56P Dictated by : JANIYA WALKER MD This examination was interpreted and the report reviewed and electronically signed by: JANIYA WALKER MD on Dec 13 2020 4:57PM [facility] Radiology Study observation (narrative) [facility] XR Lumbar spine 3 ViewsOrder ed By: Ccf Provider on 12-13-[address] [facility] CT Head or Brain w/o Contras ton 08-26-2019 CT Head or Brain w/o Contrast Patient Name: PEGGY CHOUDHURY CT Exam Date/Time 08/26/2019 13:43:[address] Head or Brain w/o Contrast Ordering Physician DO MORALEZ JOSHUA E Accession Number [id number] CPT4 Codes 76463 () Reason For Exam following TBI Report [...] Transcribed Date and Time: 08/26/2019 2:34 Normal [facility] Basic Metabolic Panelon 10-1 Calcium [Mass/Vol] 8.5 mg/dL Normal 8.4-10.4 [facility] Comment on above: Performed By: #### H EMOG, LACT3, PT/AP, BMP3, ETOH4, CUA2, DRGA4, QWAL, QWNT #### [address] [id number] Glucose [Mass/Vol] 113 mg/dL High 70-100 [facility] Comment on above: Performed By: #### H EMOG, LACT3, PT/AP, BMP3, ETOH4, CUA2, DRGA4, QWAL, QWNT #### [address] [id number] Anion gap [Moles/Vol] 9 Normal [facility] Comment on above: Performed By: #### H EMOG, LACT3, PT/AP, BMP3, ETOH4, CUA2, DRGA4, QWAL, QWNT #### [address] CO2 [Moles/Vol] 27 mmol/L Normal 22-30 [facility] Comment on above: Performed By: #### H EMOG, LACT3, PT/AP, BMP3, ETOH4, CUA2, DRGA4, QWAL, QWNT #### [address] Creatinine [Mass/Vol] 0.53 mg/dL Normal 0.52-1.25 [facility] Comment on above: Performed By: #### H EMOG, LACT3, PT/AP, BMP3, ETOH4, CUA2, DRGA4, QWAL, QWNT #### [address] GFR/1.73 sq M predicted among blacks MDRD (S/P/Bld) [Vol rate/Area] mL/min/{1.73_m2} Normal >60 [facility] Comment on above: Performed By: #### H EMOG, LACT3, PT/AP, BMP3, ETOH4, CUA2, DRGA4, QWAL, QWNT #### [address] GFR/1.73 sq M predicted among non-blacks MDRD (S/P/Bld) [Vol rate/Area] mL/min/{1.73_m2} Normal >60 [facility] Comment on above: Result Comment: Sour ce- MDRD equation with creatinine calibration to IDMS(NKDEP) eGFR not recommended for drug dose adjustment Performed By: #### H EMOG, LACT3, PT/AP, BMP3, ETOH4, CUA2, DRGA4, QWAL, QWNT #### [address] Urea nitrogen [Mass/Vol] 13 mg/dL Normal 7-20 [facility] Comment on above: Performed By: #### H EMOG, LACT3, PT/AP, BMP3, ETOH4, CUA2, DRGA4, QWAL, QWNT #### [address] Chloride [Moles/Vol] 104 mmol/L Normal 98-107 [facility] Comment on above: Performed By: #### H EMOG, LACT3, PT/AP, BMP3, ETOH4, CUA2, DRGA4, QWAL, QWNT #### [address] Potassium [Moles/Vol] 3.9 mmol/L Normal 3.5-5.1 [facility] Comment on above: Performed By: #### H EMOG, LACT3, PT/AP, BMP3, ETOH4, CUA2, DRGA4, QWAL, QWNT #### [address] Sodium [Moles/Vol] 140 mmol/L Normal 135-145 [facility] Comment on above: Performed By: #### H EMOG, LACT3, PT/AP, BMP3, ETOH4, CUA2, DRGA4, QWAL, QWNT #### [address] Head or Brain w/o Contras ton 07-28-2019 CT Head or Brain w/o Contrast Patient Name: PEGGY CHOUDHURY CT Exam Date/Time 07/28/2019 04:48:[address] Head or Brain w/o Contrast Ordering Physician MD GAURANG, [facility] Accession Number [id number] CPT4 Codes 70959 () Reason For Exam head bleed, re-assess [...] Transcribed Date and Time: 07/28/2019 5:01 Normal [facility] Hemogram w/ Autodiffon 07-28 Abs Baso Cnt 0.0 10*3/uL Normal 0.0-0.2 [facility] Comment on above: Performed By: #### H EMOG, LACT3, PT/AP, BMP3, ETOH4, CUA2, DRGA4, QWAL, QWNT #### [address] Abs Neutrophile Cnt 9.7 10*3/uL High 1.8-7.0 [facility] Comment on above: Performed By: #### H EMOG, LACT3, PT/AP, BMP3, ETOH4, CUA2, DRGA4, QWAL, QWNT #### [address] Basophils/100 WBC (Bld) 0.3 % Normal 0.0-2.0 [facility] Comment on above: Performed By: #### H EMOG, LACT3, PT/AP, BMP3, ETOH4, CUA2, DRGA4, QWAL, QWNT #### [address] Eosinophils (Bld) [#/Vol] 0.0 10*3/uL Normal 0.0-0.5 [facility] Comment on above: Performed By: #### H EMOG, LACT3, PT/AP, BMP3, ETOH4, CUA2, DRGA4, QWAL, QWNT #### [address] Eosinophils/100 WBC (Bld) 0.0 % Low 1.0-6.0 [facility] Comment on above: Performed By: #### H EMOG, LACT3, PT/AP, BMP3, ETOH4, CUA2, DRGA4, QWAL, QWNT #### [address] Erythrocyte distribution width (RBC) [Ratio] 13.0 % Normal 11.5-14.5 [facility] Comment on above: Performed By: #### H EMOG, LACT3, PT/AP, BMP3, ETOH4, CUA2, DRGA4, QWAL, QWNT #### [address] Granulocytes/100 WBC (Bld) 77.4 % Normal 40.0-80.0 [facility] Comment on above: Performed By: #### H EMOG, LACT3, PT/AP, BMP3, ETOH4, CUA2, DRGA4, QWAL, QWNT #### [address] Hematocrit (Bld) [Volume fraction] 40.2 % Normal 35.0-47.0 [facility] Comment on above: Performed By: #### H EMOG, LACT3, PT/AP, BMP3, ETOH4, CUA2, DRGA4, QWAL, QWNT #### [address] Hemoglobin (Bld) [Mass/Vol] 13.9 g/dL Normal 11.7-16.0 [facility] Comment on above: Performed By: #### H EMOG, LACT3, PT/AP, BMP3, ETOH4, CUA2, DRGA4, QWAL, QWNT #### [address] Lymphocytes (Bld) [#/Vol] 2.1 10*3/uL Normal 1.0-4.3 [facility] Comment on above: Performed By: #### H EMOG, LACT3, PT/AP, BMP3, ETOH4, CUA2, DRGA4, QWAL, QWNT #### [address] Lymphocytes/100 WBC (Bld) 16.8 % Low 20.0-40.0 [facility] Comment on above: Performed By: #### H EMOG, LACT3, PT/AP, BMP3, ETOH4, CUA2, DRGA4, QWAL, QWNT #### [address] MCH (RBC) [Entitic mass] 30.0 pg Normal 26.0-34.0 [facility] Comment on above: Performed By: #### H EMOG, LACT3, PT/AP, BMP3, ETOH4, CUA2, DRGA4, QWAL, QWNT #### [address] MCHC (RBC) [Mass/Vol] 34.5 % Normal 32.0-36.0 [facility] Comment on above: Performed By: #### H EMOG, LACT3, PT/AP, BMP3, ETOH4, CUA2, DRGA4, QWAL, QWNT #### [address] MCV (RBC) [Entitic vol] 86.8 fL Normal 79.0-98.0 [facility] Comment on above: Performed By: #### H EMOG, LACT3, PT/AP, BMP3, ETOH4, CUA2, DRGA4, QWAL, QWNT #### [address] Monocytes (Bld) [#/Vol] 0.7 10*3/uL Normal 0.0-0.8 [facility] Comment on above: Performed By: #### H EMOG, LACT3, PT/AP, BMP3, ETOH4, CUA2, DRGA4, QWAL, QWNT #### [address] Monocytes/100 WBC (Bld) 5.5 % Normal 2.0-10.0 [facility] Comment on above: Performed By: #### H EMOG, LACT3, PT/AP, BMP3, ETOH4, CUA2, DRGA4, QWAL, QWNT #### [address] Platelet mean volume (Bld) [Entitic vol] 6.7 fL Low 7.4-10.4 [facility] Comment on above: Performed By: #### H EMOG, LACT3, PT/AP, BMP3, ETOH4, CUA2, DRGA4, QWAL, QWNT #### [address] Platelets (Bld) [#/Vol] 307 10*3/uL Normal 140-440 [facility] Comment on above: Performed By: #### H EMOG, LACT3, PT/AP, BMP3, ETOH4, CUA2, DRGA4, QWAL, QWNT #### [address] RBC (Bld) [#/Vol] 4.63 10*6/uL Normal 3.80-5.20 [facility] Comment on above: Performed By: #### H EMOG, LACT3, PT/AP, BMP3, ETOH4, CUA2, DRGA4, QWAL, QWNT #### [address] WBC (Bld) [#/Vol] 12.5 10*3/uL High 3.6-10.7 [facility] Comment on above: Performed By: #### H EMOG, LACT3, PT/AP, BMP3, ETOH4, CUA2, DRGA4, QWAL, QWNT #### [address] Magnesiumon 07-28-2019 Magnesium [Mass/Vol] 1.9 mg/dL Normal 1.6-2.3 [facility] Comment on above: Performed By: #### H EMOG, LACT3, PT/AP, BMP3, ETOH4, CUA2, DRGA4, QWAL, QWNT #### [place] [address] [address] [place], [place] Phosphoruson 07-28-2019 Phosphate [Mass/Vol] 4.1 mg/dL Normal 2.5-4.5 [facility] Comment on above: Performed By: #### H EMOG, LACT3, PT/AP, BMP3, ETOH4, CUA2, DRGA4, QWAL, QWNT #### [address] [address] [place], [place] Add on test from HISon 07-27 Add on test from HIS Accepted Normal [facility] Comment on above: Result Comment: Spec imen available & acceptable for analysis. Performed By: #### H EMOG, LACT3, PT/AP, BMP3, ETOH4, CUA2, DRGA4, QWAL, QWNT #### [address] [address] [place], [place] Add on test from HIS Accepted Normal [facility] Comment on above: Result Comment: Spec imen available & acceptable for analysis. Performed By: #### H EMOG, LACT3, PT/AP, BMP3, ETOH4, CUA2, DRGA4, QWAL, QWNT #### [address] [address] [place], [place] Basic Metabolic Panelon Calcium [Mass/Vol] 8.4 mg/dL Normal 8.4-10.4 [facility] Comment on above: Performed By: #### H EMOG, LACT3, PT/AP, BMP3, ETOH4, CUA2, DRGA4, QWAL, QWNT #### [address] [address] [place], [place] Glucose [Mass/Vol] 117 mg/dL High 70-100 [facility] Comment on above: Performed By: #### H EMOG, LACT3, PT/AP, BMP3, ETOH4, CUA2, DRGA4, QWAL, QWNT #### [address] [address] [place], [place] Anion gap [Moles/Vol] 6 Normal [facility] Comment on above: Performed By: #### H EMOG, LACT3, PT/AP, BMP3, ETOH4, CUA2, DRGA4, QWAL, QWNT #### [address] CO2 [Moles/Vol] 26 mmol/L Normal 22-30 [facility] Comment on above: Performed By: #### H EMOG, LACT3, PT/AP, BMP3, ETOH4, CUA2, DRGA4, QWAL, QWNT #### [address] Creatinine [Mass/Vol] 0.59 mg/dL Normal 0.52-1.25 [facility] Comment on above: Performed By: #### H EMOG, LACT3, PT/AP, BMP3, ETOH4, CUA2, DRGA4, QWAL, QWNT #### [address] GFR/1.73 sq M predicted among blacks MDRD (S/P/Bld) [Vol rate/Area] mL/min/{1.73_m2} Normal >60 [facility] Comment on above: Performed By: #### H EMOG, LACT3, PT/AP, BMP3, ETOH4, CUA2, DRGA4, QWAL, QWNT #### [address] GFR/1.73 sq M predicted among non-blacks MDRD (S/P/Bld) [Vol rate/Area] mL/min/{1.73_m2} Normal >60 [facility] Comment on above: Result Comment: Sour ce- MDRD equation with creatinine calibration to IDMS(NKDEP) eGFR not recommended for drug dose adjustment Performed By: #### H EMOG, LACT3, PT/AP, BMP3, ETOH4, CUA2, DRGA4, QWAL, QWNT #### [address] Urea nitrogen [Mass/Vol] 16 mg/dL Normal 7-20 [facility] Comment on above: Performed By: #### H EMOG, LACT3, PT/AP, BMP3, ETOH4, CUA2, DRGA4, QWAL, QWNT #### [address] Chloride [Moles/Vol] 106 mmol/L Normal 98-107 [facility] Comment on above: Performed By: #### H EMOG, LACT3, PT/AP, BMP3, ETOH4, CUA2, DRGA4, QWAL, QWNT #### [address] Potassium [Moles/Vol] 3.6 mmol/L Normal 3.5-5.1 [facility] Comment on above: Performed By: #### H EMOG, LACT3, PT/AP, BMP3, ETOH4, CUA2, DRGA4, QWAL, QWNT #### [address] Sodium [Moles/Vol] 138 mmol/L Normal 135-145 [facility] Comment on above: Performed By: #### H EMOG, LACT3, PT/AP, BMP3, ETOH4, CUA2, DRGA4, QWAL, QWNT #### [address] Chest/Abdomen/Pelvis (IV Only)on 07-27-2019 CT Chest/Abdomen/Pelvis (IV Only) Patient Name: PEGGY CHOUDHURY CT Exam Date/Time 07/27/2019 16:05:[address] Chest/Abdomen/Pelvis (IV Only) Ordering Physician UNASSIGNED, UNASSIGNED Accession Number [id number] CPT4 Codes 78219 (CT Chest/Abdomen/Pelvis (IV Only)), 22206 (CT Chest w/ Contrast), Q9967 (CT ISOVUE 370MG/[id number] andMLand1) Reason For Exam ABD TRAUMA, BLUNT, [...] Transcribed Date and Time: 07/27/2019 4:14 Normal [facility] Complete Urinalysison 2018 Appearance (U) Clear Normal [facility] Comment on above: Result Comment: Refe rence Range: Clear Performed By: #### H EMOG, LACT3, PT/AP, BMP3, ETOH4, CUA2, DRGA4, QWAL, QWNT #### [address] [address] Bilirubin,Urine Negative Normal [facility] Comment on above: Result Comment: Refe rence Range: Negative Performed By: #### H EMOG, LACT3, PT/AP, BMP3, ETOH4, CUA2, DRGA4, QWAL, QWNT #### [address] [address] Color (U) Light-Yellow Normal [facility] Comment on above: Result Comment: Refe rence Range: Lt. Yellow Performed By: #### H EMOG, LACT3, PT/AP, BMP3, ETOH4, CUA2, DRGA4, QWAL, QWNT #### [address] Glucose Ql (U) Normal Normal [facility] Comment on above: Result Comment: Refe rence Range: Normal (<70) Performed By: #### H EMOG, LACT3, PT/AP, BMP3, ETOH4, CUA2, DRGA4, QWAL, QWNT #### [address] Ketone,Urine Negative Normal [facility] Comment on above: Result Comment: Refe rence Range: Negative Performed By: #### H EMOG, LACT3, PT/AP, BMP3, ETOH4, CUA2, DRGA4, QWAL, QWNT #### [address] Leukocytes,Urine Negative Normal [facility] Comment on above: Result Comment: Refe rence Range: Negative Performed By: #### H EMOG, LACT3, PT/AP, BMP3, ETOH4, CUA2, DRGA4, QWAL, QWNT #### [address] Nitrites,Urine Negative Normal [facility] Comment on above: Result Comment: Refe rence Range: Negative Performed By: #### H EMOG, LACT3, PT/AP, BMP3, ETOH4, CUA2, DRGA4, QWAL, QWNT #### [address] Occult Blood,Urine Negative Normal [facility] Comment on above: Result Comment: Refe rence Range: Negative Performed By: #### H EMOG, LACT3, PT/AP, BMP3, ETOH4, CUA2, DRGA4, QWAL, QWNT #### [address] pH (U) 7.0 Normal 5.0-8.0 [facility] Comment on above: Performed By: #### H EMOG, LACT3, PT/AP, BMP3, ETOH4, CUA2, DRGA4, QWAL, QWNT #### [address] [place], [place] Protein (U) [Mass/Vol] Negative Normal [facility] Comment on above: Result Comment: Refe rence Range: Negative Performed By: #### H EMOG, LACT3, PT/AP, BMP3, ETOH4, CUA2, DRGA4, QWAL, QWNT #### [address] [address] [address] [place], [place] Specific [place],Urine > 1.030 Normal 1.005-1.030 [facility] Comment on above: Performed By: #### H EMOG, LACT3, PT/AP, BMP3, ETOH4, CUA2, DRGA4, QWAL, QWNT #### [address] Urobilinogen,Urine Normal Normal [facility] Comment on above: Result Comment: Refe rence Range: Normal (0-1) Performed By: #### H EMOG, LACT3, PT/AP, BMP3, ETOH4, CUA2, DRGA4, QWAL, QWNT #### [address] [place], [place] Drugs of Abuseon 07-27-2019 Phencyclidine (PCP), Ur Negative Normal [facility] Comment on above: Result Comment: The [...] BMP3, ETOH4, CUA2, DRGA4, QWAL, QWNT #### [address] [address] [place], [place] Opiates, Ur Negative Normal [facility] Comment on above: Performed By: #### H EMOG, LACT3, PT/AP, BMP3, ETOH4, CUA2, DRGA4, QWAL, QWNT #### [address] [place], [place] Cocaine, Ur Negative Normal [facility] Comment on above: Performed By: #### H EMOG, LACT3, PT/AP, BMP3, ETOH4, CUA2, DRGA4, QWAL, QWNT #### [address] [place], [place] Methadone, Ur Negative Normal [facility] Comment on above: Performed By: #### H EMOG, LACT3, PT/AP, BMP3, ETOH4, CUA2, DRGA4, QWAL, QWNT #### [address] [place], [place] Benzodiazepines, Ur Negative Normal [facility] Comment on above: Performed By: #### H EMOG, LACT3, PT/AP, BMP3, ETOH4, CUA2, DRGA4, QWAL, QWNT #### [address] [place], [place] Oxycodone/Oxymorphin e,Ur Negative Normal [facility] Comment on above: Performed By: #### H EMOG, LACT3, PT/AP, BMP3, ETOH4, CUA2, DRGA4, QWAL, QWNT #### [address] [place], [place] Barbiturates, Ur Negative Normal [facility] Comment on above: Performed By: #### H EMOG, LACT3, PT/AP, BMP3, ETOH4, CUA2, DRGA4, QWAL, QWNT #### [address] [place], [place] Amphetamines, Ur Negative Normal [facility] Comment on above: Performed By: #### H EMOG, LACT3, PT/AP, BMP3, ETOH4, CUA2, DRGA4, QWAL, QWNT #### [address] Ethanol Serum/Plasmaon 07-27 Ethanol-Serum/Plasma < 0.010 Normal 0.000-0.010 [facility] Comment on above: Result Comment: NOTE : This result is for medical treatment only. Analysis performed using non-forensic procedures. Performed By: #### H EMOG, LACT3, PT/AP, BMP3, ETOH4, CUA2, DRGA4, QWAL, QWNT #### [address] Hemogramon 07-27-2019 Erythrocyte distribution width (RBC) [Ratio] 13.3 % Normal 11.5-14.5 [facility] Comment on above: Performed By: #### H EMOG, LACT3, PT/AP, BMP3, ETOH4, CUA2, DRGA4, QWAL, QWNT #### [address] Hematocrit (Bld) [Volume fraction] 40.4 % Normal 35.0-47.0 [facility] Comment on above: Performed By: #### H EMOG, LACT3, PT/AP, BMP3, ETOH4, CUA2, DRGA4, QWAL, QWNT #### [address] Hemoglobin (Bld) [Mass/Vol] 13.6 g/dL Normal 11.7-16.0 [facility] Comment on above: Performed By: #### H EMOG, LACT3, PT/AP, BMP3, ETOH4, CUA2, DRGA4, QWAL, QWNT #### [address] MCH (RBC) [Entitic mass] 29.4 pg Normal 26.0-34.0 [facility] Comment on above: Performed By: #### H EMOG, LACT3, PT/AP, BMP3, ETOH4, CUA2, DRGA4, QWAL, QWNT #### [address] MCHC (RBC) [Mass/Vol] 33.8 % Normal 32.0-36.0 [facility] Comment on above: Performed By: #### H EMOG, LACT3, PT/AP, BMP3, ETOH4, CUA2, DRGA4, QWAL, QWNT #### [address] MCV (RBC) [Entitic vol] 87.0 fL Normal 79.0-98.0 [facility] Comment on above: Performed By: #### H EMOG, LACT3, PT/AP, BMP3, ETOH4, CUA2, DRGA4, QWAL, QWNT #### [address] Platelet mean volume (Bld) [Entitic vol] 6.8 fL Low 7.4-10.4 [facility] Comment on above: Performed By: #### H EMOG, LACT3, PT/AP, BMP3, ETOH4, CUA2, DRGA4, QWAL, QWNT #### [address] Platelets (Bld) [#/Vol] 300 10*3/uL Normal 140-440 [facility] Comment on above: Performed By: #### H EMOG, LACT3, PT/AP, BMP3, ETOH4, CUA2, DRGA4, QWAL, QWNT #### [address] RBC (Bld) [#/Vol] 4.64 10*6/uL Normal 3.80-5.20 [facility] Comment on above: Performed By: #### H EMOG, LACT3, PT/AP, BMP3, ETOH4, CUA2, DRGA4, QWAL, QWNT #### [address] WBC (Bld) [#/Vol] 19.9 10*3/uL High 3.6-10.7 [facility] Comment on above: Performed By: #### H EMOG, LACT3, PT/AP, BMP3, ETOH4, CUA2, DRGA4, QWAL, QWNT #### [facility] [address] [place], [place] Lactic Acidon 07-27-2019 Lactate [Moles/Vol] 1.5 mmol/L Normal 0.7-2.0 [facility] Comment on above: Performed By: #### H EMOG, LACT3, PT/AP, BMP3, ETOH4, CUA2, DRGA4, QWAL, QWNT #### [address] [place], [place] Protime AND APTTon 9 INR Coag (PPP) [Relative time] 1.0 Normal 0.9-1.1 [facility] Comment on above: Result Comment: Stan [...] BMP3, ETOH4, CUA2, DRGA4, QWAL, QWNT #### [address] [place], [place] PT Coag (PPP) [Time] 10.5 s Normal 9.0-12.0 [facility] Comment on above: Result Comment: . Performed By: #### H EMOG, LACT3, PT/AP, BMP3, ETOH4, CUA2, DRGA4, QWAL, QWNT #### [facility] [address] [place], [place] aPTT Coag (Bld) [Time] 23.0 s Normal 20.0-30.5 [facility] Comment on above: Result Comment: NOTE : The therapeutic time for Heparin anticoagulation, based on Xa activity inhibition, is an APTT of 46-80 seconds. Performed By: #### H EMOG, LACT3, PT/AP, BMP3, ETOH4, CUA2, DRGA4, QWAL, QWNT #### [facility] [address] [place] [address] TS GELon 07-27-2019 TS GEL ABO Group: A Rh, Gel: POS Antibody Screen Gel: NEG Normal [facility] Comment on above: Performed By: #### H EMOG, LACT3, PT/AP, BMP3, ETOH4, CUA2, DRGA4, QWAL, QWNT #### [facility] [address] [place] [address] hCG Qual Pregon 07-27-2019 hCG Qual Preg QUESTIONABLE Abnormal [facility] Comment on above: Result Comment: REF RANGE: Negative .... < 3 Questionable Rpt 48-72 Hr Positive ..... > 10 Performed By: #### H EMOG, LACT3, PT/AP, BMP3, ETOH4, CUA2, DRGA4, QWAL, QWNT #### [facility] [address] [place] [address] hCG Quantitativeon 9 hCG Quantitative < 3 Normal < 3 [facility] Comment on above: Performed By: #### H EMOG, LACT3, PT/AP, BMP3, ETOH4, CUA2, DRGA4, QWAL, QWNT #### [facility] [address] [place] [address] Vital Signs Date Time Vital Sign Value Performing Clinician Facility 06-21-2025 10:00-0400 Body height 165.1 cm Yeny Velasco MD Work Phone: [facility] 06-21-2025 10:00-0400 Body mass index (BMI) [Ratio] 34.11 kg/m2 Yeny Velasco MD Work Phone: [facility] 06-21-2025 10:00-0400 Body weight 92.99 kg Yeny Velasco MD Work Phone: [facility] 06-21-2025 10:00-0400 Diastolic blood pressure 72 mm[Hg] Yeny Velasco MD Work Phone: [facility] 06-21-2025 10:00-0400 Systolic blood pressure 128 mm[Hg] Yeny Velasco MD Work Phone: [facility] 06-16-2025 14:24-0400 Body height 165.1 cm Gallito Lemus MD Work Phone: [facility] 06-16-2025 14:24-0400 Body mass index (BMI) [Ratio] 33.28 kg/m2 Gallito Lemus MD Work Phone: [facility] 06-16-2025 14:24-0400 Body temperature 98.49 [degF] Gallito Lemus MD Work Phone: [facility] 06-16-2025 14:24-0400 Body weight 90.72 kg Gallito Lemus MD Work Phone: [facility] 06-16-2025 14:24-0400 Diastolic blood pressure 79 mm[Hg] Gallito Lemus MD Work Phone: [facility] 06-16-2025 14:24-0400 Heart rate 98 /min Gallito Lemus MD Work Phone: [facility] 06-16-2025 14:24-0400 SaO2% (BldA) [Mass fraction] 97 % Gallito Lemsu MD Work Phone: [facility] 06-16-2025 14:24-0400 Systolic blood pressure 115 mm[Hg] Gallito Lemus MD Work Phone: [facility] 03-24-2025 10:20-0400 Body mass index (BMI) [Ratio] 34.25 kg/m2 Yeny Velasco MD Work Phone: [facility] 03-24-2025 10:20-0400 Body temperature 97.9 [degF] Yeny Velasco MD Work Phone: [facility] 03-24-2025 10:20-0400 Body weight 93.35 kg Yeny Velasco MD Work Phone: [facility] 03-24-2025 10:20-0400 Diastolic blood pressure 72 mm[Hg] Yeny Velasco MD Work Phone: [facility] 03-24-2025 10:20-0400 Heart rate 96 /min eYny Velasco MD Work Phone: [facility] 03-24-2025 10:20-0400 Systolic blood pressure 115 mm[Hg] Yeny Velasco MD Work Phone: [facility] 01-12-2025 18:31-0400 Body height 165.1 cm Oscar Colin MD Work Phone: [facility] 01-12-2025 18:31-0400 Body mass index (BMI) [Ratio] 33.78 kg/m2 Oscar Colin MD Work Phone: [facility] 01-12-2025 18:31-0400 Body weight 92.08 kg Oscar Colin MD Work Phone: [facility] 01-12-2025 18:31-0400 Diastolic blood pressure 74 mm[Hg] Oscar Colin MD Work Phone: [facility] 01-12-2025 18:31-0400 Heart rate 77 /min Oscar Colin MD Work Phone: [facility] 01-12-2025 18:31-0400 SaO2% (BldA) [Mass fraction] 99 % Oscar Colin MD Work Phone: [facility] 01-12-2025 18:31-0400 Systolic blood pressure 111 mm[Hg] Oscar Colin MD Work Phone: [facility] 12-23-2024 09:59-0500 Body height 165.1 cm Yeny Velasco MD Work Phone: [facility] 12-23-2024 09:59-0500 Body mass index (BMI) [Ratio] 31.12 kg/m2 Yeny Velasco MD Work Phone: [facility] 12-23-2024 09:59-0500 Body weight 84.82 kg Yeny Velasco MD Work Phone: [facility] 12-23-2024 09:59-0500 Diastolic blood pressure 68 mm[Hg] Yeny Velasco MD Work Phone: [facility] 12-23-2024 09:59-0500 Heart rate 82 /min Yeny Velasco MD Work Phone: [facility] 12-23-2024 09:59-0500 Systolic blood pressure 118 mm[Hg] Yeny Velasco MD Work Phone: [facility] 12-17-2024 11:09-0500 Body height 165.1 cm Yashira Pierce BODY RECALL INSTRUCTOR.SUPERVISOR [employer] Work Phone: [facility] 12-17-2024 11:09-0500 Body mass index (BMI) [Ratio] 33.12 kg/m2 Yashira Pierce BODY RECALL INSTRUCTOR.SUPERVISOR [employer] Work Phone: [facility] 12-17-2024 11:09-0500 Body weight 90.27 kg Yashira Pierce BODY RECALL INSTRUCTOR.SUPERVISOR [employer] Work Phone: [facility] 12-17-2024 11:09-0500 Diastolic blood pressure 76 mm[Hg] Yashira Pierce BODY RECALL INSTRUCTOR.SUPERVISOR [employer] Work Phone: [facility] 12-17-2024 11:09-0500 Systolic blood pressure 112 mm[Hg] Yashira Pierce BODY RECALL INSTRUCTOR.SUPERVISOR [employer] Work Phone: [facility] 12-13-2024 13:31-0500 Body mass index (BMI) [Ratio] 34.12 kg/m2 Mónica Vasques BODY RECALL INSTRUCTOR.SUPERVISOR [employer] Work Phone: [facility] 12-13-2024 13:31-0500 Body temperature 98.29 [degF] Mónica Vasques BODY RECALL INSTRUCTOR.SUPERVISOR [employer] Work Phone: [facility] 12-13-2024 13:31-0500 Body weight 93 kg Mónica Vasques BODY RECALL INSTRUCTOR.SUPERVISOR [employer] Work Phone: [facility] 12-13-2024 13:31-0500 Diastolic blood pressure 79 mm[Hg] Mónica Vasques BODY RECALL INSTRUCTOR.SUPERVISOR [employer] Work Phone: [facility] 12-13-2024 13:31-0500 Heart rate 92 /min Mónica Vasques BODY RECALL INSTRUCTOR.SUPERVISOR [employer] Work Phone: [facility] 12-13-2024 13:31-0500 Respiratory rate 18 /min Mónica Vasques BODY RECALL INSTRUCTOR.SUPERVISOR [employer] Work Phone: [facility] 12-13-2024 13:31-0500 SaO2% (BldA) [Mass fraction] 98 % Mónica Vasques BODY RECALL INSTRUCTOR.SUPERVISOR [employer] Work Phone: [facility] 12-13-2024 13:31-0500 Systolic blood pressure 120 mm[Hg] Mónica Vasques BODY RECALL INSTRUCTOR.SUPERVISOR [employer] Work Phone: [facility] 09-23-2024 10:21-0500 Body height 165.1 cm Yeny Velasco MD Work Phone: [facility] 09-23-2024 10:21-0500 Body mass index (BMI) [Ratio] 31.12 kg/m2 Yeny Velasco MD Work Phone: [facility] 09-23-2024 10:21-0500 Body weight 84.82 kg Yeny Velasco MD Work Phone: [facility] 09-23-2024 10:21-0500 Diastolic blood pressure 89 mm[Hg] Yeny Velasco MD Work Phone: [facility] 09-23-2024 10:21-0500 Heart rate 92 /min Yeny Velasco MD Work Phone: [facility] 09-23-2024 10:21-0500 Systolic blood pressure 139 mm[Hg] Yeny Velasco MD Work Phone: [facility] 09-05-2024 10:48-0500 Body height 165.1 cm Yashira Pierce BODY RECALL INSTRUCTOR.SUPERVISOR [employer] Work Phone: [facility] 09-05-2024 10:48-0500 Body mass index (BMI) [Ratio] 33.28 kg/m2 Yashira Pierce BODY RECALL INSTRUCTOR.SUPERVISOR [employer] Work Phone: [facility] 09-05-2024 10:48-0500 Body weight 90.72 kg Yashira Pierce BODY RECALL INSTRUCTOR.SUPERVISOR [employer] Work Phone: [facility] 09-05-2024 10:48-0500 Diastolic blood pressure 84 mm[Hg] Yashira Pierce BODY RECALL INSTRUCTOR.SUPERVISOR [employer] Work Phone: [facility] 09-05-2024 10:48-0500 Systolic blood pressure 124 mm[Hg] Yashira Pierce BODY RECALL INSTRUCTOR.SUPERVISOR [employer] Work Phone: [facility] 06-24-2024 11:06-0400 Body height 165.1 cm Yeny Velasco MD Work Phone: [facility] 06-24-2024 11:06-0400 Body mass index (BMI) [Ratio] 31.12 kg/m2 Yeny Velasco MD Work Phone: [facility] 06-24-2024 11:06-0400 Body weight 84.82 kg Yeny Velasco MD Work Phone: [facility] 06-24-2024 11:06-0400 Diastolic blood pressure 74 mm[Hg] Yeny Velasco MD Work Phone: [facility] 06-24-2024 11:06-0400 Systolic blood pressure 132 mm[Hg] Yeny Velasco MD Work Phone: [facility] 03-25-2024 11:13-0400 Body temperature 98.2 [degF] Yeny Velasco MD Work Phone: [facility] 03-25-2024 11:13-0400 Diastolic blood pressure 73 mm[Hg] Yeny Velasco MD Work Phone: [facility] 03-25-2024 11:13-0400 Heart rate 90 /min Yeny Velasco MD Work Phone: [facility] 03-25-2024 11:13-0400 Systolic blood pressure 109 mm[Hg] Yeny Velasco MD Work Phone: [facility] 02-19-2024 10:14-0400 Body height 165.1 cm Avila Gayer PA-C Work Phone: [facility] 02-19-2024 10:14-0400 Body mass index (BMI) [Ratio] 31.12 kg/m2 Avila Gayer PA-C Work Phone: [facility] 02-19-2024 10:14-0400 Body weight 84.82 kg Avila Gayer PA-C Work Phone: [facility] 02-19-2024 10:14-0400 Diastolic blood pressure 70 mm[Hg] Avila Gayer PA-C Work Phone: [facility] 02-19-2024 10:14-0400 Heart rate 87 /min Avila Gayer PA-C Work Phone: [facility] 02-19-2024 10:14-0400 Respiratory rate 17 /min Avila Gayer PA-C Work Phone: [facility] 02-19-2024 10:14-0400 Systolic blood pressure 109 mm[Hg] Avila Gayer PA-C Work Phone: [facility] 02-10-2024 13:38-0400 Body height 165.1 cm Gallito Lemus MD Work Phone: [facility] 02-10-2024 13:38-0400 Body mass index (BMI) [Ratio] 31.95 kg/m2 Gallito Lemus MD Work Phone: [facility] 02-10-2024 13:38-0400 Body weight 87.09 kg Gallito Lemus MD Work Phone: [facility] 02-10-2024 13:38-0400 Diastolic blood pressure 74 mm[Hg] Gallito Lemus MD Work Phone: [facility] 02-10-2024 13:38-0400 Heart rate 87 /min Gallito Lemus MD Work Phone: [facility] 02-10-2024 13:38-0400 SaO2% (BldA) [Mass fraction] 94 % Gallito Lemus MD Work Phone: [facility] 02-10-2024 13:38-0400 Systolic blood pressure 106 mm[Hg] Gallito Lemus MD Work Phone: [facility] 12-18-2023 11:29-0500 Body temperature 98.01 [degF] Yeny Velasco MD Work Phone: [facility] 12-18-2023 11:29-0500 Diastolic blood pressure 69 mm[Hg] Yeny Velasco MD Work Phone: [facility] 12-18-2023 11:29-0500 Heart rate 86 /min Yeny Velasco MD Work Phone: [facility] 12-18-2023 11:29-0500 Systolic blood pressure 116 mm[Hg] Yeny Velasco MD Work Phone: [facility] 12-06-2023 05:12-0500 Body height 165.1 cm Sleep Main Work Phone: [facility] 12-06-2023 05:12-0500 Body weight 87.1 kg Sleep Main Work Phone: [facility] 11-30-2023 15:52-0500 Body height 165.1 cm Ketan Kessler APRN.SUPERVISOR [employer] Work Phone: [facility] 11-30-2023 15:52-0500 Body weight 87.09 kg Ketan Kessler APRN.SUPERVISOR [employer] Work Phone: [facility] 11-30-2023 15:52-0500 Diastolic blood pressure 82 mm[Hg] Ketan Kessler APRN.[employer] Work Phone: [facility] 11-30-2023 15:52-0500 Heart rate 81 /min Ketan Kessler APRN.[employer] Work Phone: [facility] 11-30-2023 15:52-0500 Respiratory rate 16 /min Ketan Kessler ZIGGY.[employer] Work Phone: [facility] 11-30-2023 15:52-0500 SaO2% (BldA) [Mass fraction] 99 % Ketan Kessler ZIGGY.[employer] Work Phone: [facility] 11-30-2023 15:52-0500 Systolic blood pressure 124 mm[Hg] Ketan Kessler ZIGGY.[employer] Work Phone: [facility] 10-23-2023 10:15-0500 Body height 165.1 cm Avila Gayer PA-C Work Phone: [facility] 10-23-2023 10:15-0500 Body mass index (BMI) [Ratio] 31.92 kg/m2 Avila Gayer PA-C Work Phone: [employer] [facility] 10-23-2023 10:15-0500 Body temperature 98.1 [degF] Avila Gayer PA-C Work Phone: [employer] 10-23-2023 10:15-0500 Body weight 87 kg Avila Gayer PA-C Work Phone: [employer] [facility] 10-23-2023 10:15-0500 Diastolic blood pressure 71 mm[Hg] Avila Gayer PA-C Work Phone: [employer] 10-23-2023 10:15-0500 Heart rate 81 /min Avila Gayer PA-C Work Phone: [employer] 10-23-2023 10:15-0500 Systolic blood pressure 104 mm[Hg] Avila Gayer PA-C Work Phone: [facility] 09-18-2023 11:35-0500 Body height 165.1 cm Yeny Velasco MD Work Phone: [employer] [facility] 09-18-2023 11:35-0500 Body mass index (BMI) [Ratio] 32.12 kg/m2 Yeny Velasco MD Work Phone: [facility] 09-18-2023 11:35-0500 Body temperature 97.39 [degF] Yeny Velasco MD Work Phone: [facility] 09-18-2023 11:35-0500 Body weight 87.54 kg Yeny Velasco MD Work Phone: [facility] 09-18-2023 11:35-0500 Diastolic blood pressure 62 mm[Hg] Yeny Velasco MD Work Phone: [facility] 09-18-2023 11:35-0500 Heart rate 84 /min Yeny Velasco MD Work Phone: [facility] 09-18-2023 11:35-0500 Systolic blood pressure 111 mm[Hg] Yeny Velasco MD Work Phone: [facility] 06-24-2023 09:28-0400 Body height 165.1 cm Avila Gayer PA-C Work Phone: [employer] [facility] 06-24-2023 09:28-0400 Body mass index (BMI) [Ratio] 32.12 kg/m2 Avila Gayer PA-C Work Phone: [employer] [facility] 06-24-2023 09:28-0400 Body weight 87.54 kg Avila Gayer PA-C Work Phone: [employer] [facility] 06-24-2023 09:28-0400 Diastolic blood pressure 67 mm[Hg] Avila Gayer PA-C Work Phone: [employer] [facility] 06-24-2023 09:28-0400 Heart rate 81 /min Avila Gayer PA-C Work Phone: [employer] [facility] 06-24-2023 09:28-0400 Systolic blood pressure 113 mm[Hg] Avila Gayer PA-C Work Phone: [employer] [facility] 06-19-2023 10:28-0400 Body height 165.1 cm Yeny Velasco MD Work Phone: [facility] 06-19-2023 10:28-0400 Body mass index (BMI) [Ratio] 31.45 kg/m2 Yeny Velasco MD Work Phone: [facility] 06-19-2023 10:28-0400 Body temperature 97.9 [degF] Yeny Velasco MD Work Phone: [facility] 06-19-2023 10:28-0400 Body weight 85.73 kg Yeny Velasco MD Work Phone: [facility] 06-19-2023 10:28-0400 Diastolic blood pressure 61 mm[Hg] Yeny Velasco MD Work Phone: [facility] 06-19-2023 10:28-0400 Heart rate 89 /min Yeny Velasco MD Work Phone: [facility] 06-19-2023 10:28-0400 Systolic blood pressure 91 mm[Hg] Yeny Velasco MD Work Phone: [facility] 04-27-2023 09:52-0400 Body weight 84.82 kg Pa Mckeon MD Work Phone: [facility] 04-27-2023 09:52-0400 Diastolic blood pressure 74 mm[Hg] Pa Mckeon MD Work Phone: [facility] 04-27-2023 09:52-0400 Heart rate 86 /min Pa Mckeon MD Work Phone: [facility] 04-27-2023 09:52-0400 SaO2% (BldA) [Mass fraction] 96 % Pa Mckeon MD Work Phone: [facility] 04-27-2023 09:52-0400 Systolic blood pressure 116 mm[Hg] Pa Mckeon MD Work Phone: [facility] 03-23-2023 09:49-0400 Body height 165.1 cm Avila Weir PA-C Work Phone: [facility] 03-23-2023 09:49-0400 Body mass index (BMI) [Ratio] 31.45 kg/m2 Avila Biggser PA-C Work Phone: [facility] 03-23-2023 09:49-0400 Body weight 85.73 kg Avila Biggser PA-C Work Phone: [facility] 03-23-2023 09:49-0400 Diastolic blood pressure 72 mm[Hg] Avila Biggser PA-C Work Phone: [facility] 03-23-2023 09:49-0400 Heart rate 82 /min Avila Biggser PA-C Work Phone: [facility] 03-23-2023 09:49-0400 Systolic blood pressure 116 mm[Hg] Avila Biggser PA-C Work Phone: [facility] 03-20-2023 10:33-0400 Body height 165.1 cm Yeny Velasco MD Work Phone: [facility] 03-20-2023 10:33-0400 Body mass index (BMI) [Ratio] 30.79 kg/m2 Yeny Velasco MD Work Phone: [facility] 03-20-2023 10:33-0400 Body temperature 98.2 [degF] Yeny Velasco MD Work Phone: [facility] 03-20-2023 10:33-0400 Body weight 83.92 kg Yeny Velasco MD Work Phone: [facility] 03-20-2023 10:33-0400 Diastolic blood pressure 64 mm[Hg] Yeny Velasco MD Work Phone: [facility] 03-20-2023 10:33-0400 Heart rate 83 /min Yeny Velasco MD Work Phone: [facility] 03-20-2023 10:33-0400 Systolic blood pressure 109 mm[Hg] Yeny Velasco MD Work Phone: [facility] 02-20-2023 11:00-0400 Body height 165.1 cm Yashira Pierce APRN.CNP Work Phone: [facility] 02-20-2023 11:00-0400 Body weight 89.36 kg Yashira Pierce BODY RECALL INSTRUCTOR.SUPERVISOR [employer]Y PASTE Work Phone: [facility] 02-20-2023 11:00-0400 Diastolic blood pressure 72 mm[Hg] Yashira Pierce BODY RECALL INSTRUCTOR.SUPERVISOR DRY PASTE Work Phone: [facility] 02-20-2023 11:00-0400 Systolic blood pressure 120 mm[Hg] Yashira Pierce BODY RECALL INSTRUCTOR.SUPERVISOR DRY PASTE Work Phone: [facility] 12-19-2022 08:45-0500 Body height 165.1 cm Mónica Zaldivarsey BODY RECALL INSTRUCTOR - SUPERVISOR DRY PASTE Work Phone: [facility] 12-19-2022 08:45-0500 Body mass index (BMI) [Ratio] 30.79 kg/m2 Mónica Amandeep BODY RECALL INSTRUCTOR - SUPERVISOR DRY PASTE Work Phone: [employer] [facility] 12-19-2022 08:45-0500 Body weight 83.92 kg Mónica Zaldivarsey BODY RECALL INSTRUCTOR - SUPERVISOR DRY PASTE Work Phone: [employer] [facility] Comment on above: pt reported. 12-19-2022 08:45-0500 Diastolic blood pressure 71 mm[Hg] Mónica Zaldivarsey BODY RECALL INSTRUCTOR - SUPERVISOR [employer]Y PASTE Work Phone: [employer] [facility] 12-19-2022 08:45-0500 Heart rate 80 /min Mónica Amandeep BODY RECALL INSTRUCTOR - SUPERVISOR DRY PASTE Work Phone: [employer] [facility] 12-19-2022 08:45-0500 Systolic blood pressure 123 mm[Hg] Mónica Amandeep BODY RECALL INSTRUCTOR - SUPERVISOR [employer]Y PASTE Work Phone: [facility] 12-11-2022 10:47-0500 Body height 165.1 cm Avila Weir PA-C Work Phone: [facility] 12-11-2022 10:47-0500 Body mass index (BMI) [Ratio] 32.18 kg/m2 Avila Weir PA-C Work Phone: [facility] 12-11-2022 10:47-0500 Body temperature 98.1 [degF] Avila Biggser PA-C Work Phone: [facility] 12-11-2022 10:47-0500 Body weight 87.73 kg Avila Biggser PA-C Work Phone: [facility] 12-11-2022 10:47-0500 Diastolic blood pressure 69 mm[Hg] Avila Biggser PA-C Work Phone: [facility] 12-11-2022 10:47-0500 Heart rate 94 /min Avila Biggser PA-C Work Phone: [facility] 12-11-2022 10:47-0500 Systolic blood pressure 104 mm[Hg] Avila Biggser PA-C Work Phone: [facility] 10-15-2022 13:51-0500 Body weight 86.64 kg Pa Mckeon MD Work Phone: [facility] 10-15-2022 13:51-0500 Diastolic blood pressure 82 mm[Hg] Pa Mckeon MD Work Phone: [facility] 10-15-2022 13:51-0500 Heart rate 88 /min Pa Mckeon MD Work Phone: [facility] 10-15-2022 13:51-0500 SaO2% (BldA) [Mass fraction] 96 % Pa Mckeon MD Work Phone: [facility] 10-15-2022 13:51-0500 Systolic blood pressure 118 mm[Hg] Pa Mckeon MD Work Phone: [facility] Encounters Encounter Date Encounter Type Care Provider Facility Start: 08-06-2025 End: 08-06-2025 Emergency department patient visit Juan M Zurita Facility:[facility] Start: 08-03-2025 End: 08-03-2025 ambulatory PA MCKEON Facility:[facility] Start: 06-29-2025 End: 06-29-2025 Nursing evaluation of patient and report Mi Nurse Work Phone: [facility] Comment on above: 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; Long-term current use of stimulant Start: 06-29-2025 End: 06-29-2025 ambulatory AMINA HORN Facility:[facility] Start: 06-21-2025 End: 06-21-2025 Patient encounter procedure Yeny Velasco MD Work Phone: [facility] Comment on above: Intractable chronic migraine without aura and without status migrainosus (Primary Dx) Start: 06-21-2025 End: 06-21-2025 ambulatory YENY [facility] Start: 06-16-2025 End: 06-16-2025 Patient encounter procedure Gallito Lemus MD Work Phone: Neurology Comment on above: 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 Start: 06-16-2025 End: 06-16-2025 ambulatory GALLITO LEMUS Facility:[facility] Start: 06-15-2025 End: 06-15-2025 Follow-up encounter Amina Horn APRN.CNP Work Phone: NEUROLOGY Start: 06-15-2025 End: 06-15-2025 ambulatory AMINA HORN Facility:[facility] Start: 05-30-2025 End: 05-30-2025 Telephone encounter Yeny Velasco MD Work Phone: [facility] Start: 05-10-2025 End: 05-11-2025 Refill Pa Mckeon MD Work Phone: [facility] Comment on above: Refill Request Start: 05-10-2025 End: 05-12-2025 Refill Pa Mckeon MD Work Phone: [facility] Comment on above: Refill Request Start: 03-24-2025 End: 03-24-2025 Patient encounter procedure Yeny Velasco MD Work Phone: [facility] Comment on above: Chronic migraine wit hout aura with status migrainosus, not intractable Start: 03-24-2025 End: 03-24-2025 ambulatory [facility] Start: 01-12-2025 End: 01-12-2025 ambulatory OSCAR COLIN Facility:[facility] Start: 01-12-2025 End: 01-12-2025 Patient encounter procedure Oscar Colin MD Work Phone: [facility] Comment on above: Adjustment disorder with mixed anxiety and depressed mood Start: 12-30-2024 End: 12-30-2024 ambulatory Amina Horn ZIGGY.SUPERVISOR DRY PASTE Work Phone: NEUROLOGY Comment on above: 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); UARS (upper airway resistance syndrome); Long-term current use of stimulant Start: 12-30-2024 End: 12-30-2024 Telemedicine consultation with patient Amina Horn ZIGGY.SUPERVISOR DRY PASTE Work Phone: NEUROLOGY Start: 12-23-2024 End: 12-23-2024 Patient encounter procedure Yeny Velasco MD Work Phone: [facility] Neurology [facility] Comment on above: Intractable chronic migraine without aura and without status migrainosus (Primary Dx) Start: 12-23-2024 End: 12-23-2024 ambulatory [facility] Start: 12-17-2024 End: 12-17-2024 ambulatory YASHIRA PIERCE Facility:[facility] Start: 12-17-2024 End: 12-17-2024 Patient encounter procedure Yashira Pierce APRN.SUPERVISOR DRY PASTE Work Phone: OB/Gynecology Comment on above: Women's annual routi ne gynecological examination (Primary Dx); Screening breast examination Start: 12-13-2024 End: 12-13-2024 Follow-up encounter Mónica Vasques APRN.SUPERVISOR DRY PASTE Work Phone: [facility] Start: 12-13-2024 End: 12-13-2024 Patient encounter procedure Mónica Vasques APRN.SUPERVISOR DRY PASTE Work Phone: [facility] Comment on above: Acute cough (Primary Dx); URI, acute Start: 12-13-2024 End: 12-13-2024 ambulatory MÓNICA VASQUES Facility:[facility] Start: 12-13-2024 End: 12-13-2024 Subsequent hospital visit by physician Maria Del Rosario [facility] Work Phone: Radiology Comment on above: Acute cough [R05.1] Start: 12-12-2024 End: 12-13-2024 Refill Avila Weir PA-C Work Phone: [facility] Neurology [facility] Comment on above: Chronic migraine wit hout aura with status migrainosus, not intractable Start: 12-10-2024 End: 12-12-2024 Refill Ketan Kessler APRN.CNP Work Phone: [facility] Comment on above: Refill Request Start: 10-15-2024 End: 10-16-2024 Refill Rosas Bedolla MD Work Phone: Neurology Start: 09-23-2024 End: 09-23-2024 Patient encounter procedure Yeny Velasco MD Work Phone: [facility] Neurology [facility] Comment on above: Intractable chronic migraine without aura and without status migrainosus (Primary Dx) Start: 09-23-2024 End: 09-23-2024 ambulatory YENY VELASCO [facility] Start: 09-16-2024 End: 09-16-2024 ambulatory RYANN NULL Facility:[facility] Start: 09-16-2024 End: 09-16-2024 Patient encounter [...] 09-07-2024 Telephone encounter Mónica Amandeep TRINH - SUPERVISOR DRY PASTE Work Phone: [facility] Neurology [facility] Comment on above: Botulinum Toxin Inje ction Start: 09-05-2024 End: 09-05-2024 ambulatory YASHIRA PIERCE Facility:[facility] Start: 09-05-2024 End: 09-05-2024 Patient encounter procedure Yashira Pierce BODY RECALL INSTRUCTOR.SUPERVISOR DRY PASTE Work Phone: OB/Gynecology Comment on above: Hot flashes (Primary Dx) Start: 08-24-2024 End: 08-24-2024 Refill Mónica Amandeep LOUISN - SUPERVISOR DRY PASTE Work Phone: [facility] Start: 06-24-2024 End: 06-24-2024 Patient encounter procedure Yeny Velasco MD Work Phone: [facility] Comment on above: Intractable chronic migraine without aura and without status migrainosus (Primary Dx) Start: 06-24-2024 End: 06-24-2024 ambulatory YENY VELASCO [facility] Start: 05-27-2024 Refill Pa Mckeon MD Work Phone: [facility] Comment on above: Refill Request Start: 05-27-2024 Refill Pa Mckeon MD Work Phone: [facility] Comment on above: Refill Request Start: 05-23-2024 Refill Pa Mckeon MD Work Phone: [facility] Comment on above: Refill Request Start: 05-23-2024 Refill Pa Mckeon MD Work Phone: [facility] Comment on above: Refill Request Start: 04-28-2024 End: 04-28-2024 ambulatory Amina Pete TRINH.SUPERVISOR DRY PASTE Work Phone: Neurology Comment on above: UARS (upper airway r esistance syndrome) (Primary Dx); Primary hypersomnia; Hypersomnia due to medical condition; Enlarged tonsils Start: 04-28-2024 End: 04-28-2024 Telemedicine consultation with patient Amina Horn BODY RECALL INSTRUCTOR.SUPERVISOR DRY PASTE Work Phone: Neurology Start: 03-25-2024 End: 03-25-2024 Patient encounter procedure Yeny Velasco MD Work Phone: [facility] Comment on above: Intractable chronic migraine without aura and without status migrainosus (Primary Dx) Start: 03-11-2024 Telephone encounter [facility] Comment on above: Other (Botox Deliver y) Start: 03-03-2024 Refill Ketan Kessler BODY RECALL INSTRUCTOR.SUPERVISOR DRY PASTE Work Phone: [facility] Comment on above: Refill Request Start: 02-19-2024 End: 02-19-2024 Office outpatient visit 15 minutes Avila Weir PA-C Work Phone: [facility] Comment on above: Chronic migraine [...] encounter procedure Yeny Velasco MD Work Phone: [facility] Comment on above: Chronic migraine wit hout aura without status migrainosus, not intractable (Primary Dx) Start: 12-16-2023 Telephone encounter Yeny astorga MD Work Phone: [facility] Comment on above: [facility] - Botox Start: 12-06-2023 Chart abstracting [facility] Main Work Phone: Neurology Comment on above: PSG Check In Start: 12-05-2023 End: 12-06-2023 ambulatory UNKNOWN PROVIDER Facility:[facility] Start: 12-01-2023 Telephone encounter Avila menjivar PA-C Work Phone: [facility] [place] Comment on above: sample of Amovig Start: 11-30-2023 End: 11-30-2023 Patient encounter procedure Ketan Kessler ZIGGY.SUPERVISOR DRY PASTE Work Phone: [facility] Comment on above: Adjustment disorder with mixed anxiety and depressed mood (Primary Dx); Chronic fatigue; Snoring; Class 1 obesity with body mass index (BMI) of 31.0 to 31.9 in adult, unspecified obesity type, unspecified whether serious comorbidity present Start: 10-23-2023 End: 10-23-2023 Office outpatient visit 15 minutes Avila Weir PA-C Work Phone: [facility] Comment on above: Chronic migraine wit hout aura with status migrainosus, not intractable (Primary Dx) Start: 09-18-2023 End: 09-18-2023 Patient encounter procedure Yeny Velasco MD Work Phone: [facility] Comment on above: Chronic migraine wit hout aura with status migrainosus, not intractable (Primary Dx) Start: 09-09-2023 Refill Pa Mckeon MD Work Phone: [facility] Comment on above: Refill Request Start: 09-04-2023 Refill Mónica Amandeep TRINH - SUPERVISOR DRY PASTE Work Phone: [facility] Start: 06-24-2023 End: 06-24-2023 Office outpatient visit 15 minutes Avila Weir PA-C Work Phone: [facility] Comment on above: Chronic migraine wit hout aura with status migrainosus, not intractable (Primary Dx) Start: 06-19-2023 End: 06-19-2023 Patient encounter procedure Yeny Velasco MD Work Phone: [facility] Comment on above: Chronic migraine wit hout aura with status migrainosus, not intractable (Primary Dx) Start: 05-28-2023 Telephone encounter Mónica baron BODY RECALL INSTRUCTOR - SUPERVISOR DRY PASTE Work Phone: [facility] Comment on above: Patient Supplied Bot ox Delivery (Patient Supplied Botox Delivery) Start: 05-24-2023 Refill Pa Mckeon MD Work Phone: [facility] Comment on above: Refill Request Start: 04-27-2023 End: 04-27-2023 Patient encounter procedure Pa Mckeon MD Work Phone: [facility] Comment on above: Adjustment disorder with mixed anxiety and depressed mood (Primary Dx); Fatigue, unspecified type; Hypersomnolence; GERD without esophagitis Start: 03-23-2023 Refill Zhen Coburn Dagoberto pollock DO Work Phone: [facility] Comment on above: Refill Request Start: 03-23-2023 End: 03-23-2023 Office outpatient visit 15 minutes Avila Weir PA-C Work Phone: [facility] Comment on above: Chronic migraine wit hout aura with status migrainosus, not intractable (Primary Dx); Cervicalgia Start: 03-20-2023 End: 03-20-2023 Patient encounter procedure Yeny Velasco MD Work Phone: [facility] Comment on above: Chronic migraine wit hout aura with status migrainosus, not intractable (Primary Dx) Start: 02-24-2023 End: 02-24-2023 ambulatory Avila Weir PA-C Work Phone: [facility] Comment on above: Cervicalgia (Primary Dx) Start: 02-20-2023 End: 02-20-2023 Follow-up encounter Avila Weir PA-C Work Phone: [facility] Comment on above: Cervicalgia (Primary Dx) Start: 02-20-2023 End: 02-20-2023 Patient encounter procedure Yashira Pierce APRN.SUPERVISOR DRY PASTE Work Phone: OB/Gynecology Comment on above: Women's annual routi ne gynecological examination (Primary Dx); Screening breast examination; Screening for cervical cancer; Special screening examination for human papillomavirus (HPV); History of abnormal cervical Pap smear Start: 02-17-2023 End: 02-17-2023 Follow-up encounter Avila Weir PA-C Work Phone: [facility] Comment on above: Cervicalgia (Primary Dx) Start: 02-12-2023 End: 02-12-2023 Follow-up encounter Avila Weir PA-C Work Phone: [facility] Comment on above: Cervicalgia (Primary Dx) Start: 02-10-2023 End: 02-10-2023 Follow-up encounter Avila Weir PA-C Work Phone: [facility] Comment on above: Cervicalgia (Primary Dx) Start: 01-29-2023 End: 01-29-2023 Follow-up encounter Avila Weir PA-C Work Phone: [facility] Comment on above: Cervicalgia (Primary Dx) Start: 01-22-2023 End: 01-22-2023 Follow-up encounter Avila Weir PA-C Work Phone: [facility] Comment on above: Cervicalgia (Primary Dx) Start: 01-20-2023 End: 01-20-2023 Follow-up encounter Avila Weir PA-C Work Phone: [facility] Comment on above: Cervicalgia (Primary Dx) Start: 01-15-2023 End: 01-15-2023 Follow-up encounter Avila Weir PA-C Work Phone: [facility] Comment on above: Cervicalgia (Primary Dx) Start: 01-06-2023 End: 01-06-2023 Follow-up encounter Avila Weir PA-C Work Phone: [facility] Comment on above: Cervicalgia (Primary Dx) Start: 12-31-2022 End: 12-31-2022 Follow-up encounter Avila Weir PA-C Work Phone: [facility] Comment on above: Cervicalgia (Primary Dx) Start: 12-27-2022 End: 12-27-2022 ambulatory Avila Weir PA-C Work Phone: [facility] Comment on above: Cervicalgia Start: 12-19-2022 End: 12-19-2022 Patient encounter procedure Mónica Castañeda BODY RECALL INSTRUCTOR - SUPERVISOR DRY PASTE Work Phone: [facility] Comment on above: Chronic migraine wit hout aura with status migrainosus, not intractable (Primary Dx) Start: 12-11-2022 End: 12-11-2022 Office outpatient visit 25 minutes Avila Weir PA-C Work Phone: [facility] Comment on above: Chronic migraine wit hout aura with status migrainosus, not intractable (Primary Dx); Cervicalgia Start: 12-02-2022 Telephone encounter Mónica baron BODY RECALL INSTRUCTOR - SUPERVISOR DRY PASTE Work Phone: [facility] Start: 10-15-2022 End: 10-15-2022 Patient encounter procedure Pa Mckeon MD Work Phone: [facility] Comment on above: Adjustment disorder with mixed anxiety and depressed mood (Primary Dx); Fatigue, unspecified type Start: 09-17-2022 Refill Pa Mckeon MD Work Phone: [facility] Comment on above: Refill Request Start: 02-23-2022 Refill Pa Mckeon MD Work Phone: [facility] Comment on above: Refill Request Start: 12-13-2020 End: 12-13-2020 Subsequent hospital visit by physician [facility] Work Phone: Radiology Comment on above: Acute right-sided lo w back pain with right-sided sciatica [M54.41] Procedures Date Procedure Procedure Detail Performing Clinician Start: 06-29-2025 Ecg routine ecg w/le ast 12 lds i&r only Amina Horn BODY RECALL INSTRUCTOR.SUPERVISOR [employer] PASTE Work Phone: Start: 12-13-2024 Radiologic exam ches t 2 views Mónica Vasques BODY RECALL INSTRUCTOR.SUPERVISOR [employer]Y PASTE Work Phone: Start: 02-20-2023 Microscopic observat ion [Identifier] in Cervix by Cyto stain Yeny Velasco MD Work Phone: Start: 12-13-2020 Radex spine lumbosac ral 2/3 views Cecilia Madison BODY RECALL INSTRUCTOR.SUPERVISOR DRY PASTE Work Phone: Plan of Treatment Date Care Activity Detail Author Start: 2067 RSV Immunization for Adults (1 - 1-dose 75+ series) RSV Immunization for Adults (1 - 1-dose 75+ series) [facility] Start: 2052 RSV Immunization age d 60 or older (1 - 1-dose 60+ series) RSV Immunization aged 60 or older (1 - 1-dose 60+ series) [facility] Start: 2042 Zoster Vaccines (1 o f 2) Zoster Vaccines (1 of 2) [facility] Start: 2034 PAP TESTING PAP TESTING [facility] Start: 07-27-2029 DTaP/Tdap/Td Vaccine s (8 - Td or Tdap) DTaP/Tdap/Td Vaccines (8 - Td or Tdap) [facility] Start: 07-27-2029 Urine microalbumin profile DTaP,Tdap,Td Vaccine (8 - Td or Tdap) [facility] Start: 02-21-2028 HPV TESTING HPV TESTING [facility] Start: 02-21-2028 Screening for malignant neoplasm of cervix HPV Testing [facility] Start: 01-01-2027 HPV TESTING HPV TESTING [facility] Start: 02-20-2026 Screening for malignant neoplasm of cervix [facility] Start: 01-15-2026 End: 01-15-2026 Follow-up encounter 01/15/2026 1:00 PM EDT [facility] NEUROLOGY [address] [facility] [address] [place] [address] Amina Horn APRN.SUPERVISOR DRY PASTE [address] [facility] [address] [facility] [place] [address] Follow up 6 mos. Meds NEUROLOGY Comment on above: Follow up 6 mos. Med s Start: 09-22-2025 End: 09-22-2025 Patient encounter procedure 09/22/2025 10:30 AM EST Procedure Visit [facility] [address] [place] [address] [place] [id number] Yeny Velasco MD [address] [address] [place], [place] [id number] [facility] Start: 08-30-2025 End: 08-30-2025 Patient encounter procedure 08/30/2025 11:20 AM EST Office Visit Neurology [address] [place] [address] Gallito Lemus MD [address] [facility] [address] [place] [address] f/u w/meds Neurology Comment on above: f/u w/meds Start: 07-20-2025 End: 07-20-2025 Patient encounter procedure 07/20/2025 2:30 PM EDT Office Visit Neurology [address] [place] [address] Gallito eLmus MD [address] [facility] [address] [place] [address] f/u w/meds Neurology Comment on above: f/u w/meds Start: 06-29-2025 End: 06-29-2025 Nursing evaluation of patient and report 06/29/2025 8:15 AM EDT Nurse Visit Family Medicine Dirk [address] [place] [address] Nurse, [place] [address] [place] [address] EKG Family Medicine [facility]irk Comment on above: EKG Start: 06-23-2025 End: 06-23-2025 ambulatory 06/23/2025 9:30 AM EDT [facility] NEUROLOGY [address] [facility] [address] [place] [address] Amina Horn APRN.SUPERVISOR DRY PASTE [address] [facility] [address] [place] [address] f/u w/meds NEUROLOGY Comment on above: f/u w/meds Start: 06-21-2025 End: 06-21-2025 Patient encounter procedure 06/21/2025 10:00 AM EDT Procedure Visit [address] [place] [address] [place] [phone] Yeny Velasoc MD [address] [place] [id number] [facility] Start: 06-19-2025 COVID-19 Vaccine ( season) COVID-19 Vaccine ( season) [facility] Start: 06-19-2025 Influenza vaccination [facility] Start: 06-16-2025 End: 06-16-2025 Patient encounter procedure 06/16/2025 3:00 PM EDT Office Visit Neurology [address] [place] [address] Gallito Lemus MD [address] [address] f/u w/meds Neurology Comment on above: f/u w/meds Start: 03-24-2025 End: 03-24-2025 Patient encounter procedure 03/24/2025 10:30 AM EDT Procedure Visit [address] [place] [address] [place] [phone] Yeny Velasco MD [address] [place] [address] [place] [address] [facility] Start: 01-06-2025 End: 01-06-2025 Patient encounter procedure 01/06/2025 9:40 AM EDT Office Visit [facility] [address] [place] [address] Pa Mckeon MD [address] [place], [place] [id number] medication follow up [facility] Comment on above: medication follow up Start: 12-30-2024 End: 12-30-2025 ECG COMPLETE ECG COMPLETE ECG Routine Hypersomnia due to medical condition Long-term current use of stimulant Expected: 12/30/2024 (Approximate), Expires: 12/30/2025 [facility] Comment on above: Expected: 12/30/2024 (Approximate), Expires: 12/30/2025 Start: 12-30-2024 End: 10-18-2025 TOXICOLOGY SCREEN, ROUTINE URINE TOXICOLOGY SCREEN, ROUTINE URINE Lab Routine UARS (upper airway resistance syndrome) Hypersomnia due to medical condition Long-term current use of stimulant Expected: 12/30/2024 (Approximate), Expires: 10/18/2025 [facility] Work Phone: Comment on above: Expected: 12/30/2024 (Approximate), Expires: 10/18/2025 Start: 12-30-2024 End: 12-30-2024 Follow-up encounter Neurology Comment on above: [facility] Start: 12-23-2024 End: 12-23-2024 Patient encounter procedure 12/23/2024 10:00 AM EST Procedure Visit [address] [place] [address] [place] [address] eYny Velasco MD [address] [place] [address] [place] [address] [facility] Start: 12-17-2024 End: 12-17-2024 Patient encounter procedure 12/17/2024 11:30 AM EST Office Visit OB/Gynecology [address] [facility] [place], [place] [address] Yashira Pierce APRN.SUPERVISOR DRY PASTE [address] [facility] [place] [address] annual OB/Gynecology Comment on above: annual Start: 11-30-2024 Diabetes mellitus screening Diabetes Screening [facility] Start: 09-28-2024 End: 09-28-2024 ambulatory 09/28/2024 11:20 AM [facility] Neurology [address] [place] [address] Gallito Lemus MD [address] [address] f/u w/meds Neurology Comment on above: f/u w/meds Start: 09-23-2024 End: 09-23-2024 Patient encounter procedure 09/23/2024 3:40 PM EST Office Visit [facility] [address] [place], [place] [address] Corrie Menchaca APRN.SUPERVISOR DRY PASTE [address] [place] [address] possible hot flashes [facility] Comment on above: possible hot flashes Start: 09-23-2024 End: 09-23-2024 Patient encounter procedure [facility] Start: 09-16-2024 End: 09-16-2024 Patient encounter procedure 09/16/2024 9:45 AM EST Office Visit Otolaryngology [address] [address] Ryann Null MD [address] [address] Malignant neoplasm of urinary bladder, unspecified site (HCC) [C67.9 Otolaryngology Comment on above: Malignant neoplasm o f urinary bladder, unspecified site (HCC) [C67.9 Start: 09-09-2024 End: 09-09-2024 ambulatory Neurology Comment on above: f/u w/meds Start: 06-24-2024 End: 06-24-2024 Patient encounter procedure 06/24/2024 11:00 AM EDT Procedure Visit [facility] Neuro[facility] [address] [place] [address] [place] [phone] Yeny Velasco MD [address] [facility] [address] [place], [place] [address] [facility] Start: 06-19-2024 COVID-19 Vaccine ( season) COVID-19 Vaccine ( season) [facility] Start: 06-19-2024 Covid-19 Vaccine ( season) Covid-19 Vaccine ( season) [facility] Start: 06-19-2024 Influenza vaccination C [facility] Start: 04-28-2024 End: 04-28-2024 ambulatory 04/28/2024 5:30 PM EDT [facility] Neurology [address] [place] [address] Amina Horn APRN.[address] [address]m f/u w/meds Neurology Comment on above: 3m f/u w/meds Start: 03-25-2024 End: 03-25-2024 Patient encounter procedure 03/25/2024 11:30 AM EDT Procedure Visit [facility] [address] [facility] [place] [phone] Yeny Velasco MD [address] [facility] [place] [address] [facility] Start: 03-18-2024 End: 03-18-2024 ambulatory 03/18/2024 10:00 AM EDT Results Only [facility] [address] [place] [address] [facility] Start: 02-21-2024 PAP TESTING PAP TESTING [facility] Start: 02-21-2024 Screening for malignant neoplasm of cervix [facility] Start: 02-19-2024 End: 02-19-2024 Patient encounter procedure 02/19/2024 10:30 AM EDT Office Visit [address] [phone] Avila Weir, PA-C [address] [place], [place] [address] [facility] Start: 12-18-2023 End: 12-18-2023 Patient encounter procedure 12/18/2023 11:30 AM EST Procedure Visit [facility] [address] [place] [address] [place] [phone] Yeny Velasco MD [address] [place] [address] [place] [address] [facility] Start: 10-23-2023 End: 10-23-2023 Patient encounter procedure 10/23/2023 10:30 AM EST Office Visit [address] [phone] Avila Weir, PA-C [address] [place] [address] [facility] Start: 10-19-2023 Depression Assessment Depression Ass essment [facility] Start: 09-18-2023 End: 09-18-2023 Patient encounter procedure 09/18/2023 11:30 AM EST Procedure Visit [facility] [address] [place] [address] [place] [phone] Yeny Velasco MD [address] [place] [address] [facility] Start: 06-24-2023 End: 06-24-2023 Patient encounter procedure [facility] Start: 06-19-2023 Covid-19 Vaccine () Covid-19 Vaccine () [facility] Start: 06-19-2023 Influenza vaccination S [facility] Start: 06-19-2023 End: 06-19-2023 Patient encounter procedure 06/19/2023 Procedure Visit Neurology Yeny Velasco MD [address] [place] [address] [facility] Start: 04-11-2023 Urine microalbumin profile DTAP,TDAP,TD (1 - Tdap) [facility] Comment on above: Postponed from 08/20 (Declined at this time) Start: 03-23-2023 End: 03-23-2023 Patient encounter procedure [facility] Start: 03-20-2023 End: 03-20-2023 Patient encounter procedure 03/20/2023 Procedure Visit Neurology Yeny Velasco MD [address] [place] [address] [facility] Start: 02-24-2023 End: 02-24-2023 ambulatory [facility] Start: 02-19-2023 End: 02-19-2023 Follow-up encounter [facility] Start: 02-17-2023 End: 02-17-2023 Follow-up encounter [facility] Start: 02-12-2023 End: 02-12-2023 Follow-up encounter [facility] Start: 02-10-2023 End: 02-10-2023 Follow-up encounter 02/10/2023 Follow-Up Physical Therapy Nidia Gonzales, PT [facility] Start: 02-05-2023 End: 02-05-2023 Follow-up encounter [facility] Start: 02-03-2023 End: 02-03-2023 Follow-up encounter [facility] Start: 01-29-2023 End: 01-29-2023 Follow-up encounter [facility] Start: 01-27-2023 End: 01-27-2023 ambulatory [facility] Start: 01-22-2023 End: 01-22-2023 Follow-up encounter [facility] Start: 01-20-2023 End: 01-20-2023 Follow-up encounter [facility] Start: 01-15-2023 End: 01-15-2023 Follow-up encounter 01/15/2023 Follow-Up Physical Therapy Therese Villavicencio PTA [facility] Start: 01-13-2023 End: 01-13-2023 Follow-up encounter 01/13/2023 Follow-Up Physical Therapy Trav Garcia PTA [facility] Start: 01-08-2023 End: 01-08-2023 Follow-up encounter [facility] Start: 01-06-2023 End: 01-06-2023 Follow-up encounter 01/06/2023 Follow-Up Physical Therapy Nidia Gonzales PT [facility] Start: 01-01-2023 HEPATITIS C SCREENING HEPATITIS C [facility] Comment on above: Postponed from 08/20 (Declined at this time) Start: 01-01-2023 PAP TESTING PAP TESTING [facility] Start: 12-31-2022 End: 12-31-2022 Follow-up encounter 12/31/2022 Follow-Up Physical Therapy Nidia Gonzales, PT [facility] Start: 12-27-2022 End: 12-27-2022 ambulatory 12/27/2022 Evaluation Physical Therapy Avila Weir, NABEEL [address] [place] [address] Nidia Gonzales, PT [facility] Start: 12-19-2022 End: 12-19-2022 Patient encounter procedure 12/19/2022 Procedure Visit Neurology Mónica Castañeda, BODY RECALL INSTRUCTOR - SUPERVISOR DRY PASTE [address] [place] [address] [facility] Start: 12-12-2022 COVID-19 VACCINE (#1) COVID-19 VACCI NE (#1) [facility] Comment on above: Postponed from 02/17 (Declined at this time) Start: 12-12-2022 COVID-19 VACCINE (1) COVID-19 VACCIN E (1) [facility] Comment on above: Postponed from 08/20 (Declined at this time) Start: 10-19-2022 DEPRESSION ASSESSMENT DEPRESSION ASS [facility] Start: 2022 Screening for malignant neoplasm of cervix [facility] Start: 06-19-2022 Influenza vaccination [facility] Start: 10-19-2021 DEPRESSION ASSESSMENT DEPRESSION ASS [facility] Start: 2013 Screening for malignant neoplasm of cervix Pap Smear [facility] Start: 2011 Urine microalbumin profile DTAP,TDAP,TD (1 - Tdap) [facility] Start: 2010 Anxiety Screening Anxiety Screening [facility] Start: 2010 Depression Screening Depression Scre [facility] Start: 2010 Diabetes mellitus screening Diabetes Screening [facility] Start: 2010 Hepatitis C screening Hepatitis C [facility] Start: 2010 HEPATITIS C SCREENING HEPATITIS C [facility] Start: 2004 Depression Screening Depression Scre ing [facility] Start: 02-17-1993 COVID-19 Vaccine (#1) COVID-19 Vacci ne (#1) [facility] Start: 1992 HEPATITIS B (1 of 3 - 3-dose series) HEPATITIS B (1 of 3 - 3-dose series) [facility] Start: 1992 HIV screening HIV Screening Kyle [facility]erguson Start: 1992 Lipid panel Lipid Panel [facility] ECG COMPLETE ECG COMPLETE ECG Routine Hypersomnia due to medical condition Long-term current use of stimulant 06/29/2025 8:19 AM EDT [facility] Work Phone: PAP TEST PAP TEST Lab Rou radha Screening for cervical cancer Special screening examination for human papillomavirus (HPV) History of abnormal cervical Pap smear 02/20/2023 11:44 AM EDT [facility] Work Phone: End: 11-29-2024 Polysomnogram POLYSOMNOGRAM (PSG) Procedures Routine Chronic fatigue Snoring Class 1 obesity with body mass index (BMI) of 31.0 to 31.9 in adult, unspecified obesity type, unspecified whether serious comorbidity present 1 Occurrences starting 11/30/2023 until 11/29/2024 [facility] Work Phone: Comment on above: 1 Occurrences starti ng 11/30/2023 until 11/29/2024 [facility] Immunizations Immunization Date Immunization Notes Care Provider Miryam toledo 07-27-2019 tetanus toxoid, redu christiana diphtheria toxoid, and acellular pertussis vaccine, adsorbed Ketan Kessler APRN.SUPERVISOR [employer] PA[employer] Work Phone: [facility] 09-04-2010 varicella virus vaccine Edna Kessler APRN.SUPERVISOR [employer] PA[employer] Work Phone: [facility] 09-04-2009 influenza virus vacc ine, live, attenuated, for intranasal use Ketan Kessler APRN.SUPERVISOR [employer] PASTE Work Phone: [facility] 09-04-2009 influenza virus vacc ine, unspecified formulation Therese Villavicencio [facility] 02-27-2009 human papilloma viru s vaccine, quadrivalent Ketan Kessler APRN.SUPERVISOR [employer] PA[employer] Work Phone: [facility] 08-31-2008 human papilloma viru s vaccine, quadrivalent Ketan Kessler APRN.SUPERVISOR [employer] PA[employer] Work Phone: [facility] 08-30-2007 human papilloma viru s vaccine, quadrivalent Ketan Kessler APRN.SUPERVISOR [employer] PA[employer] Work Phone: [facility] 08-30-2007 meningococcal polysaccharide (groups A, C, Y and W-135) diphtheria toxoid conjugate vaccine (MCV4P) Ketan Kessler APRN.SUPERVISOR [employer] PA[employer] Work Phone: [facility] 08-30-2007 tetanus toxoid, redu christiana diphtheria toxoid, and acellular pertussis vaccine, adsorbed Ketan Kessler APRN.SUPERVISOR [employer] PA[employer] Work Phone: [facility] 08-30-2007 varicella virus vaccine Edna Kessler APRN.SUPERVISOR [employer] PA[employer] Work Phone: [facility] 03-31-2005 hepatitis B vaccine, pediatric or pediatric/adolescent dosage Ketan Kessler APRN.SUPERVISOR [employer] PA[employer] Work Phone: [facility] 10-07-2004 hepatitis B vaccine, pediatric or pediatric/adolescent dosage Ketan Kessler APRN.SUPERVISOR [employer] PASTE Work Phone: [facility] 08-23-2004 hepatitis B vaccine, pediatric or pediatric/adolescent dosage Ketan Kessler APRN.SUPERVISOR [employer] PASTE Work Phone: [facility] 08-23-2004 measles, mumps and rubella virus vaccine Ketan Kessler APRN.SUPERVISOR [employer] PASTE Work Phone: [facility] 08-18-1997 diphtheria, tetanus toxoids and acellular pertussis vaccine, unspecified formulation Ketan Kessler APRN.SUPERVISOR [employer] PASTE Work Phone: [facility] 08-18-1997 poliovirus vaccine, inactivated Ketan Kessler APRN.SUPERVISOR [employer] PASTE Work Phone: [facility] 08-18-1997 rotavirus, live, pentavalent vaccine Ketan Kessler APRN.SUPERVISOR [employer] PA[employer] Work Phone: [facility] 03-24-1994 diphtheria, tetanus toxoids and acellular pertussis vaccine, unspecified formulation Ketan Kessler APRN.SUPERVISOR [employer] PA[employer] Work Phone: [facility] 03-24-1994 poliovirus vaccine, inactivated Ketan Kessler APRN.SUPERVISOR [employer] PASTE Work Phone: [facility] 09-23-1993 haemophilus influenz ae type b vaccine, PRP-T conjugate Ketan Kessler APRN.SUPERVISOR [employer] PASTE Work Phone: [facility] 09-23-1993 measles, mumps and rubella virus vaccine Ketan Checo BODY RECALL INSTRUCTOR.SUPERVISOR [employer] PASTE Work Phone: [facility] 03-26-1993 diphtheria, tetanus toxoids and acellular pertussis vaccine, unspecified formulation Ketan Checo BODY RECALL INSTRUCTOR.SUPERVISOR [employer] PASTE Work Phone: [facility] 03-26-1993 haemophilus influenz ae type b vaccine, PRP-T conjugate Ketan Checo BODY RECALL INSTRUCTOR.SUPERVISOR [employer] PASTE Work Phone: [facility] 01-22-1993 diphtheria, tetanus toxoids and acellular pertussis vaccine, unspecified formulation Ketan Checo BODY RECALL INSTRUCTOR.SUPERVISOR [employer] PASTE Work Phone: [facility] 01-22-1993 haemophilus influenz ae type b vaccine, PRP-T conjugate Ketan Checo BODY RECALL INSTRUCTOR.SUPERVISOR DRY PASTE Work Phone: [facility] 01-22-1993 poliovirus vaccine, inactivated Ketan Checo BODY RECALL INSTRUCTOR.[facility] Work Phone: [facility] 1992 diphtheria, tetanus toxoids and acellular pertussis vaccine, unspecified formulation Ketan Checo BODY RECALL INSTRUCTOR.SUPERVISOR DRY PASTE Work Phone: [facility] 1992 haemophilus influenz ae type b vaccine, PRP-T conjugate Ketan Checo BODY RECALL INSTRUCTOR.[facility] Work Phone: [facility] 1992 poliovirus vaccine, inactivated Ketan Checo BODY RECALL INSTRUCTOR.[facility] Work Phone: [facility] Payers Date Payer Category Payer Self-pay 2022 Medicaid HMO [employer] [place] [id number] 2022 Medicaid [id number] 2019 Medicaid [employer] [place] [id number] 2019-Present [phone] [address] [address] [place] [address] Medicaid [id number] 2019 Medicaid [id number] Unknown [id number] Social History Date Type Detail Facility Start: 04-07-2015 End: 10-15-2022 Tobacco smoking status NHIS Never smoked tobacco [facility] Start: 04-07-2015 End: 10-15-2022 Tobacco use and exposure Smokeless tobacco non-user [facility] Start: 01-01-2022 End: 01-12-2025 Alcohol intake Current drinker of alcohol (finding) [facility] Start: 08-01-2020 End: 10-12-2022 History SDOH Alcohol Frequency 2 [facility] Start: 07-11-2020 End: 10-12-2022 History SDOH Alcohol Std Drinks 1 [facility] Start: 06-16-2017 History SDOH Alcohol Comment social [facility] Start: 07-11-2020 End: 10-12-2022 History SDOH Social Connections Phone 4 [facility] Start: 08-01-2020 End: 10-12-2022 History SDOH Physical Activity DPW 3 [facility] Start: 07-11-2020 Education 17 [facility] Start: 1992 Sex Assigned At Not on file C [facility] Start: 10-12-2022 History SDOH Social Connections Meetings 98 [facility] Start: 10-12-2022 History SDOH Social Connections Living 8 [facility] Start: 11-13-2020 End: 06-24-2023 Exposure to SARS-CoV-2 (event) Not sure [facility] Start: 10-12-2022 End: 02-20-2023 History of Social [facility] Start: 10-12-2022 End: 02-20-2023 Social connection and isolation panel [facility] Do you belong to any clubs or organizations such as scientology groups, unions, fraternal or athletic groups, or school groups? No [facility] Start: 09-19-2012 How often do you att end meetings of the clubs or organizations you belong to? Patient refused [facility] Are you now , , , , never or living with a partner? Living with partner [facility] How often to you hav e a drink containing alcohol? Monthly or less [facility] How many standard dr inks containing alcohol do you have on a typical day? 1 or 2 [facility] How often do you hav e 6 or more drinks on 1 occasion? Never [facility] How hard is it for y ou to pay for the very basics like food, housing, medical care, and heating Not very hard [facility] Do you feel stress - tense, restless, nervous, or anxious, or unable to sleep at night because your mind is troubled all the time - these days [OSQ] To some extent [facility] (I/We) worried hunter er (my/our) food would run out before (I/we) got money to buy more. Never true [facility] Start: 06-24-[address] [facility] Are you now , , , , never or living with a partner? Never [facility] How hard is it for y ou to pay for the very basics like food, housing, medical care, and heating Somewhat hard [facility] Start: 05-19-2022 Sex Female (finding) [facility] How often do you hav e 6 or more drinks on 1 occasion? Less than monthly [facility] Medical Equipment Procedure Code Equipment Code Equipment Origin al Text Equipment Identifier Dates USE 1 SYRINGE NEEDED FOR MIGRAINE [id number] Start: 12-28-2023 Functional Status Date Assessment Result Facility 04-26-2015 Are you deaf, or do you have serious difficulty hearing No 04/26/2015 11:20 AM Emerald Grier CMA No [facility] 04-26-2015 Are you blind, or do you have serious difficulty seeing, even when wearing glasses No 04/26/2015 11:20 AM Emerald Grier CMA [place] 04-26-2015 Do you have serious difficulty walking or climbing stairs No 04/26/2015 11:20 AM EDT Emerald Torres CMA [place] 04-26-2015 Do you have difficul ty dressing or bathing No 04/26/2015 11:20 AM EDT Emerald Torres CMA [facility] 04-26-2015 Because of a physica l, mental, or emotional condition, do you have difficulty doing errands alone such as visiting a physician's office or shopping No 04/26/2015 11:20 AM EDT Emerald Torres CMA [facility] Mental Status Date Assessment Result Facility 04-26-2015 Because of a physica l, mental, or emotional condition, do you have serious difficulty concentrating, remembering, or making decisions No 04/26/2015 11:20 AM EDT Emerald Torres CMA [place] Clinical Notes 12-13-2020 to 08-03-2025 IRENE RIOS - 06/29/2025 8:25 AM Laurent Velasco MD - 06/21/2025 10:00 AM Jenelle Packer MA - 06/21/2025 10:00 AM Gallito Boss MD - 06/16/2025 2:41 PM EDTPatient Instructions Note Date & Type Note Facility 08-03-2025 Note HNO ID: [id number] Author: CAIO STONE MD Service: ? Author [...] but not ordered: oral keflex antibiotic. Procedures [facility] 06-29-2025 Note HNO ID: [id number] Author: ?, ?, ? Service: ? Author Type: Licensed Nurse Type: Progress Notes Filed: 06/29/2025 08:27 Note Text: Patient presents for EKG per Amina Horn CNP. Denies any problems at this time. Tolerated procedure well. Irene Rios LPN [facility] 06-29-2025 History of Present illness Narrative Patient presents for EKG per Amina Horn CNP. Denies any problems at this time. Tolerated procedure well. Irene Rios LPN documented in this encounter [facility] 06-21-2025 History of Present illness Narrative [...] 2. L Frontalis 10 units 3. R Carpenter Supervisor 10 units 4. L Carpenter Supervisor 10 units 5. R Temporalis 30 units [...] Velasco MD Ordering Provider: Yeny Velasco MD [facility]: [id number] Lot#: [id number] Boiler House Supervisor: Allergan Patient Supplied? Yes documented in this encounter [facility] 06-21-2025 Note DEPARTMENT OF NEUROL OGY BOTOX [...] 2. L Frontalis 10 units 3. R Carpenter Supervisor 10 units 4. L Carpenter Supervisor 10 units 5. R Temporalis 30 units [...] hours. Post treatment expectations reviewed in detail. [facility] 06-16-2025 Note HNO ID: [id number] Author: GALLITO LEMUS MD Service: ? Author Type: Physician Type: Progress Notes Filed: 06/16/2025 14:53 Note Text: [facility] Follow up/ Established [...] sorted in reverse-chronological order 09/02/2024 12/30/2024 06/09/2025 Pettibone Sleepiness Scale Score 4 (No clinically significant [...] mg Follow-up: 6 months Gallito Lemus MD [facility] 06-16-2025 History of Present illness Narrative Images from the original note were not included. [facility] Follow up/ Established [...] sorted in reverse-chronological order 09/02/2024 12/30/2024 06/09/2025 Pettibone Sleepiness Scale Score 4 (No clinically significant [...] Gallito Lemus MD documented in this encounter [facility] 05-30-2025 Telephone encounter Note Botox has been approved under patient's pharmacy benefit and will be patient supplied. The medication will be dispensed by [facility] ([facility]). [facility] delivers provider administered medications to the administration location on the Thursday before scheduled appointments. Next scheduled delivery date: 06/13/2025 Pharmacy Benefit Prior Authorization (PA) Information: PA Number: [id number] Approval Date: 11/25/2024 Expiration Date: 11/23/2025 Dose Approved: 200 units Provider office will need to ensure completion of any required Procedure Code authorizations prior to appointment(s). Prescription on file with [facility]. [facility] 05-30-2025 Miscellaneous Notes Botox has been approved under patient's pharmacy benefit and will be patient supplied. The medication will be dispensed by [facility] ([facility]). [facility] delivers provider administered medications to the administration location on the Thursday before scheduled appointments. Next scheduled delivery date: 06/13/2025 Pharmacy Benefit Prior Authorization (PA) Information: PA Number: [id number] Approval Date: 11/25/2024 Expiration Date: 11/23/2025 Dose Approved: 200 units Provider office will need to ensure completion of any required Procedure Code authorizations prior to appointment(s). Prescription on file with [facility]. documented in this encounter [facility] 05-10-2025 Telephone encounter Note Pharmacy electronically sent a request for the following prescription(s) Requested Prescriptions Pending Prescriptions Disp Refills omeprazole (PRILOSEC) 20 mg capsule 90 capsule 3 Sig: Take 1 capsule by mouth once daily. Patient aware RX will be sent to pharmacy. No need to notify patient. Last Office Visit: 01/12/2025 Next Office Visit: - Please review. Lynne Brink LPN [facility] 05-10-2025 Miscellaneous Notes Pharmacy electronically sent [...] Lynne Brink LPN documented in this encounter [facility] 03-24-2025 History of Present illness Narrative [...] 2. L Frontalis 10 units 3. R Carpenter Supervisor 10 units 4. L Carpenter Supervisor 10 units 5. R Temporalis 30 units [...] Units Route IntraMUSCular Site Other Administered By [facility] Ordering Provider: Yeny Velasco MD [facility]:[id number] Lot#: [id number] Boiler House Supervisor: allergan Patient Supplied?: Yes documented in this encounter [facility] 03-24-2025 Note DEPARTMENT OF NEUROL OGY BOTOX [...] 2. L Frontalis 10 units 3. R Carpenter Supervisor 10 units 4. L Carpenter Supervisor 10 units 5. R Temporalis 30 units [...] expectations reviewed in detail. Yeny Velasco MD [facility] 01-12-2025 Note HNO ID: [id number] Author: OSCAR COLIN MD Service: ? Author [...] 90 tablets with 3 refills, sent to [facility] in [place]. Attestation The patient consented to the use of Saplo software for draft documentation of the visit consistent with [facility]?s Notice of Privacy Practices. [facility] 01-12-2025 History of Present illness Narrative Subjective [...] 90 tablets with 3 refills, sent to [facility] in [place]. Attestation The patient consented to the use of Saplo software for draft documentation of the visit consistent with [facility] s Notice of Privacy Practices. documented in this encounter [facility] 01-12-2025 Instructions Oscar Colin MD - 01/12/2025 6:42 PM EDT We discussed your anxiety and depression: - Continue taking Lexapro as prescribed. I have sent a prescription for 90 pills with 3 refills to your preferred [facility] in [place]. - You reported that Lexapro is working [...] to our office. documented in this encounter [facility] 12-30-2024 Instructions Amina Horn APRN.SUPERVISOR DRY PASTE - 12/30/2024 10:13 AM EDT Images from [...] needed for UARS, IH (Modafinil) Amina Horn APRN.[facility] Medical Weight Loss/No Surgery Questions [phone] Gaining weight and becoming obese or morbidly [...] indicated, pharmacotherapy. At the [facility], our Medical Weight Loss team evaluate overweight or obese individuals for weight management with a thorough physical exam, which may require blood work and other diagnostic tools. The patient s diet and exercise history is an important part of the medical assessment and is reviewed during this visit. Dietitians in the [facility] work hand in hand with our team to ensure optimal care. Psychologists also help to maximize behavioral therapy. Our team may also utilize the expertise of [facility] exercise physiologists to create an individualized [...] without frequent follow-up appointments. [facility] / Surgical [facility]'s bariatric weight loss surgery program is focused on addressing obesity with modern treatment strategies, research and education. Questions [phone] Am I A Candidate For Weight Loss Surgery? If you're significantly overweight and want to make a lifestyle change, you may be a candidate for bariatric surgery at [facility]. Research supports the benefits of weight [...] medically-supervised dieting Women's Weight Management Program Appointments [phone] Overview Virtual Visit: Shared Medical Appointments This program has been designed specifically for women who require weight management for the prevention and/or reversal of weight-related disease states. An advocate for prevention and wellness, Jennifer Slaughter DO, director of obesity management for the [facility], offers patients the option of going through [...] about Functioning for Life Appointments please call [phone]. Why Choose the Center [facility]? [...] be hosted virtually or postponed. Click the [place] button below to find the latest scheduling information. [place] Today Participants: New and Established patients Number of Sessions: 10 Frequency: Weekly An offering from the [facility] for [facility] Functioning for [...] parking is available from the parking desk. [phone] Weight watchers program Can do all virtually [...] can be found on line and at [employer] Night Balance is a positional weight trainer from [employer] requiring a prescription. Dental Oral Appliance - Mandibular Advancement Device (MAD) If you are considering a dental appliance for treatment of mild to moderate sleep apnea, please refer top the list below. Call and schedule an appointment. It is best to take a copy of your sleep study with you to your visit with the dentist. Eyal Durham D.M.D. [facility] Or Kenzie Stearns D.D.S. [facility] Below are a few examples of typical types of dental appliances Somnomed Todd [email or web address]/ [email or web address]/ Somnomed [place] Somnomed Flex HOLLEY [email or web address]/ TAP Prosomnus [email or web address] 1. [facility]: Eyal Durham DMD or Kenzie Stearns D.D.S or Timi Talbert DDS. [facility]. [phone]. 2. [facility]: Catrachito Felipe DDS. [address] [place] [address]. [phone]. 3. [facility]: Chong Chance DDS. [address]. [place] [address]. . ENT (Ear, Nose, and Throat) or DARREN See an ENT or DARREN for surgical correction of any airway abnormalities or treatment of nasal allergies if present may also improve signs and symptoms. Dr. Oni Mathew (ENT and DARREN) at [facility], [facility], [address] [place] [address] Phone - [phone]. documented in this encounter [facility] 12-30-2024 History of Present illness Narrative Images from the original note were not included. [facility] Virtual Visit Follow Up/ Established Patient Visit PATIENT NAME: Peggy Choudhury [place] [employer] Rules (O.A.C. ): This visit was conducted as a Virtual Visit, with patient's permission, via Zoom. It required patient-provider interaction for the medical decision making as documented below. Patient stated first & last name: Peggy Choudhury Patient stated : 1990 Patient stated current location: [place] [address] I have communicated my name, Amina Horn APRN.CNP, and active licensure Adult Certified Nurse Practitioner in the Sleep Medicine Center at [facility]. The patient's identity and physical location were verified at the time of this visit. Either the patient or their legal operations representative has been informed of the risks [...] directed. - Avoid driving when drowsy. 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 I have modified the note above to reflect my clinical decision making. I agree with the resident/fellow's findings, plan as documented, and have discussed the case and management of the patient's care with the resident/fellow. Gallito Lemus MD Sleep Medicine Appointments: [phone] Office: [phone] September 09, 2024 3:02 PM <End Assessment/Plan [...] in person with Dr. Lemus on 02/11/24. [facility] website checked and validated. All prescriptions have been APPROPRIATELY filled. No suspicious activity was identified. 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 Bedtime : 2200. Wake [...] sorted in reverse-chronological order 02/03/2024 04/21/2024 09/02/2024 Pettibone Sleepiness Scale Score 8 (No clinically significant [...] which included preparing to see the patient, [id number] patient care, completing clinical documentation, counseling and educating the patient/family/caregiver and ordering medications, tests, or procedures. Amina Horn APRN.SUPERVISOR DRY PASTE Activity Duration Chart accessed 25 minutes Chart [...] Amina Horn APRN.CNP documented in this encounter [facility] 12-30-2024 Note HNO ID: [id number] Author: AMINA HORN APRN.CNP Service: ? Author Type: Nurse Practitioner Type: Progress Notes Filed: 12/30/2024 10:15 Note Text: [facility] Virtual Visit Follow Up/ Established Patient Visit PATIENT [facility]: [facility] This visit was conducted as a Virtual Visit, with patient's permission, via Zoom. It required patient-provider interaction for the medical decision making as documented below. Patient stated first AND last name: Peggy Choudhury Patient stated : 1990 Patient stated current location: [place] [address] I have communicated my name, Amina Horn APRN.CNP, and active licensure Adult Certified Nurse Practitioner in the Sleep Medicine Center at [facility]. The patient's identity and physical location were verified at the time of this visit. Either the patient or their legal operations representative has been informed of the risks [...] directed. - Avoid driving when drowsy. 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 I have modified the note above to reflect my clinical decision making. I agree with the resident/fellow's findings, plan as documented, and have discussed the case and management of the patient's care with the resident/fellow. Gallito Lemus MD Sleep Medicine Appointments: [phone] Office: [phone] September 09, 2024 3:02 PM CURRENT VISIT: [...] checked: Yes Modaf (more content not included)... [facility] 12-23-2024 History of Present illness Narrative DEPARTMENT [...] 2. L Frontalis 10 units 3. R Carpenter Supervisor 10 units 4. L Carpenter Supervisor 10 units 5. R Temporalis 30 units [...] hours. Post treatment expectations reviewed in detail. Yney Velasco MD Administrations This Visit onabotulinumtoxin A (BOTOX) injection 200 Units Admin Date 12/23/24 Action Given Dose 200 Units Route IntraMUSCular Site Other Administered By Yeny Velasco MD Ordering Provider: Yeny Velasco MD [facility]: [id number] Lot#: [id number] Boiler House Supervisor: Allergan Patient Supplied?: Yes documented in this encounter [facility] 12-23-2024 Note DEPARTMENT OF NEUROL OGY BOTOX [...] 2. L Frontalis 10 units 3. R Carpenter Supervisor 10 units 4. L Carpenter Supervisor 10 units 5. R Temporalis 30 units [...] expectations reviewed in detail. Yeny Velasco MD [facility] 12-17-2024 Note HNO ID: [id number] Author: YASHIRA PIERCE APRN.SUPERVISOR DRY PASTE Service: ? Author Type: Nurse Practitioner Type: [...] Living0 SAB0 IAB0 Ectopic0 Multiple0 Live Births0 Endodontic Assistant History LMP: 11/19/2024, Having periods Age at Menarche: Age at First : Age at Menopause: Endodontic Assistant History Comments: Sexual Activity: Not Currently; Male [...] discussed with the Patient or Patient's Authorized Aircraft Power Plant Assembler. As applicable, any other physician, advance practice provider, medical student, or other health professional student that will be observing or involved in the sensitive examination for educational or training purposes was discussed with the Patient or Authorized Aircraft Power Plant Assembler. The Patient or Authorized Aircraft Power Plant Assembler has agreed to proceed with the sensitive examination. (Sensitive examination includes inspection and/or palpation of the breasts, pelvis, prostate and anorectal regions). Waiter/Waitress Buffet offered:Patient declines EXAM: BP 112/76 Ht 5' [...] external genitalia normal, normal Bartholin's glands, urethra, [place]'s glands, no vulvar lesions, no cervical lesions, [...] or sooner as needed Yashira Pierce APRN.FABBY [facility] 12-17-2024 History of Present illness Narrative Peggy [...] Living0 SAB0 IAB0 Ectopic0 Multiple0 Live Births0 Endodontic Assistant History LMP: 11/19/2024, Having periods Age at Menarche: Age at First : Age at Menopause: Endodontic Assistant History Comments: Sexual Activity: Not Currently; Male [...] discussed with the Patient or Patient's Authorized Aircraft Power Plant Assembler. As applicable, any other physician, advance practice provider, medical student, or other health professional student that will be observing or involved in the sensitive examination for educational or training purposes was discussed with the Patient or Authorized Aircraft Power Plant Assembler. The Patient or Authorized Aircraft Power Plant Assembler has agreed to proceed with the sensitive examination. (Sensitive examination includes inspection and/or palpation of the breasts, pelvis, prostate and anorectal regions). Waiter/Waitress Buffet offered:Patient declines EXAM: BP 112/76 Ht 5' [...] external genitalia normal, normal Bartholin's glands, urethra, [place]'s glands, no vulvar lesions, no cervical lesions, [...] Yashira Pierce APRN.FABBY documented in this encounter [facility] 12-13-2024 Telephone encounter Note Patient given results and verbalized understanding of instructions given. Teresa Valdivia MA [facility] 12-13-2024 Miscellaneous Notes Patient given results and verbalized understanding of instructions given. Teresa Valdivia MA Chest xray negative RX for Tessalon Perles called in F/U for PCP for continued sx Please advise documented in this encounter [facility] 12-13-2024 Telephone encounter Note Chest xray negative RX for Tessalon Perles called in F/U for PCP for continued sx Please advise [facility] 12-13-2024 History of Present illness Narrative [...] PATIENT PRESENTS WITH AN IMPLANTABLE OR ATTACHED INSOLE AND HEEL STIFFENER: No RADIOLOGY DEPARTMENT: General X-ray: Exam(s) Completed: Chest X-Ray PERIPHERAL IV DATA: Not applicable SIGNED BY: RT Mere(R) December 13, 2024 2:05 PM documented in this encounter [facility] 12-13-2024 Note HNO ID: [id number] Author: KRISH LIANG RT(R) Service: ? Author Type: Screen Writer Type: Progress Notes Filed: 12/13/2024 14:29 Note [...] PATIENT PRESENTS WITH AN IMPLANTABLE OR ATTACHED INSOLE AND HEEL STIFFENER: No RADIOLOGY DEPARTMENT: General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 right-sided sciatica documented in this encounter [facility] note* Diagnosis Hot flashes- Primary Symptomatic menopausal or female climacteric states documented in this encounter [facility] note* Diagnosis UARS (upper airway resistance syndrome)- Primary 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 classified elsewhere documented in this encounter [facility] note* Diagnosis ROCIO (obstructive sleep apnea)- Primary Obstructive sleep apnea (adult) (pediatric) Enlarged tonsils Hypertrophy of tonsils alone documented in this encounter [facility] note* Diagnosis Chronic migraine without [...] status migrainosus- Primary documented in this encounter [facility] note* Diagnosis Chronic migraine without aura with status migrainosus, not intractable- Primary Cervicalgia documented in this encounter [facility] note* Diagnosis Cervicalgia- Primary documented in this encounter [facility] note* Diagnosis Cervicalgia documented in this encounter [facility] note* Diagnosis Cervicalgia- Primary documented in this encounter [facility] note* Diagnosis 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 classified elsewhere documented in this encounter [facility] note* Diagnosis Adjustment disorder with mixed anxiety and depressed mood documented in this encounter [facility] note* Diagnosis Chronic migraine without [...] migrainosus, not intractable documented in this encounter [facility] note* Diagnosis Acute cough- Primary URI, acute Acute upper respiratory infections of unspecified site Acute cough documented in this encounter [facility] note* Diagnosis Acute cough documented in this encounter [facility] note* Diagnosis Women's annual routine gynecological examination- Primary Screening breast examination Breast screening, unspecified documented in this encounter [facility] note* Diagnosis Chronic migraine without [...] status migrainosus- Primary documented in this encounter [facility] note* Diagnosis Hypersomnia due to medical condition- Primary Hypersomnia due to medical condition classified elsewhere UARS (upper airway resistance syndrome) Other organic sleep disorders Long-term current use of stimulant documented in this encounter [facility] note* Diagnosis Chronic migraine without [...] migrainosus, not intractable documented in this encounter [facility] note* Diagnosis 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 classified elsewhere documented in this encounter [facility] note* Diagnosis Chronic migraine without [...] status migrainosus- Primary documented in this encounter [facility] note* Diagnosis 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 classified elsewhere Long-term current use of stimulant documented in this encounter [facility] for referral (narrative)* Consultation (Routine) - Pending Review Specialty Diagnoses / Procedures Referred By Julio sanders Referred To Contact Physical Therapy Diagnoses Cervicalgia Procedures MO OFFICE/OUTPATIENT [facility] 60-74 MINUTES Avila Weir PA-C [address] [place] [address] [place] [address] Referral ID Status Reason Start Date Expiration Date Visits Requested Visits Authorized [id number] Pending Review Specialty Services Required 12/11/2022 12/11/2023 99 99 * Medications - Pending Review Specialty Diagnoses / Procedures Referred By Julio sanders Referred To Contact Diagnoses Chronic migraine without aura with status migrainosus, not intractable Avila Weir PA-C [address] [place] [address] Referral ID Status Reason Start Date Expiration Date V isits Requested Visits Authorized [id number] Pending Review 1 1 [facility] for visit Narrative* Consultation (Routine) - Authorized Specialty Diagnoses / Procedures Referred By Julio t Referred To Contact Physical Therapy Diagnoses Cervicalgia Procedures MO OFFICE/OUTPATIENT NEW HIGH MDM 60-74 MINUTES Avila Weir PA-C [address] [place] [address] [place] [address] Referral ID Status Reason Start Date Expiration Date Visits Requested Visits Authorized [id number] Authorized Specialty Services Required 12/11/2022 12/11/2023 30 30 [facility] Summary Purpose Family History No Family History Records FoundNo Family History Records FoundNo Family History Records FoundNo Family History Records FoundNo Family History Records FoundNo Family History Records Found Advance Directives No Advanced Directives Records FoundDocuments on File Type Date Recorded Patient [employer] Advance Directives and Living Will 09/19/2022 HIPPA Documents on File Type Date Recorded Patient [employer] Advance Directives and Living Will 09/19/2022 HIPPA Reason for Referral Specialty Diagnoses / Procedures Referred By Julio t Referred To Contact Diagnoses Chronic migraine without aura with status migrainosus, not intractable Mónica Castañeda, BODY RECALL INSTRUCTOR - SUPERVISOR [employer] [address] [place] [address] Referral ID Status Reason Start Date Expiration Date V isits Requested Visits Authorized [id number] Pending Review 03/20/2023 09/16/2023 1 1 Referral ID Status Reason Start Date Expiration Date V isits Requested Visits Authorized [id number] Pending Review 06/19/2023 12/16/2023 1 1 Referral ID Status Reason Start Date Expiration Date V isits Requested Visits Authorized [id number] Pending Review 09/18/2023 03/16/2024 1 1 Specialty Diagnoses / Procedures Referred By Contac t Referred To Contact Diagnoses Chronic fatigue Class 1 obesity with body mass index (BMI) of 31.0 to 31.9 in adult, unspecified obesity type, unspecified whether serious comorbidity present Procedures CONSULT TO FUNCTIONAL MEDICINE OFFICE/OUTPATIENT [facility] 60 MINUTES Ketan Kessler APRN.SUPERVISOR [employer] [address] [place] [address] Referral ID Status Reason Start Date Expiration Date Visits Requested Visits Authorized [id number] Authorized PCP Requested Referral 11/30/2023 11/29/2024 1 1 Specialty Diagnoses / Procedures Referred By Contac t Referred To Contact Yeny Vealsco MD [address] [facility] [place] [address] Referral ID Status Reason Start Date Expiration Date Visits Re quested Visits Authorized [id number] Closed 1 1 Specialty Diagnoses / Procedures Referred By Contac t Referred To Contact Diagnoses Chronic migraine without aura without status migrainosus, not intractable Yeny Velasco MD [address] [facility] [place] [address] Referral ID Status Reason Start Date Expiration Date V isits Requested Visits Authorized [id number] Pending Review 12/18/2023 12/12/2024 1 1 Specialty Diagnoses / Procedures Referred By Contac t Referred To Contact Diagnoses Intractable chronic migraine without aura and without status migrainosus Yeny Velasco MD [address] [facility] [place] [address] Referral ID Status Reason Start Date Expiration Date V isits Requested Visits Authorized [id number] Pending Review 03/25/2024 03/20/2025 1 1 Specialty Diagnoses / Procedures Referred By Contac t Referred To Contact Ent - Otolaryngology Diagnoses UARS (upper airway resistance syndrome) Enlarged tonsils Procedures CONSULT TO ENT OFFICE/OUTPATIENT [facility] 60 MINUTES Amina Horn APRN.SUPERVISOR [employer] [address] [place] [address] Referral ID Status Reason Start Date Expiration Date Visits Requested Visits Authorized [id number] Authorized PCP Requested Referral 04/28/2024 04/28/2025 1 1 Referral ID Status Reason Start Date Expiration Date V isits Requested Visits Authorized [id number] Pending Review 06/24/2024 06/19/2025 1 1 Referral ID Status Reason Start Date Expiration Date V isits Requested Visits Authorized [id number] Pending Review 12/19/2022 06/17/2023 1 1 Additional Source Comments INFORMATION SOURCE (unrecogn ized section and content) DATE CREATED AUTHOR 03/02/2020 [facility] DATE CREATED AUTHOR AUTHOR'S ORGANIZ ATION 12/16/[address] [facility] DATE CREATED AUTHOR AUTHOR'S ORGANIZ ATION 06/17/2025 [facility] DATE CREATED AUTHOR AUTHOR'S ORGANIZ ATION 06/22/2025 [facility] DATE CREATED AUTHOR AUTHOR'S ORGANIZ ATION 08/05/2025 [facility] DATE CREATED AUTHOR AUTHOR'S ORGANIZ ATION 08/07/2025 [facility] Source Comments (unrecognize d section and content) In the event this informatio n is protected by the Federal Confidentiality of Alcohol and Drug Abuse Patient Records regulations: The Federal rules restrict any use of the information to criminally investigate or prosecute any alcohol or drug abuse patient.[facility] the event this information is protected by the Federal Confidentiality of Alcohol and Drug Abuse Patient Records regulations: The Federal rules restrict any use of the information to criminally investigate or prosecute any alcohol or drug abuse patient.[facility] the event this information is protected by the Federal Confidentiality of Alcohol and Drug Abuse Patient Records regulations: The Federal rules restrict any use of the information to criminally investigate or prosecute any alcohol or drug abuse patient.[facility] the event this information is protected by the Federal Confidentiality of Alcohol and Drug Abuse Patient Records regulations: The Federal rules restrict any use of the information to criminally investigate or prosecute any alcohol or drug abuse patient.[facility] the event this information is protected by the Federal Confidentiality of Alcohol and Drug Abuse Patient Records regulations: The Federal rules restrict any use of the information to criminally investigate or prosecute any alcohol or drug abuse patient.[facility] the event this information is protected by the Federal Confidentiality of Alcohol and Drug Abuse Patient Records regulations: The Federal rules restrict any use of the information to criminally investigate or prosecute any alcohol or drug abuse patient.[facility] the event this information is protected by the Federal Confidentiality of Alcohol and Drug Abuse Patient Records regulations: The Federal rules restrict any use of the information to criminally investigate or prosecute any alcohol or drug abuse patient.[facility] the event this information is protected by the Federal Confidentiality of Alcohol and Drug Abuse Patient Records regulations: The Federal rules restrict any use of the information to criminally investigate or prosecute any alcohol or drug abuse patient.[facility] the event this information is protected by the Federal Confidentiality of Alcohol and Drug Abuse Patient Records regulations: The Federal rules restrict any use of the information to criminally investigate or prosecute any alcohol or drug abuse patient.[facility] the event this information is protected by the Federal Confidentiality of Alcohol and Drug Abuse Patient Records regulations: The Federal rules restrict any use of the information to criminally investigate or prosecute any alcohol or drug abuse patient.[facility] the event this information is protected by the Federal Confidentiality of Alcohol and Drug Abuse Patient Records regulations: The Federal rules restrict any use of the information to criminally investigate or prosecute any alcohol or drug abuse patient.[facility] the event this information is protected by the Federal Confidentiality of Alcohol and Drug Abuse Patient Records regulations: The Federal rules restrict any use of the information to criminally investigate or prosecute any alcohol or drug abuse patient.[facility] the event this information is protected by the Federal Confidentiality of Alcohol and Drug Abuse Patient Records regulations: The Federal rules restrict any use of the information to criminally investigate or prosecute any alcohol or drug abuse patient.[facility] the event this information is protected by the Federal Confidentiality of Alcohol and Drug Abuse Patient Records regulations: The Federal rules restrict any use of the information to criminally investigate or prosecute any alcohol or drug abuse patient.[facility] the event this information is protected by the Federal Confidentiality of Alcohol and Drug Abuse Patient Records regulations: The Federal rules restrict any use of the information to criminally investigate or prosecute any alcohol or drug abuse patient.[facility] the event this information is protected by the Federal Confidentiality of Alcohol and Drug Abuse Patient Records regulations: The Federal rules restrict any use of the information to criminally investigate or prosecute any alcohol or drug abuse patient.[facility] the event this information is protected by the Federal Confidentiality of Alcohol and Drug Abuse Patient Records regulations: The Federal rules restrict any use of the information to criminally investigate or prosecute any alcohol or drug abuse patient.[facility] the event this information is protected by the Federal Confidentiality of Alcohol and Drug Abuse Patient Records regulations: The Federal rules restrict any use of the information to criminally investigate or prosecute any alcohol or drug abuse patient.[facility] the event this information is protected by the Federal Confidentiality of Alcohol and Drug Abuse Patient Records regulations: The Federal rules restrict any use of the information to criminally investigate or prosecute any alcohol or drug abuse patient.[facility] the event this information is protected by the Federal Confidentiality of Alcohol and Drug Abuse Patient Records regulations: The Federal rules restrict any use of the information to criminally investigate or prosecute any alcohol or drug abuse patient.[facility] the event this information is protected by the Federal Confidentiality of Alcohol and Drug Abuse Patient Records regulations: The Federal rules restrict any use of the information to criminally investigate or prosecute any alcohol or drug abuse patient.[facility] the event this information is protected by the Federal Confidentiality of Alcohol and Drug Abuse Patient Records regulations: The Federal rules restrict any use of the information to criminally investigate or prosecute any alcohol or drug abuse patient.[facility] the event this information is protected by the Federal Confidentiality of Alcohol and Drug Abuse Patient Records regulations: The Federal rules restrict any use of the information to criminally investigate or prosecute any alcohol or drug abuse patient.[facility] the event this information is protected by the Federal Confidentiality of Alcohol and Drug Abuse Patient Records regulations: The Federal rules restrict any use of the information to criminally investigate or prosecute any alcohol or drug abuse patient.[facility] the event this information is protected by the Federal Confidentiality of Alcohol and Drug Abuse Patient Records regulations: The Federal rules restrict any use of the information to criminally investigate or prosecute any alcohol or drug abuse patient.[facility] the event this information is protected by the Federal Confidentiality of Alcohol and Drug Abuse Patient Records regulations: The Federal rules restrict any use of the information to criminally investigate or prosecute any alcohol or drug abuse patient.[facility] the event this information is protected by the Federal Confidentiality of Alcohol and Drug Abuse Patient Records regulations: The Federal rules restrict any use of the information to criminally investigate or prosecute any alcohol or drug abuse patient.[facility] the event this information is protected by the Federal Confidentiality of Alcohol and Drug Abuse Patient Records regulations: The Federal rules restrict any use of the information to criminally investigate or prosecute any alcohol or drug abuse patient.[facility] the event this information is protected by the Federal Confidentiality of Alcohol and Drug Abuse Patient Records regulations: The Federal rules restrict any use of the information to criminally investigate or prosecute any alcohol or drug abuse patient.[facility] the event this information is protected by the Federal Confidentiality of Alcohol and Drug Abuse Patient Records regulations: The Federal rules restrict any use of the information to criminally investigate or prosecute any alcohol or drug abuse patient.[facility] the event this information is protected by the Federal Confidentiality of Alcohol and Drug Abuse Patient Records regulations: The Federal rules restrict any use of the information to criminally investigate or prosecute any alcohol or drug abuse patient.[facility] the event this information is protected by the Federal Confidentiality of Alcohol and Drug Abuse Patient Records regulations: The Federal rules restrict any use of the information to criminally investigate or prosecute any alcohol or drug abuse patient.[facility] HospitalIn the event this information is protected by the Federal Confidentiality of Alcohol and Drug Abuse Patient Records regulations: The Federal rules restrict any use of the information to criminally investigate or prosecute any alcohol or drug abuse patient.[facility] HospitalIn the event this information is protected by the Federal Confidentiality of Alcohol and Drug Abuse Patient Records regulations: The Federal rules restrict any use of the information to criminally investigate or prosecute any alcohol or drug abuse patient.[facility] Reason for Visit (unrecogniz ed section and content) Reason Comments Procedure Specialty Diagnoses / Procedures Referred By Contac t Referred To Contact Diagnoses Chronic migraine without aura with status migrainosus, not intractable Yeny Velasco MD [address] [place] [address] Phone: tel: fax: Referral ID Status Reason Start Date Expiration Date V isits Requested Visits Authorized [id number] Pending Review 03/24/2025 03/19/2026 1 1 Reason Comments PT Treatment Specialty Diagnoses / Procedures Referred By Contac t Referred To Contact Physical Therapy Diagnoses Cervicalgia Procedures MO OFFICE/OUTPATIENT NEW HIGH MDM 60-74 MINUTES Avila Weir, PAGatoC [address] [place] [address] [facility] [address] [place] [address] [place] [address] Referral ID Status Reason Start Date Expiration Date Visits Requested Visits Authorized [id number] Authorized Specialty Services Required 12/11/2022 12/11/2023 30 30 Reason Comments PT Initial Eval Reason Comments Botulinum Toxin Injection Specialty Diagnoses / Procedures Referred By Contac t Referred To Contact Diagnoses Chronic migraine without aura with status migrainosus, not intractable Mónica Castañeda, BODY RECALL INSTRUCTOR - SUPERVISOR [employer] [address] [place] [address] Referral ID Status Reason Start Date Expiration Date V isits Requested Visits Authorized [id number] Pending Review 12/19/2022 06/17/2023 1 1 Reason Comments Procedure Botox - migraine Specialty Diagnoses / Procedures Referred By Contac t Referred To Contact Diagnoses Intractable chronic migraine without aura and without status migrainosus Yeny Velasco MD [address] [place] [address] [place] [address] Referral ID Status Reason Start Date Expiration Date V isits Requested Visits Authorized [id number] Pending Review 06/24/2024 06/19/2025 1 1 Referral ID Status Reason Start Date Expiration Date V isits Requested Visits Authorized [id number] Pending Review 03/25/2024 03/20/2025 1 1 Referral ID Status Reason Start Date Expiration Date V isits Requested Visits Authorized [id number] Pending Review 09/18/2023 03/16/2024 1 1 Reason Comments Procedure Botox- Migraine Referral ID Status Reason Start Date Expiration Date V isits Requested Visits Authorized [id number] Pending Review 06/19/2023 12/16/2023 1 1 Reason Onset Date Comments Refill Request 02/23/2022 Reason Comments Refill Request Reason Comments Follow Up Anxiety Reason Comments Well Woman Reason Comments Procedure Botox- Migraines Referral ID Status Reason Start Date Expiration Date V isits Requested Visits Authorized [id number] Pending Review 03/20/2023 09/16/2023 1 1 Reason [...] status migrainosus, not intractable Yeny Velasco MD [address] [place] [address] [place] [address] Referral ID Status Reason Start Date Expiration Date V isits Requested Visits Authorized [id number] Pending Review 12/18/2023 12/12/2024 1 1 Reason [...] CONSULT TO SLEEP MEDICINE - ADULT OFFICE/OUTPATIENT [facility] 60 MINUTES Ketan Kessler APRN.SUPERVISOR [employer] [address] [place] [address] Referral ID Status Reason Start Date Expiration Date V isits Requested Visits Authorized [id number] Closed PCP Requested Referral 12/14/2023 12/13/2024 1 [...] Enlarged tonsils Procedures CONSULT TO ENT OFFICE/OUTPATIENT [facility] 60 MINUTES Amina Horn APRN.SUPERVISOR [employer] [address] [place] [address] Referral ID Status Reason Start Date Expiration Date V isits Requested Visits Authorized [id number] Closed PCP Requested Referral 04/28/2024 04/28/2025 1 1 Reason Comments Procedure Botulinum Toxin Injection Specialty Diagnoses / Procedures Referred By Julio sanders Referred To Contact Diagnoses Intractable chronic migraine without aura and without status migrainosus Yeny Velasco MD [address] [place] [address] Phone: tel: fax: Referral ID Status Reason Start Date Expiration Date V isits Requested Visits Authorized [id number] Pending Review 09/23/2024 09/18/2025 1 1 Reason [...] Expiration Date V isits Requested Visits Authorized [id number] Pending Review 12/23/2024 12/18/2025 1 1 Reason Onset Date Comments Refill Request 05/10/2025 Reason Comments Medication Follow-up Follow up on Modafi nil 100 mg. One daily in the AM. States it is working well Refill to [facility] [place] please Reason Comments Procedure Botox, pt suppliedDx : Migraine Pt reports no new symptoms with migraines Specialty Diagnoses / Procedures Referred By Julio sanders Referred To Contact Diagnoses Intractable chronic migraine without aura and without status migrainosus Yeny Velasco MD [address] [place] [address] Phone: tel: fax: Referral ID Status Reason Start Date Expiration Date V isits Requested Visits Authorized [id number] Pending Review 06/21/2025 06/16/2026 1 1 Reason Comments EKG Specialty Diagnoses / Procedures Referred By Julio sanders Referred To Contact [facility] Diagnoses Hypersomnia due to medical condition Long-term current use of stimulant Procedures ECG COMPLETE ECG ROUTINE ECG W/LEAST 12 LDS W/I&R Amina Horn, BODY RECALL INSTRUCTOR.SUPERVISOR DRY PASTE [address] [address] Phone: tel: fax: [facility] [address] [place] [phone] Referral ID Status Reason Start Date Expiration Date V isits Requested Visits Authorized [id number] Closed Auto-Generate d Referral 12/30/2024 12/30/2025 1 1 Care Teams (unrecognized sec tion and content) Military Equipment Specialist Relationship Specialty Start Date End Date Pa Mckeon MD [address] [phone] PCP - General 07/11/03 Military Equipment Specialist Relationship Specialty Start Date End Date Pa Mckeon MD [address] [place] [address] PCP - General 07/11/03 Military Equipment Specialist Relationship Specialty Start Date End Date Pa Mckeon MD [address] [place] [address] PCP - General 07/11/03 Military Equipment Specialist Relationship Specialty Start Date End Date Pa Mckeon [address] [place] [address] PCP - General 08/09/19 Military Equipment Specialist Relationship Specialty Start Date End Date Pa Mckeon [address] [place] [address] [phone] PCP - General 08/09/19 Military Equipment Specialist Relationship Specialty Start Date End Date Pa Mckeon [address] [place] [address] PCP - General 08/09/19 Military Equipment Specialist Relationship Specialty Start Date End Date Pa Mckeon [address] [place] [address] PCP - General 08/09/19 Military Equipment Specialist Relationship Specialty Start Date End Date Pa Mckeon [address] [place] [address] PCP - General 08/09/19 Military Equipment Specialist Relationship Specialty Start Date End Date Pa Mckeon MD [address] [phone] PCP - General 07/11/03 Military Equipment Specialist Relationship Specialty Start Date End Date Pa Mckeon MD PCP - General 08/09/19 Military Equipment Specialist Relationship Specialty Start Date End Date Pa Mckeon MD PCP - General 08/09/19 Military Equipment Specialist Relationship Specialty Start Date End Date Jorge Mckeon MD [address] [place] [address] PCP - General Family Medicine 03/20/23 Military Equipment Specialist Relationship Specialty Start Date End Date Jorge Mckeon MD [address] [facility] [address] [place] [address] PCP - General Family Medicine 03/20/23 Military Equipment Specialist Relationship Specialty Start Date End Date Pa Mckeon MD [address] [place] [address] PCP - General 07/11/03 Military Equipment Specialist Relationship Specialty Start Date End Date Pa Mckeon MD [address] [place] [address] PCP - General 07/11/03 Military Equipment Specialist Relationship Specialty [place] [address] [place] [address] PCP - General 07/11/03 Military Equipment Specialist Relationship Specialty Start Date End Date Jorge Mckeon MD [address] [facility] [address] [place] [address] PCP - General Family Medicine 03/20/23 Military Equipment Specialist Relationship Specialty Start Date End Date Jorge Mckeon MD [address] [place] [address] PCP - General Family Medicine 03/20/23 Military Equipment Specialist Relationship Specialty Start Date End Date Pa Mckeon MD PCP - General 08/09/19 03/19/23 Jorge Mckeon MD [address] [place] [address] PCP - General Family Medicine 03/20/23 Military Equipment Specialist Relationship Specialty Start Date End Date Jorge Mckeon MD [address] [place] [address] PCP - General Family Medicine 03/20/23 Military Equipment Specialist Relationship Specialty Start Date End Date Jorge Mckeon MD [address] [place] [address] PCP - General Family Medicine 03/20/23 Military Equipment Specialist Relationship Specialty Start Date End Date Jorge Mckeon MD [address] [place] [address] PCP - General Family Medicine 03/20/23 Military Equipment Specialist Relationship Specialty Start Date End Date Pa Mckeon MD [address] [place], [place] 786102 PCP - General 07/11/03 Military Equipment Specialist Relationship Specialty Start Date End Date Pa Mckeon MD [address] [place], [place] [phone] PCP - General 07/11/03 Military Equipment Specialist Relationship Specialty Start Date End Date Jorge Mckeon MD [address] [place] [address] PCP - General Family Medicine 03/20/23 Military Equipment Specialist Relationship Specialty Start Date End Date Jorge Mckeon MD [address] [place] [address] PCP - General Family Medicine 03/20/23 Military Equipment Specialist Relationship Specialty Start Date End Date Pa Mckeon MD [address] [place] [address] PCP - General 07/11/03 Military Equipment Specialist Relationship Specialty Start Date End Date Jorge Mckeon MD [address] [place] [address] PCP - General Family Medicine 03/20/23 Military Equipment Specialist Relationship Specialty Start Date End Date Pa Mckeon MD [address] [place] [address] PCP - General 07/11/03 Military Equipment Specialist Relationship Specialty Start Date End Date Jorge Mckeon MD [address] [place] [address] PCP - General Family Medicine 03/20/23 Military Equipment Specialist Relationship Specialty Start Date End Date Jorge Mckeon MD [address] [place] [address] PCP - General Family Medicine 03/20/23 Military Equipment Specialist Relationship Specialty Start Date End Date Pa Mckeon MD [address] [place], [place] [phone] PCP - General 07/11/03 Military Equipment Specialist Relationship Specialty Start Date End Date Pa Mckeon MD [address] [phone] PCP - General 07/11/03 Military Equipment Specialist Relationship Specialty Start Date End Date Pa Mckeon MD [address] [phone] PCP - General 07/11/03 Military Equipment Specialist Relationship Specialty Start Date End Date Pa Mckeon MD [address] [place] [address] PCP - General 07/11/03 Military Equipment Specialist Relationship Specialty Start Date End Date Jorge cMkeon MD [address] [phone] PCP - General Family Medicine 03/20/23 Military Equipment Specialist Relationship Specialty Start Date End Date Pa Mckeon MD [address] [phone] PCP - General 07/11/03 Military Equipment Specialist Relationship Specialty Start Date End Date Pa Mckeon MD [address] [place], [place] [phone] PCP - General 07/11/03 Military Equipment Specialist Relationship Specialty Start Date End Date Pa Mckeon MD [address] [place], [place] [phone] PCP - General 07/11/03 Military Equipment Specialist Relationship Specialty Start Date End Date Jorge Mckeon MD [address] [phone] PCP - General Family Medicine 03/20/23 Military Equipment Specialist Relationship Specialty Start Date End Date Pa Mckeon [address] [place] [address] PCP - General 08/09/19 Military Equipment Specialist Relationship Specialty Start Date End Date Pa Mckeon [address] [place] [address] PCP - General 08/09/19 Military Equipment Specialist Relationship Specialty Start Date End Date Pa Mckeon [address] [place] [address] PCP - General 08/09/19 Military Equipment Specialist Relationship Specialty Start Date End Date Pa Mckeon [address] [place] [address] PCP - General 08/09/19 Military Equipment Specialist Relationship Specialty Start Date End Date Pa Mckeon MD [address] [place] [address] PCP - General 07/11/03 Corrie Menchaca, ZIGGY.SUPERVISOR DRY PASTE [address] [place] [address] Package Center Supervisor Family Medicine 09/24/24 Military Equipment Specialist Relationship Specialty Start Date End Date Pa Mckeon MD [address] [place], [place] 227292 PCP - General 07/11/03 Corrie Menchaca APRN.SUPERVISOR DRY PASTE [address] [place], [place] 290352 Package Center Supervisor Family Medicine 09/24/24 Military Equipment Specialist Relationship Specialty Start Date End Date Pa Mckeon MD [address] [place], [place] 997322 PCP - General 07/11/03 Corrie Menchaca APRN.SUPERVISOR DRY PASTE [address] [place], [place] [phone] Package Center Supervisor Family Medicine 09/24/24 Military Equipment Specialist Relationship Specialty Start Date End Date Pa Mckeon MD [address] [place], [place] 163492 PCP - General 07/11/03 Corrie Menchaca APRN.SUPERVISOR DRY PASTE [address] [place], [place] 564172 Package Center Supervisor Family Medicine 09/24/24 Military Equipment Specialist Relationship Specialty Start Date End Date Pa Mckeon MD [address] [place], [place] 454682 PCP - General 07/11/03 Corrie Menchaca APRN.SUPERVISOR DRY PASTE [address] [place] [address] Package Center Supervisor Family Medicine 09/24/24 Military Equipment Specialist Relationship Specialty Start Date End Date Jorge Mckeon MD [address] [phone] PCP - General Family Medicine 03/20/23 Military Equipment Specialist Relationship Specialty Start Date End Date Pa Mckeon MD [address] [place], [place] 789112 PCP - General 07/11/03 Corrie Menchaca APRN.SUPERVISOR DRY PASTE [address] [place], [place] 388302 Package Center Supervisor Family Medicine 09/24/24 Ketan Kessler APRN.SUPERVISOR DRY PASTE [address] [place], [place] 360392 Package Center Supervisor Family Medicine 12/29/24 Edelmira Goff APRN.SUPERVISOR DRY PASTE [address] [place], [place] [phone] Package Center Supervisor Family Medicine 12/29/24 Military Equipment Specialist Relationship Specialty Start Date End Date Pa Mckeon MD [address] [place], [place] 106192 PCP - General 07/11/03 Ketan Kessler APRN.SUPERVISOR DRY PASTE [address] [place], [place] [phone] Package Center Supervisor Family Medicine 01/05/25 Edelmira Goff APRN.SUPERVISOR DRY PASTE [facility] [place], [place] 554952 Package Center Supervisor Family Medicine 01/05/25 Military Equipment Specialist Relationship Specialty Start Date End Date Jorge Mckeon MD [address] [phone] PCP - General Family Medicine 03/20/23 Military Equipment Specialist Relationship Specialty Start Date End Date Pa Mckeon MD [address] [place], [place] 221592 PCP - General 07/11/03 Corrie Menchaca APRN.SUPERVISOR DRY PASTE [address] [place], [place] 394452 Package Center Supervisor Family Medicine 03/03/25 Ketan Kessler APRN.SUPERVISOR DRY PASTE [address] [place], [place] 125412 Package Center Supervisor Family Medicine 03/22/25 Military Equipment Specialist Relationship Specialty Start Date End Date Pa Mckeon MD [address] [place], [place] 717202 PCP - General 07/11/03 Corrie Menchaca APRN.SUPERVISOR DRY PASTE [address] [place], [place] 773122 Package Center Supervisor Family Medicine 03/03/25 Ketan Kessler APRN.SUPERVISOR DRY PASTE [address] [place] [address] Package Center Supervisor Family Medicine 03/22/25 Military Equipment Specialist Relationship Specialty Start Date End Date Jorge Mckeon MD [address] [phone] PCP - General Family Medicine 03/20/23 Military Equipment Specialist Relationship Specialty Start Date End Date Pa Mckeon MD [address] [place], [place] [phone] PCP - General 07/11/03 Corrie Menchaca APRN.SUPERVISOR DRY PASTE [address] [place], [place] [phone] Package Center Supervisor Family Medicine 03/03/25 Ketan Kessler APRN.SUPERVISOR DRY PASTE [address] [place], [place] [phone] On License Of [facility] 03/22/25 Military Equipment Specialist Relationship Specialty Start Date End Date Pa Mckeon MD [address] [place], [place] [phone] PCP - General 07/11/03 Corrie Menchaca, BODY RECALL INSTRUCTOR.SUPERVISOR DRY PASTE [address] [place], [place] 975372 On License Of [facility] 03/03/25 Ketan Kessler BODY RECALL INSTRUCTOR.SUPERVISOR DRY PASTE [address] [place], [place] 904872 On License Of [facility] 03/22/25 Military Equipment Specialist Relationship Specialty Start Date End Date Jorge Mckeon MD [address] [phone] PCP - General [facility] 03/20/23 FOR RECORDS PERTAINING TO PATIENTS WHO [...] BE BASED ON THE PRIMARY CLINICAL RECORDS. [facility] [employer] [facility]. provides no warranty or guarantee of the accuracy or completeness of information in this document.
[2025-08-09 01:37] VITALS: BMI 33.5
[2025-08-09 01:40] VITALS: BP 123/79; PULSE 74; RESP 16; TEMP 36.6; O2SAT 98
[2025-08-09] MEDS: 0.9% Normal Saline (1000mL) 1,000 ML 100 ML IV ×2 (01:43→15:18)
[2025-08-09] MEDS: Vancomycin HCl 2,000 MG in 0.9% Normal Saline (500mL Bag) 500 ML 250 MG IV (01:43)
[2025-08-09 02:10] LABS: Mucous, Urine 0 SEEN /hpf (<or=2+); Red Blood Cells-Urine 0 SEEN /hpf (0-5); Squamous Epithelial Cells - UA 0 SEEN /hpf (5-10)
[2025-08-09 02:12] LABS: Color, Urine Yellow (Yellow); Glucose, Dipstick Normal (Normal); Ketone-Dipstick Negative (Negative); Leukocyte Esterase-Dipstick Negative /ul (Negative); Nitrite-Dipstick Negative (Negative); Occult Blood-Urine Negative /ul (Negative); Protein-Dipstick Negative (Negative); Specific Gravity, Urine 1.010 (1.002-1.030); Urine Bilirubin Dipstick Negative (Negative)
[2025-08-09 02:28] LABS: Magnesium 2.2 mg/dL (1.5-2.2)
--- NOTE | 2025-08-09 03:00 | NURSING ---
Dr weiss notified pt c/o itchy hands and head. benadryl ordered and told to slow the rate down. Decreased to 125cc/hr
[2025-08-09] MEDS: DiphenhydrAMINE 50 MG/ML Syringe 25 MG IV ×3 (03:04→18:06)
--- NOTE | 2025-08-09 03:15 | PCM.RX.CS ---
Consult Antibiotic Management Pharmacy has been consulted to manage selected antibiotic: Vancomycin Type of Intervention Type of Consult: New start Labs Labs: Sodium 135 mmol/L (133-145) 08/08/25 23:23 Potassium 4.0 mmol/L (3.3-5.1) 08/08/25 23:23 Chloride 102 mmol/L (98-108) 08/08/25 23:23 Carbon Dioxide 19.8 mmol/L (21.0-32.0) L 08/08/25 23:23 Anion Gap 14 (5-15) 08/08/25 23:23 BUN 19 mg/dL (4-19) 08/08/25 23:23 Creatinine 0.71 mg/dL (0.70-1.20) 08/08/25 23:23 Est GFR (MDRD) Non-Af 117 (>60) 08/08/25 23:23 BUN/Creatinine Ratio 27.2 RATIO (10-20) H 08/08/25 23:23 Glucose 91 mg/dL (70-99) 08/08/25 23:23 Dosing Weight Weight used for dosin.5 kg Estimated Creatinine Clearance Estimated Creatinine Clearance: 127 Goal Trough Goal Trough: 15-20 mcg/mL Pharmacy Plan for Drug Dosing Pharmacy Plan for Drug Dosing: Pharmacy Service will continue to monitor and adjust dosing as required. ER DOSE 2000MG GIVEN 08/09 @ 0143. PATIENT HAD REACTION, SLOW RATE PER DR MERRITT. START 1GM Q8H AND DRAW TROUGH PRIOR TO 4TH DOSE Follow-Up Labs Follow-Up Labs: Trough: Vancomycin Date/Time Labs Ordered Labs to be done on [date and time ordered]: 08/10 @ 0137
[2025-08-09 07:35] LABS: Hematocrit 37.1 % (37-47); Hemoglobin 12.3 g/dL (12.0-15.0); Immature Granulocytes Count 0.040 X10^3/uL (0.0-0.0); Mean Corp Hgb Conc 33.2 g/dL (32-36); Mean Corpuscular Volume 85.7 fL (81-99); Mean Platelet Vol. 8.4 fl (6.2-12.0); NRBC Flagged by Analyzer 0 % (0-5); Platelet Count 303 K/mm3 (150-450); RBC Distribution Width CV 12.7 % (11.6-14.6); RBC Distribution Width SD 39.6 fl (35.1-43.9); Red Blood Count 4.33 M/mm3 (4.2-5.4); White Blood Count 8.8 K/mm3 (4.4-11.0)
[2025-08-09 08:12] VITALS: BP 115/68; PULSE 76; RESP 16; TEMP 36.4; O2SAT 97
[2025-08-09 08:13] LABS: AST(SGOT) 18 U/L (<=31); Alanine Aminotransfer ALT/SGPT 10 U/L (<=34); Albumin, Serum 3.9 g/dL (3.5-5.0); Alkaline Phosphatase 96 U/L (35-104); Anion Gap 10 (5-15); BUN 13 mg/dL (4-19); BUN/Creat Ratio 17.7 RATIO (10-20); Calcium,Total 8.6 mg/dL (7.6-11.0); Carbon Dioxide 23.7 mmol/L (21.0-32.0); Chloride 106 mmol/L (98-108); Estimated Creatinine Clearance 118.78 ml/min (50-250); Globulin 2.7 g/dL (2.2-4.2); Glucose 133 mg/dL (70-99); Potassium 4.0 mmol/L (3.3-5.1)
[2025-08-09] MEDS: Cholecalciferol (Vit D3) 125 MCG CAPSULE (5,000 UNITS) PO (08:28)
[2025-08-09] MEDS: Lactobacillis Acidophilus 1 CAP PO ×4 (08:28→22:33)
[2025-08-09] MEDS: Magnesium Chloride 64 MG Delay Rel.Tablet 128 MG PO (08:28)
[2025-08-09] MEDS: Vitamin B Comp W-C Capsule 1 CAP PO (08:29)
--- NOTE | 2025-08-09 11:00 | CASEMGMT ---
SHEILA MATTA Assessment: Face to Face with pt for initial transition planning/care coordination assessment. RN PAXTON introduced self and role at [facility], pt voices understanding and consents to assessment. Pt is A&O x4 and answers all questions appropriately at this time. Pt lying in bed in no distress. Care providers, pharmacy, and demographics verified/updated. Admitting Dx: R thigh cellulitis Strata Score: 1 PCP:Naveen Specialists:[facility]b neuro; santiago Lemus "for sleep" Preferred Pharmacy: [facility] Insurance: [employer] Prescription Benefit: yes LNOK: Irene and Jose Mixon Living Arrangements: Pt lives with parents in a single story home with 3 steps to enter. Pt states most times she stays at her boyfriend's home. Pt reports being indep in ADL/IADLs and denies concerns at home. Transportation: Pt drives self and denies concerns with transportation. DME:Denies HHC/SNF: Denies hx of Pt states no concerns with going home at time of dc. Pt states no further concerns/needs. CM to follow. Advised pt to ask CM if any further questions/concerns/needs arise, voices understanding. Pt Goal: Home Plan: Home [facility] CM
--- NOTE | 2025-08-09 11:27 | PCM.PN.HOSP ---
Reason for Visit Chief Complaint: Worsening Right Thigh Wound after suspected Bug Bite. Subjective Subjective Saw patient at bedside this morning. Patient was sitting back comfortably in bed, conversing normally, in no acute distress. She reported mild pain at the site of infection on the anterior part of her right thigh but denied any other infectious symptoms such as fevers or chills or malaise. No other acute concerns this morning. Objective Data Objective Data Vital Signs: Vital Signs Temp Pulse Resp BP Pulse Ox O2 Del Method 97.5 F L 76 16 115/68 97 Room Air 08/09/25 08:12 08/09/25 08:12 08/09/25 08:12 08/09/25 08:12 08/09/25 08:12 08/09/25 08:56 Oxygen Delivery Method Room Air Weight: 91.5 kg Body Mass Index (BMI) 33.5 Intake & Output: Intake and Output for Last 24 Hours 08/07/25 08/08/25 08/09/25 23:59 23:59 23:59 Intake Total 865 / 865 Output Total 250 / 250 Balance 615 / 615 Lab / Micro Data 08/09/25 07:20 08/09/25 07:20 Labs: Laboratory Results - last 24 hr 08/08/25 23:23: WBC 10.2, RBC 4.41, Hgb 12.6, Hct 38.4, MCV 87.1, MCH 28.6, MCHC 32.8, RDW Std Deviation 41.1, RDW Coeff of Yunior 12.8, Plt Count 288, MPV 8.3, Immature Gran % (Auto) 0.300, Neut % (Auto) 50.8, Lymph % (Auto) 42.3 H, [place] % (Auto) 5.1, Eos % (Auto) 1.1, Baso % (Auto) 0.4, Absolute Neuts (auto) 5.2, Absolute Lymphs (auto) 4.33, Nucleated RBC % 0, Sodium 135, Potassium 4.0, Chloride 102, Carbon Dioxide 19.8 L, Anion Gap 14, BUN 19, Creatinine 0.71, Estim Creat Clear Calc 127.72, Est GFR (MDRD) Non-Af 117, BUN/Creatinine Ratio 27.2 H, Glucose 91, Calcium 9.2, Magnesium 2.2, TSH 3.390 08/09/25 01:55: Urine Color Yellow, Urine Clarity Clear, Urine pH 7.0, Ur Specific [place] 1.010, Urine Protein Negative, Urine Glucose (UA) Normal, Urine Ketones Negative, Urine Occult Blood Negative, Urine Nitrite Negative, Urine Bilirubin Negative, Urine Urobilinogen Normal, Ur Leukocyte Esterase Negative, Urine RBC 0 SEEN, Urine WBC 0 SEEN, Ur Squamous Epith Cells 0 SEEN, Urine Bacteria 0 SEEN, Urine Mucus 0 SEEN 08/09/25 07:20: WBC 8.8, RBC 4.33, Hgb 12.3, Hct 37.1, MCV 85.7, MCH 28.4, MCHC 33.2, RDW Std Deviation 39.6, RDW Coeff of Yunior 12.7, Plt Count 303, MPV 8.4, Immature Gran % (Auto) 0.500, Neut % (Auto) 55.5, Lymph % (Auto) 38.4, [place] % (Auto) 4.3, Eos % (Auto) 1.1, Baso % (Auto) 0.2, Absolute Neuts (auto) 4.9, Absolute Lymphs (auto) 3.38, Nucleated RBC % 0, Sodium 139, Potassium 4.0, Chloride 106, Carbon Dioxide 23.7, Anion Gap 10, BUN 13, Creatinine 0.76, Estim Creat Clear Calc 118.78, Est GFR (MDRD) Non-Af 107, BUN/Creatinine Ratio 17.7, Glucose 133 H, Calcium 8.6, Phosphorus 3.9, Total Bilirubin 0.26, AST 18, ALT 10, Alkaline Phosphatase 96, Total Protein 6.6, Albumin 3.9, Globulin 2.7, Albumin/Globulin Ratio 1.4 Physical Exam Const alert, oriented x3 and no apparent distress Constitutional Narrative: Pleasant younger female, class I obesity, sitting back comfortably in bed, conversing normally, in no acute distress. General Appearance: cooperative and comfortable HEENT normocephalic, head/scalp atraumatic, hearing grossly normal bilaterally, nasal mucous membranes and turbinates normal and moist oral mucous membranes Eyes PERRL, EOMs intact bilaterally and conjunctivae normal Neck full ROM Chest inspection of chest normal Resp normal respiratory effort, normal air movement, no use of accessory muscles and clear to auscultation bilaterally Cardio regular rate, regular rhythm, no murmurs and peripheral pulses 2+ throughout GI normal to inspection, nondistended, normoactive bowel sounds, soft to palpation, non-tender and non-distended Back/Spine normal ROM Extremity normal to inspection, full ROM and no pedal edema Skin Skin Narrative: Right anterior thigh with small wound with necrotic center noted. Surrounding erythema noted that has been essentially stable from yesterday evening, markings in place. Psych mental status grossly normal Assessment & Plan Assessment/Plan (1) Cellulitis of right thigh: PLAN: Plan Patient is a 34-year-old female who presented to [facility] ED on 08/09/2025 with right thigh erythema and swelling after recent bug bite. 1. Right thigh cellulitis after suspected bug bite with failed outpatient antibiotics – Recent ER visit on 08/06 for worsening right thigh pain and swelling after suspected bug bite. Diagnosed with cellulitis and discharged on Keflex and Bactrim. Presented with worsening right thigh pain and swelling. In the ED was noted to have active purulent drainage from the area. Purulent drainage was expressed in the ED and cultures were sent. Low concern for significant abscess so no imaging of the thigh was obtained. Continue treatment with IV Unasyn and vancomycin for now. Follow-up wound cultures. 2. Anxiety/depression – Stable. Continue home escitalopram. 3. GERD – Continue home PPI. 4. Chronic migraines – Continue home triptan as needed. 5. Class I obesity – BMI 33 on admit. Complicates hospital course and care. DVT prophylaxis: Lovenox CODE STATUS: Full code, verified Expected disposition: Home, 1 to 2 days Total clinical time spent by myself addressing the patient's medical issues, reviewing all the data, and collaborating with patient's care team: 38 minutes. Charges/Coding Visit Charges Inpatient E&M: 05268 Subs Hosp L2
[2025-08-09] MEDS: Zinc Sulfate 50 mg zinc (220 mg) ORAL capsule PO (11:54)
[2025-08-09] MEDS: Vancomycin HCl 1,000 MG in 0.9% Normal Saline (250mL Bag) 250 ML 150 MG IV ×2 (11:54→18:03)
[2025-08-09 15:28] VITALS: BP 133/63; PULSE 79; RESP 18; TEMP 36.8; O2SAT 95
[2025-08-09 22:30] VITALS: BP 123/80; PULSE 75; RESP 16; TEMP 36.5; O2SAT 96
[2025-08-10 02:09] LABS: Vancomycin, Trough Level 14.8 ug/mL (5.0-15.0)
[2025-08-10] MEDS: 0.9% Saline Lock 10 ML Syringe IV ×2 (02:32→11:22)
[2025-08-10] MEDS: Vancomycin HCl 1,250 MG in 0.9% Normal Saline (250mL Bag) 250 ML 167 MG IV (02:32)
[2025-08-10] MEDS: DiphenhydrAMINE 50 MG/ML Syringe 25 MG IV ×2 (02:37→11:22)
--- NOTE | 2025-08-10 02:39 | PCM.RX.CS ---
Consult Antibiotic Management Pharmacy has been consulted to manage selected antibiotic: Vancomycin Type of Intervention Type of Consult: Follow-up Suspected Infection Suspected Infection: Skin/Soft tissue Labs Labs: Sodium 139 mmol/L (133-145) 08/09/25 07:20 Potassium 4.0 mmol/L (3.3-5.1) 08/09/25 07:20 Chloride 106 mmol/L (98-108) 08/09/25 07:20 Carbon Dioxide 23.7 mmol/L (21.0-32.0) 08/09/25 07:20 Anion Gap 10 (5-15) 08/09/25 07:20 BUN 13 mg/dL (4-19) 08/09/25 07:20 Creatinine 0.76 mg/dL (0.70-1.20) 08/09/25 07:20 Est GFR (MDRD) Non-Af 107 (>60) 08/09/25 07:20 BUN/Creatinine Ratio 17.7 RATIO (10-20) 08/09/25 07:20 Glucose 133 mg/dL (70-99) H 08/09/25 07:20 Vancomycin Trough 14.8 ug/mL (5.0-15.0) 08/10/25 01:44 Microbiology Microbiology: Microbiology 08/08/25 22:40 Wound - Leg, Right Gram Stain - Final Dosing Weight Weight used for dosin.5 kg Estimated Creatinine Clearance Estimated Creatinine Clearance: 119 Goal Trough Goal Trough: 15-20 mcg/mL Pharmacy Plan for Drug Dosing Pharmacy Plan for Drug Dosing: Vancomycin trough level of 14.8, drawn 7.75hrs post-dose, was below the target range of 15-20. Will increase dose to 1250mg q8h, and will draw another trough level prior to fourth dose of the new regimen. Pharmacy Service will continue to monitor and adjust dosing as required. Follow-Up Labs Follow-Up Labs: Trough: Vancomycin Date/Time Labs Ordered Labs to be done on [date and time ordered]: 08/11/25 @0200
[2025-08-10 03:14] VITALS: BP 119/76; PULSE 69; RESP 16; TEMP 36.4; O2SAT 95
[2025-08-10] MEDS: Ampicillin/Sulbactam 3 GM in 0.9% Normal Saline (100mL MB+) 100 ML IV ×2 (06:42→13:56)
[2025-08-10 07:53] VITALS: BP 111/65; PULSE 64; RESP 16; TEMP 36.7; O2SAT 97
[2025-08-10] MEDS: Magnesium Chloride 64 MG Delay Rel.Tablet 128 MG PO (08:16)
[2025-08-10] MEDS: Vitamin B Comp W-C Capsule 1 CAP PO (08:16)
[2025-08-10] MEDS: Lactobacillis Acidophilus 1 CAP PO ×4 (08:16→21:00)
[2025-08-10] MEDS: Zinc Sulfate 50 mg zinc (220 mg) ORAL capsule PO (08:17)
[2025-08-10] MEDS: Cholecalciferol (Vit D3) 125 MCG CAPSULE (5,000 UNITS) PO (08:17)
--- NOTE | 2025-08-10 09:42 | PCM.PN.HOSP ---
Reason for Visit Chief Complaint: Worsening Right Thigh Wound after suspected Bug Bite. Subjective Subjective Saw patient at bedside this morning. Patient was sitting back comfortably in bed, in no acute distress. Right thigh cellulitis area with mild to moderate improvement today compared yesterday. Patient denies any systemic infectious symptoms. No other new concerns as morning. Objective Data Objective Data Vital Signs: Vital Signs Temp Pulse Resp BP Pulse Ox O2 Del Method 98.0 F 64 16 111/65 97 Room Air 08/10/25 07:53 08/10/25 07:53 08/10/25 07:53 08/10/25 07:53 08/10/25 07:53 08/10/25 08:00 Oxygen Delivery Method Room Air Weight: 91.5 kg Body Mass Index (BMI) 33.5 Intake & Output: Intake and Output for Last 24 Hours 08/08/25 08/09/25 08/10/25 23:59 23:59 23:59 Intake Total 3455 / 3455 1275.00 / 1275.00 Output Total 250 / 250 Balance 3205 / 3205 1275.00 / 1275.00 Lab / Micro Data 08/09/25 07:20 08/09/25 07:20 Labs: Laboratory Results - last 24 hr 08/10/25 01:44: Vancomycin Trough 14.8 Micro: Microbiology 08/08/25 22:40 Wound - Leg, Right Gram Stain - Final 08/08/25 22:40 Wound - Leg, Right Wound Culture - Preliminary Staphylococcus aureus Physical Exam Const alert, oriented x3 and no apparent distress Constitutional Narrative: Pleasant younger female, class I obesity, sitting back comfortably in bed, conversing normally, in no acute distress. General Appearance: cooperative and comfortable HEENT normocephalic, head/scalp atraumatic, hearing grossly normal bilaterally, nasal mucous membranes and turbinates normal and moist oral mucous membranes Eyes PERRL, EOMs intact bilaterally and conjunctivae normal Neck full ROM Chest inspection of chest normal Resp normal respiratory effort, normal air movement, no use of accessory muscles and clear to auscultation bilaterally Cardio regular rate, regular rhythm, no murmurs and peripheral pulses 2+ throughout GI normal to inspection, nondistended, normoactive bowel sounds, soft to palpation, non-tender and non-distended Back/Spine normal ROM Extremity normal to inspection, full ROM and no pedal edema Skin Skin Narrative: Right anterior thigh with small wound with necrotic center noted. Surrounding erythema present but with moderate improvement from yesterday. Psych mental status grossly normal Assessment & Plan Assessment/Plan (1) Cellulitis of right thigh: PLAN: Plan Patient is a 34-year-old female who presented to [facility] ED on 08/09/2025 with right thigh erythema and swelling after recent bug bite. 1. Right thigh cellulitis after suspected bug bite with failed outpatient antibiotics – Recent ER visit on 08/06 for worsening right thigh pain and swelling after suspected bug bite. Diagnosed with cellulitis and discharged on Keflex and Bactrim. Presented with worsening right thigh pain and swelling. In the ED was noted to have active purulent drainage from the area. Purulent drainage was expressed in the ED and cultures were sent. Low concern for significant abscess so no imaging of the thigh was obtained. Wound cultures prelim positive for Staph aureus, sensitivities pending. Continue treatment with IV vancomycin for now, Unasyn discontinued. Will tentatively plan for discharge home tomorrow on p.o. doxycycline with plan for 7-day course of antibiotics total. 2. Anxiety/depression – Stable. Continue home escitalopram. 3. GERD – Continue home PPI. 4. Chronic migraines – Continue home triptan as needed. 5. Class I obesity – BMI 33 on admit. Complicates hospital course and care. DVT prophylaxis: Lovenox CODE STATUS: Full code, verified Expected disposition: Home, 1 to 2 days Total clinical time spent by myself addressing the patient's medical issues, reviewing all the data, and collaborating with patient's care team: 37 minutes. Charges/Coding Visit Charges Inpatient E&M: 55822 Subs Hosp L2
[2025-08-10 09:58] VITALS: O2SAT 95
[2025-08-10] MEDS: Vancomycin HCl 1,250 MG in 0.9% Normal Saline (250mL Bag) 250 ML 125 MG IV ×2 (11:22→18:31)
[2025-08-10 16:34] VITALS: BP 119/72; PULSE 75; RESP 16; TEMP 36.4; O2SAT 99
[2025-08-10 20:58] VITALS: BP 124/68; PULSE 69; RESP 18; TEMP 36.7; O2SAT 96
[2025-08-11 02:22] LABS: Hematocrit 39.9 % (37-47); Hemoglobin 13.4 g/dL (12.0-15.0); Mean Corp Hgb Conc 33.6 g/dL (32-36); Mean Corpuscular Volume 84.7 fL (81-99); Mean Platelet Vol. 8.0 fl (6.2-12.0); Platelet Count 349 K/mm3 (150-450); RBC Distribution Width CV 12.4 % (11.6-14.6); RBC Distribution Width SD 38.2 fl (35.1-43.9); Red Blood Count 4.71 M/mm3 (4.2-5.4); White Blood Count 8.1 K/mm3 (4.4-11.0)
[2025-08-11 03:02] LABS: Anion Gap 10 (5-15); BUN 9 mg/dL (4-19); BUN/Creat Ratio 14.5 RATIO (10-20); Calcium,Total 9.6 mg/dL (7.6-11.0); Carbon Dioxide 26.7 mmol/L (21.0-32.0); Chloride 101 mmol/L (98-108); Estimated Creatinine Clearance 143.29 ml/min (50-250); Glucose 97 mg/dL (70-99); Potassium 4.0 mmol/L (3.3-5.1); Vancomycin, Trough Level 17.8 ug/mL (5.0-15.0)
--- NOTE | 2025-08-11 03:09 | PCM.RX.CS ---
Consult Antibiotic Management Pharmacy has been consulted to manage selected antibiotic: Vancomycin Type of Intervention Type of Consult: Follow-up Suspected Infection Suspected Infection: Skin/Soft tissue Labs Labs: Sodium 138 mmol/L (133-145) 08/11/25 02:11 Potassium 4.0 mmol/L (3.3-5.1) 08/11/25 02:11 Chloride 101 mmol/L (98-108) 08/11/25 02:11 Carbon Dioxide 26.7 mmol/L (21.0-32.0) 08/11/25 02:11 Anion Gap 10 (5-15) 08/11/25 02:11 BUN 9 mg/dL (4-19) 08/11/25 02:11 Creatinine 0.63 mg/dL (0.70-1.20) L 08/11/25 02:11 Est GFR (MDRD) Non-Af 121 (>60) 08/11/25 02:11 BUN/Creatinine Ratio 14.5 RATIO (10-20) 08/11/25 02:11 Glucose 97 mg/dL (70-99) 08/11/25 02:11 Vancomycin Trough 17.8 ug/mL (5.0-15.0) H 08/11/25 02:11 Microbiology Microbiology: Microbiology 08/08/25 22:40 Wound - Leg, Right Gram Stain - Final 08/08/25 22:40 Wound - Leg, Right Wound Culture - Preliminary Staphylococcus aureus Dosing Weight Weight used for dosin.5 kg Estimated Creatinine Clearance Estimated Creatinine Clearance: 143 Goal Trough Goal Trough: 15-20 mcg/mL Pharmacy Plan for Drug Dosing Pharmacy Plan for Drug Dosing: Vancomycin trough level of 17.8, drawn 7.6hrs post-dose, was right in the target range of 15-20. Will continue dosing at 1250mg q8h and draw another trough level in two days. Pharmacy Service will continue to monitor and adjust dosing as required. Follow-Up Labs Follow-Up Labs: Trough: Vancomycin Date/Time Labs Ordered Labs to be done on [date and time ordered]: 08/13/25 @0200
[2025-08-11] MEDS: Vancomycin HCl 1,250 MG in 0.9% Normal Saline (250mL Bag) 250 ML 167 MG IV (03:34)
[2025-08-11 03:37] VITALS: BP 110/77; PULSE 66; RESP 18; TEMP 36.5; O2SAT 96
[2025-08-11 07:31] VITALS: O2SAT 96
[2025-08-11] MEDS: Lactobacillis Acidophilus 1 CAP PO (07:52)
[2025-08-11] MEDS: Magnesium Chloride 64 MG Delay Rel.Tablet 128 MG PO (07:52)
[2025-08-11] MEDS: Vitamin B Comp W-C Capsule 1 CAP PO (07:52)
[2025-08-11] MEDS: Cholecalciferol (Vit D3) 125 MCG CAPSULE (5,000 UNITS) PO (07:53)
[2025-08-11] MEDS: Zinc Sulfate 50 mg zinc (220 mg) ORAL capsule PO (07:53)
[2025-08-11 09:14] VITALS: BP 112/78; PULSE 70; RESP 14; TEMP 36.7; O2SAT 97
[2025-08-11 09:15] VITALS: BP 112/78; PULSE 70; RESP 14; TEMP 36.7; O2SAT 97
--- NOTE | 2025-08-11 09:45 | PCM.DC.SUM ---
Providers Date of Admission: 08/09/25 Date of Discharge: 08/11/25 Primary Care Physician: Dr. Fam Hodge MD Reason For Visit: RIGHT THIGH CELLULITIS Diagnosis Discharge Diagnosis (1) Cellulitis of right thigh: Status: Acute Code(s): L03.115 - Cellulitis of right lower limb Medications at Discharge Home Medications butterbur root extract 75 mg capsule 75 mg PO DAILY mruray 08/06/25 erenumab-aooe 140 mg/mL subcutaneous auto-injector (Aimovig Autoinjector) 140 mg subcut QMONTH 08/06/25 escitalopram oxalate 20 mg tablet 20 mg PO DAILY depression 08/06/25 magnesium oxide 400 mg PO DAILY supplement 08/06/25 modafinil 100 mg tablet 100 mg PO DAILY sleep 08/06/25 omeprazole 20 mg capsule,delayed release 20 mg PO DAILY gerd 08/06/25 sumatriptan succinate 100 mg tablet 100 mg PO Q2H PRN migraine headache 08/06/25 vitamin B complex (Balanced B-50 tablet) 1 tab PO DAILY supplement 08/06/25 mupirocin 2 % topical ointment 1 applic topical TID mrsa 08/09/25 doxycycline hyclate 100 mg tablet 100 mg PO BID 5 days #10 tabs 08/11/25 Hospital Course Operations None Summary of Care Provided Minutes Spent on Discharge: 36 Hospital Course: Patient is a 34-year-old female who presented to [facility] ED on 08/09/2025 with right thigh erythema and swelling after recent bug bite. Hospital course as noted below. Patient discharged home in stable condition on 08/11. 1. Right thigh cellulitis secondary to MRSA infection after suspected bug bite with failed outpatient antibiotics – Recent ER visit on 08/06 for worsening right thigh pain and swelling after suspected bug bite. Diagnosed with cellulitis and discharged on Keflex and Bactrim. Presented with worsening right thigh pain and swelling. In the ED was noted to have active purulent drainage from the area. Purulent drainage was expressed in the ED and cultures were sent. Low concern for significant abscess so no imaging of the thigh was obtained. Wound cultures prelim positive for MRSA. Treated with IV vancomycin and Unasyn while inpatient with very good improvement. Discharged home on p.o. doxycycline to complete 7-day course of antibiotics total. 2. Anxiety/depression – Stable. Continue home escitalopram. 3. GERD – Continue home PPI. 4. Chronic migraines – Continue home triptan as needed. 5. Class I obesity – BMI 33 on admit. Complicates hospital course and care. Total clinical time spent by myself addressing the patient's medical issues, reviewing all the data, and collaborating with patient's care team: 37 minutes. Physical Exam Const alert, oriented x3 and no apparent distress Constitutional Narrative: Pleasant younger female, class I obesity, sitting back comfortably in bed, conversing normally, in no acute distress. General Appearance: cooperative and comfortable HEENT normocephalic, head/scalp atraumatic, hearing grossly normal bilaterally, nasal mucous membranes and turbinates normal and moist oral mucous membranes Eyes PERRL, EOMs intact bilaterally and conjunctivae normal Neck full ROM Chest inspection of chest normal Resp normal respiratory effort, normal air movement, no use of accessory muscles and clear to auscultation bilaterally Cardio regular rate, regular rhythm, no murmurs and peripheral pulses 2+ throughout GI normal to inspection, nondistended, normoactive bowel sounds, soft to palpation, non-tender and non-distended Back/Spine normal ROM Extremity normal to inspection, full ROM and no pedal edema Skin Skin Narrative: Right anterior thigh with small wound with necrotic center noted. Mild purulent drainage noted that is improving and surrounding erythema much improved from admission. Psych mental status grossly normal Weight / BMI Weight Weight: 91.5 kg Body Mass Index (BMI) 33.5 ABG / Lab / Microbiology Data 08/11/25 02:11 08/11/25 02:11 Laboratory: Laboratory Results - last 24 hr 08/11/25 02:11: WBC 8.1, RBC 4.71, Hgb 13.4, Hct 39.9, MCV 84.7, MCH 28.5, MCHC 33.6, RDW Std Deviation 38.2, RDW Coeff of Yunior 12.4, Plt Count 349, MPV 8.0, Sodium 138, Potassium 4.0, Chloride 101, Carbon Dioxide 26.7, Anion Gap 10, BUN 9, Creatinine 0.63 L, Estim Creat Clear Calc 143.29, Est GFR (MDRD) Non-Af 121, BUN/Creatinine Ratio 14.5, Glucose 97, Calcium 9.6, Vancomycin Trough 17.8 H Microbiology: Microbiology 08/08/25 22:40 Wound - Leg, Right Gram Stain - Final 08/08/25 22:40 Wound - Leg, Right Wound Culture - Final Meth. resistant Staph. aureus 08/08/25 23:23 Blood Culture (Wb) - Anticubital Left Blood Culture - Preliminary No growth in 48 hours. D/C Instructions DC O2, CPAP, BIPAP Needs Home O2 Discharge instructions: No Meaningful Use Info Meaningful Use Meaningful Use Diagnoses (Choose all that apply): None applicable Discharge Plan Admission Admit Date/Time: 08/09/25 01:10 Primary Reason for Your Visit: leg infection Attending Provider: Allen Blackmon Primary Care Provider: Fam Hodge Consulting Providers: Alexx Carrillo Discharge Orders/Prescriptions Prescriptions: New doxycycline hyclate 100 mg tablet 100 mg PO BID 5 Days Qty: 10 0RF Continued sumatriptan succinate 100 mg tablet 100 mg PO Q2H PRN (Reason: migraine headache) omeprazole 20 mg capsule,delayed release(DR/EC) 20 mg PO DAILY modafinil 100 mg tablet 100 mg PO DAILY escitalopram oxalate 20 mg tablet 20 mg PO DAILY Aimovig Autoinjector 140 mg/mL auto-injector 140 mg SUBCUT QMONTH Patient Comments: [NO ORIGINAL SIG] butterbur root extract 75 mg capsule 75 mg PO DAILY vitamin B complex [Balanced B-50] Tablet 1 tab PO DAILY magnesium oxide 400 mg magnesium capsule 400 mg PO DAILY mupirocin 2 % ointment 1 applic topical TID Discontinued cephalexin 500 mg capsule 500 mg PO BID 7 Days Qty: 14 0RF sulfamethoxazole-trimethoprim [Bactrim DS] 800-160 mg tablet 1 tab PO BID 7 Days Qty: 14 0RF Referrals / Follow Up: Fam Hodge MD [Primary Care Provider, Medical] Disposition Disposition (needs filled in before D/C Order can be placed): Home, Self Care Charges/Coding Visit Charges Inpatient E&M: 43343 Disch Hosp >30min
--- NOTE | 2025-08-11 10:50 | PHA.DC.MC.R ---
Pharmacy [facility] Counseling Pharmacy Service has performed discharge medication reconciliation and counseling for this patient. The patient's discharge medication list was reviewed for discrepancies and discrepancies were resolved. The patient was counseled on the following discharge medications and changes in medications for homegoing were reviewed. The Reason for Use, instructions for use, and potential side effects were reviewed for all new medications. The patient's questions regarding all of their medications were answered. 1. Doxycycline 100 mg PO BID The patient was able to verbally demonstrate an understanding of their discharge medications. Medications at Discharge Home Medications butterbur root extract 75 mg capsule 75 mg PO DAILY murray 08/06/25 erenumab-aooe 140 mg/mL subcutaneous auto-injector (Aimovig Autoinjector) 140 mg subcut QMONTH 08/06/25 escitalopram oxalate 20 mg tablet 20 mg PO DAILY depression 08/06/25 magnesium oxide 400 mg PO DAILY supplement 08/06/25 modafinil 100 mg tablet 100 mg PO DAILY sleep 08/06/25 omeprazole 20 mg capsule,delayed release 20 mg PO DAILY gerd 08/06/25 sumatriptan succinate 100 mg tablet 100 mg PO Q2H PRN migraine headache 08/06/25 vitamin B complex (Balanced B-50 tablet) 1 tab PO DAILY supplement 08/06/25 mupirocin 2 % topical ointment 1 applic topical TID mrsa 08/09/25 doxycycline hyclate 100 mg tablet 100 mg PO BID 5 days #10 tabs 08/11/25
== END 2025-08-11 11:06 | disposition home or self-care (01) | DRG 383 ==
LOC: ED 22:08 → MS3 08-09 01:21
PROVIDERS: Admitting Provider Internal Medicine; Emergency Provider Surgery; Visit Provider Hospitalist
DX: L03.115 Cellulitis of right lower limb (principal); B95.62 Methicillin resistant Staphylococcus aureus infection as the cause of diseases classified elsewhere; F32.A Depression, unspecified; E66.811 Obesity, class 1; G43.709 Chronic migraine without aura, not intractable, without status migrainosus; K21.9 Gastro-esophageal reflux disease without esophagitis; F41.9 Anxiety disorder, unspecified; Z68.33 Body mass index [BMI] 33.0-33.9, adult; Z79.899 Other long term (current) drug therapy
CPT/HCPCS: 36415; 80048; 80053; 80202; 81001; 83735; 84100; 84443; 85025; 85027; 87040; 87070; 87077; 87186; 87205; 99284; 99285; A4216; J0295